=== PATIENT | male | born 1955 | race Caucasian/White ===

== ENCOUNTER → 2019-03-25 10:57 | Outpatient (CLI) | payer BC, SELFPAY ==
[2019-03-25 10:26] VITALS: BMI 26.8
[2019-03-25 12:14] LABS: ALB/GLOB Ratio 1.1 RATIO (0.9-2.4); AST(SGOT) 22 U/L (15-37); Alanine Aminotransfer ALT/SGPT 30 U/L (16-61); Albumin, Serum 3.7 g/dL (3.2-5.0); Alkaline Phosphatase 88 U/L (45-117); Anion Gap 8 (5-15); BUN 23 mg/dL (7-18); BUN/Creat Ratio 21.1 RATIO (10-20); Calcium,Total 8.9 mg/dL (8.5-10.1); Chloride 107 mmol/L (98-107); Cholesterol 215 mg/dL (200); Creatinine, Serum 1.09 mg/dL (0.70-1.30); EST Glomerular Filtration Rate 72 mL/min (>60); Est Glom Filt Rate - Afr Amer 87 mL/min (>60); Globulin 3.3 g/dL (2.2-4.2); Glucose 94 mg/dL (74-106); High Density Lipoprotein 46 mg/dL; Potassium 4.5 mmol/L (3.5-5.1); Sodium Level 140 mmol/L (136-145); Triglycerides 160 mg/dL; Very Low Density Lipoprotein 32 mg/dL (5-40)
== END ==
PROVIDERS: Family Provider Nurse Practitioner Family; PCP Internal Medicine; Visit Provider Internal Medicine
DX: K76.0 Fatty (change of) liver, not elsewhere classified (principal); E78.5 Hyperlipidemia, unspecified
CPT/HCPCS: 36415; 80053; 80061

== ENCOUNTER 2019-05-12 18:47 | Inpatient (IN) | payer BC, MEDICARE, SELFPAY ==
[2019-03-25 10:26] VITALS: BMI 26.8
[2019-05-12] VITALS (17 sets, daily range): BP systolic 89–132; BP diastolic 50–92; PULSE 48–104; RESP 14–26; TEMP 36.1; O2SAT 94–100; BMI 26.9; BMI 28.3; BMI 27.4; BMI 27.5
[2019-05-12] MEDS: Atropine Sulfate 1 MG/10 ML Syringe IV (19:00)
--- NOTE | 2019-05-12 19:01 | EKG12_ITS ---
Test Reason : CP Blood Pressure : / mmHG Vent. Rate : 044 BPM Atrial Rate : 044 BPM P-R Int : 136 ms QRS Dur : 076 ms QT Int : 454 ms P-R-T Axes : 014 023 068 degrees QTc Int : 388 ms Marked sinus bradycardia with occasional Premature ventricular complexes Abnormal ECG Poor R Wave Progression Inferior Infarct Confirmed by MIGDALIA PIKE, ANJELICA ([id number]), medical transcription editor LUKAS SIGALA ([id number]) on 05/14/2019 1:35:07 PM Referred By: Malcom Jimenez Confirmed By:ANJELICA NEGRON MD
--- NOTE | 2019-05-12 19:06 | RAD_ITS ---
STUDY: X-RAY CHEST REASON FOR EXAM: Male, 63 years old. Chest pain. TECHNIQUE: Single AP portable view of the chest. COMPARISON: None. FINDINGS: Mild cardiomegaly. Pulmonary vascularity unremarkable. Aorta unremarkable. No focal patchy airspace opacities. No pleural effusions. Slightly coarse lung markings. Upper abdomen unremarkable. Osseous structures intact. No pneumothorax. Degenerative changes at the shoulders and spine. Osteopenia. RAD/Chest 1 View (Portable) IMPRESSION: No acute cardiopulmonary findings Electronically Signed: Shon Molina DO at 19:20 EDT Tel , Service support ,
[2019-05-12] MEDS: 0.9% Normal Saline 1,000 ML 1000 ML IV (19:08)
[2019-05-12] MEDS: Heparin Injection (Vial) 5,000 UNIT/ML VIAL 4000 UNIT IV (19:14)
[2019-05-12] MEDS: Aspirin 81 MG TAB.CHEW 324 MG PO (19:14)
[2019-05-12] MEDS: TICAGRELOR 90 MG TABLET 180 MG PO (19:15)
[2019-05-12] MEDS: 0.9% Normal Saline 1,000 ML 150 ML IV ×2 (19:26→22:29)
--- NOTE | 2019-05-12 19:26 | HP.PCM_ITS ---
History of Present Illness Date of Admission: 05/12/19 Chief Complaint: epigatric pain, nausea The patient is a 63 year old M with past medical history as listed. He was admitted to the ED on 05/12/2019 with a complaint of epigastric pain and nausea as well as vomiting. Symptoms started around 6 PM on the day of admission. He had no associated shortness of breath or syncope. and daughter stated that patient had had a slow heart rate and they have been concerned about this and I discussed it with his primary care doctor but primary care doctor had stated that it was not of concern. Today when symptoms started, and daughter stated that they checked his pulse and they noted it was very slow and that with him very worried. They could not give an exact number as to how slow it was. Therefore they decided to bring into the ED. Patient has never had a stress test or heart cath before. Review of systems otherwise negative. On admission in the ED, initial EKG done showed sinus bradycardia with heart rate of [address] changes in the inferior leads. Follow-up up EKG showed sinus rhythm with heart rate of 82 bpm and interventricular conduction delay and frequent PACs. At that EKG done showed acute ST elevation in the inferior leads with reciprocal changes in the lateral leads and STEMI alert was called. He was given aspirin, Brilinta and heparin in the ED and also given 1 dose of atropine. CBC and BMP were pending. Troponin was also pending. Chest x-ray showed no acute cardiopulmonary findings. Patient was sent emergently to the [facility] and to be admitted in the ICU afterwards. [] Past Medical History Past Medical History (Chronic Problems): Chronic Problems (Last Reviewed 03/25/19 @ 10:26 by Tali Vázquez) Bradycardia (Chronic) Fatty infiltration of liver (Chronic) Barretts esophagus (Chronic) GERD (gastroesophageal reflux disease) (Chronic) Vitamin A deficiency (Chronic) Gastritis (Chronic) Hyperlipidemia (Chronic) Asthma (Chronic) Hypertension (Chronic) Medical History: Medical History (Last Reviewed 03/25/19 @ 10:26 by Tali Vázquez) Elevated liver enzymes (Acute) R74.8 Barretts esophagus (Chronic) K22.70 GERD (gastroesophageal reflux disease) (Chronic) K21.9 Vitamin A deficiency (Chronic) E50.9 Gastritis (Chronic) K29.70 Hyperlipidemia (Chronic) E78.5 Asthma (Chronic) J45.909 Hypertension (Chronic) I10 Hiatal hernia K44.9 Allergies amoxicillin trihydrate [From Augmentin] Allergy (Verified 05/12/19 18:59) CANT BREATHE potassium clavulanate [From Augmentin] Allergy (Verified 05/12/19 18:59) CANT BREATHE tetracycline Allergy (Verified 05/12/19 18:59) BRONCHIAL SPASM Home Medications: Ambulatory Orders Medication Instructions Recorded multivitamin tablet 1 tab PO QAM 09/13/17 omeprazole 40 mg capsule,delayed 40 mg PO DAILY #90 cap 10/31/18 release lisinopril 5 mg tablet 5 mg PO DAILY #90 tab 12/20/18 krill oil 500 mg capsule 350 mg PO DAILY cap 03/25/19 Surgical History: Surgical History (Last Reviewed 03/25/19 @ 10:26 by Tali Vázquez) History of appendectomy Z98.890, Z90.49 History of back surgery Z98.890 History of testicular surgery Z98.890 History of tonsillectomy Z98.890, Z90.89 Lives: Spouse/ Significant Other Smoking Status: Never smoker Alcohol: Occasional Drugs: None - *Family History Maternal Family History: Family History (Last Reviewed 03/25/19 @ 10:26 by Tali Vázquez) Father Heart disease Myocardial infarction Sister Depression Grandfather Alcoholism History Items: Stroke Paternal Family History: Family History (Last Reviewed 03/25/19 @ 10:26 by Tali Vázquez) Father Heart disease Myocardial infarction Sister Depression Grandfather Alcoholism History Items: Heart Disease - father of a heart attack in his 50s Review of Systems Constitutional: Reports: Malaise, Weakness. Denies: Anorexia, Chills, Fever HEENT: Denies: Head Aches, Sinus Congestion, Sinus Drainage Cardiovascular: Denies: Chest Pain Respiratory: Denies: Cough, Shortness of Breath, Shortness of breath at rest, Shortness of breath upon exertion, Sputum production Gastrointestinal: Reports: Abdominal Pain, Nausea, Vomiting. Denies: Diarrhea, Dyspepsia Genitourinary: Denies: Dysuria Musculoskeletal: Denies: Joint Pain, Joint Tenderness Skin: Denies: Rash, Wounds Neurological: Denies: Numbness, Tingling, Focal weakness Psychiatric: Denies: Anxiety, Depression, Homicidal Ideations, Suicidal Ideations Hematologic/ Lymphatic: Denies: Easy Bruising, Easy Bleeding VTE Information - Inpt Only VTE Present on Admission: No VTE Pharm Prophylaxis ordered?: Yes Patient Problems: Active and Suspected Problems (Last Reviewed 03/25/19 @ 10:26 by Tali Vázquez) STEMI (ST elevation myocardial infarction) (Acute) - Physical Exam General: Alert, Oriented x3, Cooperative, No apparent distress HEENT: Atraumatic, PERRLA, EOMI, Normocephalic Oral: Moist Mucosa Neck: Supple, No JVD, Negative Carotid Bruits Lungs: Clear to auscultation, Normal air movement, No rhonchi, No wheeze, No rales Cardiovascular: Regular rate, Regular Rhythm, Normal S1, Normal S2, No murmurs Abdomen: Bowel Sounds Present, Soft, Non Tender Extremities: No clubbing, No cyanosis, No edema, Capillary Refill Less than 3 Seconds, - Skin: No rashes, No breakdown Musculoskeletal: No Tenderness to Palpation of Joints or Extremities, - - pressure dressing over right wrist (site of cath) Lymphatic: No Cervical, Supraclavicular, or Inguinal Adenopathy Neurological: Cranial nerves II-XII grossly intact Psych/Mental Status: Normal Affect, Appropriate, Alert and oriented to time, place, person, mood and affect Vital Signs Temp Pulse Resp BP Pulse Ox 97 F L 99 14 132/92 H 100 05/12/19 18:47 05/12/19 19:07 05/12/19 19:12 05/12/19 19:12 05/12/19 19:18 Oxygen Flow Rate (L/min) 2 Oxygen Delivery Method Nasal Cannula Weight: 197 lb 8.547 oz Body Mass Index (BMI) 28.3 Finger Stick Blood Glucose 98 Laboratory Tests Past 24 Hrs 05/12/19 05/12/19 05/12/19 19:15 19:15 19:15 WBC Pending RBC Pending Hgb Pending Hct Pending MCV Pending MCH Pending MCHC Pending RDW Std Deviation Pending RDW Coeff of Daija Pending Plt Count Pending Neut % (Auto) Pending Absolute Neuts (auto) Pending PT Pending INR Pending APTT Pending Sodium Pending Potassium Pending Chloride Pending Carbon Dioxide Pending Anion Gap Pending BUN Pending Creatinine Pending Est GFR (MDRD) Af Amer Pending Est GFR (MDRD) Non-Af Pending BUN/Creatinine Ratio Pending Glucose Pending Calcium Pending Total Bilirubin Pending Direct Bilirubin Pending AST Pending ALT Pending Alkaline Phosphatase Pending Troponin I Pending Total Protein Pending Albumin Pending Lipase Pending Diagnostic Data Chest X-Ray 05/12/19 19:06 IMPRESSION: No acute cardiopulmonary findings Electronically Signed: Shon Craigjennifer, DO at 19:20 EDT Tel , Service support , Assessment/Plan All Active Problems (Last Reviewed 03/25/19 @ 10:26 by Tali Vázquez) STEMI (ST elevation myocardial infarction) (Acute) Vertigo (Acute) Elevated liver enzymes (Acute) 63 y/o admitted with a complaint of epigastric and low sternal pain. 1. STEMI * EKG study eventually showed ST elevation in the inferior leads. * STEMI alert called and patient given aspirin, Brilinta and statin. * cath findings: successful PCI with ORQUIDEA and PTCA to distal RCA and PDA * currently on integrilin drip; to continue for the next 18 hours, according to cardiology. continue aspirin and brilinta. * started on high intensity statin,a dn also received 2.5mg of lopressor; per cardiology, to start 12.5mg bid of lopressor tomorrow. to discuss with cardio logy about bradycardia before initiation of lopressor. * will need cardiac rehab after discharge. Per cardiology, may need CABG in the future. * 2. Hypertension: On lisinopril. Will continue. 3. Sinus bradycardia: * Patient's heart rate was 48 at time of admission. * According to family, patient has had a history of sinus bradycardia. * PCPs notes reviewed. From August 2018, it is documented the patient had concerns of sinus bradycardia but heart rate then was 66 and was considered to have been resolved and patient stable. * 2D echo 3. Hyperlipidemia: on statin 4. Asthma: breathing treatments. Titrate oxygen to maintain sats>90% 5. GERD and Shukla's esophagus: on omeprazole DVT prophylaxis: SCDs for now. Code Visit Inpatient E&M: 33544 Init Hosp L3
--- NOTE | 2019-05-12 19:37 | EKG12_ITS ---
Test Reason : CP Blood Pressure : / mmHG Vent. Rate : 082 BPM Atrial Rate : 045 BPM P-R Int : 000 ms QRS Dur : 140 ms QT Int : 478 ms P-R-T Axes : 000 253 061 degrees QTc Int : 558 ms Suspect arm lead reversal, interpretation assumes no reversal Undetermined rhythm Nonspecific intraventricular block Possible Right ventricular hypertrophy Inferior infarct , age undetermined Anterolateral infarct , age undetermined Abnormal ECG Confirmed by MIGDALIA PIKE, ANJELICA ([id number]), sports editor LUKAS SIGALA ([id number]) on 05/14/2019 1:36:02 PM Referred By: Malcom Jimenez Confirmed By:ANJELICA NEGRON MD
--- NOTE | 2019-05-12 19:38 | EKG12_ITS ---
Test Reason : CP Blood Pressure : / mmHG Vent. Rate : 098 BPM Atrial Rate : 098 BPM P-R Int : 152 ms QRS Dur : 088 ms QT Int : 342 ms P-R-T Axes : 047 068 097 degrees QTc Int : 436 ms Normal sinus rhythm ST elevation consider inferior injury or acute infarct ACUTE NC / STEMI Consider right ventricular involvement in acute inferior infarct Abnormal ECG Confirmed by MIGDALIA PIKE, ANJELICA ([id number]), senior editor LUKAS SIGALA ([id number]) on 05/14/2019 1:36:45 PM Referred By: Malcom Jimenez Confirmed By:ANJELICA NEGRON MD
--- NOTE | 2019-05-12 19:43 | ED.VIS.GEN ---
History of Present Illness Chief Complaint: Dizziness Informant: Patient Onset: Today Current Severity: Mild Maximum Severity: Moderate Narrative: Patient presents with chief complaint of sudden onset epigastric and low sternal pain. He had 2 episodes of vomiting. He denies shortness of breath. He had no syncopal event. Patient states he has a history of hypertension and high cholesterol. His doctor has commented that his heart rate tends to be on the slow side, but was not concerned with it. He denies ever having a stress test or heart cath. Past Medical History - Allergies and Home Meds Allergies/Adverse Reactions: Allergies amoxicillin trihydrate [From Augmentin] Allergy (Verified 05/12/19 18:59) CANT BREATHE potassium clavulanate [From Augmentin] Allergy (Verified 05/12/19 18:59) CANT BREATHE tetracycline Allergy (Verified 05/12/19 18:59) BRONCHIAL SPASM Doctors: Dr. Dahl Prior records reviewed: Yes Past Medical History: - - Reviewed Lives: Spouse/ Significant Other Smoking Status: Never smoker Review of Systems General: Denies: Chills, Fever Eyes: Denies: Visual changes - bilaterally ENT: Denies: Bilateral ear pain Cardiovascular: Reports: Chest pain Respiratory: Denies: Dyspnea Gastrointestinal: Reports: Abdominal pain, Nausea, Vomiting Musculoskeletal: Denies: Back pain Skin: Denies: Rash Neurological: Denies: Headache Psych: Denies: Depression Endocrine: Denies: Polyuria, Polydipsia Hematologic: Denies: Easy bruising Allergy: Denies: Uticaria Physical Exam Vital Signs/Narrative: Vital Signs Temp Pulse Resp BP Pulse Ox 05/12/19 19:18 100 05/12/19 19:12 14 132/92 H 05/12/19 19:07 99 20 H 117/81 H 99 05/12/19 18:59 48 L 94/59 L 05/12/19 18:47 97 F L 48 L 16 89/50 L 98 Inital Vital Signs reviewed: Yes General: Well nourished, Well developed Eyes: EOMI ENT: Moist mucous membranes Cardiovascular: Bradycardia Respiratory: No distress, CTA bilaterally Abdomen: Soft, Nontender Extremities: Nontender, No edema Skin: Pallor Neurological: Alert, Oriented x3 Psychological: - - Anxious Diagnostic/Tx/Re-eval Impressions Chest X-Ray 05/12/19 19:06 IMPRESSION: No acute cardiopulmonary findings Electronically Signed: Shon Molina, DO at 19:20 EDT Tel , Service support , 05/12/19 19:06 Chest 1 View (Portable) [RAD] Stat Laboratory Results 05/12/19 05/12/19 19:15 19:15 WBC 3.8 L RBC 2.01 L Hgb 6.9 L Hct 20.3 L MCV 101.0 H MCH 34.3 H MCHC 34.0 RDW Std Deviation 43.6 RDW Coeff of Daija 11.9 Plt Count 71 L MPV 8.7 Immature Gran % (Auto) 0.500 Neut % (Auto) 68.1 Lymph % (Auto) 21.7 Becker % (Auto) 8.4 Eos % (Auto) 1.0 Baso % (Auto) 0.3 Absolute Neuts (auto) 2.6 Absolute Lymphs (auto) 0.83 Nucleated RBC % 0 PT Cancelled INR Cancelled APTT Cancelled - EKG Initial EKG Interpretation: Sinus Bradycardia - Sinus bradycardia at [address] changes in the inferior leads. PAC is noted. Follow-up EKG Interpretation: Sinus Rhythm - Sinus at 82 with intraventricular conduction delay and frequent PACs. - Medical Decision Making 30 EKG was performed. This reveals acute ST segment elevation in the inferior leads with reciprocal changes in the high lateral leads. STEMI alert has been called. Patient received IV fluids along with 1 mg of IV atropine. Following identification of acute STEMI patient was given aspirin, Brilinta, and heparin. Heart rate maintained between 90 and 105. Patient was consented for heart cath. Patient was escorted to the [facility]. Cardiology saw the patient in the emergency room. Family was updated throughout. When CBC returned it is noted the patient appears to have pancytopenia with a hemoglobin of 6.9. I ordered 2 units of blood to have crossmatched. I was then notified by nursing staff that the blood was drawn above his IV line and may be diluted. It will be redrawn in the [facility] and checked. ED Disposition - Plan for ED Patient: Disposition: Acute Care Hospital [facility] Diagnosis: STEMI (ST elevation myocardial infarction)
--- NOTE | 2019-05-12 21:07 | NURSING ---
verbal order from dr gustafson read back to this rn to continue to infuse integrillin for 18 hours
--- NOTE | 2019-05-12 21:16 | EKG12_ITS ---
Test Reason : CP Blood Pressure : / mmHG Vent. Rate : 051 BPM Atrial Rate : 051 BPM P-R Int : 166 ms QRS Dur : 076 ms QT Int : 416 ms P-R-T Axes : 055 -10 078 degrees QTc Int : 383 ms Sinus bradycardia Low voltage QRS Inferior infarct , possibly acute * ACUTE MA Consider right ventricular involvement in acute inferior infarct Anterior MA, age undetermined, cannot be excluded Abnormal ECG Confirmed by GERRI PIKE, KENDAL ([id number]), web editor LUKAS SIGALA ([id number]) on 05/22/2019 1:01:52 PM Referred By: Malcom Jimenez Confirmed By:KENDAL TALLEY MD
--- NOTE | 2019-05-12 21:25 | ECHOCS_ITS ---
Reason For Study: S/P [place] Procedure This was a 2D Doppler, Color Flow transthoracic echocardiogram. The study was technically difficult. Contrast injection was performed. Exam performed portable in ICU/CCU. Left Ventricle Normal LV size. Mild segmental systolic dysfunction (see wall motion). The estimated ejection fraction is 50 %. Stage 1 diastolic dysfunction. Mid-Inferior: Mildly hypokinetic. Infero-Basal: Mildly hypokinetic. The rest of the wall segments are normal. Right Ventricle Normal RV size. Normal systolic function. Atria The left atrium is mildly enlarged. Normal right atrium. Mitral Valve Normal mitral valve. Tricuspid Valve Normal tricuspid valve. Mild tricuspid valve insufficiency. Pulmonary artery systolic pressure is 26 mmHg. Aortic Valve Normal aortic valve. Trisinus/trileaflet aortic valve. Pulmonic Valve Normal pulmonic valve. Great Vessels Normal aortic root. The pulmonary artery is normal size. Normal inferior vena cava. Pericardium/Pleural No pericardial effusion. Medication Diluted definity 3ml given slow IV push to enhance endocardial definition. MMode/2D Measurements & Calculations LVIDd: 4.5 cm IVSd: 1.0 cm Ao root diam: 3.2 cm LVIDs: 3.1 cm LVPWd: 1.0 cm RVDd: 4.0 cm FS: 31.1 % LAV(MOD-bp): 52.8 ml LA A4 area: 21.2 cm2 LA dimension(2D): 3.7 cm LAV(MOD-bp) Indexed: 25.5 ml/m2 LAV(MOD-sp2): 43.5 ml LAV(MOD-sp4): 61.2 ml RA A4 area: 12.8 cm2 Time Measurements MV aug time: 0.19 sec Doppler Measurements & Calculations MV E max andrea: 62.7 cm/sec Lat Peak E' Andrea: 9.5 cm/sec Med Peak E' Andrea: 8.8 cm/sec MV A max andrea: 98.6 cm/sec E/E' lat: 6.6 E/E' med: 7.1 MV E/A: 0.64 Ao V2 max: 112.4 cm/sec LV V1 max: 99.7 cm/sec PA V2 max: 78.8 cm/sec Ao max P.1 mmHg LV V1 max P.0 mmHg TR max andrea: 235.4 cm/sec TR max P.4 mmHg Interpretation Summary Normal LV size. Mild segmental systolic dysfunction (see wall motion). The estimated ejection fraction is 50 %. Stage 1 diastolic dysfunction. Pulmonary artery systolic pressure is 26 mmHg. Contrast injection was performed. Ordering Physician: Tavo Bynum Referring Physician: RASHMI BUCIO Performed By: Alexa Mcnair RDCS, RVT
--- NOTE | 2019-05-12 21:27 | PCM.CONS.C ---
Problem List (1) STEMI (ST elevation myocardial infarction) Status: Acute Reason for Consult Date of Consultation: 05/12/19 Reason for Consultation: ST elevation myocardial infarction History of Present Illness: The patient is a 63 year old M who was driven to the emergency room by his family. Approximately 1-1/2 hours before presentation, he experienced episodes of nausea and vomiting. The patient also had significant diaphoresis, along with left arm pain. He was driven by his family to the emergency department. ECG in the emergency department showed evidence of marked sinus bradycardia at 44 bpm with evidence of subtle ST elevations in leads II, 3, aVF. The first ECG was rather nondiagnostic. Subsequent EKG showed clearly ST elevations in leads II, 3, aVF, the STEMI alert was called. The patient received heparin 4000 units, he was loaded with aspirin and Brilinta. At the moment of my exam, the patient was in significant distress, complaining of severe chest pain. Past medical history is notorious for hypertension, on lisinopril. Past Medical History Allergies/Adverse Reactions: Allergies amoxicillin trihydrate [From Augmentin] Allergy (Verified 05/12/19 18:59) CANT BREATHE potassium clavulanate [From Augmentin] Allergy (Verified 05/12/19 18:59) CANT BREATHE tetracycline Allergy (Verified 05/12/19 18:59) BRONCHIAL SPASM Home Medications: Ambulatory Orders Medication Instructions Recorded multivitamin tablet 1 tab PO QAM 09/13/17 omeprazole 40 mg capsule,delayed 40 mg PO DAILY #90 cap 10/31/18 release lisinopril 5 mg tablet 5 mg PO DAILY #90 tab 12/20/18 krill oil 500 mg capsule 500 mg PO DAILY cap 03/25/19 Past Medical History (Chronic Problems): Chronic Problems (Last Reviewed 03/25/19 @ 10:26 by Tali Vázquez) Bradycardia (Chronic) Fatty infiltration of liver (Chronic) Barretts esophagus (Chronic) GERD (gastroesophageal reflux disease) (Chronic) Vitamin A deficiency (Chronic) Gastritis (Chronic) Hyperlipidemia (Chronic) Asthma (Chronic) Hypertension (Chronic) Lives: Spouse/ Significant Other Smoking Status: Never smoker Alcohol: Occasional Drugs: None Review of Systems - Review of Systems General: Denies: Fever, Night Sweats, Fatigue Cardiovascular: Denies: Chest Discomfort, Shortness of Breath, Orthopnea, PND, Peripheral Edema, Palpitations, Lightheadedness, Dizziness, Near Syncope, Syncope Respiratory: Denies: Cough, Sputum Production, Hemoptysis Gastrointestinal: Denies: Hematemesis, Hematochezia, Melena Genitourinary: Denies: Dysuria, Hematuria Skin: Denies: Rash Objective: Vital Signs Temp Pulse Resp BP Pulse Ox 97 F L 99 14 132/92 H 100 05/12/19 18:47 05/12/19 19:07 05/12/19 19:12 05/12/19 19:12 05/12/19 19:18 Oxygen Flow Rate (L/min) 2 Oxygen Delivery Method Nasal Cannula Weight: 89.6 kg Body Mass Index (BMI) 28.3 Finger Stick Blood Glucose 98 General: Awake, Alert, Oriented x 3, In Acute Distress HEENT: PERRL, EOMI, Sclera Non Icteric Neck: Supple, Good ROM, No Lymph Node Enlargement Lungs: Clear to auscultation Cardiovascular: Regular Rhythm, Normal S1, Normal S2, No Murmurs, No Rubs, No Gallops Vascular: No Carotid Bruits, Normal Femoral Pulses, Normal Radial Pulses, Normal Dorsalis Pedal Pulse, Normal Posterior Tibial Pulses Abdomen: Bowel Sounds Present, Soft, Non Tender, No HSM, No Organomegaly Extremities: No Cyanosis, No Clubbing, No edema Neurological: No Focal Motor or Sensory Deficit 05/12/19 19:15: WBC Cancelled, Corrected WBC Cancelled, RBC Cancelled, Hgb Cancelled, Hct Cancelled, MCV Cancelled, MCH Cancelled, MCHC Cancelled, Plt Count Cancelled, MPV Cancelled, Immature Gran % (Auto) Cancelled, Neut % (Auto) Cancelled, Lymph % (Auto) Cancelled, [place] % (Auto) Cancelled, Eos % (Auto) Cancelled, Baso % (Auto) Cancelled, Absolute Neuts (auto) Cancelled, Total Counted Cancelled, Neutrophils % (Manual) Cancelled, Band Neutrophils % Cancelled, Lymphocytes % (Manual) Cancelled, Monocytes % (Manual) Cancelled, Eosinophils % (Manual) Cancelled, Basophils % (Manual) Cancelled, Metamyelocytes % Cancelled, Myelocytes % Cancelled, Promyelocytes % Cancelled, Blast Cells % Cancelled, Plasma Cell % (Manual) Cancelled, Other Cells % Cancelled, Nucleated RBC % Cancelled 05/12/19 19:15: Sodium Cancelled, Potassium Cancelled, Chloride Cancelled, Carbon Dioxide Cancelled, Anion Gap Cancelled, BUN Cancelled, Creatinine Cancelled, Est GFR (MDRD) Af Amer Cancelled, Est GFR (MDRD) Non-Af Cancelled, BUN/Creatinine Ratio Cancelled, Glucose Cancelled, Calcium Cancelled, Total Bilirubin Cancelled, Direct Bilirubin Cancelled, Troponin I Cancelled 05/12/19 19:15: PT Cancelled, INR Cancelled, APTT Cancelled Rhythm: EKG: Sinus rhythm/tachycardia with evidence of ST elevations in inferior leads. Assessment/Plan 1. Acute inferior ST elevation myocardial infarction. 2. History of hypertension. We will proceed to the cardiac catheterization laboratory emergently. Overall prognosis is guarded. Further management will be dependent upon the function of cardiac catheterization. Over 1 hour of critical care time was spent for the patient's encounter, including discussion with multiple providers and immediate care of the patient. Code Visit Inpatient E&M: 47072 Init Hosp L3
[2019-05-12 22:31] LABS: Absolute Lymphocyte Count 0.97 X10^3/uL (0.83-4.51); Absolute Neutrophil Count 7.9 X10^3/uL (2.0-7.7); Basophil# 0.03 X10^3/uL; Basophil% 0.3 % (0-1); Eosinophil# 0.01 X10^3/uL; Eosinophils% 0.1 % (0-5); Hematocrit 40.1 % (40-54); Hemoglobin 13.8 g/dL (13.0-16.5); Lymphocyte # 0.97 X10^3/ul (4.0); Lymphocyte % 10.4 % (19-41); Mean Corp Hgb Conc 34.4 g/dL (32-36); Mean Corpuscular Hgb 33.6 pg (27.0-32.0); Mean Corpuscular Volume 97.6 fL (80-94); Mean Platelet Vol. 9.2 fl (6.2-12.0); Monocyte# 0.45 X10^3/uL; Monocyte% 4.8 % (0-10); NRBC Flagged by Analyzer 0 % (0-5); Neutrophil # 7.87 X10^3/uL (2.7-7.7); Neutrophil % 84.1 % (47-70); Platelet Count 168 K/mm3 (150-450); RBC Distribution Width CV 11.6 % (11.6-14.6); RBC Distribution Width SD 41.7 fl (35.1-43.9); Red Blood Count 4.11 M/mm3 (4.6-6.2); White Blood Count 9.4 K/mm3 (4.4-11.0)
[2019-05-12] MEDS: Metoprolol Tartrate 25 MG Tablet 12.5 MG PO (22:32)
[2019-05-12] MEDS: Atorvastatin Calcium 80 MG Tablet PO (22:32)
[2019-05-12 22:46] LABS: Anion Gap 8 (5-15); BUN 20 mg/dL (7-18); BUN/Creat Ratio 17.1 RATIO (10-20); Calcium,Total 7.4 mg/dL (8.5-10.1); Chloride 109 mmol/L (98-107); Creatinine, Serum 1.17 mg/dL (0.70-1.30); EST Glomerular Filtration Rate 66 mL/min (>60); Est Glom Filt Rate - Afr Amer 80 mL/min (>60); Estimated Creatinine Clearance 64.99 ml/min; Glucose 101 mg/dL (74-106); Potassium 3.9 mmol/L (3.5-5.1); Sodium Level 141 mmol/L (136-145)
[2019-05-12 23:42] LABS: International Normalized Ratio 1.3; Prothrombin Time (Protime)PT. 16.2 SECONDS (11.7-14.9)
[2019-05-12 23:43] LABS: Partial Thromboplast Time 66.5 Seconds (24.1-36.2)
[2019-05-13] VITALS (27 sets, daily range): BP systolic 85–127; BP diastolic 48–68; PULSE 42–78; RESP 14–25; TEMP 36.4–37.2; O2SAT 93–99
[2019-05-13] MEDS: Ondansetron 4 MG/2 ML Vial IV ×2 (02:58→11:18)
[2019-05-13] MEDS: 0.9% NaCl Peripheral Flush Adult/Peds IV ×2 (02:58→11:18)
[2019-05-13 04:18] LABS: Absolute Lymphocyte Count 1.04 X10^3/uL (0.83-4.51); Absolute Neutrophil Count 8.1 X10^3/uL (2.0-7.7); Basophil# 0.02 X10^3/uL; Basophil% 0.2 % (0-1); Hemoglobin 13.6 g/dL (13.0-16.5); Lymphocyte # 1.04 X10^3/ul (4.0); Lymphocyte % 10.5 % (19-41); Mean Corp Hgb Conc 34.9 g/dL (32-36); Mean Corpuscular Hgb 34.1 pg (27.0-32.0); Mean Corpuscular Volume 97.7 fL (80-94); Mean Platelet Vol. 9.3 fl (6.2-12.0); Monocyte# 0.71 X10^3/uL; Monocyte% 7.2 % (0-10); NRBC Flagged by Analyzer 0 % (0-5); Neutrophil # 8.13 X10^3/uL (2.7-7.7); Neutrophil % 81.8 % (47-70); Platelet Count 164 K/mm3 (150-450); RBC Distribution Width CV 11.9 % (11.6-14.6); RBC Distribution Width SD 42.7 fl (35.1-43.9); Red Blood Count 3.99 M/mm3 (4.6-6.2); White Blood Count 9.9 K/mm3 (4.4-11.0)
[2019-05-13 04:22] LABS: Anion Gap 7 (5-15); BUN 22 mg/dL (7-18); BUN/Creat Ratio 19.6 RATIO (10-20); Calcium,Total 7.9 mg/dL (8.5-10.1); Chloride 108 mmol/L (98-107); Creatinine, Serum 1.12 mg/dL (0.70-1.30); EST Glomerular Filtration Rate 70 mL/min (>60); Est Glom Filt Rate - Afr Amer 85 mL/min (>60); Estimated Creatinine Clearance 67.89 ml/min; Glucose 125 mg/dL (74-106); Potassium 4.8 mmol/L (3.5-5.1); Sodium Level 138 mmol/L (136-145)
[2019-05-13] MEDS: 0.9% Normal Saline 1,000 ML 999 ML IV (05:29)
[2019-05-13] MEDS: 0.9% Normal Saline 1,000 ML 150 ML IV ×2 (06:12→13:17)
--- NOTE | 2019-05-13 07:14 | PN.CARD_ITS ---
Subjectve: Patient seen and evaluated. Appears to be doing well. No obvious cardiac complaints of chest pain. Objective: Vital Signs Temp Pulse Resp BP Pulse Ox 97.9 F 48 L 16 97/57 L 96 05/13/19 04:00 05/13/19 07:00 05/13/19 07:00 05/13/19 07:00 05/13/19 07:00 Oxygen Flow Rate (L/min) 2 Oxygen Delivery Method Room Air Weight: 196 lb 3.382 oz Body Mass Index (BMI) 27.4 Finger Stick Blood Glucose 98 Intake and Output for Last 24 Hours 05/11/19 05/12/19 05/13/19 23:59 23:59 23:59 Intake Total 1958.4 / 1958.4 Output Total 650 / 650 Balance 1308.4 / 1308.4 General: Awake, Alert, Oriented x 3 HEENT: PERRL, EOMI, Sclera Non Icteric Neck: Supple, Good ROM, No Lymph Node Enlargement Lungs: Clear to auscultation Cardiovascular: Regular Rhythm, Normal S1, Normal S2, No Murmurs, No Rubs, No Gallops Vascular: No Carotid Bruits, Normal Femoral Pulses, Normal Radial Pulses, Normal Dorsalis Pedal Pulse, Normal Posterior Tibial Pulses Abdomen: Bowel Sounds Present, Soft, Non Tender, No HSM, No Organomegaly Extremities: No Cyanosis, No Clubbing, No edema Musculoskeletal: No Erythema Skin: No Rashes Lymphatic: No Lymph Node Enlargement Neurological: No Focal Motor or Sensory Deficit Psych/Mental Status: Appropriate 05/12/19 19:15: WBC Cancelled, Corrected WBC Cancelled, RBC Cancelled, Hgb Cancelled, Hct Cancelled, MCV Cancelled, MCH Cancelled, MCHC Cancelled, Plt Count Cancelled, MPV Cancelled, Immature Gran % (Auto) Cancelled, Neut % (Auto) Cancelled, Lymph % (Auto) Cancelled, [place] % (Auto) Cancelled, Eos % (Auto) Cancelled, Baso % (Auto) Cancelled, Absolute Neuts (auto) Cancelled, Total Counted Cancelled, Neutrophils % (Manual) Cancelled, Band Neutrophils % Cancelled, Lymphocytes % (Manual) Cancelled, Monocytes % (Manual) Cancelled, Eosinophils % (Manual) Cancelled, Basophils % (Manual) Cancelled, Metamyelocytes % Cancelled, Myelocytes % Cancelled, Promyelocytes % Cancelled, Blast Cells % Cancelled, Plasma Cell % (Manual) Cancelled, Other Cells % Cancelled, Nucleated RBC % Cancelled 05/12/19 19:15: Sodium Cancelled, Potassium Cancelled, Chloride Cancelled, Carbon Dioxide Cancelled, Anion Gap Cancelled, BUN Cancelled, Creatinine Cancelled, Est GFR (MDRD) Af Amer Cancelled, Est GFR (MDRD) Non-Af Cancelled, BUN/Creatinine Ratio Cancelled, Glucose Cancelled, Calcium Cancelled, Total Bilirubin Cancelled, Direct Bilirubin Cancelled, Troponin I Cancelled 05/12/19 19:15: PT Cancelled, INR Cancelled, APTT Cancelled 05/12/19 22:15: WBC 9.4, RBC 4.11 L, Hgb 13.8, Hct 40.1, MCV 97.6 H, MCH 33.6 H, MCHC 34.4, Plt Count 168, MPV 9.2, Immature Gran % (Auto) 0.300, Neut % (Auto) 84.1 H, Lymph % (Auto) 10.4 L, [place] % (Auto) 4.8, Eos % (Auto) 0.1, Baso % (Auto) 0.3, Absolute Neuts (auto) 7.9 H, Nucleated RBC % 0 05/12/19 22:15: PT Cancelled, INR Cancelled, APTT Cancelled 05/12/19 22:15: Sodium 141, Potassium 3.9, Chloride 109 H, Carbon Dioxide 24.0, Anion Gap 8, BUN 20 H, Creatinine 1.17, Est GFR (MDRD) Af Amer 80, Est GFR (MDRD) Non-Af 66, BUN/Creatinine Ratio 17.1, Glucose 101, Calcium 7.4 L 05/12/19 23:25: PT 16.2 H, INR 1.3, APTT 66.5 H 05/13/19 03:55: WBC 9.9, RBC 3.99 L, Hgb 13.6, Hct 39.0 L, MCV 97.7 H, MCH 34.1 H, MCHC 34.9, Plt Count 164, MPV 9.3, Immature Gran % (Auto) 0.300, Neut % (Auto) 81.8 H, Lymph % (Auto) 10.5 L, [place] % (Auto) 7.2, Eos % (Auto) 0.0, Baso % (Auto) 0.2, Absolute Neuts (auto) 8.1 H, Nucleated RBC % 0 05/13/19 03:55: Sodium 138, Potassium 4.8, Chloride 108 H, Carbon Dioxide 23.0, Anion Gap 7, BUN 22 H, Creatinine 1.12, Est GFR (MDRD) Af Amer 85, Est GFR (MDRD) Non-Af 70, BUN/Creatinine Ratio 19.6, Glucose 125 H, Calcium 7.9 L Rhythm: EKG: ECHO: Stress Test: Cardiac Cath: PCI: CT Surgery: Holter monitor: EPS: PPM: CXR: Chest CT Scan: Medical Necessity - Tobacco Use Smoking Status: Never smoker Assessment/Plan 1. Acute ST elevation myocardial infarction * Patient presented with an acute ST elevation microinfarction underwent angioplasty and stenting of the right coronary artery with thrombectomy. Has done well overnight. However has had some runs of nonsustained ventricular tachycardia which were asymptomatic. Patient was also hypotensive and required some IV fluid bolus. Currently pain-free blood pressure stable. * Patient signed out to me by covering interventionalist. * Will obtain echocardiogram to assess left ventricular function * Continue Integrilin until 18 hours post starting * Patient does have residual coronary artery disease and would need to be reevaluated regarding further therapy. This will be discussed later. * Further recommendations would be made as per clinical course. Would like to keep patient in the ICU until fairly stable, echo has been performed, and Integrilin off. * Continue high intensity statin.
[2019-05-13 08:55] LABS: Magnesium 2.1 mg/dL (1.6-2.6); Phosphorus 2.7 mg/dL (2.5-4.9)
[2019-05-13] MEDS: Aspirin 81 MG TAB.CHEW PO (09:04)
[2019-05-13] MEDS: TICAGRELOR 90 MG TABLET PO ×2 (09:04→22:32)
[2019-05-13] MEDS: Pantoprazole Sodium 40 MG Tablet PO (09:04)
[2019-05-13] MEDS: Multivitamins,Therapeutic Tablet 1 TABLET PO (09:05)
--- NOTE | 2019-05-13 09:46 | CASEMGMT ---
RN CM Assessment Presentation: STEMI, 3 stents to RCA, 1 stent to PDA Intro role of CM and purpose of RN CM assessment to patient in room. Pt is awake, alert and able to participate in assessment. Demographics, PCP and Pharmacy verified. Pt is concerned re: his employment, states he hopes this does not impact his job. States he is eligible for [employer], however wishes to continue to work for 2 more years. Emotional support provided. PCP: Domingo Morrow NP Specialists: Dr. Torres Preferred Pharmacy: [facility] Insurance: [employer] Prescription Benefit: yes. [employer] savings card given to patient and explained. LNOK: Kesha Quintero Living Arrangements: Lives independently with . States no care needs identified. Transportation: Drives or can drive DME: none HHC/SNF: none Patient DC goals: Home DC PLAN: Home on dc. Corinna SIERRA RN ACM
--- NOTE | 2019-05-13 10:59 | PN_ITS ---
Patient Problems: Active and Suspected Problems (Last Reviewed 03/25/19 @ 10:26 by Tali Vázquez) STEMI (ST elevation myocardial infarction) (Acute) Subjective: Some epigastric pain. Feeling much better. Vitals/I&O's: Vital Signs Temp Pulse Resp BP Pulse Ox 36.6 C 53 L 24 H 88/59 L 96 05/13/19 08:00 05/13/19 10:00 05/13/19 10:00 05/13/19 10:00 05/13/19 10:00 Oxygen Flow Rate (L/min) 2 Oxygen Delivery Method Room Air Weight: 89 kg Body Mass Index (BMI) 27.4 Finger Stick Blood Glucose 98 Intake and Output for Last 24 Hours 05/11/19 05/12/19 05/13/19 23:59 23:59 23:59 Intake Total 1958.4 / 1958.4 Output Total 650 / 650 Balance 1308.4 / 1308.4 General: Alert, No apparent distress HEENT: Atraumatic, Normocephalic Oral: Moist Mucosa, No Gingival or Mucosal Lesions/ Ulcerations Neck: No Nodes, Thyroid Normal Size and Texture Lungs: Clear to auscultation, Normal air movement, No rhonchi, No wheeze, No rales Cardiovascular: Regular rate, Regular Rhythm, Normal S1, Normal S2, No murmurs Abdomen: Bowel Sounds Present, Soft, Non-Distended, Tender - epigastric Extremities: No edema, No Calf Tenderness Skin: No rashes, No breakdown Musculoskeletal: No Tenderness to Palpation of Joints or Extremities, No Muscle Wasting Neurological: Sensory exam intact to light touch and pain, - - no clonus. Psych/Mental Status: Normal Affect, Appropriate Laboratory Results 05/12/19 19:15: WBC Cancelled, Corrected WBC Cancelled, RBC Cancelled, Hgb Cancelled, Hct Cancelled, MCV Cancelled, MCH Cancelled, MCHC Cancelled, RDW Std Deviation Cancelled, RDW Coeff of Daija Cancelled, Plt Count Cancelled, MPV Cancelled, Immature Gran % (Auto) Cancelled, Neut % (Auto) Cancelled, Lymph % (Auto) Cancelled, [place] % (Auto) Cancelled, Eos % (Auto) Cancelled, Baso % (Auto) Cancelled, Absolute Neuts (auto) Cancelled, Absolute Lymphs (auto) Cancelled, Total Counted Cancelled, Neutrophils % (Manual) Cancelled, Band Neutrophils % Cancelled, Lymphocytes % (Manual) Cancelled, Monocytes % (Manual) Cancelled, Eosinophils % (Manual) Cancelled, Basophils % (Manual) Cancelled, Metamyelocytes % Cancelled, Myelocytes % Cancelled, Promyelocytes % Cancelled, Blast Cells % Cancelled, Plasma Cell % (Manual) Cancelled, Other Cells % Cancelled, Nucleated RBC % Cancelled, Nucleated RBCs/100 WBC Cancelled, Differential Comment Cancelled, Diff Path Review Cancelled, Hypersegmented Neuts Cancelled, Atypical Lymphocytes Cancelled, Reactive Lymphocytes Cancelled, Smudge Cells Cancelled, Toxic Granulation Cancelled, Toxic Vacuolation Cancelled, Dohle Bodies Cancelled, Mert Rods Cancelled, Platelet Estimate Cancelled, Plt Morphology Comment Cancelled, RBC Morphology Cancelled, Polychromasia Cancelled, Hypochr omasia Cancelled, Poikilocytosis Cancelled, Basophilic Stippling Cancelled, Anisocytosis Cancelled, Microcytosis Cancelled, Macrocytosis Cancelled, Spherocytes Cancelled, Sickle Cells Cancelled, Target Cells Cancelled, Tear Drop Cells Cancelled, Ovalocytes Cancelled, Stomatocytes Cancelled, [place] Bodies Cancelled, [place] Cells Cancelled, Bite Cells Cancelled, Crenated Cell Cancelled, Acanthocytes (Spur) Cancelled, Rouleaux Cancelled, Schistocytes Cancelled 05/12/19 19:15: Sodium Cancelled, Potassium Cancelled, Chloride Cancelled, Carbon Dioxide Cancelled, Anion Gap Cancelled, BUN Cancelled, Creatinine Cancelled, Estim Creat Clear Calc Cancelled, Est GFR (MDRD) Af Amer Cancelled, Est GFR (MDRD) Non-Af Cancelled, BUN/Creatinine Ratio Cancelled, Glucose Cancelled, Calcium Cancelled, Total Bilirubin Cancelled, Direct Bilirubin Cancelled, AST Cancelled, ALT Cancelled, Alkaline Phosphatase Cancelled, Troponin I Cancelled, Total Protein Cancelled, Albumin Cancelled, Globulin Cancelled, Lipase Cancelled 05/12/19 19:15: PT Cancelled, INR Cancelled, APTT Cancelled 05/12/19 22:15: Blood Type O POSITIVE, Antibody Screen NEGATIVE, Crossmatch See Detail 05/12/19 22:15: WBC 9.4, RBC 4.11 L, Hgb 13.8, Hct 40.1, MCV 97.6 H, MCH 33.6 H, MCHC 34.4, RDW Std Deviation 41.7, RDW Coeff of Daija 11.6, Plt Count 168, MPV 9.2, Immature Gran % (Auto) 0.300, Neut % (Auto) 84.1 H, Lymph % (Auto) 10.4 L, [place] % (Auto) 4.8, Eos % (Auto) 0.1, Baso % (Auto) 0.3, Absolute Neuts (auto) 7.9 H, Absolute Lymphs (auto) 0.97, Nucleated RBC % 0 05/12/19 22:15: PT Cancelled, INR Cancelled, APTT Cancelled 05/12/19 22:15: Sodium 141, Potassium 3.9, Chloride 109 H, Carbon Dioxide 24.0, Anion Gap 8, BUN 20 H, Creatinine 1.17, Estim Creat Clear Calc 64.99, Est GFR (MDRD) Af Amer 80, Est GFR (MDRD) Non-Af 66, BUN/Creatinine Ratio 17.1, Glucose 101, Calcium 7.4 L 05/12/19 23:25: PT 16.2 H, INR 1.3, APTT 66.5 H 05/13/19 03:55: WBC 9.9, RBC 3.99 L, Hgb 13.6, Hct 39.0 L, MCV 97.7 H, MCH 34.1 H, MCHC 34.9, RDW Std Deviation 42.7, RDW Coeff of Daija 11.9, Plt Count 164, MPV 9.3, Immature Gran % (Auto) 0.300, Neut % (Auto) 81.8 H, Lymph % (Auto) 10.5 L, [place] % (Auto) 7.2, Eos % (Auto) 0.0, Baso % (Auto) 0.2, Absolute Neuts (auto) 8.1 H, Absolute Lymphs (auto) 1.04, Nucleated RBC % 0 05/13/19 03:55: Sodium 138, Potassium 4.8, Chloride 108 H, Carbon Dioxide 23.0, Anion Gap 7, BUN 22 H, Creatinine 1.12, Estim Creat Clear Calc 67.89, Est GFR (MDRD) Af Amer 85, Est GFR (MDRD) Non-Af 70, BUN/Creatinine Ratio 19.6, Glucose 125 H, Calcium 7.9 L 05/13/19 03:55: Phosphorus 2.7, Magnesium 2.1, Troponin I 73.000 H* Current Medications Albuterol Sulfate (Ventolin Aerosols) 2.5 mg INHALATION Q2H PRN PRN PRN Reason: Shortness of Breath/Wheezing Aspirin (Aspirin, Baby) 81 mg PO DAILY@0800 [facility] Last Admin: 05/13/19 09:04 Dose: 81 mg Documented by: Atorvastatin Calcium (Lipitor) 80 mg PO QHS [facility] Last Admin: 05/12/19 22:32 Dose: 80 mg Documented by: Dextrose (D50w Syringe) 0 gm IV X1 PRN; Protocol PRN Reason: Hypoglycemia Glucagon () 1 mg IM .X1 PRN PRN Reason: Hypoglycemia Sodium Chloride () 1,000 mls @ 150 mls/hr IV .Q6H40M [facility] Last Admin: 05/13/19 06:12 Dose: 150 mls/hr Documented by: Eptifibatide (Integrilin) 75 mg in 100 mls @ 14.336 mls/hr CONT INF .Q6H59M [facility] Last Admin: 05/13/19 09:04 Dose: 14.336 mls/hr Documented by: Sodium Chloride () 250 mls @ 15 mls/hr IV .[id number] PRN PRN Reason: SALINE FLUSH Lisinopril (Zestril) 5 mg PO DAILY [facility] Last Admin: 05/13/19 09:05 Dose: Not Given Documented by: Metoprolol Tartrate (Lopressor (Beta Krys)) 12.5 mg PO BID [facility] Last Admin: 05/13/19 08:41 Dose: Not Given Documented by: Morphine Sulfate () 2 mg IV Q4H PRN PRN PRN Reason: SEVERE PAIN (6-10/10) Multivitamins (Multivitamin) 1 tablet PO DAILY@0800 [facility] Last Admin: 05/13/19 09:05 Dose: 1 tablet Documented by: Ondansetron HCl (Zofran) 4 mg IV Q8H PRN PRN PRN Reason: NAUSEA/VOMITING Last Admin: 05/13/19 02:58 Dose: 4 mg Documented by: Pantoprazole Sodium (Protonix) 40 mg PO DAILY [facility] Last Admin: 05/13/19 09:04 Dose: 40 mg Documented by: Sodium Chloride () 10 - 40 ml IV UD PRN PRN Reason: SALINE FLUSH Last Admin: 05/13/19 02:58 Dose: 10 ml Documented by: Ticagrelor (Brilinta) 90 mg PO BID [facility] Last Admin: 05/13/19 09:04 Dose: 90 mg Documented by: Medical Necessity - Tobacco Use Smoking Status: Never smoker Assessment/Plan All Active Problems (Last Reviewed 03/25/19 @ 10:26 by Tali Vázquez) STEMI (ST elevation myocardial infarction) (Acute) Vertigo (Acute) Elevated liver enzymes (Acute) 1. STEMI * clinically stable * status post ORQUIDEA to RCA and PDA on 05/12 * Still with LAD and circ lesions, will need eval for CABG or high-risk PCI. To be referred at the discretion of cardiology. * on ASA, Atorvastatin and ticagrelor * on Integrilin for 18h (started 05.12 at 2120) * on metoprolol and lisinopril, lower doses given hypotension and bradycardia * follow up echocardiogram 2. bradycardia * improved * received several rounds of atropine * monitor 3. VTE: moderate risk. SCDs Code Visit Inpatient E&M: 86939 Subs Hosp L3
--- NOTE | 2019-05-13 13:48 | CRPHASE1_ITS ---
Patient Communication PHII Cardiac Rehab Discussed with Patient:: Yes Guide to Cardiac Rehab Given to Patient:: Yes Cardiac Rehab Facility Choice List Given to Patient:: Yes Choice Program [facility] PHII:: Communication Given to CR [place] [employer] T[facility]:: [place] Phase II Cardiac Rehab:: Yes Sessions:: 36 sessions - 3 days/wk, 12 weeks Risk Factors/Lifestyle Smoking Status: Never smoker Hx Hypertension: Yes Hx Diabetes Mellitus Type 1: No Hx Diabetes Mellitus Type 2: No Hx Metabolic Disorders: No Hx Dyslipidemia: Yes Hx Obesity: No Height: 5 ft 10 in - BMI 28.2 Stress: Home/Family Risk Factor for Sedentary Lifestyle: Moderate Risk Family History: Family History (Last Reviewed 03/25/19 @ 10:26 by Tali Vázquez) Father Heart disease Myocardial infarction Sister Depression Grandfather Alcoholism Phase I Education Given On:: [place], Nutrition, Antiplatelet medication Issues Affecting Care:: None Knowledge of Condition:: Yes Learning Preferences: Verbal, Written - FAMILY AT BEDSIDE Hospital Course Presenting Symptoms:: STEMI Medical/Surgical History AR:: Yes - STEMI CAD:: No Cardiomyopathy:: No Pulmonary:: No COPD:: No Diabetes:: No Hypertension:: Yes Dyslipidemia:: Yes GERD:: Yes - BARRETS AND FATTY LIVER Discharge/Home/Social Eval Discharge Disposition: Home Marital Status: Cardiac Rehabilitation Info Cardiac Rehabilitation Program Information: Cardiac Rehabilitation is important for patients like you who are recovering from a heart problem. Cardiac rehabilitation programs are recognized as integral to the continued care of the patient with coronary heart disease. The cardiac rehabilitation program is designed to optimize a patient's physical, psychological, and social functioning. Health care mgr work in cardiac rehabilitation programs and assist you with getting the treatments you need to get stronger and healthier - like exercise, healthy eating habits, and medications. Cardiac rehabilitation has been show to help people with heart problems live longer and have better life enjoyment than people who do not go to cardiac rehabilitation. Please contact the Cardiac Rehabilitation Program at [facility] at in two weeks if you have not heard from them.
--- NOTE | 2019-05-13 13:54 | CRPH1.INSTRU ---
General Education CAD and cardiac anatomy and function:: Patient communicates acknowledgment, Family communicates acknowledgment Explanation of diagnoses and procedures:: Patient communicates acknowledgment, Family communicates acknowledgment Sign/Symptoms of RI:: Patient communicates acknowledgment, Family communicates acknowledgment Antiplatelet therapy: Patient communicates acknowledgment, Family communicates acknowledgment Proper use of NTG-SL: Not instructed Emergency procedures and activation of EMS: Patient communicates acknowledgment, Family communicates acknowledgment Compliance of all prescribed medications: Patient communicates acknowledgment, Family communicates acknowledgment - FAMILY AT BEDSIDE Smoking Patient Nicotine/Smoking Risk Factors Are:: Never smoked Dyslipidemia Patient Dyslipidemia Risk Factors Are:: Total Cholesterol, Triglycerides Recommendations Include:: Lipid profile provided, Reviewed NCEP/ATP guidelines, Therapeutic Lifestyle Change dietary guidelines Dyslipidemia Response Code:: Patient communicates acknowledgment, Family communicates acknowledgment Overweight/Obesity Patient Overweight/Obesity Risk Factors Are:: BMI Normal [24-29 & > 65 years old] Hypertension Recommendations Include:: Maintain BP <130/85, DASH dietary guidelines, Decrease/maintain normal body weight, Moderation of ETOH Hypertension:: Patient communicates acknowledgment, Family communicates acknowledgment Heart Disease Recommendations Include:: Educated family members of their risk, Educated family members of importance of prevention of heart disease Heart Disease Response Code:: Patient communicates acknowledgment, Family communicates acknowledgment Diabetes Patient Diabetes Risk Factors Are:: No documented hx of diabetes Metabolic Syndrome Recommendations Include:: Does not meet criteria Sedentary Patient Sedentary Risk Factors Are:: Lack of regular exercise Recommendations Include:: Aerobic exercise 5-7 times/week for 20-30 minutes continuously, Benefits of regular exercise, Discussed home walking program, Monitored Outpatient Cardiac Rehab Sedentary Response Code:: Patient communicates acknowledgment Stress Recommendations Include:: Identification of stressors, and assessment of coping skills, Stress management techniques Stress Response Code:: Patient communicates acknowledgment, Family communicates acknowledgment
[2019-05-13] MEDS: Metoprolol Tartrate 25 MG Tablet 12.5 MG PO (22:32)
[2019-05-13] MEDS: Atorvastatin Calcium 80 MG Tablet PO (22:36)
[2019-05-14] VITALS (14 sets, daily range): BP systolic 94–125; BP diastolic 49–68; PULSE 58–73; RESP 15–23; TEMP 36.2–36.6; O2SAT 90–96
[2019-05-14 04:50] LABS: Hematocrit 38.8 % (40-54); Mean Corp Hgb Conc 33.5 g/dL (32-36); Mean Corpuscular Hgb 33.5 pg (27.0-32.0); Mean Platelet Vol. 9.4 fl (6.2-12.0); Platelet Count 155 K/mm3 (150-450); RBC Distribution Width CV 12.3 % (11.6-14.6); RBC Distribution Width SD 44.8 fl (35.1-43.9); Red Blood Count 3.88 M/mm3 (4.6-6.2); White Blood Count 9.4 K/mm3 (4.4-11.0)
--- NOTE | 2019-05-14 07:40 | PN.CARD_ITS ---
Subjectve: Patient seen and evaluated. Appears to be doing remarkably well. No chest pain no chest heaviness no dizziness when walking and no arrhythmias noted since yesterday. Objective: Vital Signs Temp Pulse Resp BP Pulse Ox 97.5 F L 58 L 20 H 116/68 94 05/14/19 04:00 05/14/19 06:00 05/14/19 06:00 05/14/19 06:00 05/14/19 06:00 Oxygen Flow Rate (L/min) 2 Oxygen Delivery Method Room Air Weight: 197 lb 1.492 oz Body Mass Index (BMI) 27.4 Finger Stick Blood Glucose 98 Intake and Output for Last 24 Hours 05/12/19 05/13/19 05/14/19 23:59 23:59 23:59 Intake Total 5575.4 / 6055.4 600 / 600 Output Total 2275 / 3350 1245 / 1245 Balance 3300.4 / 2705.4 -645 / -645 General: Awake, Alert, Oriented x 3 HEENT: PERRL, EOMI, Sclera Non Icteric Neck: Supple, Good ROM, No Lymph Node Enlargement Lungs: Clear to auscultation Cardiovascular: Regular Rhythm, Normal S1, Normal S2, No Murmurs, No Rubs, No Gallops Vascular: No Carotid Bruits, Normal Femoral Pulses, Normal Radial Pulses, Normal Dorsalis Pedal Pulse, Normal Posterior Tibial Pulses Abdomen: Bowel Sounds Present, Soft, Non Tender, No HSM, No Organomegaly Extremities: No Cyanosis, No Clubbing, No edema Musculoskeletal: No Erythema Skin: No Rashes Lymphatic: No Lymph Node Enlargement Neurological: No Focal Motor or Sensory Deficit Psych/Mental Status: Appropriate 05/13/19 03:55: Phosphorus 2.7, Magnesium 2.1, Troponin I 73.000 H* 05/14/19 04:40: WBC 9.4, RBC 3.88 L, Hgb 13.0, Hct 38.8 L, MCV 100.0 H, MCH 33.5 H, MCHC 33.5, Plt Count 155, MPV 9.4 Rhythm: EKG: ECHO: Stress Test: Cardiac Cath: PCI: CT Surgery: Holter monitor: EPS: PPM: CXR: Chest CT Scan: Medical Necessity - Tobacco Use Smoking Status: Never smoker Assessment/Plan 1. Acute ST elevation myocardial infarction * Patient presented with an acute ST elevation microinfarction underwent angioplasty and stenting of the right coronary artery with thrombectomy. Has done well overnight. Currently pain-free blood pressure stable. * Echocardiogram done demonstrates low normal ejection fraction estimated at 50% with mid and basal inferior hypokinesis. * Patient does have residual coronary artery disease and would need to be reevaluated regarding further therapy. This will be discussed later. * Continue aspirin and beta-paige * Continue high intensity statin. * Continue low-dose JESSICA inhibitor * * Enrolled in cardiac rehabilitation. From my standpoint the patient can be discharged for outpatient follow-up. * * Thank you for allowing me to participate in the care of your patient. Please don't hesitate to call if any issues arise
--- NOTE | 2019-05-14 07:50 | PCM.DC ---
- Discharge Diagnoses Current Active Problems: Current Active and Chronic Problems (Last Reviewed 03/25/19 @ 10:26 by Tali Vázquez) STEMI (ST elevation myocardial infarction) (Acute) You will use the following diet at home:: Cardiac Your food should be the consistency of: Regular Discharge Activity: - - scale back activities. No high-intesity exercise without concent from cardiology. Call your doctor if you observe: Fever of 101 or Higher, Shortness of breath, Chest pain Allergies/Adverse Reactions: Allergies amoxicillin trihydrate [From Augmentin] Allergy (Verified 05/12/19 18:59) CANT BREATHE potassium clavulanate [From Augmentin] Allergy (Verified 05/12/19 18:59) CANT BREATHE tetracycline Allergy (Verified 05/12/19 18:59) BRONCHIAL SPASM Medications to take at Discharge multivitamin tablet 1 tab PO QAM 09/13/17 omeprazole 40 mg capsule,delayed release 40 mg PO DAILY #90 cap 10/31/18 lisinopril 5 mg tablet 5 mg PO DAILY #90 tab 12/20/18 Albuterol Aerosols [Ventolin Aerosols] 2.5 mg INHALATION Q2H PRN PRN vial.neb. 05/14/19 Atorvastatin Calcium [Lipitor] 80 mg PO QHS #30 tab 05/14/19 Metoprolol Tartrate [Lopressor (beta paige)] 12.5 mg PO BID #60 tab 05/14/19 Ticagrelor [Brilinta] 90 mg PO BID #60 tab 05/14/19 The following prescriptions were given: Ticagrelor [Brilinta] 90 mg PO BID #60 tab Transmission Status: Pending to [id number] Atorvastatin Calcium [Lipitor] 80 mg PO QHS #30 tab Transmission Status: Pending to [facility] Metoprolol Tartrate [Lopressor (beta paige)] 12.5 mg PO BID #60 tab Transmission Status: Pending to [id number] Primary Care Physician: Mane Dahl MD [Primary Care Provider] - Within 2 Weeks Test Results: Test results from this visit will be discussed in further detail at your follow-up appointment, if applicable. Please Follow Up With: Parehs Hook MD When: 1-2 weeks Cardiac Rehab Referral Please Follow Up with Cardiac Rehabilitation:: 2 Weeks Cardiac Rehabilitation was informed of this Referral:: No
--- NOTE | 2019-05-14 07:52 | DS.PCM_ITS ---
Discharge Date and Diagnosis - Problem List Patient Problems: Active and Suspected Problems (Last Reviewed 03/25/19 @ 10:26 by Tali Vázquez) STEMI (ST elevation myocardial infarction) (Acute) Date of Admission: 05/12/19 Date of Discharge: 05/14/19 - Primary Discharge Diagnosis Active and Suspected Problems (Last Reviewed 03/25/19 @ 10:26 by Tali Vázquez) STEMI (ST elevation myocardial infarction) (Acute) - Secondary Discharge Diagnosis Chronic Problems (Last Reviewed 03/25/19 @ 10:26 by Tali Vázquez) Bradycardia (Chronic) Fatty infiltration of liver (Chronic) Barretts esophagus (Chronic) GERD (gastroesophageal reflux disease) (Chronic) Vitamin A deficiency (Chronic) Gastritis (Chronic) Hyperlipidemia (Chronic) Asthma (Chronic) Hypertension (Chronic) Hospital Course and Treatment Imaging Results: Clinical Impression(s) from Imaging Studies Chest X-Ray 05/12/19 19:06 IMPRESSION: No acute cardiopulmonary findings Electronically Signed: Shon Molina DO at 19:20 EDT Tel , Service support , Paresh Miladys: Cardiology Operations: None Procedures: 2-D Echocardiogram, Cardiac catheterization Summary of Care Provided: The patient is a 63 year old M presents epigastric pain and nausea. Found to have a STEMI. 1. STEMI * clinically stable * status post ORQUIDEA to RCA and PDA on 05/12 * Still with LAD and circ lesions, will need eval for CABG or high-risk PCI. To be referred at the discretion of cardiology. * on ASA, Atorvastatin and ticagrelor * completed Integrilin for 18h (started 05.12 at 2120) * on metoprolol and lisinopril, lower doses given hypotension and bradycardia * follow up echocardiogram 2. bradycardia * resolved * received several rounds of atropine * monitor [] Patient Problems: Active and Suspected Problems (Last Reviewed 03/25/19 @ 10:26 by Tali Vázquez) STEMI (ST elevation myocardial infarction) (Acute) - Physical Exam General: Alert, No apparent distress HEENT: Atraumatic, Normocephalic Oral: Moist Mucosa, No Gingival or Mucosal Lesions/ Ulcerations Neck: No Nodes, Thyroid Normal Size and Texture Lungs: Clear to auscultation, Normal air movement, No rhonchi, No wheeze Cardiovascular: Regular rate, Regular Rhythm, Normal S1, Normal S2, No murmurs Abdomen: Bowel Sounds Present, Soft, Non Tender, Non-Distended, No Hepato- splenomegaly Skin: No rashes, No breakdown Vital Signs Temp Pulse Resp BP Pulse Ox 36.4 C L 58 L 20 H 116/68 94 05/14/19 04:00 05/14/19 06:00 05/14/19 06:00 05/14/19 06:00 05/14/19 06:00 Oxygen Flow Rate (L/min) 2 Oxygen Delivery Method Room Air Weight: 89.4 kg Body Mass Index (BMI) 27.4 Finger Stick Blood Glucose 98 Intake and Output for Last 24 Hours 05/12/19 05/13/19 05/14/19 23:59 23:59 23:59 Intake Total 5575.4 / 6055.4 600 / 600 Output Total 2275 / 3350 1245 / 1245 Balance 3300.4 / 2705.4 -645 / -645 Laboratory Tests Past 24 Hrs 05/13/19 05/14/19 03:55 04:40 WBC 9.4 RBC 3.88 L Hgb 13.0 Hct 38.8 L MCV 100.0 H MCH 33.5 H MCHC 33.5 RDW Std Deviation 44.8 H RDW Coeff of Daija 12.3 Plt Count 155 MPV 9.4 Phosphorus 2.7 Magnesium 2.1 Troponin I 73.000 H* Discharge Diet: Low fat/ Low Cholesterol Discharge Activity: - - scale back activities. No high-intesity exercise without concent from cardiology. Call your doctor if you observe: Fever of 101 or Higher, Shortness of breath, Chest pain Home Medications: Medications to take at Discharge multivitamin tablet 1 tab PO QAM 09/13/17 omeprazole 40 mg capsule,delayed release 40 mg PO DAILY #90 cap 10/31/18 lisinopril 5 mg tablet 5 mg PO DAILY #90 tab 12/20/18 Albuterol Aerosols [Ventolin Aerosols] 2.5 mg INHALATION Q2H PRN PRN vial.neb. 05/14/19 Atorvastatin Calcium [Lipitor] 80 mg PO QHS #30 tab 05/14/19 Metoprolol Tartrate [Lopressor (beta krys)] 12.5 mg PO BID #60 tab 05/14/19 Ticagrelor [Brilinta] 90 mg PO BID #60 tab 05/14/19 Following Prescrptions Were Given to Patient: Ticagrelor [Brilinta] 90 mg PO BID #60 tab Transmission Status: Pending to [id number] Atorvastatin Calcium [Lipitor] 80 mg PO QHS #30 tab Transmission Status: Pending to [facility] Metoprolol Tartrate [Lopressor (beta krys)] 12.5 mg PO BID #60 tab Transmission Status: Pending to [id number] Primary Care Physician: Mane Dahl MD [Primary Care Provider] - Within 2 Weeks Please Follow Up With: Paresh Hook MD When: 1-2 weeks Disposition: Home Minutes spent on discharge:: 32 Patient Condition:: Good Medical Necessity - Tobacco Use Smoking Status: Never smoker Meaningful Use Info Meaningful Use Diagnoses (Choose all that apply): AMI - AMI Aspirin given w/in 24hrs of arrival?: Yes ASA at discharge?: Yes Statins at discharge?: Yes Leno/ARB at discharge?: Yes Beta Krys at discharge?: Yes Done w/ Acute KS measure.: Yes Documented LVEF (%): 50 Code Visit Inpatient E&M: 62099 Disch Hosp
[2019-05-14] MEDS: Multivitamins,Therapeutic Tablet 1 TABLET PO (08:17)
[2019-05-14] MEDS: Pantoprazole Sodium 40 MG Tablet PO (08:17)
[2019-05-14] MEDS: Aspirin 81 MG TAB.CHEW PO (08:17)
[2019-05-14] MEDS: TICAGRELOR 90 MG TABLET PO (08:17)
[2019-05-14] MEDS: Lisinopril 5 MG Tablet PO (08:17)
[2019-05-14] MEDS: Metoprolol Tartrate 25 MG Tablet 12.5 MG PO (08:18)
--- NOTE | 2019-05-15 14:07 | CASEMGMT ---
SUDHAKAR COMER DC PHONE CALL DC DATE: 05.14.19 DC Disposition: Home Diagnosis on Discharge: STEMI LACE/STRATA: 06/27 DC Call deferred. SUDHAKAR COMER spoke at length day of dc re: prescription coverage, f/u. Pt had stated he did not have difficulty with prescriptions, or going to f/u. Pt had good understanding. Corinna ANTONION RN ACM
== END 2019-05-14 12:00 | disposition home or self-care (01) | DRG 246 ==
LOC: ED 19:20 → ICU 05-13 07:00
PROVIDERS: Internal Medicine Cardiovascular Disease; Admitting Provider Student in an Organized Health Care Education/Training Program; Emergency Provider Emergency Medicine; Family Provider Nurse Practitioner Family; PCP Internal Medicine; Referring Provider Emergency Medicine
DX: I21.19 ST elevation (STEMI) myocardial infarction involving other coronary artery of inferior wall (principal); I47.2 Ventricular tachycardia; I25.10 Atherosclerotic heart disease of native coronary artery without angina pectoris; I10 Essential (primary) hypertension; E78.00 Pure hypercholesterolemia, unspecified; E78.5 Hyperlipidemia, unspecified; J45.909 Unspecified asthma, uncomplicated; K22.70 Barrett's esophagus without dysplasia; K21.9 Gastro-esophageal reflux disease without esophagitis; Z79.899 Other long term (current) drug therapy
CPT/HCPCS: 71045; 80048; 83735; 84100; 84484; 85025; 85027; 85610; 85730; 86850; 86900; 86901; 86920; 86922; 92929; 92941; 93005; 93306; 93454; 99152; 99153; 99285; J7030; J7040; Q9957; Q9967; A4216; C1725; C1757; C1769; C1874; C1887; C1894; C8929; C9601; C9606; J0583; J1327; J2405

== ENCOUNTER → 2019-05-28 08:59 | Outpatient (CLI) | payer BC, SELFPAY ==
[2019-05-22 08:39] VITALS: BMI 26.8
--- NOTE | 2019-05-28 09:29 | PCM.CR.ITP ---
General Information - General Information Admitting Diagnosis: STEMI, PTCA, PCI W/CORONARY STENT PLACEMENT - Education/Goals Barriers to Learning: Vision Impairment Individual Counseling: Initial Assessment: Abnormal Cholesterol Levels, High Blood Pressure, Overweight/Obesity - SLIGHTLY OVERWEIGHT Cardiac Rehabilitation Goals: 1. Maintain the individual as the primary focus of care. 2. To improve the patient's quality of life. 3. Identification of cardiac risk factors and provide cardiac risk factor management. 4. Enhance the psychosocial status of the patient. 5. Reconditioning enough to allow the patient to resume customary activities. 6. Control symptoms of cardiac disease Scale for measuring improvement of personal goals: Enter appropriate number in Comments. 2 = Unchanged. 3 = Slightly Better. 4 = Moderate Improvement. 5 = Met my Goal Personal Goals: Initial Assessment: Improve energy level, Participate in home exercise program, Get back to work, or to resume activities faster - GET BACK TO WORK., Improve knowledge of cardiac disease, Improve muscle strength and endurance, Improve diet and eating habits (eat healthier), Control risk factors (learn risk factor modification) Exercise - Initial Assessment - Visit Date of Eval: 05/28/19 Session #:: 0 - START CR ON - Stages of Change Stages of Change:: Action - Physician Prescribed Exercise Modalities: Treadmill, Rower, Airdyne, NuStep Frequency (days/week): 3x/week for 12 weeks [36 sessions] Duration (Minutes):: 30-45 Intensity: 60-80% age predicted maximum heart rate reserve METs - Progression: 0.5-1.0 MET, RPE 11-14 WEEK: 3.5 Target Heart Rate:: 100-131 - Hypertension Do any of the following apply?: Yes, Medication Resting Blood Pressure:: 116/72 - Intervention Home Exercise/Activity Goal:: Moderate Exercise 30 min/day x 5 days/wk - Education Goals:: Warm-up, RPE DANIEL Scale, S/S, Safe Exercise, Self-Monitoring - Exercise Program Goals Exercise Program Goals: Aerobic Activity >30 min Nutrition - Initial Assessment - Program Goals Nutrition Program Goals: LDL <70. Total Cholesterol <200. HDL >45. Triglycerides <150. HgbA1C <7%. BMI <25 - Visit Date of Assessment:: 05/28/19 - Stages of Change Stages of Change:: Action - Lipids Total Cholesterol (mg/dL) Goal = less than 200 mg/dL: 215 - 03/25/2019 HDL Cholesterol (mg/dL) Goal = less than 45 mg/dL: 46 LDL Cholesterol (mg/dL) Goal = less than 70 mg/dL: 137 Triglycerides (mg/dL) Goal = less than 150 mg/dL: 160 - Diabetes Diabetes:: No Insulin: No Non-Insulin Dependent?: No Do you monitor your blood sugar at home?: No - Weight Management Height: 5 ft 10 in Weight:: 187 lb Body Fat %:: 26.8 - Intervention Referral to dietitian:: No Referral to Diabetic Clinic:: No Will attend diet classes:: Yes - Education Gave educational materials for:: Healthy eating Tobacco - Initial Assessment - Program Goals Tobacco Program Goals: Complete smoking cessation. Attend education classes. Improve Knowledge Test score - Stage of Change Stages of Change:: Action - Learning Barriers Learning Barriers: Vision, Ready to Learn - Family Support Do you have family support?: Yes - Tobacco Use Tobacco Use: Non-smoker Do you use smokeless tobacco?: No - Intervention Smoking Cessation Referral:: No Individual Education/Counseling:: No Education Schedule Given:: Yes - Education Attended class for:: Treating Heart Disease, How The Heart Works, What it means to have Heart Disease, How Coronary Artery Disease is Diagnosed, Heart Procedures, What Heart Medications Do, Risk Factors & Modifications, Living an Active Life, Nutrition, Emotions & Heart Disease, Stress Management & Relaxation, Sleep Disorders & Heart Disease Psychosocial - Initial Assess - Target Goals Target Goals: Assess presence or absence of depression. Using a valid screening tool, maximizes coping skills. Positive support system - Stages of Change Stages of Change:: Action - Psychosocial Test Tool Used:: HANDS Depression Questionnaire - Intervention PS - Interventions: Yes Attend Stress Management Classes, No Referral to Mental Health, No Referral to [facility] Case Management, No Referral to Physician, No Uses Stress Management Skills - Education Gave educational materials for:: Coping techniques, Signs & symptoms of depression, Stress management, Relaxation techniques - Patient/Program Goal Preventative Medication(s):: Aspirin, JESSICA inhibitor, Clopidogrel, Beta paige, Statin/lipid - Assistive Devices Assistive Devices:: None Fall Risk Assessed:: Yes Patient Health Questionnaire Initial Assessment 1. Little interest or pleasure in doing things: Not at all 2. Feeling down, depressed, or hopeless: Not at all 3. Trouble falling or staying asleep, or sleeping too much: Not at all 4. Feeling tired or having little energy: Several days 5. Poor appetite or overeating: Several days 6. Feeling bad about yourself -- or that you are a failure or have let yourself or your family down: Not at all 7. Trouble concentrating on things, such as reading the newspaper or watching television: Not at all 8. Moving or speaking so slowly that other people could have noticed. Or the opposite - being so fidgety or restless that you have been moving around a lot more than usual: Not at all 9. Thoughts that you would be better off , or of hurting yourself in some way: Not at all How difficult have these problems made it for you to do your work, take care of things at home, or get along with other people?: Not difficult at all Total Score: 2 LATESHA-Q SV Test - Statements CAD is a disease of the arteries in the heart: False Examples of risk factors for heart disease: True Angina is chest pain or discomfort: True The benefits of resistance training include: True Eating more meat and dairy products: False Anti-platelet medications such as aspirin are important: True The only effective way to manage stress: False An exercise warm-up slowly increases heart rate: I Don't Know Prepared, processed foods usually have high sodium: True Depression is common after a heart attack: True The statin medications lower cholesterol: True To control blood pressure, lower the amount of sodium: True If someone gets chest discomfort during walking: False Transfats are partially hydrogenated vegetable oils: True Sleep apnea that is not treated increases the risk: False To control cholesterol, one should become a vegetarian: False Someone knows if he/she is exercising at the right level: True Diabetes cannot be prevented with exercise & health eating: True Stress is a large risk for heart attack: True A diet that can help lower blood pressure is rich in: True - Total Score Total Correct Responses: 18 Self-Efficacy Initial Assessment We would like to know how confident you are in doing certain activities. Please select your confidence level for:: Select your confidence level for the following using the scale 1-10 where 1 is not at all confident and 10 is totally confident. Your score is the average of all 6 responses. Fatigue: How confident are you that you can keep the fatigue caused by your disease from interfering with the things you want to do? Select Number: 6 Physical Discomfort or Pain: How confident are you that you can keep the physical discomfort or pain of your disease from interfering with the things you want to do? Select Number: 6 Emotional Distress: How confident are you that you can keep the emotional distress caused by your disease from interfering with the things you want to do? Select Number: 6 Other Symptoms or Health Problems: How confident are you that you can keep other symptoms or health problems from interfering with the things you want to do? Select Number: 6 Different Tasks and Activities: How confident are you that you can do the different tasks and activities needed to manage your health condition so as to reduce your need to see a doctor? Select Number: 10 Medication: How confident are you that you can do things other than just taking medication to reduce how much your illness affects your everyday life? Select Number: 10 - Total Score:: 7 Nutrition Survey - Nutrition Survey Instructions Scoring Instructions: Scoring is as follows: Yes = 1 points. No = 0 point. Patient score that is >/=12 is considered to be at potential nutritional risk and could benefit from a referral to a registered dietitian. - Nutrition Survey Initial Have you lost >10 lbs over the past 2 months without trying?: No Are you following a special diet at home for diabetes, low fat, or low salt?: Yes Are you interested in meeting with a dietitian for help understanding your diet?: Yes Do you eat less than 3 meals a day?: Yes Do you eat fatty meats (ziegler, sausage, ribs, etc), fried foods, desserts, large amounts of salad dressings, margarine, butter, or cheese most days?: No Do you have food allergies? [Enter types in comment field]: No Do you eat in restaurants more than 3 times a week?: No Do you season food with salt, seasoning salt, or garlic salt?: No Do you used canned, boxed, frozen meals, or soups, seasoning packets?: No Total Score:: 3
[2019-05-28 10:04] VITALS: BP 116/72
--- NOTE | 2019-05-28 10:06 | CR.HP_ITS ---
CR - History & Physical - General Arrival date:: 05/28/19 Arrival time:: 09:00 Date of Referral:: 05/12/19 Date of CR Evaluation:: 05/28/19 Referring Physician: MIGDALIA Primary Diagnosis: PCI WITH STENT X4 - History of Present Cardiac Event Onset Date: Enter Onset Date of cardiac illnesses in Comment field below Current stable Angina Pectoris:: No Acute Myocardial Infarction within 12 months:: Yes Coronary Artery Bypass Graft:: No Heart valve replacement or repair:: No PTCA or coronary stenting:: Yes - X4 Heart or Heart-Lung Transplant:: No Heart Failure EF <35%:: No - 55% Type of Symptoms:: TIREDNESS, VOMITING, SEVERE DIZZINESS Were there any complications?: NONE - Medications Home Medications: Ambulatory Orders Medication Instructions Recorded multivitamin tablet 1 tab PO QAM 09/13/17 omeprazole 40 mg capsule,delayed 40 mg PO DAILY #90 cap 10/31/18 release Albuterol Aerosols [Ventolin 2.5 mg INHALATION Q2H PRN PRN 05/14/19 Aerosols] vial.neb. aspirin 81 mg tablet,delayed 81 mg PO DAILY 05/22/19 release lisinopril 5 mg tablet 5 mg PO DAILY #90 tab 05/22/19 metoprolol tartrate 25 mg tablet 12.5 mg PO BID #180 tab 05/22/19 rosuvastatin 20 mg tablet 20 mg PO DAILY #90 tab 05/22/19 ticagrelor 90 mg tablet 90 mg PO BID #180 tab 05/22/19 - Allergies Allergies/Adverse Reactions: Allergies amoxicillin trihydrate [From Augmentin] Allergy (Verified 05/22/19 08:40) CANT BREATHE potassium clavulanate [From Augmentin] Allergy (Verified 05/22/19 08:40) CANT BREATHE tetracycline Allergy (Verified 05/22/19 08:40) BRONCHIAL SPASM atorvastatin [From Lipitor] Adverse Reaction (Verified 05/22/19 09:47) memory loss, aggitated - Sleep Disorder Evaluation Hx of Sleep Apnea: No Do you snore loudly (louder than talking or can be heard through closed doors)?: No Do you often feel tired/ fatigued/ sleepy during daytime?: No Has anyone observed you stop breathing during sleep?: No History of Hypertension (for STOP score): Yes STOP Results: Negative Advanced Directives - Advanced Directives Power of Accounts Payable Bookkeeper: No Living Will: No Advance Directives Information Provided: No Advance Directives on File: No - PT STATES WILL GO TO MED RECORDS AND GET FORMS DNR Order?:: No Past Medical History - Past Medical Illness Medical History: Past Medical History (Last Reviewed 05/22/19 @ 10:09 by Paresh Hook MD) Bradycardia (Chronic) R00.1 Atherosclerosis of coronary artery of koi heart without angina pectoris (Chronic) I25.10 [id number] w/ 3.0 x 15 mm Elunir Stent, ORQUIDEA-Distal RCA w/ 4 x 38 mm Synergy Stent, 4 x 12 mm Elunir and 4 x 8 mm Synergy Stent 05/12/19 History of acute inferior wall myocardial infarction (Acute) Onset Date: 05/12/19 I25.2 Essential (primary) hypertension (Chronic) I10 STEMI (ST elevation myocardial infarction) (Acute) Onset Date: 05/12/19 I21.3 Hyperlipidemia (Chronic) E78.5 Hiatal hernia K44.9 Asthma J45.909 Barretts esophagus K22.70 Fatty infiltration of liver K76.0 GERD (gastroesophageal reflux disease) K21.9 Gastritis K29.70 Vitamin A deficiency E50.9 Elevated liver enzymes R74.8 - Past Surgical History Surgical History: Past Surgical History (Last Reviewed 05/22/19 @ 10:09 by Paresh Hook MD) History of coronary artery stent placement (Resolved) Onset Date: 05/12/19 Z95.5 [id number] w/ 3.0 x 15 mm Elunir Stent, ORQUIDEA-Distal RCA w/ 4 x 38 mm Synergy Stent, 4 x 12 mm Elunir and 4 x 8 mm Synergy Stent 05/12/19 History of appendectomy Z98.890, Z90.49 History of back surgery Z98.890 History of testicular surgery Z98.890 History of tonsillectomy Z98.890, Z90.89 - Family History Summary Family History: Family History (Last Reviewed 05/22/19 @ 10:09 by Paresh Hook MD) Father Heart disease Myocardial infarction at 54 from it Sister Depression attempted suicide before Grandfather Alcoholism Social History - Smoking History Smoking Status: Never smoker - Alcohol Use Alcohol Usage: No - Substance Abuse Hx Substance Use: No - Occupation Occupation (List type of work in comments):: Employed Hours worked per day:: 12 - Hobbies, Recreation, Social Activities Hobbies: Walking, Other - WORKS WITH THER[employer]G Recreational Activities: I am able to engage in most, but not all activities Social Environment - Status Marital Status: - Current Living Arrangements Living Environment:: Spouse - Children How many children do you have?: 2 Do any of your children live nearby?: Yes - BOTH DAUGHTERS LIVE TOGETHER [place] [address] - Safety Do you feel safe in your surroundings?: Yes - Assistance Do you need any assistance at home?: NONE Review of Systems - Review of Systems Hints: Right click = Denies (Slash). Left click = Reports ([place]) Review of Present Symptoms: Reports: Shortness of Breath with Exertion, Dizziness/Lightheadedness - OCCASIONL DIZZY/LIGHTHEADED, Fatigue - AFTER SURGERY TIREDNESS, Appetite - Normal, Appetite - Special Diet - NO SALT, Sleep - Normal. Denies: Shortness of Breath at Rest, PVD, Operative Discomfort, Angina, Wound Healing, Heart Arrhythmia/Irregularities - Pain Is Patient Pain Free?: Yes Risk Factor Assessment - Chief Complaint Chief Complaint: CURRENT PCI PT WHO PRESENTS TODAY FOR CR FOR INITIAL EVAL - Vital Signs Temperature: 98.6 F Respiratory Rate: 16 Pulse Ox: 96 Blood Pressure: 98/58 Nailbeds:: PINK - Hypertension How long have you been treated?: YEARS On medication(s)?: YES Blood Pressure Sitting - Left Arm: 98/58 - Stress Stress: Work-related - Blood Cholesterol/Lipids Total Cholesterol (mg/dL) Goal = less than 200 mg/dL: 150 HDL Cholesterol (mg/dL) Goal = less than 40 mg/dL: 46 LDL Cholesterol (mg/dL) Goal = less than 70 mg/dL: 137 Triglycerides (mg/dL) Goal = less than 150 mg/dL: 160 - Diabetes Nutrition Referral for Diabetes: No - Obesity Height: 5 ft 10 in Weight:: 187 lb Weight in Pounds: 187.0 lbs Body Mass Index (BMI): 26.8 - Physical Inactivity Physical Inactivity: None - Risk Stratification Risk Guidelines: Lowest Risk: Risk Factor for Smoking, Risk Factor for Dyslipidemia, Risk Factor for Diabetes, Risk Factor for Obesity, Risk Factor for Hypertension, Risk Factor for Depression, Moderate Risk: Risk Factor for Sedentary Lifestyle - For Smoking Smoking Risk Guidelines: Smoking Low Risk: None or quit greater than 6 months ago. Smoking Moderate Risk: Smoker or quit 6 months or less ago. Smoking High Risk: Smoker - For Dyslipidemia Dyslipidemia Risk Guidelines: Low Risk: Moderate Risk: High Risk: 15-25% fat 25.1-29% fat >/= 30% fat. <7% sat fat 7-9% sat fat >9% sat fat. <150 mg chol 150-299 mg chol >/= 300 mg chol. LDL <100 LDL 100-129 LDL >/= 130. Chol/HDL ratio <5.0 Chol/HDL ratio 5.0-6.0 Chol/HDL ratio >6.0. Triglycerides <100 Triglycerides 100-149 Triglycerides >/= 150 - For Diabetes Mellitus Diabetes Risk Guidelines: Diabetes Low Risk: HgA1c <6.5% and/or FBG <120. Diabetes Moderate Risk: HgA1c 6.6-7.9% and/or FBG 120-180. Diabetes High Risk: HgA1c >/= 8% and/or FBG >180 - For Obesity/Overweight Obesity/Overweight Risk Guidelines: Obesity Low Risk: BMI <25.0. Obesity Moderate Risk: BMI 25-29.9. Obesity High Risk: BMI >/= 30.0 - For Hypertension Hypertension Risk Guidelines: Hypertension Low Risk: Systolic <120 and Diastolic <80. Hypertension Moderate Risk: Systolic 120-139 and Diastolic 80-89. Hypertension High Risk: Systolic >/= 140 and Diastolic >/= 90 - For Sedentary Lifestyle Sedentary Lifestyle Risk Guidelines: Sedentary Lifestyle Low Risk: >/= 1,500 kcal/week. Sedentary Lifestyle Moderate Risk: 700-1,499 kcal/week. Sedentary Lifestyle High Risk: < 700 kcal/week - For Depression Depression Risk Guidelines: Depression Low Risk: Not clinically depressed. Depression Moderate Risk: Mildly depressed. Depression High Risk: Clinically depressed - Family History Family History: Family History (Last Reviewed 05/22/19 @ 10:09 by Paresh Hook MD) Father Heart disease Myocardial infarction Sister Depression Grandfather Alcoholism Motivation - Motivation to Participate On a scale of 1 to 10, how prepared are you to commit to attending program?: 10 What do you see as barriers to successfully being able to complete the program?: NONE What do you see as the benefits of succesfully completing the program? In other words, what do you hope to get out of participating in the program?: WANT TO GET MY HEART BACK STRONG/NORMAL Are there issues you are dealing with that will interfere with completing the program?: NONE Do you have a spouse or signficant other, family or friends who will help support you to complete the program?: SPOUSE AND TWO DAUGHTERS
[2019-05-28 10:49] VITALS: BP 98/58; RESP 16; TEMP 37; O2SAT 96; BMI 26.8
== END ==
PROVIDERS: Family Provider Internal Medicine; PCP Internal Medicine; Referring Provider Internal Medicine Cardiovascular Disease; Visit Provider Internal Medicine Cardiovascular Disease
DX: I25.10 Atherosclerotic heart disease of native coronary artery without angina pectoris (principal); I25.2 Old myocardial infarction; Z95.5 Presence of coronary angioplasty implant and graft

== ENCOUNTER 2019-06-24 09:15 | Outpatient (RCR) | payer BC, SELFPAY ==
[2019-05-28 10:36] VITALS: BMI 26.8
== END 2019-06-24 23:59 ==
LOC: CR 09:15
PROVIDERS: Family Provider Internal Medicine; PCP Internal Medicine; Referring Provider Internal Medicine Cardiovascular Disease; Visit Provider Internal Medicine Cardiovascular Disease
DX: R00.1 Bradycardia, unspecified (principal); I25.10 Atherosclerotic heart disease of native coronary artery without angina pectoris; Z95.5 Presence of coronary angioplasty implant and graft; I25.2 Old myocardial infarction; I10 Essential (primary) hypertension; E78.5 Hyperlipidemia, unspecified
CPT/HCPCS: 93798

== ENCOUNTER → 2019-06-27 06:30 | Outpatient (CLI) | payer BC, SELFPAY ==
[2019-06-19 13:29] VITALS: BMI 26.2
--- NOTE | 2019-06-27 06:32 | ART_ITS ---
Reason For Study: PVD Procedure A bilateral lower extremity continuous wave Doppler with analog waveform analysis and ankle brachial indexes. Left Segmental Pressures Left brachial= 114mmHg. Left posterior tibial artery = 143mmHg. Left dorsalis pedis artery = 128mmHg. Left digit = 90 mmHg. The left dorsalis pedis waveforms are triphasic. The left posterior tibial artery waveforms are triphasic. Right Segmental Pressures Right brachial= 113mmHg. Right posterior tibial artery = 138mmHg. Right dorsalis pedis artery = 128mmHg. Right digit = 93 mmHg. The right dorsalis pedis waveforms are triphasic. The right posterior tibial artery waveforms are triphasic. Indices The right ankle brachial index by the dorsalis pedis is 1.12. The right ankle brachial index by the posterior tibial artery is 1.21. The right digital-brachial index is 0.82. The left ankle brachial index by the dorsalis pedis is 1.12. The left ankle brachial index by the posterior tibial artery is 1.25. The left digital-brachial index is 0.79. Interpretation Summary Normal bilateral lower extremity ankle brachial indices at rest. Normal bilateral lower extremity digital brachial indices. Ordering Physician: Paresh Hook Referring Physician: Mane Dahl Performed By: Deidra Grossman RVT
--- NOTE | 2019-06-27 14:15 | STRESSREP_ITS ---
Stress Test Report Exercise myocardial perfusion stress test. 63-year-old man with a history of coronary artery disease status post previous angioplasty and stenting of the distal right coronary artery. Patient has an occluded left anterior descending artery. Stress protocol: Resting EKG demonstrates sinus bradycardia with a rate of 58 bpm normal interva ls are noted resting blood pressures 118/72 mmHg. The patient exercised according to regular Velasquez protocol for total duration of 10 minutes and 20 seconds. The maximum heart rate attained was 150 bpm which was 96% of maximum predicted heart rate the maximum workload was 12.3 metabolic equivalents. At rest there were no ST or T wave changes noted suggest ischemia peak exercise upsloping ST changes were noted with no meet the criteria for ischemia. No clinical angina was noted the test was terminated due to target heart rate being achieved. There was mild shortness of breath noted. Myocardial perfusion protocol. 11.7 mCi of technetium 99m sestamibi was injected at rest. Patient exercised according to regular Velasquez protocol for 10 minutes 20 seconds attaining a maximum heart rate of 150 bpm. At peak exercise 35.8 mCi of technetium 99m sestamibi was injected stress images were obtained stress and rest images were reconstructed in comparing the short axis vertical long horizontal long axis. Gated images was obtained for Perfusion SPECT analysis: Review of the stress images demonstrate a normal cardiac silhouette size. There is a medium to large size defect noted in the anterior wall towards the apex with a moderate amount of reversibility noted on the resting images. The above is suggestive of anterior ischemia. The lateral wall and inferior wall appeared to be well perfused. Gated SPECT analysis: The gated ejection fraction is noted to be 60%. Conclusion: Abnormal exercise myocardial perfusion stress test with evidence of moderate anterior ischemia. Excellent functional capacity with no chest pain. Preserved ejection fraction. This is a moderate risk scan.
== END ==
PROVIDERS: Family Provider Internal Medicine; PCP Internal Medicine; Referring Provider Internal Medicine Cardiovascular Disease; Visit Provider Internal Medicine Cardiovascular Disease
DX: I25.10 Atherosclerotic heart disease of native coronary artery without angina pectoris (principal); I73.9 Peripheral vascular disease, unspecified; I10 Essential (primary) hypertension; E78.5 Hyperlipidemia, unspecified; I25.2 Old myocardial infarction; Z95.5 Presence of coronary angioplasty implant and graft
CPT/HCPCS: 78452; 93017; 93922; A9500; A4216

== ENCOUNTER 2019-07-10 09:15 | Outpatient (RCR) | payer BC, SELFPAY ==
[2019-06-19 13:29] VITALS: BMI 26.2
--- NOTE | 2019-06-26 13:59 | CR.ITP_ITS ---
Exercise - 30-day Assessment - Visit Date of Eval: 06/26/19 Session #:: 12 - Stages of Change Stages of Change:: Action - Physician Prescribed Exercise Modalities: Treadmill, Rower, Airdyne, NuStep Frequency (days/week): 3 Duration (Minutes):: 30-45 Intensity: 60-80% age predicted maximum heart rate reserve METs - Progression: 0.5-1.0 MET, RPE 11-14 WEEK: 5.5 increased from 3.5 Target Heart Rate:: 100-131 w/max hr 94 - Hypertension Resting Blood Pressure:: 88/48 Peak Exercise Blood Pressure:: 122/74 Medication Changes:: No - Intervention Home Exercise/Activity Goal:: Moderate Exercise 30 min/day x 5 days/wk - Education Goals:: Warm-up, RPE DANIEL Scale, S/S, Safe Exercise, Self-Monitoring - Exercise Program Goals Exercise Program Goals: Aerobic Activity >30 min Nutrition - Initial Assessment - Program Goals Nutrition Program Goals: LDL <70. Total Cholesterol <200. HDL >45. Triglycerides <150. HgbA1C <7%. BMI <25 - Diabetes Do you monitor your blood sugar at home?: No Nutrition - 30-Day Assessment - Program Goals Nutrition Program Goals: LDL <70. Total Cholesterol <200. HDL >45. Triglycerides <150. HgbA1C <7%. BMI <25 - Visit Date of Eval: 06/26/19 - Stages of Change Stages of Change:: Action - Lipids Has the patient seen the dietitian?: Yes - Diabetes Diabetes:: No Insulin: No Non-Insulin Dependent?: No - Weight Management Weight:: 184 lb - stable - Intervention Referral to dietitian:: No Referral to Diabetic Clinic:: No Will attend diet classes:: Yes - Education Attended class for:: Healthy eating Tobacco - Initial Assessment - Program Goals Tobacco Program Goals: Complete smoking cessation. Attend education classes. Improve Knowledge Test score - Learning Barriers Learning Barriers: Vision, Ready to Learn Tobacco - 30-Day Assessment - Program Goals Tobacco Program Goals: Complete smoking cessation. Attend education classes. Improve Knowledge Test score - Stage of Change Stages of Change:: Action - Learning Barriers Learning Barriers: Participates in education - Family Support Do you have family support?: Yes - Tobacco Use Tobacco Use: Non-smoker Do you use smokeless tobacco?: No - Intervention Smoking Cessation Referral:: No Individual Education/Counseling:: No Education Schedule Given:: Yes - Education Attended class for:: Heart Procedures, What Heart Medications Do, Risk Factors & Modifications, Living an Active Life Psychosocial - Initial Assess - Target Goals Target Goals: Assess presence or absence of depression. Using a valid screening tool, maximizes coping skills. Positive support system - Psychosocial Test Tool Used:: HANDS Depression Questionnaire - Assistive Devices Fall Risk Assessed:: Yes Psychosocial - 30-Day Assess - Target Goals Target Goals: Assess presence or absence of depression. Using a valid screening tool, maximizes coping skills. Positive support system - Stages of Change Stages of Change:: Action - Psychosocial Test Tool Used:: HANDS Depression Questionnaire - Intervention PS - Interventions: Yes Attend Stress Management Classes, No Referral to Mental Health, No Referral to [facility] Case Management, No Referral to Physician, No Uses Stress Management Skills - Education Attended classes for:: Coping techniques, Signs & symptoms of depression, Stress management, Relaxation techniques - Patient/Program Goal Preventative Medication(s):: Aspirin, JESSICA inhibitor, Clopidogrel, Beta paige, Statin/lipid - Assistive Devices Assistive Devices:: None Fall Risk Assessed:: Yes Patient Health Questionnaire 30-Day Re-eval Assessment 1. Little interest or pleasure in doing things: Not at all 2. Feeling down, depressed, or hopeless: Not at all 3. Trouble falling or staying asleep, or sleeping too much: Not at all 4. Feeling tired or having little energy: Not at all 5. Poor appetite or overeating: Not at all 6. Feeling bad about yourself -- or that you are a failure or have let yourself or your family down: Not at all 7. Trouble concentrating on things, such as reading the newspaper or watching television: Not at all 8. Moving or speaking so slowly that other people could have noticed. Or the opposite - being so fidgety or restless that you have been moving around a lot more than usual: Not at all 9. Thoughts that you would be better off , or of hurting yourself in some way: Not at all Total Score: 0 Self-Efficacy 30-Day Re-eval Assessment We would like to know how confident you are in doing certain activities. Please select your confidence level for:: Select your confidence level for the following using the scale 1-10 where 1 is not at all confident and 10 is totally confident. Your score is the average of all 6 responses. Fatigue: How confident are you that you can keep the fatigue caused by your disease from interfering with the things you want to do? Select Number: 8 Physical Discomfort or Pain: How confident are you that you can keep the physical discomfort or pain of your disease from interfering with the things you want to do? Select Number: 8 Emotional Distress: How confident are you that you can keep the emotional distress caused by your disease from interfering with the things you want to do? Select Number: 9 Other Symptoms or Health Problems: How confident are you that you can keep other symptoms or health problems from interfering with the things you want to do? Select Number: 9 Different Tasks and Activities: How confident are you that you can do the different tasks and activities needed to manage your health condition so as to reduce your need to see a doctor? Select Number: 10 Medication: How confident are you that you can do things other than just taking medication to reduce how much your illness affects your everyday life? Select Number: 10 Total Score:: 9
[2019-06-26 14:02] VITALS: BP 122/74; BP 88/48
== END 2019-07-25 23:59 ==
LOC: CR 09:15
PROVIDERS: Family Provider Internal Medicine; PCP Internal Medicine; Referring Provider Internal Medicine Cardiovascular Disease; Visit Provider Internal Medicine Cardiovascular Disease
DX: R00.1 Bradycardia, unspecified (principal); I25.10 Atherosclerotic heart disease of native coronary artery without angina pectoris; Z95.5 Presence of coronary angioplasty implant and graft; I25.2 Old myocardial infarction; I10 Essential (primary) hypertension; E78.5 Hyperlipidemia, unspecified
CPT/HCPCS: 93798

== ENCOUNTER → 2019-07-16 08:54 | Outpatient (CLI) | payer BC, SELFPAY ==
[2019-07-03 16:47] VITALS: BMI 26.2
--- NOTE | 2019-07-16 09:04 | US_ITS ---
STUDY: ABDOMINAL ULTRASOUND - RIGHT UPPER QUADRANT REASON FOR VISIT: Male, 63 years old fatty liver. TECHNIQUE: Ultrasound evaluation of the right upper quadrant was performed with real-time and static brown-scale imaging. TECHNICAL QUALITY: Adequate. COMPARISON: Comparison is made with prior study dated September 06, 2017. FINDINGS: Liver: The liver measures 13.5 cm. There is increased echogenicity consistent with fatty infiltration. The bile ducts are within normal limits. There is hepatic color flow. The direction of portal flow is hepatopetal. There is no demonstrated mass lesion. Gallbladder: Normal distended gallbladder. The gallbladder wall measures 3.4 mm. There is a negative sonographic Kenny's sign. There is no pericholecystic fluid. There are no gallstones. Common Bile Duct (C.B.D.): The common bile duct measures 3.9 mm. Pancreas: Normal size of the head, body and tail of the pancreas. There is normal echogenicity of the pancreas. There is no demonstrated pancreatic mass or cyst. Right Kidney: Normal size of the right kidney. The right kidney measures 11.5 cm x 4.8 cm x 5.6 cm. Normal renal cortex. The right cortex measures 1.6 cm. There is no demonstrated renal mass or cyst. There is no right hydronephrosis. US/Abdomen Limited IMPRESSION: Fatty infiltration of the liver. Electronically Signed: Torsten Flores, at 15:33 EDT , Service support ,
--- NOTE | 2019-07-16 09:54 | RAD_ITS ---
STUDY: X-RAY - LUMBAR SPINE REASON FOR EXAM: Male, 63 years old. Back pain TECHNIQUE: 3 view(s) of the lumbar spine were obtained. COMPARISON: None FINDINGS: Normal lumbar lordosis. There is no substantial scoliosis. There is a normal alignment of the vertebrae. There is multilevel endplate spondylosis of the lumbar vertebrae. There is narrowing of the L5-S1 disc space. The soft tissue structures are unremarkable. RAD/Lumbar Spine 2 or 3 Views IMPRESSION: Degenerative changes of the spine, as detailed above. Electronically Signed: Griffin Sandoval MD at 19:54 EDT , Service support ,
[2019-07-16 11:11] LABS: PSA,Total - Annual Screen 0.62 ng/mL (0.00-4.00)
== END ==
PROVIDERS: Family Provider Internal Medicine; PCP Internal Medicine; Referring Provider Internal Medicine; Visit Provider Internal Medicine
DX: Z00.00 Encounter for general adult medical examination without abnormal findings (principal); M54.9 Dorsalgia, unspecified; R20.8 Other disturbances of skin sensation; K76.0 Fatty (change of) liver, not elsewhere classified
CPT/HCPCS: 36415; 72100; 76705; 84153; G0103

== ENCOUNTER → 2019-08-26 15:37 | Outpatient (CLI) | payer BC, SELFPAY ==
[2019-08-26 14:29] VITALS: BMI 26.2
== END ==
PROVIDERS: Family Provider Internal Medicine; PCP Internal Medicine; Referring Provider Internal Medicine; Visit Provider Internal Medicine
DX: R07.9 Chest pain, unspecified (principal)
CPT/HCPCS: 36415; 84484

== ENCOUNTER 2019-08-28 14:29 | Observation (INO) | payer BC, MEDICARE, SELFPAY ==
[2019-08-26 14:29] VITALS: BMI 26.2
[2019-08-28] VITALS (11 sets, daily range): BP systolic 102–121; BP diastolic 60–85; PULSE 57–76; RESP 16–18; TEMP 36.9–37; O2SAT 96–99; BMI 26.9; BMI 25.8
--- NOTE | 2019-08-28 14:34 | EKG12_ITS ---
Test Reason : CP Blood Pressure : / mmHG Vent. Rate : 076 BPM Atrial Rate : 076 BPM P-R Int : 162 ms QRS Dur : 078 ms QT Int : 368 ms P-R-T Axes : 059 -06 023 degrees QTc Int : 414 ms Normal sinus rhythm Low voltage QRS Septal infarct , age undetermined Inferior infarct , age undetermined Abnormal ECG Confirmed by CARMEL PIKE, GERDA ([id number]), news assignment editor QUINTON BUTLER ([id number]) on 09/01/2019 9:47:54 AM Referred By: Edvin Krishnamurthy Confirmed By:KHLOE BURT MD
--- NOTE | 2019-08-28 14:34 | RAD_ITS ---
STUDY: X-RAY CHEST REASON FOR EXAM: Male, 63 years old. Chest pain/tightness. TECHNIQUE: Single AP portable view of the chest. COMPARISON: Comparison is made with prior examination dated May 12, 2019. FINDINGS: EKG electrodes are seen. The lungs are clear and expanded. Scattered calcified granulomas. There is no demonstrated pleural abnormality. Normal size heart. Normal mediastinum and lucie. Normal visualized pulmonary arteries. There is atherosclerotic tortuosity of the aortic arch and descending thoracic aorta. There are degenerative changes of the visualized thoracic spine. Normal visualized ribs, clavicles, and shoulders. There is no demonstrated abnormality of the visualized soft tissue structures of the upper abdomen. RAD/Chest 1 View (Portable) IMPRESSION: No acute abnormality is seen. Electronically Signed: Torsten Flores, at 15:14 EST , Service support ,
[2019-08-28 14:43] LABS: Absolute Lymphocyte Count 1.23 X10^3/uL (0.83-4.51); Absolute Neutrophil Count 4.8 X10^3/uL (2.0-7.7); Basophil# 0.04 X10^3/uL; Basophil% 0.6 % (0-1); Eosinophil# 0.16 X10^3/uL; Eosinophils% 2.3 % (0-5); Hematocrit 47.7 % (40-54); Hemoglobin 16.1 g/dL (13.0-16.5); Lymphocyte # 1.23 X10^3/ul (4.0); Lymphocyte % 17.6 % (19-41); Mean Corp Hgb Conc 33.8 g/dL (32-36); Mean Corpuscular Hgb 32.8 pg (27.0-32.0); Mean Corpuscular Volume 97.1 fL (80-94); Mean Platelet Vol. 9.2 fl (6.2-12.0); Monocyte# 0.74 X10^3/uL; Monocyte% 10.6 % (0-10); NRBC Flagged by Analyzer 0 % (0-5); Neutrophil # 4.81 X10^3/uL (2.7-7.7); Neutrophil % 68.8 % (47-70); Platelet Count 158 K/mm3 (150-450); RBC Distribution Width CV 12.6 % (11.6-14.6); RBC Distribution Width SD 44.5 fl (35.1-43.9); Red Blood Count 4.91 M/mm3 (4.6-6.2)
--- NOTE | 2019-08-28 14:43 | ED.DCSUM_ITS ---
History of Present Illness Chief Complaint: Chest Pain Informant: Patient, Family Onset: Today Current Severity: Mild Narrative: Chest pain today at work pressure, patient indicates he has history of cardiac stents x4 after an OH April 2019 he has been doing well with his cardiovascular status. He indicates that on Monday he began to experience chest discomfort related to his neck he had a URI symptoms coughing he was seen by outpatient pr oviders he had what sounds like a negative outpatient troponin he was started on antibiotic he woke up today with nasal congestion was able to go to work, while at work he began having chest pressure that radiated to his neck he stopped his work activities which he described as routine and not exertional he sat down took his blood pressure and heart rate which was about 80 he does not know what the blood pressure reading was his chest pressure persisted and then he came to the hospital for evaluation Indicates the cough is improve the nasal congestion has persisted he denies being short of breath no abdominal pain normal bowel bladder habits he is taking all of his cardiovascular medicines including his aspirin Past Medical History - Allergies and Home Meds Allergies/Adverse Reactions: Allergies amoxicillin trihydrate [From Augmentin] Allergy (Verified 07/03/19 15:17) CANT BREATHE potassium clavulanate [From Augmentin] Allergy (Verified 07/03/19 15:17) CANT BREATHE tetracycline Allergy (Verified 07/03/19 15:17) BRONCHIAL SPASM atorvastatin [From Lipitor] Adverse Reaction (Verified 07/03/19 15:17) memory loss, aggitated Primary Care Physician: Mane Dahl MD [Primary Care Provider] - Past Medical History: - - OH and 4 stents in April 2019 Smoking Status: Never smoker - Family History Maternal Family History: Family History (Last Reviewed 07/03/19 @ 15:18 by Sondra Rosales) Father Heart disease Myocardial infarction Sister Depression Grandfather Alcoholism Family History: Reports: Stroke Paternal Family History: Family History (Last Reviewed 07/03/19 @ 15:18 by Sondra Rosales) Father Heart disease Myocardial infarction Sister Depression Grandfather Alcoholism Family History: Reports: Heart Disease - father of a heart attack in his 50s Review of Systems General: Denies: Chills, Fever, Sweats Eyes: Denies: Visual changes - bilaterally, Diplopia ENT: Reports: Rhinorrhea. Denies: Sore throat Cardiovascular: Reports: Chest pain. Denies: Palpitations Respiratory: Reports: Cough. Denies: Dyspnea, Dyspnea on exertion Gastrointestinal: Denies: Abdominal pain, Nausea, Vomiting, Diarrhea, Melena, H ematochezia Genitourinary: Denies: Dysuria, Hematuria, Frequency Musculoskeletal: Denies: Back pain, Extremity Pain Skin: Denies: Rash, Wounds Neurological: Denies: Headache, Weakness, Numbness Hematologic: Denies: Easy bruising Allergy: Denies: Uticaria Physical Exam Vital Signs/Narrative: Vital Signs Temp Pulse Resp BP Pulse Ox 08/28/19 14:41 99 08/28/19 14:34 98.5 F 73 16 121/85 H 98 08/28/19 14:30 98.5 F 75 16 121/85 H 99 General: Well nourished, Well developed, No Acute Distress, - - Sting comfortably in the bed his vital signs are unremarkable he has no symptoms at this time Head: Normocephalic, Atraumatic Eyes: Perrl, EOMI ENT: Moist mucous membranes, No rhinorrhea Neck: Supple, Nontender Cardiovascular: Regular rate, Regular rhythm, No murmurs Respiratory: No distress, CTA bilaterally, Chest nontender Abdomen: Soft, Nontender, Nondistended, Normal bowel sounds Back: Nontender, Normal Inspection Extremities: Nontender, No edema Skin: Normal color, No rash Neurological: Alert, Oriented x3, Cranial nerves II-XII grossly intact, Normal Strength, Normal Sensation Psychological: Normal affect, Normal Mood Diagnostic/Tx/Re-eval - Medical Decision Making The patient's EKG shows a sinus rhythm rate 76 no acute injury pattern intervals normal given all of the above in his history screening labs are obtained chest x-ray Patient screening work-up including labs EKG troponin unremarkable chest x-ray unremarkable to his reports, he is remained asymptomatic, 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
[2019-08-28] MEDS: Aspirin 81 MG TAB.CHEW 324 MG PO (14:47)
[2019-08-28] MEDS: morphine 8 MG/ML Syringe IV (14:48)
[2019-08-28] MEDS: Ondansetron 4 MG/2 ML Vial IV (14:48)
[2019-08-28 15:01] LABS: Anion Gap 4 (5-15); BUN 27 mg/dL (7-18); BUN/Creat Ratio 19.4 RATIO (10-20); Calcium,Total 9.5 mg/dL (8.5-10.1); Chloride 106 mmol/L (98-107); Creatinine, Serum 1.39 mg/dL (0.70-1.30); EST Glomerular Filtration Rate 54 mL/min (>60); Est Glom Filt Rate - Afr Amer 66 mL/min (>60); Estimated Creatinine Clearance 54.71 ml/min; Glucose 71 mg/dL (74-106); Potassium 4.3 mmol/L (3.5-5.1); Sodium Level 138 mmol/L (136-145)
--- NOTE | 2019-08-28 16:17 | PCM.HP.STD ---
Problem List (1) Atherosclerosis of coronary artery of [place] heart without angina pectoris Status: Chronic Comment: [id number] w/ 3.0 x 15 mm Elunir Stent, ORQUIDEA-Distal RCA w/ 4 x 38 mm Synergy Stent, 4 x 12 mm Elunir and 4 x 8 mm Synergy Stent 05/12/19 (2) History of coronary artery stent placement Status: Chronic Comment: [id number] w/ 3.0 x 15 mm Elunir Stent, ORQUIDEA-Distal RCA w/ 4 x 38 mm Synergy Stent, 4 x 12 mm Elunir and 4 x 8 mm Synergy Stent 05/12/19 (3) Essential (primary) hypertension Status: Chronic (4) Hyperlipidemia Status: Chronic History of Present Illness Date of Admission: 08/28/19 Chief Complaint: Chest pain. The patient is a 63 year old M patient with past medical history as mentioned above presented to the emergency room because of chest pain. His symptoms started this afternoon after he went to work when he was standing, started having chest pain across his upper chest, described as chest tightness, 6-10 out of 10 in severity, not radiating, no associated symptoms and without aggravating or relieving factors. After he arrived to ED, he received IV morphine and now, he has no pain. He mentioned that since Monday, he started having symptoms of URTI with cough, nasal congestion and mild sore throat. He was prescribed antibiotics by his PCP. He denied associated shortness of breath, diaphoresis, dizziness, lightheadedness, nausea or vomiting. In the emergency department, his vital signs were stable, afebrile. Routine blood work was remarkable for BUN of 27 and creatinine of 1.39, otherwise normal. EKG revealed normal sinus rhythm without evidence of acute acute changes. Troponin was negative. Chest x-ray showed no acute findings. He is being admitted for chest pain for evaluation. Past Medical History Past Medical History (Chronic Problems): Chronic Problems (Last Updated 08/28/19 @ 16:16 by Edvin Krishnamurthy MD) Atherosclerosis of coronary artery of [place] heart without angina pectoris (Chronic) [id number] w/ 3.0 x 15 mm Elunir Stent, ORQUIDEA-Distal RCA w/ 4 x 38 mm Synergy Stent, 4 x 12 mm Elunir and 4 x 8 mm Synergy Stent 05/12/19 History of coronary artery stent placement (Chronic 05/12/19) [id number] w/ 3.0 x 15 mm Elunir Stent, ORQUIDEA-Distal RCA w/ 4 x 38 mm Synergy Stent, 4 x 12 mm Elunir and 4 x 8 mm Synergy Stent 05/12/19 History of acute inferior wall myocardial infarction (Chronic 05/12/19) Essential (primary) hypertension (Chronic) STEMI (ST elevation myocardial infarction) (Chronic 05/12/19) Hyperlipidemia (Chronic) Bradycardia (Chronic) Medical History: Medical History (Last Updated 08/28/19 @ 16:16 by Edvin Krishnamurthy MD) Atherosclerosis of coronary artery of [place] heart without angina pectoris (Chronic) I25.10 [id number] w/ 3.0 x 15 mm Elunir Stent, ORQUIDEA-Distal RCA w/ 4 x 38 mm Synergy Stent, 4 x 12 mm Elunir and 4 x 8 mm Synergy Stent 05/12/19 History of acute inferior wall myocardial infarction (Chronic) Onset Date: 05/12/19 I25.2 Essential (primary) hypertension (Chronic) I10 STEMI (ST elevation myocardial infarction) (Chronic) Onset Date: 05/12/19 I21.3 Hyperlipidemia (Chronic) E78.5 Bradycardia (Chronic) R00.1 Hiatal hernia K44.9 Asthma J45.909 Barretts esophagus K22.70 Fatty infiltration of liver K76.0 GERD (gastroesophageal reflux disease) K21.9 Gastritis K29.70 Vitamin A deficiency E50.9 Elevated liver enzymes R74.8 Allergies amoxicillin trihydrate [From Augmentin] Allergy (Verified 07/03/19 15:17) CANT BREATHE potassium clavulanate [From Augmentin] Allergy (Verified 07/03/19 15:17) CANT BREATHE tetracycline Allergy (Verified 07/03/19 15:17) BRONCHIAL SPASM atorvastatin [From Lipitor] Adverse Reaction (Verified 07/03/19 15:17) memory loss, aggitated Home Medications: Ambulatory Orders Medication Instructions Recorded multivitamin tablet 1 tab PO QAM 09/13/17 Albuterol Aerosols [Ventolin 2.5 mg INHALATION Q2H PRN PRN 05/14/19 Aerosols] vial.neb. aspirin 81 mg tablet,delayed 81 mg PO DAILY 05/22/19 release cholecalciferol (vitamin D3) 2,000 2,000 unit PO DAILY 10/09/19 unit capsule Ascorbic Acid [Vitamin C] 500 mg PO DAILY 08/28/19 Clarithromycin 500 mg PO Q12H PRN PRN 08/28/19 Lisinopril 5 mg PO DAILY 08/28/19 Metoprolol Tartrate [Lopressor 12.5 mg PO BID 08/28/19 (beta paige)] Omeprazole [Prilosec] 40 mg PO DAILY 08/28/19 Rosuvastatin Calcium 20 mg PO DAILY 08/28/19 Ticagrelor [Brilinta] 90 mg PO BID 08/28/19 Surgical History: Surgical History (Last Updated 08/28/19 @ 16:16 by Edvin Krishnamurthy MD) History of coronary artery stent placement (Chronic) Onset Date: 05/12/19 Z95.5 [id number] w/ 3.0 x 15 mm Elunir Stent, ORQUIDEA-Distal RCA w/ 4 x 38 mm Synergy Stent, 4 x 12 mm Elunir and 4 x 8 mm Synergy Stent 05/12/19 History of appendectomy Z98.890, Z90.49 History of back surgery Z98.890 History of testicular surgery Z98.890 History of tonsillectomy Z98.890, Z90.89 Psychiatric History: No pertinent psych hx Lives: Spouse/ Significant Other Smoking Status: Never smoker Tobacco Use: Non-smoker Alcohol: None Drugs: None - *Family History Maternal Family History: Family History (Last Reviewed 07/03/19 @ 15:18 by Sondra Rosales) Father Heart disease Myocardial infarction Sister Depression Grandfather Alcoholism History Items: Stroke Paternal Family History: Family History (Last Reviewed 07/03/19 @ 15:18 by Sondra Rosales) Father Heart disease Myocardial infarction Sister Depression Grandfather Alcoholism History Items: Heart Disease - father of a heart attack in his 50s Review of Systems Constitutional: Denies: Anorexia, Chills, Fever, Weakness Eyes: Denies: Blurred vision, Double vision, Drainage, Redness HEENT: Reports: Nasal Congestion. Denies: Difficulty Hearing, Ear Pain, Eye Pain, Sore Throat Cardiovascular: Reports: Chest Tightness. Denies: Chest Pain, Edema, Heaviness, Light Headedness, Palpitations, Paroxysmal Noc. Dyspnea, Syncope Respiratory: Reports: Cough. Denies: Pleuritic Pain, Shortness of Breath, Sputum production, Wheezing Gastrointestinal: Denies: Abdominal Pain, Constipation, Diarrhea, Nausea, Vomiting Genitourinary: Denies: Dysuria, Frequency, Hematuria Musculoskeletal: Denies: Arm Pain, Back Pain, Foot Pain Skin: Denies: Dryness, Rash Neurological: Denies: Balance problems, Blurred vision, Change in Speech, Slurred speech, Confusion, Incoordination, Numbness, Tingling Psychiatric: Denies: Anxiety, Depression Endocrine: Denies: Change in Body Habitus, Polydipsia, Polyuria VTE Information - Inpt Only VTE Present on Admission: No VTE Mechan Device Prophylaxis: None VTE Pharm Prophylaxis ordered?: Yes - Physical Exam Vitals/I&O's: Vital Signs Temp Pulse Resp BP Pulse Ox 98.5 F 66 16 119/75 96 08/28/19 14:34 08/28/19 15:48 08/28/19 15:48 08/28/19 15:48 08/28/19 15:48 Oxygen Delivery Method Room Air Weight: 187 lb 6.287 oz Body Mass Index (BMI) 26.9 Finger Stick Blood Glucose 98 General: Alert, Oriented x3, Cooperative, No apparent distress HEENT: Atraumatic, PERRLA, EOMI, Normocephalic Oral: Moist Mucosa, No Gingival or Mucosal Lesions/ Ulcerations Neck: Supple, No JVD, Negative Carotid Bruits, Trachea Midline, Thyroid Normal Size and Texture Lungs: Clear to auscultation, Normal air movement, No rhonchi, No wheeze, No rales, Diminished Cardiovascular: Regular rate, Regular Rhythm, Normal S1, Normal S2, PMI Normal Abdomen: Bowel Sounds Present, Soft, Non Tender, Non-Distended, No Hepato-splenomegaly Extremities: No clubbing, No cyanosis, No edema Skin: No rashes, No breakdown Lymphatic: No Cervical, Supraclavicular, or Inguinal Adenopathy Neurological: Cranial nerves II-XII grossly intact, Motor Exam 5/5 strength throughout Psych/Mental Status: Normal Affect, Appropriate, Alert and oriented to time, place, person, mood and affect Laboratory Results 08/28/19 14:35: WBC 7.0, RBC 4.91, Hgb 16.1, Hct 47.7, MCV 97.1 H, MCH 32.8 H, MCHC 33.8, RDW Std Deviation 44.5 H, RDW Coeff of [place] 12.6, Plt Count 158, MPV 9.2, Immature Gran % (Auto) 0.100, Neut % (Auto) 68.8, Lymph % (Auto) 17.6 L, [place] % (Auto) 10.6 H, Eos % (Auto) 2.3, Baso % (Auto) 0.6, Absolute Neuts (auto) 4.8, Absolute Lymphs (auto) 1.23, Nucleated RBC % 0 08/28/19 14:35: Sodium 138, Potassium 4.3, Chloride 106, Carbon Dioxide 28.0, Anion Gap 4 L, BUN 27 H, Creatinine 1.39 H, Estim Creat Clear Calc 54.71, Est GFR (MDRD) Af Amer 66, Est GFR (MDRD) Non-Af 54 L, BUN/Creatinine Ratio 19.4, Glucose 71 L, Calcium 9.5, Troponin I < 0.015 Clinical Impression(s) from Imaging Studies Chest X-Ray 08/28/19 14:34 IMPRESSION: No acute abnormality is seen. Electronically Signed: Torsten Sandra, at 15:14 EST , Service support , Assessment/Plan This is a 63 years old male patient presented to the emergency room because of chest pain and he is being admitted for evaluation. #1 chest pain: In context of recent history of STEMI status post stents to RCA and PDA on April,. EKG revealed no acute limb changes. Troponin is negative. Patient had a stress test on June, that showed myocardial perfusion stress changes with evidence of moderate anterior ischemia consistent with the recent STEMI, ejection fraction was preserved which was 60%. At this time, patient is chest pain-free. Chest x-ray showed no acute findings. Plan: Admit to PCU for observation, cardiac monitoring, serial cardiac enzymes, repeat EKG tomorrow morning, respiratory panel for viruses, cardiology consult, nitroglycerin sublingual as needed, IV morphine PRN, IV fluids, continue aspirin, Brilinta, lisinopril, metoprolol and rosuvastatin. #2 mild dehydration: Admission creatinine is 1.39, it was 1.1 on April,. Plan for IV fluids, input output chart, repeat BMP tomorrow morning. #3 recent STEMI: Status post stents to RCA and PDA which was back on April,. Plan as above, continue aspirin, Brilinta, statins, beta-blockers and JESSICA inhibitor's, cardiology consult. #4 hypertension: Blood pressure stable, continue lisinopril and metoprolol. #5 hyperlipidemia: Continue statins. #6 DVT prophylaxis: Subcu Lovenox. This note was generated with [id number] dictation software. It may contain incorrect words, spelling, and punctuation that were not noted in checking the note before signing. Code Visit OBSV E&M: 65294 Initial observation care L3
--- NOTE | 2019-08-28 16:52 | EKG12_ITS ---
Test Reason : CP ADMISSION Blood Pressure : / mmHG Vent. Rate : 069 BPM Atrial Rate : 069 BPM P-R Int : 162 ms QRS Dur : 076 ms QT Int : 386 ms P-R-T Axes : 053 -19 005 degrees QTc Int : 413 ms Sinus rhythm with occasional Premature ventricular complexes Low voltage QRS Septal infarct , age undetermined Inferior infarct , age undetermined Abnormal ECG When compared with ECG of 28-AUG-2019 14:31, MANUAL COMPARISON REQUIRED, DATA IS UNCONFIRMED Confirmed by CARMEL PIKE, GERDA ([id number]), telegraph editor QUINTON BUTLER ([id number]) on 09/01/2019 10:31:04 AM Referred By: Edvin Krishnamurthy Confirmed By:KHLOE BURT MD
[2019-08-28] MEDS: 0.9% Normal Saline 1,000 ML 75 ML IV (17:34)
[2019-08-28] MEDS: Metoprolol Tartrate 25 MG Tablet 12.5 MG PO (21:30)
[2019-08-28] MEDS: TICAGRELOR 90 MG TABLET PO (21:31)
[2019-08-28] MEDS: CLARITHROMYCIN 500 MG TABLET PO (21:32)
[2019-08-29] VITALS (15 sets, daily range): BP systolic 106–112; BP diastolic 51–72; PULSE 57–70; RESP 18; TEMP 36.7–37; O2SAT 95–98
--- NOTE | 2019-08-29 05:55 | EKG12_ITS ---
Test Reason : AM EKG Blood Pressure : / mmHG Vent. Rate : 059 BPM Atrial Rate : 059 BPM P-R Int : 158 ms QRS Dur : 078 ms QT Int : 394 ms P-R-T Axes : 070 -10 009 degrees QTc Int : 390 ms Sinus bradycardia Low voltage QRS Septal infarct , age undetermined Inferior infarct , age undetermined Abnormal ECG When compared with ECG of 28-AUG-2019 17:03, MANUAL COMPARISON REQUIRED, DATA IS UNCONFIRMED Confirmed by CARMEL PIKE, GERDA ([id number]), editorial project manager QUINTON BUTLER ([id number]) on 09/01/2019 10:28:59 AM Referred By: Edvin Krishnamurthy Confirmed By:KHLOE BURT MD
[2019-08-29 06:14] LABS: Anion Gap 5 (5-15); BUN 22 mg/dL (7-18); BUN/Creat Ratio 16.9 RATIO (10-20); Calcium,Total 8.8 mg/dL (8.5-10.1); Chloride 107 mmol/L (98-107); EST Glomerular Filtration Rate 59 mL/min (>60); Est Glom Filt Rate - Afr Amer 71 mL/min (>60); Estimated Creatinine Clearance 58.49 ml/min; Glucose 98 mg/dL (74-106); Potassium 4.6 mmol/L (3.5-5.1); Sodium Level 139 mmol/L (136-145)
[2019-08-29] MEDS: 0.9% Normal Saline 1,000 ML 75 ML IV (06:17)
--- NOTE | 2019-08-29 06:40 | CON.PCM_ITS ---
Reason for Consult Date of Consultation: 08/29/19 Reason for Consultation: Chest discomfort History of Present Illness: The patient is a 63 year old M who presented to the emergency room in April 2019 with chest discomfort and was noted to have an acute inferior wall joaquina cardial infarction. He underwent emergency angioplasty and had a successful PCI with a drug-eluting stent to the distal right coronary artery and PDA, 3 drug- eluting stents measuring 4.0?38, 4.0?12 and 4.0?8 were placed in the distal right coronary artery and the PDA had a 3.0?15 drug-eluting stent. He also has residual disease noted in the circumflex artery of approximately 80 to 90% and a totally occluded left anterior descending artery. He is done remarkably well since his angioplasty he also has collaterals from the right coronary artery system. His ejection fraction was noted to be approximately 50%. He had recently undergone stress testing which demonstrated evidence of anterior ischemia. He was scheduled to see me in the office next week for discussion about whether to undergo coronary artery bypass graft surgery. He presented to the emergency room yesterday after he developed chest discomfort described as a tightness across his chest. He had developed an upper respirato ry tract infection was put on Biaxin and wonders whether this was a side effect. He continued to have some chest pressure on his left side. Of note was the fact that he has not had any exertional angina. He has had no dizziness or diaphoresis no near syncope or syncope. His physical exam here today demonstrates clear lung thao regular rate and rhythm no pedal edema. Past Medical History Allergies/Adverse Reactions: Allergies amoxicillin trihydrate [From Augmentin] Allergy (Verified 07/03/19 15:17) CANT BREATHE potassium clavulanate [From Augmentin] Allergy (Verified 07/03/19 15:17) CANT BREATHE tetracycline Allergy (Verified 07/03/19 15:17) BRONCHIAL SPASM atorvastatin [From Lipitor] Adverse Reaction (Verified 07/03/19 15:17) memory loss, aggitated Home Medications: Ambulatory Orders Medication Instructions Recorded multivitamin tablet 1 tab PO QAM 09/13/17 Albuterol Aerosols [Ventolin 2.5 mg INHALATION Q2H PRN PRN 05/14/19 Aerosols] vial.neb. aspirin 81 mg tablet,delayed 81 mg PO DAILY 05/22/19 release cholecalciferol (vitamin D3) 50 2,000 unit PO DAILY 07/03/19 mcg (2,000 unit) capsule Ascorbic Acid [Vitamin C] 500 mg PO DAILY 08/28/19 Lisinopril 5 mg PO DAILY 08/28/19 Metoprolol Tartrate [Lopressor 12.5 mg PO BID 08/28/19 (beta paige)] Omeprazole [Prilosec] 40 mg PO DAILY 08/28/19 Rosuvastatin Calcium 20 mg PO DAILY 08/28/19 Ticagrelor [Brilinta] 90 mg PO BID 08/28/19 Past Medical History (Chronic Problems): Chronic Problems (Last Updated 08/28/19 @ 16:16 by Edvin Krishnamurthy MD) Atherosclerosis of coronary artery of [place] heart without angina pectoris (Chronic) [id number] w/ 3.0 x 15 mm Elunir Stent, ORQUIDEA-Distal RCA w/ 4 x 38 mm Synergy Stent, 4 x 12 mm Elunir and 4 x 8 mm Synergy Stent 05/12/19 History of coronary artery stent placement (Chronic 05/12/19) [id number] w/ 3.0 x 15 mm Elunir Stent, ORQUIDEA-Distal RCA w/ 4 x 38 mm Synergy Stent, 4 x 12 mm Elunir and 4 x 8 mm Synergy Stent 05/12/19 History of acute inferior wall myocardial infarction (Chronic 05/12/19) Essential (primary) hypertension (Chronic) STEMI (ST elevation myocardial infarction) (Chronic 05/12/19) Hyperlipidemia (Chronic) Bradycardia (Chronic) Psychiatric History: No pertinent psych hx - *Family History Maternal Family History: Family History (Last Reviewed 07/03/19 @ 15:18 by Sondra Rosales) Father Heart disease Myocardial infarction Sister Depression Grandfather Alcoholism History Items: Stroke Paternal Family History: Family History (Last Reviewed 07/03/19 @ 15:18 by Sondra Rosales) Father Heart disease Myocardial infarction Sister Depression Grandfather Alcoholism History Items: Heart Disease - father of a heart attack in his 50s Lives: Spouse/ Significant Other Smoking Status: Never smoker Tobacco Use: Non-smoker Alcohol: None Drugs: None Subjectve: Pleasant gentleman in no distress Objective: Vital Signs Temp Pulse Resp BP Pulse Ox 98.6 F 57 L 18 106/60 98 08/29/19 03:30 08/29/19 03:30 08/29/19 03:30 08/29/19 03:30 08/29/19 03:30 Oxygen Delivery Method Room Air Weight: 180 lb Body Mass Index (BMI) 25.8 Finger Stick Blood Glucose 98 Intake and Output for Last 24 Hours 08/27/19 08/28/19 08/29/19 23:59 23:59 23:59 Intake Total 837.5 / 837.5 476.25 / 476.25 Balance 837.5 / 837.5 476.25 / 476.25 General: Awake, Alert, Oriented x 3 HEENT: PERRL, EOMI, Sclera Non Icteric Neck: Supple, Good ROM, No Lymph Node Enlargement Lungs: Clear to auscultation Cardiovascular: Regular Rhythm, Normal S1, Normal S2, No Murmurs, No Rubs, No Gallops Vascular: No Carotid Bruits, Normal Femoral Pulses, Normal Radial Pulses, Normal Dorsalis Pedal Pulse, Normal Posterior Tibial Pulses Abdomen: Bowel Sounds Present, Soft, Non Tender, No HSM, No Organomegaly Extremities: No Cyanosis, No Clubbing, No edema Skin: No Rashes Lymphatic: No Lymph Node Enlargement Neurological: No Focal Motor or Sensory Deficit Psych/Mental Status: Appropriate 08/28/19 14:35: WBC 7.0, RBC 4.91, Hgb 16.1, Hct 47.7, MCV 97.1 H, MCH 32.8 H, MCHC 33.8, Plt Count 158, MPV 9.2, Immature Gran % (Auto) 0.100, Neut % (Auto) 68.8, Lymph % (Auto) 17.6 L, [place] % (Auto) 10.6 H, Eos % (Auto) 2.3, Baso % (Auto) 0.6, Absolute Neuts (auto) 4.8, Nucleated RBC % 0 08/28/19 14:35: Sodium 138, Potassium 4.3, Chloride 106, Carbon Dioxide 28.0, Anion Gap 4 L, BUN 27 H, Creatinine 1.39 H, Est GFR (MDRD) Af Amer 66, Est GFR (MDRD) Non-Af 54 L, BUN/Creatinine Ratio 19.4, Glucose 71 L, Calcium 9.5, Troponin I < 0.015 08/28/19 17:35: Troponin I < 0.015 08/28/19 20:23: Troponin I < 0.015 08/29/19 05:40: Sodium 139, Potassium 4.6, Chloride 107, Carbon Dioxide 27.0, Anion Gap 5, BUN 22 H, Creatinine 1.30, Est GFR (MDRD) Af Amer 71, Est GFR (MDRD) Non-Af 59 L, BUN/Creatinine Ratio 16.9, Glucose 98, Calcium 8.8 Rhythm: EKG: ECHO: Stress Test: Cardiac Cath: PCI: CT Surgery: Holter monitor: EPS: PPM: CXR: Chest CT Scan: Assessment/Plan 1. Chest discomfort * Patient has a history of known coronary artery disease. It is not entirely clear whether this discomfort is anginal in origin. He does have an anterior ischemic territory noted on a previous stress test as well as disease noted in the circumflex artery. We had previously discussed reevaluating him with a view to possible coronary artery bypass surgery of a high risk angioplasty. * I did discuss with him about whether we should pursue this approach since he is here at this particular time. He is not opposed to this. We will schedule him for reevaluation of his coronary anatomy later today. Further decisions will be made based on the results of the above. * 2. Coronary artery disease * Patient is status post previous angioplasty and stenting extensively of the right coronary artery. * This will be reevaluated with her heart catheterization today. * 3. Hypertension * Controlled continue current medical therapy * 4. Hyperlipidemia * Continue current medical therapy with aggressive risk factor modification. * * Thank you for allowing me to participate in the care of your patient. Please don't hesitate to call if any issues arise * Addendum at 2:20 PM. Patient underwent cardiac catheterization today which demonstrated normal left main coronary artery, * Left anterior descending artery which is totally occluded * Left circumflex artery with proximal 80% stenosis * Dominant large right coronary artery previously stented with patent stents * Preserved ejection fraction. * Based on the above angiographic findings a discussion will be undertaken as to whether and when the patient would undergo a consideration for coronary artery bypass surgery. He is currently 3-1/2 months post stenting and it may be safe to temporarily discontinue his ticagrelor. I will send his films to the cardiac surgeon for consideration.
[2019-08-29] MEDS: Lisinopril 5 MG Tablet PO (08:00)
[2019-08-29] MEDS: TICAGRELOR 90 MG TABLET PO (08:00)
[2019-08-29] MEDS: Aspirin E.C. 81 MG Tablet PO (08:01)
[2019-08-29] MEDS: Pantoprazole Sodium 40 MG Tablet PO (08:01)
[2019-08-29] MEDS: Metoprolol Tartrate 25 MG Tablet 12.5 MG PO (08:01)
[2019-08-29] MEDS: CLARITHROMYCIN 500 MG TABLET PO (08:01)
[2019-08-29] MEDS: 0.9% Normal Saline 1,000 ML 15 ML IV (08:02)
--- NOTE | 2019-08-29 09:34 | CASEMGMT ---
According to the [facility] website, the following are in-network tertiary facilities: [facility], [facility], [facility], [facility], [facility], [facility], [facility], [facility], [facility], and . Iris [facility]
--- NOTE | 2019-08-29 14:08 | DCINST_ITS ---
- Discharge Diagnoses Current Active Problems: (1) Chest pain, Suspected secondary to #2 (2) Recent URI, Bronchitis secondary to Human metapneumovirus (3) CAD s/p prior angioplasty and stenting extensively of the right coronary artery with ongoing decision between non-emergent angioplasty to the circumflex artery, right coronary artery or whether to proceed to two-vessel coronary artery bypass surgery (4) HTN (5) HLD You will use the following diet at home:: Cardiac Your food should be the consistency of: Regular Your liquids should be the consistency of: Regular/Thin Discharge Activity: - - Activity parameters per Cardiology and advise allowance of resolution of current viral illness until increase above moderate once cleared per their service given possible future intervention needs. Weight Bearing Status: Weight bearing as tolerated Call your doctor if you observe: Fever of 101 or Higher, Inability to urinate, Inability to have a bowel movement, Shortness of breath, Dizziness, Fainting spells, Chest pain, Uncontrolled pain Instructions: Acute Bronchitis, CHEST PAIN, NonCardiac Allergies/Adverse Reactions: Allergies amoxicillin trihydrate [From Augmentin] Allergy (Verified 07/03/19 15:17) CANT BREATHE potassium clavulanate [From Augmentin] Allergy (Verified 07/03/19 15:17) CANT BREATHE tetracycline Allergy (Verified 07/03/19 15:17) BRONCHIAL SPASM atorvastatin [From Lipitor] Adverse Reaction (Verified 07/03/19 15:17) memory loss, aggitated Medications to take at Discharge multivitamin tablet 1 tab PO QAM 09/13/17 Albuterol Aerosols [Ventolin Aerosols] 2.5 mg INHALATION Q2H PRN PRN vial.neb. 05/14/19 aspirin 81 mg tablet,delayed release 81 mg PO DAILY 05/22/19 cholecalciferol (vitamin D3) 50 mcg (2,000 unit) capsule 2,000 unit PO DAILY 07/03/19 Ascorbic Acid [Vitamin C] 500 mg PO DAILY 08/28/19 Lisinopril 5 mg PO DAILY 08/28/19 Metoprolol Tartrate [Lopressor (beta paige)] 12.5 mg PO BID 08/28/19 Omeprazole [Prilosec] 40 mg PO DAILY 08/28/19 Rosuvastatin Calcium 20 mg PO DAILY 08/28/19 Ticagrelor [Brilinta] 90 mg PO BID 08/28/19 Primary Care Physician: Mane Dahl MD [Primary Care Provider] - Please follow up with your Primary Care Physician in: Follow-up within 3-5 days Test Results: Test results from this visit will be discussed in further detail at your follow- up appointment, if applicable. Please Follow Up With: Paresh Hook MD When: Please follow-up as discussed with Dr. Hook. Proposed Discharge Date: 08/29/19
--- NOTE | 2019-08-29 14:18 | DS.PCM_ITS ---
Discharge Date and Diagnosis Date of Admission: 08/28/19 Date of Discharge: 08/29/19 - Primary Discharge Diagnosis 1. Recent STEMI, CAD s/p prior angioplasty of the right coronary artery with current recommendation of nonemergent angioplasty to the circumflex artery, right coronary artery versus two-vessel bypass 2. Recent URI, bronchitis secondary to human metapneumovirus 3. Hypertension 4. Hyperlipidemia - Secondary Discharge Diagnosis Chronic Problems (Last Updated 08/28/19 @ 16:16 by Edvin Krishnamurthy MD) Atherosclerosis of coronary artery of [place] heart without angina pectoris (Chronic) [id number] w/ 3.0 x 15 mm Elunir Stent, ORQUIDEA-Distal RCA w/ 4 x 38 mm Synergy Stent, 4 x 12 mm Elunir and 4 x 8 mm Synergy Stent 05/12/19 History of coronary artery stent placement (Chronic 05/12/19) [id number] w/ 3.0 x 15 mm Elunir Stent, ORQUIDEA-Distal RCA w/ 4 x 38 mm Synergy Stent, 4 x 12 mm Elunir and 4 x 8 mm Synergy Stent 05/12/19 History of acute inferior wall myocardial infarction (Chronic 05/12/19) Essential (primary) hypertension (Chronic) STEMI (ST elevation myocardial infarction) (Chronic 05/12/19) Hyperlipidemia (Chronic) Bradycardia (Chronic) Hospital Course and Treatment Imaging Results: Diagnostic Data Chest X-Ray 08/28/19 14:34 IMPRESSION: No acute abnormality is seen. Electronically Signed: Torsten Flores, at 15:14 EST , Service support , Dr. Hook- Cardiology Operations: None Procedures: Cardiac catheterization Summary of Care Provided: The patient is a 63 year old M admitted 08/28/2019 due to chest pain. 1. Recent STEMI, CAD s/p prior angioplasty of the right coronary artery cardiac cath completed with recommendation of nonemergent angioplasty to the circumflex artery, right coronary artery versus two-vessel bypass- Dr. Hook discussed with patient and family treatment options and recommendations prior to DC. Continue outpatient follow-up with cardiology as discussed. Continue aspirin, statin, Brilinta, beta-krys, lisinopril. 2. Recent URI, bronchitis secondary to human metapneumovirus-continue supportive treatment. Albuterol aerosol as needed. 3. Hypertension-stable, continue lisinopril, metoprolol. 4. Hyperlipidemia- continue statin. General: Alert, Oriented x3, Cooperative, No apparent distress HEENT: Atraumatic, PERRLA, EOMI, Normocephalic Oral: Moist Mucosa, No Gingival or Mucosal Lesions/ Ulcerations Neck: Supple, No JVD, Negative Carotid Bruits, Trachea Midline, Thyroid Normal Size and Texture Lungs: Clear to auscultation, Normal air movement, No rhonchi, No wheeze, No rales, Diminished Cardiovascular: Regular rate, Regular Rhythm, Normal S1, Normal S2, PMI Normal Abdomen: Bowel Sounds Present, Soft, Non Tender, Non-Distended, No Hepato- splenomegaly Extremities: No clubbing, No cyanosis, No edema Skin: No rashes, No breakdown Lymphatic: No Cervical, Supraclavicular, or Inguinal Adenopathy Neurological: Cranial nerves II-XII grossly intact, Motor Exam 5/5 strength throughout Psych/Mental Status: Normal Affect, Appropriate, Alert and oriented to time, place, person, mood and affect Patient seen and examined prior to discharge. Physical assessment as noted above. Patient is stable for discharge with follow up recommendations as noted above. This patient was seen by SUSHILA Ragsdale under the supervision of Dr. Barajas. - Physical Exam Vitals/I&O's: Vital Signs Temp Pulse Resp BP Pulse Ox 98.0 F 64 18 109/72 95 08/29/19 07:57 08/29/19 08:01 08/29/19 07:57 08/29/19 07:57 08/29/19 07:57 Oxygen Delivery Method Room Air Weight: 180 lb Body Mass Index (BMI) 25.8 Finger Stick Blood Glucose 98 Intake and Output for Last 24 Hours 08/27/19 08/28/19 08/29/19 23:59 23:59 23:59 Intake Total 837.5 / 837.5 596.25 / 596.25 Balance 837.5 / 837.5 596.25 / 596.25 Microbiology Past 72 Hours 08/28/19 17:10 Mucosa - Nasopharyngeal Respiratory Panel (PCR) - Final Human [place] [facility] Results 08/28/19 14:35: WBC 7.0, RBC 4.91, Hgb 16.1, Hct 47.7, MCV 97.1 H, MCH 32.8 H, MCHC 33.8, RDW Std Deviation 44.5 H, RDW Coeff of Daija 12.6, Plt Count 158, MPV 9.2, Immature Gran % (Auto) 0.100, Neut % (Auto) 68.8, Lymph % (Auto) 17.6 L, [place] % (Auto) 10.6 H, Eos % (Auto) 2.3, Baso % (Auto) 0.6, Absolute Neuts (auto) 4.8, Absolute Lymphs (auto) 1.23, Nucleated RBC % 0 08/28/19 14:35: Sodium 138, Potassium 4.3, Chloride 106, Carbon Dioxide 28.0, Anion Gap 4 L, BUN 27 H, Creatinine 1.39 H, Estim Creat Clear Calc 54.71, Est GFR (MDRD) Af Amer 66, Est GFR (MDRD) Non-Af 54 L, BUN/Creatinine Ratio 19.4, Glucose 71 L, Calcium 9.5, Troponin I < 0.015 08/28/19 17:35: Troponin I < 0.015 08/28/19 20:23: Troponin I < 0.015 08/29/19 05:40: Sodium 139, Potassium 4.6, Chloride 107, Carbon Dioxide 27.0, Anion Gap 5, BUN 22 H, Creatinine 1.30, Estim Creat Clear Calc 58.49, Est GFR (MDRD) Af Amer 71, Est GFR (MDRD) Non-Af 59 L, BUN/Creatinine Ratio 16.9, Glucose 98, Calcium 8.8 Current Medications Acetaminophen (Tylenol) 650 mg PO Q6H PRN PRN PRN Reason: Pain Score 1-3/Temp > 100.7 F Albuterol Sulfate (Ventolin Aerosols) 2.5 mg INHALATION Q4H PRN PRN PRN Reason: Shortness of breath, wheezing [facility] Admin: 08/29/19 08:01 Dose: 81 mg Documented by: Enoxaparin Sodium (Lovenox) 30 mg SC DAILY [facility] Last Admin: 08/29/19 07:59 Dose: Not Given Documented by: Sodium Chloride () 1,000 mls @ 75 mls/hr IV .Q30L03H [facility] Last Admin: 08/29/19 06:17 Dose: 75 mls/hr Documented by: Sodium Chloride () 1,000 mls @ 15 mls/hr IV .Q48H [facility] Last Infusion: 08/29/19 08:02 Dose: 0 mls/hr Documented by: Lisinopril (Zestril) 5 mg PO DAILY [facility] Last Admin: 08/29/19 08:00 Dose: 5 mg Documented by: Metoprolol Tartrate (Lopressor (Beta Krys)) 12.5 mg PO BID [facility] Last Admin: 08/29/19 08:01 Dose: 12.5 mg Documented by: Morphine Sulfate () 1 mg IV Q3H PRN PRN PRN Reason: Pain Score 6-10/10 Nitroglycerin (Nitrostat) 0.4 mg SUBLINGUAL Q5M PRN PRN Reason: CHEST PAIN Ondansetron HCl (Zofran) 4 mg IV Q8H PRN PRN PRN Reason: NAUSEA/VOMITING Pantoprazole Sodium (Protonix) 40 mg PO DAILY [facility] Last Admin: 08/29/19 08:01 Dose: 40 mg Documented by: Rosuvastatin Calcium (Crestor) 20 mg PO QHS [facility] Last Admin: 08/29/19 08:00 Dose: 20 mg Documented by: Sodium Chloride () 10 - 40 ml IV UD PRN PRN Reason: SALINE FLUSH Ticagrelor (Brilinta) 90 mg PO BID [facility] Last Admin: 08/29/19 08:00 Dose: 90 mg Documented by: Discharge Diet: Low fat/ Low Cholesterol Discharge Activity: - - Activity parameters per Cardiology and advise allowance of resolution of current viral illness until increase above moderate once cleared per their service given possible future intervention needs. Weight Bearing Status: Weight bearing as tolerated Call your doctor if you observe: Fever of 101 or Higher, Inability to urinate, Inability to have a bowel movement, Shortness of breath, Dizziness, Fainting spells, Chest pain, Uncontrolled pain Home Medications: Medications to take at Discharge multivitamin tablet 1 tab PO QAM 09/13/17 Albuterol Aerosols [Ventolin Aerosols] 2.5 mg INHALATION Q2H PRN PRN vial.neb. 05/14/19 aspirin 81 mg tablet,delayed release 81 mg PO DAILY 05/22/19 cholecalciferol (vitamin D3) 50 mcg (2,000 unit) capsule 2,000 unit PO DAILY 07/03/19 Ascorbic Acid [Vitamin C] 500 mg PO DAILY 08/28/19 Lisinopril 5 mg PO DAILY 08/28/19 Metoprolol Tartrate [Lopressor (beta krys)] 12.5 mg PO BID 08/28/19 Omeprazole [Prilosec] 40 mg PO DAILY 08/28/19 Rosuvastatin Calcium 20 mg PO DAILY 08/28/19 Ticagrelor [Brilinta] 90 mg PO BID 08/28/19 Primary Care Physician: Mane Dahl MD [Primary Care Provider] - Please follow up with your Primary Care Physician in: Follow-up within 3-5 days Please Follow Up With: Paresh Hook MD When: Please follow-up as discussed with Dr. Hook. Patient Instructions: Acute Bronchitis, CHEST PAIN, NonCardiac Disposition: Home Minutes spent on discharge:: 35 Patient Condition:: Stable Medical Necessity - Tobacco Use Smoking Status: Never smoker Tobacco Use: Non-smoker Meaningful Use Info Meaningful Use Diagnoses (Choose all that apply): None applicable
--- NOTE | 2019-08-29 15:05 | CHAPLAIN ---
Type of Pastoral Visit _x__ Initial Visit ___ Follow-up Visit ___ On-call Visit ___ General Patient Visit ___ Spiritual Assessment ___ Family Conference ___ Bereavement ___ Rapid Response ___ Code Blue ___ Other (describe below) Pastoral Care Referral From _x__ Patient ___ Family ___ Nurse ___ Physician ___ Tobacco Sample Puller ___ Steam Fitter ___ Other (describe below) Sacrament/Intervention _x__ Active listening ___ Anointing ___ Protestant ___ Bereavement ___ Communion ___ Jade exploration ___ ___ Life review ___ Prayer ___ Reconciliation ___ Sacrament of Sick ___ Supportive presence ___ Wedding ___ Other (describe below) Pastoral Comments
--- NOTE | 2019-08-29 16:52 | PCM.WORK.EX ---
Work/School Excuse Work/School Excuse for:: Patient Please excuse this person from:: Work From: 08/28/19 through: 09/04/19
--- NOTE | 2019-09-04 12:44 | CL.D_ITS ---
Patient Name: JIMMY DEMPSEY Study Date: 08/29/2019 Performing: Paresh Hook MD Ht: 70.07 inches 178 cm : 1955 Wt: 180.78 lbs 82 kg Age: 63 Gender: male BSA: 2 PROCEDURE(S) PERFORMED [id number]/COR/LV CLINICAL PROFILE AND INDICATIONS Indications: Suspected CAD Heart Failure: None Stress/Imaging Date: 07/14/19Stress Test with SPECT MPI: Positive Intermediate Risk CAD Presentations: No Sxs, no angina. CONCLUSIONS Total LAD occlusion with left to right collaterals and Left circumflex with moderate disease, minimal RCA and patent stents RECOMMENDATIONS Will discuss with surgeon. DESCRIPTION OF PROCEDURE The patient arrived to the procedure lab. The risks and benefits of the procedure as well as a full d escription of our services here and current unavailability of surgical backup were fully explained to the patient and/or their significant other prior to the catheterization. The Timeout was completed, verifying the correct patient and procedure. The patient's procedural site was prepped and draped in the usual fashion. Local anesthetic was given subcutaneously to right radial region with Lidocaine 2% . Using a modified Seldinger technique, arterial access was obtained via the right radial artery, a 6 Fr sheath was inserted. Right Coronary Artery selective angiography was then performed in multiple v iews using a [address] Left Coronary Artery selective angiography was performed in mu ltiple views using a [address] catheter. Left Ventriculography was performed in BALLESTEROS projection using a 5 Fr. Pigtail catheter. LV to AO pullback pressures were then recorded.The arterial sheath was pulled and a TR Band was applied for hemostasis 10cc air CORONARY ANGIOGRAPHY DOMINANCE: Right Dominant LEFT HEART ASSESSMENT Left Ventricular Ejection Fraction: by LV Gram 60 % Normal LV wall motion Normal Left Ventricular systolic function LEFT MAIN: Mild calcification LEFT ANTERIOR DESCENDING ARTERY: PROX LAD: is occluded CIRCUMFLEX ARTERY: PROX CIRC: 60-80 % Stenosis RIGHT CORONARY ARTERY: Previously placed stent is patent Mild luminal irregularities less than 30% COLLATERAL FLOW: Collateral flow from Right to Left COMPLICATIONS No Complications PROCEDURE MEDICATIONS Versed 1 mg IV Fentanyl 50 mcg IV Oxygen: 2 L/min via nasal cannula SUMMARY OF HEMODYNAMIC DATA Time AIR REST ECG 12:53:16 AO 112/74 (91) SA 13:07:12 LV 101/5, 13 13:14:08 LV 102/6, 11 13:14:13 LV 103/10, 17 13:14:53 LVp 104/7, 13 13:14:59 AO 109/65 (86) 13:15:04 Signed By Paresh Hook MD On 09/04/2019 12:43:47 Paresh Hook MD
== END 2019-08-29 14:12 | disposition home or self-care (01) ==
LOC: ED 16:10 → PCU 16:19
PROVIDERS: Admitting Provider Hospitalist; Emergency Provider Emergency Medicine; Family Provider Internal Medicine; PCP Internal Medicine; Referring Provider Hospitalist; Visit Provider Family Medicine
DX: I25.10 Atherosclerotic heart disease of native coronary artery without angina pectoris (principal); E78.5 Hyperlipidemia, unspecified; I10 Essential (primary) hypertension; I25.2 Old myocardial infarction; K21.9 Gastro-esophageal reflux disease without esophagitis; J45.909 Unspecified asthma, uncomplicated; E86.0 Dehydration; J20.8 Acute bronchitis due to other specified organisms; B97.81 Human metapneumovirus as the cause of diseases classified elsewhere; Z95.1 Presence of aortocoronary bypass graft; Z79.899 Other long term (current) drug therapy; Z79.82 Long term (current) use of aspirin; Z95.5 Presence of coronary angioplasty implant and graft
CPT/HCPCS: 36415; 71045; 80048; 84484; 85025; 87633; 93005; 93458; 96361; 96374; 96375; 99152; 99153; 99218; 99285; J7030; Q9967; A4216; C1769; C1894; G0378; J2405

== ENCOUNTER 2019-09-24 14:00 | Outpatient (RCR) | payer BC, SELFPAY ==
[2019-08-28 16:41] VITALS: BMI 25.8
--- NOTE | 2019-09-09 12:52 | HP.PTEVAL_ITS ---
Patient's Visit Information JIMMY DEMPSEY is a 63 year old M referred to Physical Therapy by Mane Dahl MD with a diagnosis of Radiculopathy. Date of Evaluation: 09/09/19 Physical Therapist: Shon Vincent, DPT, OCS, CSCS - Visit Plan Frequency: 2-3x /Week Duration: 4-6 Weeks Plan: 2-3x/week for 2-4 weeks. Pt wishes to be done by end of year to avoid payments next year and laura ttempt to do so. Please start with gym based strength and mat based core strength that patient can eventually do at [facility] with list adn pics. Also focus on ROM LB and quad stretches. Rollut quads adn HS. Please fill out oswestry on last visit this year. - Subjective Findings: goes by [facility]. Had SD in April adn got back pain after that. None prior. Got x ray and has narrowing of the spine. Pain is across LB much of time adn gets muscle spasms in upper shoulders. 3/10 intermittent pain. Worse sitting too long or stadning in one place too long. Works at [employer] making [employer] and gets worse standing at work. Has not missed work for this. Missed 8 weeks starting April due to heart attack and has 4 stents. Sleep is not bad, dreams due to meds fo blood thinner adn meds. Activities include walking dogs and he can do that. Can do all basic ADLs but stadning causes pain. Walking is not bad. - Pain LBP Pain Intensity (Out of 10): 1 Pain Intensity Range: 0, 3 - Objective Walks stiff but I and normal, step reciprocal without rail, sacral sits. L/S ext mod limtied and pain, L SB min deficits and painful, R sb OK, flexion tight but not painful. Very stif in lumbar spine. reflexes 1/3 patella and achilles. sensation LE WNL to gross light touch. Strength LE 5/5 without myotomal abnormalities. Strength core 4/5. Rotation of LB very stiff adn limited to about 60 degrees in LB rotation position. - Goals Goal 1:: Pt feel 75% improvement in LBP to 1/10 at worst Goal Time Frame: 4-6 Weeks Goal 2:: I appropr HEP to minimize future problems Goal Time Frame: 4-6 Weeks Goal 3:: Work without increased pain Goal Time Frame: 4-6 Weeks - Rehabilitation Potential Physical Therapy Diagnosis: LB degeneration casuing pain. Rehabilitation Potential: Fair - Anticipated Interventions Patient/Client Instruction: Educate patient on: Condition, Plan of Care For the Purpose of:: To decrease pain, To improve muscle performance and motor function, To improve ability of physical actions for home/community/work/leisure Therapeutic Exercise to Include: Strength training, Flexibilty training, Passive ROM, Active ROM For the Purpose of:: To decrease pain, To improve muscle performance and motor function, To improve ability of physical actions for home/community/work/leisure Thank you for the opportunity to evaluate your patient. For Medicare and Medicare HMO plans, please review the plan of care and approve it. It will need to be FAXED BACK to us at [phone] for Medicare purposes. For Medicare only, by signing this I certify the plan of care. Please let me know if there are questions or concerns regarding this plan of care. Physician Signature: Date:___
--- NOTE | 2019-11-01 07:43 | HP.PTDCNRP_ITS ---
HP - Discharge Summary (1) - Patient Information JIMMY DEMPSEY was seen in my office for initial evaluation on 09/09/19. The following Plan of Care was established for this patient: Initial Frequency: 2-3x /Week Initial Duration: 4-6 Weeks - Anticipated Interventions Patient/Client Instruction: Educate patient on: Condition, Plan of Care For the Purpose of:: To decrease pain, To improve muscle performance and motor function, To improve ability of physical actions for home/community/work/leisure Therapeutic Exercise to Include: Strength training, Flexibilty training, Passive ROM, Active ROM For the Purpose of:: To decrease pain, To improve muscle performance and motor function, To improve ability of physical actions for home/community/work/leisure This patient was last seen in our office 09/24/19. 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 He decided to not return for more therapy without official recheck. i will discontinue him at this time. At this point I will be discontinuing this patient from physical therapy. I would be happy to see this patient again in the future if found appropriate by the physician. Thank you! Shon Vincent, DPT, OCS, CSCS
== END 2019-09-24 19:00 | disposition home or self-care (01) ==
LOC: PT 14:00
PROVIDERS: Family Provider Internal Medicine; PCP Internal Medicine; Referring Provider Internal Medicine; Visit Provider Internal Medicine
DX: M54.16 Radiculopathy, lumbar region (principal)
CPT/HCPCS: 97110; 97162

== ENCOUNTER → 2019-11-27 11:38 | Outpatient (CLI) | payer BC, SELFPAY ==
[2019-11-27 10:46] VITALS: BMI 27.5
[2019-11-27 12:15] LABS: AST(SGOT) 26 U/L (15-37); Alanine Aminotransfer ALT/SGPT 33 U/L (16-61); Albumin, Serum 3.6 g/dL (3.2-5.0); Alkaline Phosphatase 73 U/L (45-117); Bilirubin, Direct 0.15 mg/dL (0.00-0.30); Cholesterol 109 mg/dL (200); Globulin 3.4 g/dL (2.2-4.2); High Density Lipoprotein 45 mg/dL; Triglycerides 115 mg/dL; Very Low Density Lipoprotein 23 mg/dL (5-40)
== END ==
PROVIDERS: PCP Internal Medicine; Referring Provider Internal Medicine Cardiovascular Disease; Visit Provider Internal Medicine Cardiovascular Disease
DX: E78.5 Hyperlipidemia, unspecified (principal)
CPT/HCPCS: 36415; 80061; 80076

== ENCOUNTER 2020-05-11 11:21 | Emergency (ER) | payer BC, SELFPAY ==
[2019-11-27 10:46] VITALS: BMI 27.5
[2020-05-11 11:23] VITALS: BP 122/82; PULSE 82; RESP 20; TEMP 36.8; O2SAT 98; BMI 27.1
--- NOTE | 2020-05-11 11:43 | EKG12_ITS ---
Test Reason : CP Blood Pressure : / mmHG Vent. Rate : 075 BPM Atrial Rate : 075 BPM P-R Int : 164 ms QRS Dur : 080 ms QT Int : 352 ms P-R-T Axes : 044 -13 069 degrees QTc Int : 393 ms Normal sinus rhythm Inferior infarct (cited on or before 12-MAY-2019) Cannot rule out Anteroseptal infarct (cited on or before 12-MAY-2019) Abnormal ECG Confirmed by MIGDALIA PIKE, ANJELICA ([id number]), tape editor KIM NOGUEIRA ([id number]) on 05/12/2020 9:21:38 AM Referred By: REBEKA Confirmed By:ANJELICA NEGRON MD
--- NOTE | 2020-05-11 11:44 | CT_ITS ---
STUDY: CT BRAIN WITHOUT CONTRAST REASON FOR EXAM: Male, 64 years old. CARROLL, NEAR SYNCOPE TODAY, CHILLS, PHOTOPHOBIA, STIFF NECK, HTN, S/P CABG 04/09/20 RADIATION DOSAGE (If Supplied By Facility): CTDIvol = ( 44.99 ) mGy, DLP = ( 779.24 ) mGycm TECHNIQUE: Transaxial CT imaging of the brain was performed without administration of intravenous contrast material. Individualized dose optimization techniques were used for this CT. COMPARISON: 2014 FINDINGS: Normal soft tissue structures. Normal calvarium. Normal size ventricles and extra-axial spaces for the patient''s age. Normal white matter tracts of the cerebral hemispheres. Normal basal ganglia and thalami. Normal brainstem. Normal cerebellum. There is no intracranial hemorrhage. There are no findings of an acute ischemic infarction. Normal visualized paranasal sinuses. CT/Brain/Head without Contrast IMPRESSION: Chronic involutional changes of the brain. No acute hemorrhage Electronically Signed: Reg Morfin MD at 13:25 EDT , Service support ,
--- NOTE | 2020-05-11 12:25 | RAD_ITS ---
STUDY: X-RAY CHEST REASON FOR EXAM: Male, 64 years old. Fever and chills TECHNIQUE: Single AP portable view of the chest. COMPARISON: 08/28/2019 FINDINGS: EKG leads overlie the chest The lungs are clear and expanded. There is no demonstrated pleural abnormality. Sternal cerclage wires and vascular clips are present from a prior sternotomy and coronary artery bypass graft procedure (CABG). Normal mediastinum and lucie. Normal visualized pulmonary arteries. Normal visualized aortic arch and descending thoracic aorta. Normal visualized thoracic spine. Normal visualized ribs, clavicles, and shoulders. There is no demonstrated abnormality of the visualized soft tissue structures of the upper abdomen. RAD/Chest 1 View (Portable) IMPRESSION: No acute pulmonary process Electronically Signed: Reg Morfin MD at 12:41 EDT , Service support ,
--- NOTE | 2020-05-11 12:32 | ED.DCSUM_ITS ---
- ER Visit Summary Date of Service: 05/11/20 Chief Complaint: Chills, poor appetite, near syncope History of Present Illness: The patient is a [address] Dahl and Dr. Hook. On April 10 he had a three-vessel bypass by Dr. Whitt at [facility]. He reports that he was doing amazing.. However, over the past 3 days the pill patient has had chills and a poor appetite. Today he was getting out of bed and became very lightheaded. reports that she does feel like he went out for a few seconds but he got back to bed and he did not fall. Patient reports that he has a cough that is occasionally productive of clear sputum. He denies any sore throat or shortness of breath. He denies any abdominal pain, nausea, vomiting, or diarrhea. His last bowel movement yesterday. He reports that he has a headache is 5-10 in severity and generalized weakness. Physical Examination: Vitals: Stable. Afebrile. General: Well-nourished and well-developed. Head: Normocephalic atraumatic. Neck: Supple, no lymphadenopathy. No JVD. Nontender. Cardiovascular: Regular rate and rhythm. 2 out of 6 systolic murmur. Sternotomy incision is healing well. It is clean, dry, intact. There is no erythema or induration. There is no click with palpation of it. Respiratory: No respiratory distress. Clear to auscultation bilaterally. He does have moderate tenderness palpation over the left costochondral margin that does reproduce the pain that he is having. Abdominal: Soft, nontender, nondistended, normal bowel sounds. No guarding, rebound, or peritoneal signs. Back: Nontender. Extremities: Nontender, no edema. Skin: Normal color, no rash. Neurologic: Alert and oriented ?3. Cranial nerves II through XII are intact. Normal strength and sensation. Psych: Normal affect. Test Results: EKG is sinus at 75 with inferior Q waves and nonspecific ST changes. CBC shows 7 neutrophils 73 lymphocytes of 18. Chem-7 is normal. LFTs are normal. Coags are normal. UA is normal. Troponin is negative. D-dimer 0.8. Lactic acid is 1.4. Clinical Impression(s) from Imaging Studies Brain CT 05/11/20 11:44 IMPRESSION: Chronic involutional changes of the brain. No acute hemorrhage Electronically Signed: Reg Morfin MD at 13:25 EDT , Service support , Chest X-Ray 05/11/20 12:25 IMPRESSION: No acute pulmonary process Electronically Signed: Reg Morfin MD at 12:41 EDT , Service support , Chest CTA 05/11/20 13:10 IMPRESSION: No demonstrated DVT, or thoracic aortic aneurysm or dissection Chronic interstitial changes in both lung thao with dependent atelectasis. Noncalcified pleural-based 8 mm nodule in the right middle lobe Remote CABG Hiatal hernia Electronically Signed: Reg Morfin MD at 15:09 EDT , Service support , Emergency Department Course and Treatment: Patient was given a dose of morphine. He had positive orthostatic vital signs. He was given a liter of normal saline is resting more comfortably. Treatment Plan: Had a prolonged session with the patient and his that I do not have an explanation for his chills. He does have blood cultures and a COVID-19 test pending. He is instructed to push fluids. Follow-up his primary care physician in 2 days if not improving. Return to the emergency department for any worsening symptoms. Disposition: To home in improved and stable condition. Impression: 1. Fever, uncertain cause. 2. Orthostatic hypotension. 3. Status post CABG April 10, 2020. This note was generated with Ram Poweration software. It may contain incorrect words, spelling, and punctuation that were not noted in review of the chart prior to signing ED Disposition - Plan for ED Patient: Disposition: Home or Assisted Living Instructions: ED FUO Adult Referrals: Mane Dahl MD [Primary Care Provider] - 3-5 Days if not improving
[2020-05-11 12:34] LABS: Absolute Lymphocyte Count 1.01 X10^3/uL (0.83-4.51); Absolute Neutrophil Count 4.1 X10^3/uL (2.0-7.7); Basophil# 0.04 X10^3/uL; Basophil% 0.7 % (0-1); Eosinophil# 0.05 X10^3/uL; Eosinophils% 0.9 % (0-5); Hematocrit 43.6 % (40-54); Hemoglobin 14.5 g/dL (13.0-16.5); Lymphocyte # 1.01 X10^3/ul (4.0); Mean Corp Hgb Conc 33.3 g/dL (32-36); Mean Corpuscular Hgb 32.8 pg (27.0-32.0); Mean Corpuscular Volume 98.6 fL (80-94); Mean Platelet Vol. 9.1 fl (6.2-12.0); Monocyte# 0.41 X10^3/uL; Monocyte% 7.3 % (0-10); NRBC Flagged by Analyzer 0 % (0-5); Neutrophil # 4.09 X10^3/uL (2.7-7.7); Neutrophil % 72.9 % (47-70); Platelet Count 166 K/mm3 (150-450); RBC Distribution Width CV 12.7 % (11.6-14.6); RBC Distribution Width SD 45.5 fl (35.1-43.9); Red Blood Count 4.42 M/mm3 (4.6-6.2); White Blood Count 5.6 K/mm3 (4.4-11.0)
[2020-05-11 12:43] VITALS: TEMP 36.4
[2020-05-11 12:48] LABS: Prothrombin Time (Protime)PT. 12.7 SECONDS (11.7-14.9)
[2020-05-11 12:50] LABS: Partial Thromboplast Time 29.5 Seconds (24.1-36.2)
[2020-05-11 12:52] LABS: AST(SGOT) 20 U/L (15-37); Alanine Aminotransfer ALT/SGPT 25 U/L (16-61); Albumin, Serum 3.8 g/dL (3.2-5.0); Alkaline Phosphatase 85 U/L (45-117); Anion Gap 6 (5-15); BUN 18 mg/dL (7-18); BUN/Creat Ratio 17.1 RATIO (10-20); CPK Total, Creatine Kinase 58 U/L (39-308); Calcium,Total 8.9 mg/dL (8.5-10.1); Chloride 106 mmol/L (98-107); Creatinine, Serum 1.05 mg/dL (0.70-1.30); EST Glomerular Filtration Rate 75 mL/min (>60); Est Glom Filt Rate - Afr Amer 91 mL/min (>60); Estimated Creatinine Clearance 71.46 ml/min; Globulin 3.7 g/dL (2.2-4.2); Glucose 92 mg/dL (74-106); Potassium 3.9 mmol/L (3.5-5.1); Protein, Total 7.5 g/dL (6.4-8.2); Sodium Level 140 mmol/L (136-145)
[2020-05-11 12:59] LABS: Lactic Acid 1.4 mmol/L (0.4-1.9)
[2020-05-11 13:10] VITALS: BP 125/84; BP 131/100; BP 135/106; PULSE 106; PULSE 69; PULSE 84
--- NOTE | 2020-05-11 13:10 | CT_ITS ---
STUDY: CTA CHEST REASON FOR EXAM: Male, 64 years old. ELEVATED DIMER +COVID -- CARROLL,NEAR SYNCOPE, CHILLS RADIATION DOSAGE (If Supplied By Facility): CTDIvol = ( 17.15 ) mGy, DLP = ( 605.112 ) mGycm TECHNIQUE: The examination was performed with the intravenous administration of 100cc iSOVUE 370. Post-processing of the angiographic images was performed, with multiplanar reformation and 3D reconstruction. Individualized dose optimization techniques were used for this CT. COMPARISON: None. FINDINGS: Normal enhancement of the main pulmonary artery and right and left pulmonary arteries. Normal enhancement of the bilateral peripheral pulmonary arteries. There is no demonstrated pulmonary embolism. Normal thoracic aorta and visualized great vessels. There is no demonstrated aortic dissection. Sternal cerclage wires and vascular clips are present from a prior sternotomy and coronary artery bypass graft procedure (CABG). Normal mediastinum. Normal hilar regions. There is peribronchial thickening. The lungs are well expanded. Chronic interstitial changes in both lung thao with dependent atelectasis. There is no organized infiltrate or effusion. There is a noncalcified pleural-based 8 mm nodule in the right middle lobe on axial image 105. Normal pleura. Normal chest wall structures. There are degenerative changes of thoracic spine. Limited cuts through the upper abdomen show a retrocardiac hiatal hernia. CT/CTA Chest W/WO Contrast IMPRESSION: No demonstrated DVT, or thoracic aortic aneurysm or dissection Chronic interstitial changes in both lung thao with dependent atelectasis. Noncalcified pleural-based 8 mm nodule in the right middle lobe Remote CABG Hiatal hernia Electronically Signed: Reg Morfin MD at 15:09 EDT , Service support ,
[2020-05-11] MEDS: Morphine 4 MG/ML Syringe IV (13:21)
[2020-05-11 13:29] LABS: Bacteria 0 SEEN /hpf (None Seen); Mucous, Urine 0 SEEN /hpf (<or=2+); Red Blood Cells-Urine 0 SEEN /hpf (0-5); Squamous Epithelial Cells - UA 0 SEEN /hpf (0-5); White Blood Cells 0 SEEN /hpf (0-5)
[2020-05-11] MEDS: 0.9% Normal Saline 1,000 ML 999 ML IV (13:30)
[2020-05-11 13:35] LABS: Color, Urine Yellow (Yellow); Glucose, Dipstick Normal (Normal); Ketone-Dipstick 5 mg/dl (Negative); Leukocyte Esterase-Dipstick Negative /ul (Negative); Nitrite-Dipstick Negative (Negative); Occult Blood-Urine Negative /ul (Negative); Protein-Dipstick Negative (Negative); Specific Gravity, Urine 1.015 (1.002-1.030); Urine Bilirubin Dipstick Negative (Negative); Urine Clarity Clear (Clear); Urine Urobilinogen Normal (Normal)
[2020-05-11 14:00] VITALS: BP 125/70; PULSE 71; RESP 14; O2SAT 93
[2020-05-11 15:17] VITALS: BP 118/91; PULSE 60; RESP 18; O2SAT 99
== END 2020-05-11 16:25 | disposition home or self-care (01) ==
LOC: ED 12:42
PROVIDERS: Emergency Provider Emergency Medicine; PCP Internal Medicine
DX: R50.9 Fever, unspecified (principal); I95.1 Orthostatic hypotension; R05 Cough; R53.1 Weakness; R51 Headache; I25.10 Atherosclerotic heart disease of native coronary artery without angina pectoris; I10 Essential (primary) hypertension; J45.909 Unspecified asthma, uncomplicated; Z95.1 Presence of aortocoronary bypass graft; Z79.82 Long term (current) use of aspirin; Z79.899 Other long term (current) drug therapy
CPT/HCPCS: 70450; 71045; 71275; 80053; 81001; 82550; 83605; 84484; 85025; 85379; 85610; 85730; 87040; 87086; 87635; 93005; 94799; 96361; 96374; 99285; J7030; Q9967; A4216; U0003

== ENCOUNTER → 2020-05-26 06:18 | Outpatient (CLI) | payer BC, SELFPAY ==
[2019-11-27 10:46] VITALS: BMI 27.5
[2020-05-22 13:08] VITALS: BMI 26.4
--- NOTE | 2020-05-26 10:01 | CR.HP_ITS ---
CR - History & Physical - General Arrival date:: 05/26/20 Arrival time:: 10:01 Date of Referral:: 04/25/20 Date of CR Evaluation:: 05/26/20 Referring Physician: DR PARESH NEGRON Primary Diagnosis: CABG - History of Present Cardiac Event Onset Date: Enter Onset Date of cardiac illnesses in Comment field below Acute Myocardial Infarction within 12 months:: Yes - STEMI Coronary Artery Bypass Graft:: Yes - 04/10/2020 PTCA or coronary stenting:: Yes - 04/2019 Type of Symptoms:: LAST YEAR FOUND THE PREVIOUS CORONARY STENTED ARTERIES WERE CLOSED AND REQUIRED A DOUBLE BYPASS. Interventions with present event:: DOUBLE CORONARY BYPASS GRAFT TO BYPASS TWO CORONARY VESSELS THAT WERE STENT Were there any complications?: NONE; DID HAVE SOME FLUID RETENTION - Medications Home Medications: Ambulatory Orders Medication Instructions Recorded Ascorbic Acid [Vitamin C] 500 mg PO DAILY 08/28/19 Omeprazole [Prilosec] 40 mg PO DAILY 08/28/19 Multivitamin with Minerals 1 tab PO DAILY 05/11/20 [Multiple Vitamin] rosuvastatin 20 mg tablet 20 mg PO DAILY #90 tab 05/18/20 aspirin 81 mg tablet,delayed 81 mg PO DAILY tab 05/22/20 release metoprolol tartrate 25 mg tablet 12.5 mg PO BID tab 05/22/20 - Allergies Allergies/Adverse Reactions: Allergies amoxicillin trihydrate [From Augmentin] Allergy (Verified 05/22/20 13:08) CANT BREATHE potassium clavulanate [From Augmentin] Allergy (Verified 05/22/20 13:08) CANT BREATHE tetracycline Allergy (Verified 05/22/20 13:08) BRONCHIAL SPASM atorvastatin [From Lipitor] Adverse Reaction (Verified 05/22/20 13:08) memory loss, aggitated - Sleep Disorder Evaluation Hx of Sleep Apnea: No Do you snore loudly (louder than talking or can be heard through closed doors)?: No Do you often feel tired/ fatigued/ sleepy during daytime?: No Has anyone observed you stop breathing during sleep?: No History of Hypertension (for STOP score): No STOP Results: Negative Advanced Directives - Advanced Directives 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 - IS POA FOR HEALTHCARE Living Will: No Advance Directives Information Provided: Yes Advance Directives on File: No DNR Order?:: No - MOLST See MOLST form: No Past Medical History - Covid-19 Screening Fever: No Unexplained muscle aches: No Current respiratory symptoms: No Upper respiratory infections symptoms: No Gastro-intestinal symptoms: No Ltr-Hchs-Tftqgp symptoms: No Has tested positive for COVID-19 in last 30 days: No Had contact w/person w/symptoms or Covid-19 (+) last 14 days: No Has High Risk Exposures ID'd by Health dept/Inf Control team: No 65 years or older:: No Lives in Assisted Living facility:: No Has a chronic lung disease or moderate to severe asthma:: No Has a serious heart condition:: Yes Immunocompromised:: No Severely obese (Body Mass Index of 40 or higher):: No Diabetic:: No Has chronic kidney disease undergoing dialysis:: No Has liver disease:: No - Past Medical Illness Medical History: Past Medical History (Last Updated 04/25/20 @ 12:52 by Clarice Flowers) Postoperative atrial fibrillation (Acute) Onset Date: 04/12/20 I97.89, I48.91 Atherosclerosis of coronary artery of [place] heart without angina pectoris (Chronic) I25.10 [id number] w/ 3.0 x 15 mm Elunir Stent, ORQUIDEA-Distal RCA w/ 4 x 38 mm Synergy Stent, 4 x 12 mm Elunir and 4 x 8 mm Synergy Stent 05/12/19 History of acute inferior wall myocardial infarction (Chronic) Onset Date: 05/12/19 I25.2 Essential (primary) hypertension (Chronic) I10 STEMI (ST elevation myocardial infarction) (Chronic) Onset Date: 05/12/19 I21.3 Hyperlipidemia (Chronic) E78.5 Bradycardia (Chronic) R00.1 Asthma J45.909 Barretts esophagus K22.70 Fatty infiltration of liver K76.0 GERD (gastroesophageal reflux disease) K21.9 Gastritis K29.70 Hiatal hernia K44.9 Vitamin A deficiency E50.9 Elevated liver enzymes R74.8 - Past Surgical History Surgical History: Past Surgical History (Last Updated 04/25/20 @ 12:52 by Clarice Flowers) H/O coronary artery bypass surgery (Acute) Onset Date: 04/10/20 Z95.1 CABG x 3 SCHWARTZ-LAD, SVG-OM1 and SVG-OM2 04/10/2020 History of coronary artery stent placement (Chronic) Onset Date: 05/12/19 Z95.5 [facility] w/ 3.0 x 15 mm Elunir Stent, ORQUIDEA-Distal RCA w/ 4 x 38 mm Synergy Stent, 4 x 12 mm Elunir and 4 x 8 mm Synergy Stent 05/12/19 History of appendectomy Z98.890, Z90.49 History of back surgery Z98.890 History of left heart catheterization Onset Date: 08/29/19 Z98.890 History of testicular surgery Z98.890 History of tonsillectomy Z98.890, Z90.89 - Family History Summary Family History: Family History (Last Reviewed 11/27/19 @ 11:[address] Paresh Negron MD) Father Heart disease Myocardial infarction at 54 from it Sister Depression attempted suicide before Grandfather Alcoholism Social History - Smoking History Smoking Status: Never smoker - Alcohol Use Alcohol Usage: No - Substance Abuse Hx Substance Use: No - Occupation Occupation (List type of work in comments):: Employed Returned to work on:: 08/26/20 - HOPING TO BE RELEASED 08/11/20. - Hobbies, Recreation, Social Activities Hobbies: Walking, Exercise, Other Recreational Activities: I am able to engage in most, but not all activities Social Environment - Status Marital Status: - Current Living Arrangements Living Environment:: Spouse - Children How many children do you have?: 2 Do any of your children live nearby?: Yes - Safety Do you feel safe in your surroundings?: Yes - Assistance Do you need any assistance at home?: NO Review of Systems - Review of Systems Hints: Right click = Denies (Slash). Left click = Reports (Kaw) Review of Present Symptoms: Reports: Operative Discomfort - STILL HAS SOEM RESIDUAL INCISIONAL DISCOMFORT DUE TO STERNUM/WIRED., Fatigue - GET TIRED EASILY., Heart Arrhythmia/Irregularities - ATRIL FLUTTER, TEMPORARY PACED RHYTHM WHILE IN ICU, PAROXYSMAL ATRIAL FIBRILLATION, Appetite - Normal, Appetite - Special Diet, Sleep - Normal. Denies: Shortness of Breath at Rest, Shortness of Breath with Exertion, Angina, Wound Healing, Dizziness/Lightheadedness - Pain Is Patient Pain Free?: Yes Pain Location: none Pain Level: 0/10 Risk Factor Assessment - Chief Complaint Chief Complaint: S/P CABG - Vital Signs Temperature: 97.2 F Respiratory Rate: 16 Pulse Ox: 96 Blood Pressure: 104/66 - Pulse Pulse Rate: 54 Pulse Rhythm: Regular - Hypertension Blood Pressure Sitting - Left Arm: 104/66 - Blood Cholesterol/Lipids Total Cholesterol (mg/dL) Goal = less than 200 mg/dL: 0 - LABS NOT AVAILABLE - Obesity Height: 5 ft 10 in Weight:: 192 lb Weight in Pounds: 192.0 lbs Weight Source: Standing Scale Body Mass Index (BMI): 27.5 - Physical Inactivity Physical Inactivity: Recreational activity - WALKING DAILY - Risk Stratification Risk Guidelines: Lowest Risk: Risk Factor for Smoking, Risk Factor for Dyslipidemia, Risk Factor for Diabetes, Risk Factor for Obesity, Risk Factor for Hypertension, Risk Factor for Sedentary Lifestyle, Risk Factor for Depression - For Smoking Smoking Risk Guidelines: Smoking Low Risk: None or quit greater than 6 months ago. Smoking Moderate Risk: Smoker or quit 6 months or less ago. Smoking High Risk: Smoker - For Dyslipidemia Dyslipidemia Risk Guidelines: Low Risk: Moderate Risk: High Risk: 15-25% fat 25.1-29% fat >/= 30% fat. <7% sat fat 7-9% sat fat >9% sat fat. <150 mg chol 150-299 mg chol >/= 300 mg chol. LDL <100 LDL 100-129 LDL >/= 130. Chol/HDL ratio <5.0 Chol/HDL ratio 5.0-6.0 Chol/HDL ratio >6.0. Triglycerides <100 Triglycerides 100-149 Triglycerides >/= 150 - For Diabetes Mellitus Diabetes Risk Guidelines: Diabetes Low Risk: HgA1c <6.5% and/or FBG <120. Diabetes Moderate Risk: HgA1c 6.6-7.9% and/or FBG 120-180. Diabetes High Risk: HgA1c >/= 8% and/or FBG >180 - For Obesity/Overweight Obesity/Overweight Risk Guidelines: Obesity Low Risk: BMI <25.0. Obesity Moderate Risk: BMI 25-29.9. Obesity High Risk: BMI >/= 30.0 - For Hypertension Hypertension Risk Guidelines: Hypertension Low Risk: Systolic <120 and Diastolic <80. Hypertension Moderate Risk: Systolic 120-139 and Diastolic 80-89. Hypertension High Risk: Systolic >/= 140 and Diastolic >/= 90 - For Sedentary Lifestyle Sedentary Lifestyle Risk Guidelines: Sedentary Lifestyle Low Risk: >/= 1,500 kcal/week. Sedentary Lifestyle Moderate Risk: 700-1,499 kcal/week. Sedentary Lifestyle High Risk: < 700 kcal/week - For Depression Depression Risk Guidelines: Depression Low Risk: Not clinically depressed. Depression Moderate Risk: Mildly depressed. Depression High Risk: Clinically depressed - Family History Family History: Family History (Last Reviewed 11/27/19 @ 11:[address] Paresh Negron MD) Father Heart disease Myocardial infarction Sister Depression Grandfather Alcoholism Motivation - Motivation to Participate On a scale of 1 to 10, how prepared are you to commit to attending program?: 10 What do you see as barriers to successfully being able to complete the program?: NO BARRIERS What do you see as the benefits of succesfully completing the program? In other words, what do you hope to get out of participating in the program?: HEALTHIER, BACK IN SHAPE Are there issues you are dealing with that will interfere with completing the program?: NONE Do you have a spouse or signficant other, family or friends who will help support you to complete the program?: YES, ABSOLUTELY
--- NOTE | 2020-05-26 10:07 | CR.ITP_ITS ---
Diagnosis - General Information Admitting Diagnosis: S/P CABG Personal Learning Style:: Audio/Visual, Written Barriers to Learning: Vision Impairment - CORECTIVE LENSES Stage of change r/t lifestyle modifications:: Action Gave educational material for:: Treating Heart Disease, Emotions & Heart Disease, Stress Management & Relaxation, Sleep Disorders & Heart Disease, How The Heart Works, What it means to have Heart Disease, How Coronary Artery Disease is Diagnosed, Heart Procedures, What Heart Medications Do, Risk Factors & Modifications, Living an Active Life, Nutrition - Education/Goals Individual Counseling: Initial Assessment: Abnormal Cholesterol Levels, High Blood Pressure Cardiac Rehabilitation Goals: 1. Maintain the individual as the primary focus of care. 2. To improve the patient's quality of life. 3. Identification of cardiac risk factors and provide cardiac risk factor management. 4. Enhance the psychosocial status of the patient. 5. Reconditioning enough to allow the patient to resume customary activities. 6. Control symptoms of cardiac disease Personal Goals: Initial Assessment: Improve energy level, Get back to work, or to resume activities faster Scale for measuring improvement of personal goals: Enter appropriate number in Comments. 2 = Unchanged. 3 = Slightly Better. 4 = Moderate Improvement. 5 = Met my Goal - Diagnosis & Disease Process Outcomes/Goals: Pt IDs own risk factors & lifestyle modifications by Session 10, Verbalizes symptoms of angina & response by session 3., Pt independently manages Plan/Interventions: Assist Pt to ID & engage in lifestyle modification to reduce CVD risk, Instruct on individual risk factors, Review symptoms of angina & emergency actions, Review secondary diagnosis & identify educational needs. - Safety Referral to Physical Therapy: No Referral to [facility] Case Management: No Fall Risk Assessed:: Yes Assistive Devices:: None Exercise - Initial Assessment - Visit Date of Eval: 05/26/20 Session #:: 0 - PRE-CARDIAC REHAB EVALUATION Mets: Pre-: >7 METS for 30 minutes by discharge - Physician Prescribed Exercise Modalities: Treadmill, Airdyne, NuStep Frequency: 3x/week for 12 weeks [36 sessions] Intensity: 60-80% of age predicted maximum heart rate reserve Current METSs:: 3.5 Target Heart Rate:: 100-130 Resting Blood Pressure: 104/66 EKG Type: NSR with history of PAROXYSMAL ATRIAL FIBRILLATION - Outcomes & Goals Goals:: Verbalizes understanding of THR, RPE & goal METS by session 6, Documents in home exercise log/reports 30 min aerobic 5 day/wk by DC, Demonstrates accurate pulse taking by DC - Intervention & Plan Exercise Program Goals: Instruct on personal THR & RPE, Instruct on MET level & personal MET goal, Show patient to take own pulse /validate performance until accurate, Instruct on home exercise - Physical Activity Home Exercise Physical Activity - Home Exercise: Safe Exercise, Warm-up, Self-monitoring, Cool-Down, Home Exercise > 30 min Daily, Sitting Time <3 hours/daily - Outcomes & Goals Outcomes/Goals: Demonstrates correct Warm-up/exercise Cool-Down (S3) if = 2.5 METs, Verbalizes symptoms of exercise intolerance by Session 3 (S3), Demonstrate safe equipment use (S3) & follows exercise prescrition (6) - Intervention & Plan Plan/Intervention: Instruct warm-up & cool-down if exercising at > 2 METs, Instruct on symptoms of exercise intolerance & actions to take, Instruct & monitor on saf, Assess intial functional capacity & safety risk Nutrition - Initial Assessment - Program Goals Nutrition Program Goals: LDL <100 optimal. 100 - 129 Near optimal. 130 - 159 Borderline High. 160 - 189 High. Total Cholesterol <200 desirable. 200 - 239 Borderline High. >/= 240 High. HDL < 40 Low >/=60 High. Triglycerides <150 desirable. <199 optimal. VlDL 5 - 40. HgbA1C <7%. BMI <25 Patient has diagnosis of Hyperlipidemia (ICD E78)?: Yes - Visit Date of Assessment:: 05/26/20 Session #:: 0 - PRE-CARDIAC REHAB EVALUATION - Cholesterol/Lipids Triglycerides (mg/dL): 0 - NO LABS AVAILABLE Determine presence & major risk factors that modify LDL goal: Hypertension or hypertensive medication, Age men > 45 years; women >/= 55 years Outcomes/Goals: Pt IDs own risk factors & lifestyle modifications by Session 10, Verbalizes symptoms of angina & response by session 3., Pt independently manages Intervention/Plan: Instruct on personal lipid levels & lipid goals/NCEP guidelines, Instruct on cholesterol Referral to dietitian:: Yes - Diabetes (Other Core Measures) Diabetes Type: Not Applicable - Weight Mgt (Other Care) Not Applicable: Yes Height: 5 ft 10 in Weight:: 192 lb BMI: 27.5 Diagnosis Overweight/Obesity BMI> 30% ICD-10 E66: No Diagnosis High BMI/Morbid Obesity BMI> 35% ICD-10 Z68: No Outcomes/Goals: Pt sets, maintains & shows weight loss goal & trend during rehab Intervention/Plan: Instruct on ideal BMI & set weight loss goal w/patient, Assist pt to ID & incorporate diet changes for weight loss by S9 - Healthy Eating Habits Will attend diet classes:: Yes Outcomes/Goals:: Consume diet rich in vegs,fruits,whole grain/high fiber,fish,lean meat, Limit sat/trans fats,cholesterol & added salts & sugars Intervention/Plan:: Assess current eating habits Medical - Initial Assessment - Visit Date of Eval: 05/26/20 Session #:: 0 - PRE-CARDIAC REHAB EVALUATION - Medication Compliance Preventative Medication(s):: Aspirin, JESSICA inhibitor, Ticagrelor/P2Y12 inhibitor, Statin/lipid, Beta paige H/O mental health issues: depression, anxiety, or addiction?: No Doesn?t believe in the benefits of treatment?: No Believes medications are unnecessary or harmful?: No Has a concern about medication side effects?: No Expresses concern over the cost of medications?: No Outcomes/Goals: Verbalizes medications,desired effect & common side effects @ DC, Pt self-reports following medication regimen, Keeps card in wallet w/medications listed by DC Interventions/plans: Instruct on medication effects & side effects, Review medication list w/patient every two weeks, Instruct importance of taking meds as ordered & assist problem solving - Tobacco Use Tobacco Use: Non-smoker - Hypertension Resting Blood Pressure:: 104/66 [employer] Hypertension Guidelines: [place] [employer] Hypertension Guidelines. Normal BP Less than 120/80. Elevated BP 120/80. Hypertension Stage 1: BP 130-139/80-89. Hypertesnion Stage 2: BP 140 or higher/90 or higher. Hypertension Crisis: BP higher than 180/120 Outcomes/Goals: Able to verbalize/achieve optimal blood pressure <130/80, Incorporates diet changes & exercise for blood pressure control by DC Interventions/plan: Instruct on optimal blood pressure, hypertension & medications, Instruct on effects of sodium, alcohol, stress, exercise &hypertension - Tobacco Cessation Referral Smoking Cessation Referral:: No Individual Education/Counseling:: No Education Schedule Given:: Yes Psychosocial - Initial Assess - VIsit Date of Eval: 05/26/20 Session #:: 0 - PRE-CARDIAC REHAB EVALUATION Not Applicable: No History of previous Mental disease:: No - Target Goals Target Goals: Assess presence or absence of depression. Using a valid screening tool, maximizes coping skills. Positive support system - Psychosocial Test Tool Used:: Giovanni Leal QOL Cardiac, PHQ-9 Questionnaire phq-9 Severity: Severity. 1-4 Minimal Depression. 5-9 Mild Depression. 10-14 Moderate Depression. 15-19 Moderately Sever Depression. 20-27 Severe Depression. Rule: - Referral to Behavioral Health PS - Interventions: Yes Attend Stress Management Classes, No Referral to Behavioral Health if PHQ-9 score >9:, No Referral to [facility], No Referral to Physician if PHQ-9 if score is 5-9: - Outcomes/Goals: See list Psychosocial Outcomes/Goals:: ID's personal stressors & 2 strategies to manage stress by discharge - Intervention/Plan: See List Interventions/Plan:: Assess stressors,coping strategies & signs of derpression on admission, Instruct/assist pt to develop coping & personal stress Mgt strategies, Instruct patient to recognize signs & symptoms of depression, Instruct patient to recog Patient Health Questionnaire Initial Assessment 1. Little interest or pleasure in doing things: Not at all 2. Feeling down, depressed, or hopeless: Not at all 3. Trouble falling or staying asleep, or sleeping too much: Not at all 4. Feeling tired or having little energy: Not at all 5. Poor appetite or overeating: Several days 6. Feeling bad about yourself -- or that you are a failure or have let yourself or your family down: Not at all 7. Trouble concentrating on things, such as reading the newspaper or watching television: Not at all 8. Moving or speaking so slowly that other people could have noticed. Or the opposite - being so fidgety or restless that you have been moving around a lot more than usual: Not at all 9. Thoughts that you would be better off , or of hurting yourself in some way: Not at all How difficult have these problems made it for you to do your work, take care of things at home, or get along with other people?: Not difficult at all Total Score: 1 LATESHA-Q SV Test - Statements CAD is a disease of the arteries in the heart: False Examples of risk factors for heart disease: True Angina is chest pain or discomfort: True The benefits of resistance training include: True Eating more meat and dairy products: False Anti-platelet medications such as aspirin are important: True The only effective way to manage stress: False An exercise warm-up slowly increases heart rate: True Prepared, processed foods usually have high sodium: True Depression is common after a heart attack: True The statin medications lower cholesterol: True To control blood pressure, lower the amount of sodium: True If someone gets chest discomfort during walking: False Transfats are partially hydrogenated vegetable oils: True Sleep apnea that is not treated increases the risk: False To control cholesterol, one should become a vegetarian: False Someone knows if he/she is exercising at the right level: True Diabetes cannot be prevented with exercise & health eating: False Stress is a large risk for heart attack: True A diet that can help lower blood pressure is rich in: True - Total Score Total Correct Responses: 20 Self-Efficacy Initial Assessment We would like to know how confident you are in doing certain activities. Please select your confidence level for:: Select your confidence level for the following using the scale 1-10 where 1 is not at all confident and 10 is totally confident. Your score is the average of all 6 responses. Fatigue: How confident are you that you can keep the fatigue caused by your disease from interfering with the things you want to do? Select Number: 10 Physical Discomfort or Pain: How confident are you that you can keep the physical discomfort or pain of your disease from interfering with the things you want to do? Select Number: 10 Emotional Distress: How confident are you that you can keep the emotional distress caused by your disease from interfering with the things you want to do? Select Number: 10 Other Symptoms or Health Problems: How confident are you that you can keep other symptoms or health problems from interfering with the things you want to do? Select Number: 10 Different Tasks and Activities: How confident are you that you can do the different tasks and activities needed to manage your health condition so as to reduce your need to see a doctor? Select Number: 10 Medication: How confident are you that you can do things other than just taking medication to reduce how much your illness affects your everyday life? Select Number: 10 Total Score:: 10 Nutrition Survey - Nutrition Survey Instructions Scoring Instructions: Scoring is as follows: Yes = 1 points. No = 0 point. Patient score that is >/=12 is considered to be at potential nutritional risk and could benefit from a referral to a registered dietitian. - Nutrition Survey Initial Have you lost >10 lbs over the past 2 months without trying?: No Are you following a special diet at home for diabetes, low fat, or low salt?: Yes Are you interested in meeting with a dietitian for help understanding your diet?: No Do you eat less than 3 meals a day?: No Do you eat fatty meats (ziegler, sausage, ribs, etc), fried foods, desserts, large amounts of salad dressings, margarine, butter, or cheese most days?: No Do you have food allergies? [Enter types in comment field]: No Do you eat in restaurants more than 3 times a week?: No Do you season food with salt, seasoning salt, or garlic salt?: No Do you used canned, boxed, frozen meals, or soups, seasoning packets?: No Total Score:: 1
[2020-05-26 10:27] VITALS: BP 104/66; PULSE 54; RESP 16; TEMP 36.2; O2SAT 96; BMI 27.5
[2020-05-26 10:46] VITALS: BP 104/66; BMI 27.5
== END ==
PROVIDERS: PCP Internal Medicine; Referring Provider Internal Medicine Cardiovascular Disease; Visit Provider Internal Medicine Cardiovascular Disease
DX: Z95.1 Presence of aortocoronary bypass graft (principal); I97.89 Other postprocedural complications and disorders of the circulatory system, not elsewhere classified; I25.10 Atherosclerotic heart disease of native coronary artery without angina pectoris; I25.2 Old myocardial infarction; I10 Essential (primary) hypertension; E78.5 Hyperlipidemia, unspecified

== ENCOUNTER 2020-06-24 10:15 | Outpatient (RCR) | payer BC, SELFPAY ==
[2020-05-26 10:27] VITALS: BMI 27.5
[2020-05-26 10:46] VITALS: BMI 27.5
== END 2020-06-24 23:59 ==
LOC: CR 10:15
PROVIDERS: PCP Internal Medicine; Referring Provider Internal Medicine Cardiovascular Disease; Visit Provider Internal Medicine Cardiovascular Disease
DX: I25.10 Atherosclerotic heart disease of native coronary artery without angina pectoris (principal); Z95.1 Presence of aortocoronary bypass graft; Z95.5 Presence of coronary angioplasty implant and graft; I97.89 Other postprocedural complications and disorders of the circulatory system, not elsewhere classified; I48.91 Unspecified atrial fibrillation; I25.2 Old myocardial infarction; I10 Essential (primary) hypertension; E78.5 Hyperlipidemia, unspecified; R00.1 Bradycardia, unspecified
CPT/HCPCS: 93798

== ENCOUNTER 2020-07-24 10:15 | Outpatient (RCR) | payer BC, SELFPAY ==
[2020-05-26 10:27] VITALS: BMI 27.5
[2020-05-26 10:46] VITALS: BMI 27.5
== END 2020-07-25 23:59 ==
LOC: CR 10:15
PROVIDERS: PCP Internal Medicine; Referring Provider Internal Medicine Cardiovascular Disease; Visit Provider Internal Medicine Cardiovascular Disease
DX: I97.89 Other postprocedural complications and disorders of the circulatory system, not elsewhere classified (principal); I48.91 Unspecified atrial fibrillation; Z95.1 Presence of aortocoronary bypass graft; I25.10 Atherosclerotic heart disease of native coronary artery without angina pectoris; Z95.5 Presence of coronary angioplasty implant and graft; I25.2 Old myocardial infarction; I10 Essential (primary) hypertension; E78.5 Hyperlipidemia, unspecified; R00.1 Bradycardia, unspecified
CPT/HCPCS: 93798

== ENCOUNTER 2020-07-31 09:20 | Day surgery (SDC) | payer BC, SELFPAY ==
[2020-05-26 10:46] VITALS: BMI 27.5
[2020-07-20 12:57] VITALS: BMI 27.2
[2020-07-27 08:23] VITALS: BMI 27.3
[2020-07-28 13:31] VITALS: BMI 27.3
[2020-07-31 09:40] VITALS: BP 117/72; PULSE 47; RESP 14; TEMP 36.1; O2SAT 98; BMI 27.3
[2020-07-31] MEDS: Lactated Ringers 1,000 ML 100 ML IV (09:55)
--- NOTE | 2020-07-31 10:16 | HP.PCM_ITS ---
Problem List (1) History of Shukla's esophagus Status: Acute History and Physical Date of Admission: 07/31/20 Intake Visit Reasons: EGD/Barretts Chief Complaint: EGD Ms Sql Developer Required: No Is patient in pain?: No Allergies amoxicillin trihydrate [From Augmentin] Allergy (Verified 07/20/20 12:58) CANT BREATHE potassium clavulanate [From Augmentin] Allergy (Verified 07/20/20 12:58) CANT BREATHE tetracycline Allergy (Verified 07/20/20 12:58) BRONCHIAL SPASM atorvastatin [From Lipitor] Adverse Reaction (Verified 07/20/20 12:58) memory loss, aggitated Medications Ascorbic Acid [Vitamin C] 500 mg PO DAILY 08/28/19 [History Confirmed 07/20/20] Omeprazole [Prilosec] 40 mg PO DAILY 08/28/19 [History Confirmed 07/20/20] Multivitamin with Minerals [Multiple Vitamin] 1 tab PO DAILY 05/11/20 [History Confirmed 07/20/20] rosuvastatin 20 mg tablet 20 mg PO DAILY #90 tab 05/18/20 [Rx Confirmed 07/20/20] aspirin 81 mg tablet,delayed release 81 mg PO DAILY tab 05/22/20 [History Confirmed 07/20/20] metoprolol tartrate 25 mg tablet 12.5 mg PO BID tab 05/22/20 [History Confirmed 07/20/20] vitamin B complex 1 cap PO DAILY 07/20/20 [History Confirmed 07/20/20] vitamin E acetate 200 unit capsule unit PO 07/20/20 [History Confirmed 07/20/20] [facility] Medical History Postoperative atrial fibrillation (Acute 04/12/20) Atherosclerosis of coronary artery of [place] heart without angina pectoris (Chronic) History of acute inferior wall myocardial infarction (Chronic 05/12/19) Essential (primary) hypertension (Chronic) STEMI (ST elevation myocardial infarction) (Chronic 05/12/19) Hyperlipidemia (Chronic) Bradycardia (Chronic) Asthma (Chronic) Barretts esophagus (Chronic) Fatty infiltration of liver (Chronic) GERD (gastroesophageal reflux disease) (Chronic) Gastritis (Chronic) Hiatal hernia (Chronic) Vitamin A deficiency (Chronic) Elevated liver enzymes (Resolved) Surgical History H/O coronary artery bypass surgery (Acute 04/10/20) History of coronary artery stent placement (Chronic 05/12/19) History of appendectomy (Resolved) History of back surgery (Resolved) History of left heart catheterization (Resolved 08/29/19) History of testicular surgery (Resolved) History of tonsillectomy (Resolved) Family History (Updated 07/20/20 @ 12:57 by Leatha Marina) Father Heart disease Myocardial infarction at 54 from it Sister Depression attempted suicide before Grandfather Alcoholism Mother Breast cancer Diabetes Hypertension CVA (cerebral vascular accident) Social History (Updated 07/20/20 @ 13:[address] Emanuel Mills MD) Smoking Status: Never smoker alcohol intake: never substance use type: does not use what type of physical activity do you participate in: other details: active job frequency: 3-4 times per week HPI HPI HPI: JIMMY DEMPSEY, is a 64 M who presents to the office today for surgical discussion regarding history of Shukla's esophagus and need for updated EGD. Very pleasant 64-year-old gentleman. I assisted him July 14, 2017 with an upper endoscopy. I detected antral gastritis at a time and a 4 cm length of Shukla's esophagus and a moderate hiatal hernia. Biopsies were mild gastritis and Shukla's esophagus with focal chronic inflammation but no dysplasia. H. pylori was negative. More recently the patient has had cardiac disease. Had multiple stents placed. He just recently had coronary bypass surgery. An internal mammary artery was used as well as leg vein. He feels very well. He denies any nausea vomiting abdominal pain bright red blood per rectum or melena. He has avoided COVID-19. He takes well care of himself. He states that he has lost 35 pounds since my previous visit with him. He did that because he was tentatively diagnosed as having Milian cirrhosis as well as his reflux. He is currently completely asymptomatic from his reflux. He is only on aspirin. That allows him to take his routine omeprazole therapy. HPI HPI HPI: JIMMY DEMPSEY, is a 64 M who presents to the office today for ROS General General: No weight change, appetite, fatigue, colon cancer, breast cancer or weakness HEENT HEENT: No difficulty swallowing, eye injury, eye surgery, swollen glands or hoarseness Endo Endocrine: No thyroid disease, diabetes mellitus, thyroid cancer, Hair loss, heat intolerance or cold intolerance Skin Skin: No rash or changing moles Breast Breast: No left breast lump, right breast lump, nipple discharge, breast pain, abnormal mammogram, abnormal US or breast enlargement Musc Musculoskeletal: Yes arthritis; no back problems, rheumatoid arthritis, gout or joint pain Cardio Cardiovascular: Yes heart disease, high blood pressure, heart attack and heart stent; no murmur, pacemaker, atrial fibrillation, palpitations, shortness of breat with exertion or chest pain Psych Psychiatric: No depression, anxiety or hearing voices Resp Respiratory: No shortness of breath, No sleep apnea, No cough, No COPD, Yes asthma, No emphysema, No wheezing Gastro Gastrointestinal: No abdominal pain, No nausea or vomiting, No diarrhea, No constipation, No blood in stool, Yes acid reflux, No hemorrhoids, No ulcers, No gallbladder problem, No black,tarry stools [place] Hematologic: No blood thinners, No blood disorders, No bleeding, No anemia, No blood clots Neuro Neurologic: No system reviewed and no additional complaints, except as docu, No as per HPI, No abnormal walking, No abnormal hearing, No abnormal movements, No abnormal speech, No behavioral changes, No burning sensations, No confusion, No seizure-like activity, No unsteadiness, No dizziness, No localized weakness, No frequent falls, No headache(s), No lack of coordination, No loss of vision, No memory loss, No numbness, No other visual disturbances, No radiating pain, No restless legs, No sensory deficit, No fainting, No tingling, No tremor(s), No weakness, No other Exam Const General: cooperative, healthy appearing, comfortable Nutritional Appearance: average body habitus Orientation: alert, awake [facility] Head: normal to inspection Eyes General: appearance normal, both eyes and all related structures Chest Breast Palpation: No nipple discharge Other: Well-healed median sternotomy incision Resp Effort & Inspection: normal respiratory effort Auscultation: clear to auscultation bilaterally Cardio Rate: regular rate Rhythm: regular rhythm Heart Sounds: no murmurs GI Palpation: soft, no hepatosplenomegaly Auscultation: normal bowel sounds Neuro General: alert, awake Extrem General: no calf tenderness Psych Affect: normal affect Assessment & Plan Problems 1. History of Shukla's esophagus Z87.19 Plan 64-year-old gentleman with history of 4 cm long segment Shukla's. No dysplasia. Most recent upper endoscopy was June 2017. He has successfully undergone coronary bypass surgery. He is not on any anticoagulants other than low-dose aspirin. He is on routine omeprazole therapy 40 mg daily. He has had an intentional 35 pound weight loss. He is currently completely asymptomatic. I propose for him a esophagogastroduodenoscopy with anticipated biopsies. He is aware of the technique, benefit, risk, alternatives. He has had an opportunity to ask and have questions answered. Because of his cardiac history we will perform this with monitored anesthesia care. We will schedule and proceed at his discretion. I appreciate the ongoing opportunity of assisting with his surgical care. Copy: Dr. Mane Mills M.D., F.A.C.S. I have re-examined the patient. There are no clinical changes since date of exam.
--- NOTE | 2020-07-31 10:30 | IMM_PTH ---
PATIENT: JIMMY DEMPSEY LOC: EN U#:[id number] AGE/SX: 64/M ROOM: RE07/31/[address]: Dr. Emanuel Mills MD : 1955 BED: DIS: 07/31/2020 SPEC #: [id number] RECD: 07/31/20 13:54 STATUS: GERARD RENikki #: [id number] VERONICA: 07/31/20 10:[address]: Emanuel Mills DEPT: IMMUNOHISTOCHEMISTRY RECD BY: Jennifer Valencia ENTERED: 07/31/20 13:55 SP TYPE: IMMUNO OTHR DR: Dr. Mane Dahl MD Tissues: A - Stomach, NOS B - Esophagus, NOS Procedures: H Pylori (initial) P53 (initial) PHYSICIAN & INSTITUTION [place] [address] SPECIMEN INFORMATION: Tissue Source: A - Antrum biopsy, B - Distal esophagus, biopsy Clinical Info: Shukla's esophagus Specimen Number: [id number] A & B CPT code: 97123 x2 METHODOLOGY: Deparaffinized sections of prefer/formalin-fixed tissue or PAP/DQ stained slides are incubated with monoclonal/polyclonal antibodies/oligonucleotide probes. Localization is made via biotin free immunoperoxidase method. Appropriate controls are performed and reacted as expected. Results on target cell population are indicated in the following table: RESULTS: ANTIBODY / CLONE RESULT Block A H Pylori (polyclonal) negative Block B P53 (DO-7) negative These tests were developed and their performance characteristics determined by [facility]. They may not have been cleared or approved by the U.S. Food and Drug Administration. The FDA has determined that such clearance or approval is not necessary. INTERPRETATION: A. Antrum biopsy: Negative for Helicobacter pylori organisms. B. Distal esophagus, biopsy: Negative for dysplasia. SJ:yarelis 08/03/20
--- NOTE | 2020-07-31 10:30 | EGD_PTH ---
PATIENT: JIMMY DEMPSEY LOC: EN U#:[id number] AGE/SX: 64/M ROOM: RE07/31/[address]: Dr. Emanuel Mills MD : 1955 BED: DIS: 07/31/2020 SPEC #: [id number] RECD: 07/31/20 11:45 STATUS: GERARD GOLDEN #: [id number] VERONICA: 07/31/20 10:[address]: Emanuel Mills DEPT: SURGICAL PATHOLOGY RECD BY: Naresh Sanchez ENTERED: 07/31/20 12:19 SP TYPE: EGD BIOPSY OT DR: Dr. Mane Dahl MD Tissues: A - Gastric mucous membrane B - Esophagus, NOS Procedures: Special Stain Group II Surgery Specimen Level IV Alcian Blue/PAS (control) HEADER OPERATION: EGD ([facility] [place]) PRE-OP DIAGNOSIS: Shukla's esophagus TISSUE SUBMITTED: A - Antrum biopsy for histo and H. pylori, B - Distal esophagus biopsy MICROSCOPIC DIAGNOSIS A. Antrum biopsy: Chronic active gastritis. See microscopic description and comment. B. Distal esophagus, biopsy. Fragments of gastroesophageal mucosa with intestinal metaplasia (goblet cell metaplasia), consistent with Shukla's esophagus. Moderate chronic inflammation. Negative for dysplasia. See comment. SJ:rg 08/03/20 COMMENT A. The results of immunohistochemistry for Helicobacter pylori will be reported separately ([id number]). B. Alcian blue/PAS stain with matched control is used in the evaluation of the specimen. Immunohistochemistry ([id number]) supports the above diagnosis. MICROSCOPIC DESCRIPTION Slides are reviewed. B. The specimen shows fragments of gastric mucosa with chronic inflammatory cell infiltrates in the lamina propria consisting of lymphocytes and plasma cells, consistent with mild chronic gastritis. GROSS DESCRIPTION A - Received in fixative is one container labeled with the patient's name and designated antrum biopsy. The specimen consists of two irregular fragments of light boothe soft tissue that in aggregate measure 0.7 x 0.5 x 0.2 cm. The specimen is totally submitted in one cassette. B - Received in fixative is one container labeled with the patient's name and designated distal esophagus biopsy. The specimen consists of multiple irregular fragments of light boothe soft tissue that in aggregate measure 2 x 0.5 x 0.1 cm. The specimen is totally submitted in one cassette. / SJ:rg 07/31/20 TC:2 CPT: 94891 x2, 77445
[2020-07-31 11:34] VITALS: BP 117/72; BP 92/52; PULSE 56; RESP 16; TEMP 36.4; O2SAT 93
--- NOTE | 2020-07-31 11:37 | OP.EGD_ITS ---
Patient Name: Kevin Quintero Procedure Date: 07/31/2020 11:12 AM Date of : 1955 Age: 64 Procedure: Upper GI endoscopy Indications: Follow-up of Shukla's esophagus Providers: Emanuel Mills MD Referring MD: Emanuel Mills MD Medicines: See the Anesthesia note for documentation of the administered medications Complications: No immediate complications. Procedure: Pre-Anesthesia Assessment: - Prior to the procedure, a History and Physical was performed, and patient medications and allergies were reviewed. The patient's tolerance of previous anesthesia was also reviewed. The risks and benefits of the procedure and the sedation options and risks were discussed with the patient. All questions were answered, and informed consent was obtained. Prior Anticoagulants: The patient has taken no previous anticoagulant or antiplatelet agents. ASA Grade Assessment: II - A patient with mild systemic disease. After reviewing the risks and benefits, the patient was deemed in satisfactory condition to undergo the procedure. After obtaining informed consent, the endoscope was passed under direct vision. Throughout the procedure, the patient's blood pressure, pulse, and oxygen saturations were monitored continuously. The Endoscope was introduced through the mouth, and advanced to the second part of duodenum. The upper GI endoscopy was accomplished without difficulty. The patient tolerated the procedure well. Scope In: 11:21:23 AM Scope Out: 11:29:54 AM Total Procedure Duration Time 0 hours 8 minutes 31 seconds Findings: There were esophageal mucosal changes secondary to established short-segment Shukla's disease present in the lower third of the esophagus. The maximum longitudinal extent of these mucosal changes was 3 cm in length. Mucosa was biopsied with a cold forceps for histology in 4 quadrants in the lower third of the esophagus. A medium-sized hiatal hernia was present. Localized minimal inflammation characterized by erythema was found in the gastric antrum. Biopsies were taken with a cold forceps for histology. The examined duodenum was normal. Impression: - Esophageal mucosal changes secondary to established short-segment Shukla's disease. Biopsied. - Medium-sized hiatal hernia. - Chronic gastritis. Biopsied. - Normal examined duodenum. Recommendation: - Await pathology results. - Discharge patient to home. - Resume previous diet. - Continue present medications. - Telephone my office for pathology results in 1 week. - Repeat upper endoscopy in 3 years for surveillance. Office appt. to discuss manometry and surgical reflux procedure Procedure Code(s): --- Professional --- 03750, Esophagogastroduodenoscopy, flexible, transoral; with biopsy, single or multiple Diagnosis Code(s): --- Professional --- K22.70, Shukla's esophagus without dysplasia K44.9, Diaphragmatic hernia without obstruction or gangrene K29.50, Unspecified chronic gastritis without bleeding CPT copyright 2017 [employer]. All rights reserved. The codes documented in this report are preliminary and upon news operations manager review may be revised to meet current compliance requirements. Emanuel Mills MD 07/31/2020 11:37:12 AM This report has been signed electronically. Number of Addenda: 0 Note Initiated On: 07/31/2020 11:12 AM
--- NOTE | 2020-07-31 11:38 | OP.CCLET_ITS ---
07/31/2020 Mane Dahl MD [address] [place] [address] [place] [address] Re : Upper GI endoscopy procedure for Kevin Quintero Dear Dr. Dahl This procedure was performed on Friday, July 31, 2020. 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 Biopsied. - Medium-sized hiatal hernia. - Chronic gastritis. Biopsied. - Normal examined duodenum. Recommendations : - Await pathology results. - Discharge patient to home. - Resume previous diet. - Continue present medications. - Telephone my office for pathology results in 1 week. - Repeat upper endoscopy in 3 years for surveillance. Office appt. to discuss manometry and surgical reflux procedure My findings are described in the full procedure note, which is enclosed. If I can be of further assistance, please feel free to contact me at Doctor phone number(s): Work: . Sincerely, Emanuel Mills MD 07/31/2020 11:37:12 AM This report has been signed electronically.
[2020-07-31 11:40] VITALS: BP 117/72; BP 83/50; PULSE 57; RESP 16; O2SAT 94
[2020-07-31 11:45] VITALS: BP 101/70; BP 117/72; PULSE 56; RESP 18; O2SAT 96
[2020-07-31 11:50] VITALS: BP 104/71; BP 117/72; PULSE 58; RESP 16; O2SAT 95
[2020-07-31 11:54] VITALS: BP 104/71; BP 117/72; PULSE 57; RESP 16; O2SAT 95
== END 2020-07-31 12:44 | disposition home or self-care (01) ==
LOC: EN 09:21 → AC 09:26
PROVIDERS: PCP Internal Medicine; Referring Provider Surgery; Visit Provider Surgery
PROC: 0DJ08ZZ Inspection of Upper Intestinal Tract, Via Natural or Artificial Opening Endoscopic (ICD-10-PCS; CPT 43235; principal; 2020-07-31 10:25)
DX: K29.50 Unspecified chronic gastritis without bleeding (principal); K22.70 Barrett's esophagus without dysplasia; K44.9 Diaphragmatic hernia without obstruction or gangrene; K21.9 Gastro-esophageal reflux disease without esophagitis; I25.10 Atherosclerotic heart disease of native coronary artery without angina pectoris; I10 Essential (primary) hypertension; E78.5 Hyperlipidemia, unspecified; J45.909 Unspecified asthma, uncomplicated; I25.2 Old myocardial infarction; Z79.82 Long term (current) use of aspirin; Z79.899 Other long term (current) drug therapy; Z87.19 Personal history of other diseases of the digestive system; Z95.5 Presence of coronary angioplasty implant and graft; Z95.1 Presence of aortocoronary bypass graft
CPT/HCPCS: 43239; 87426; 88305; 88313; 88342; C9803; J7120; J2405

== ENCOUNTER 2020-08-19 10:15 | Outpatient (RCR) | payer BC, SELFPAY ==
[2020-05-26 10:46] VITALS: BMI 27.5
[2020-07-20 12:57] VITALS: BMI 27.2
--- NOTE | 2020-07-27 08:17 | CR.ITP_ITS ---
Exercise - 60-day Assessment - Visit Date of Eval: 07/27/20 Session #:: 25 - Physician Prescribed Exercise Modalities: Treadmill, Airdyne, NuStep Frequency: 3x/week for 12 weeks [36 sessions] Intensity: 60-80% of age predicted maximum heart rate reserve Current METSs:: 8.5 Target Heart Rate:: 100-130 Target RPE 12-16:: 0 Current RPE:: 13 Maximum Excercise HR:: 121 Resting Blood Pressure: 118/62 Maximum Exercise Blood Pressure: 158/74 EKG Type: SINUS BRADYCARDIA TO SINUS TACH WITHOUT ECTOPY. - Outcomes & Goals Goals:: Verbalizes understanding of THR, RPE & goal METS by session 6, Documents in home exercise log/reports 30 min aerobic 5 day/wk by DC, Demonstrates accurate pulse taking by DC - Intervention & Plan Exercise Program Goals: Instruct on personal THR & RPE, Instruct on MET level & personal MET goal, Show patient to take own pulse /validate performance until accurate, Instruct on home exercise - 30-day Reassessments 30 day Reassessments:: Met - Physical Activity Home Exercise Physical Activity - Home Exercise: Safe Exercise, Warm-up, Self-monitoring, Cool-Down, Home Exercise > 30 min Daily, Sitting Time <3 hours/daily - Outcomes & Goals Outcomes/Goals: Demonstrates correct Warm-up/exercise Cool-Down (S3) if = 2.5 METs, Verbalizes symptoms of exercise intolerance by Session 3 (S3), Demonstrate safe equipment use (S3) & follows exercise prescrition (6) - Intervention & Plan Plan/Intervention: Instruct warm-up & cool-down if exercising at > 2 METs, Instruct on symptoms of exercise intolerance & actions to take, Instruct & monitor on saf, Assess intial functional capacity & safety risk - 30-day Reassessments 30 day Reassessments:: Met Nutrition - 60-Day Assessment - Program Goals Nutrition Program Goals: LDL <100 optimal. 100 - 129 Near optimal. 130 - 159 Borderline High. 160 - 189 High. Total Cholesterol <200 desirable. 200 - 239 Borderline High. >/= 240 High. HDL < 40 Low >/=60 High. Triglycerides <150 desirable. <199 optimal. VlDL 5 - 40. HgbA1C <7%. BMI <25 Patient has diagnosis of Hyperlipidemia (ICD E78)?: Yes - Visit Date of Assessment:: 07/27/20 Session #:: 25 - NO RECENT LABS - Cholesterol/Lipids Determine presence & major risk factors that modify LDL goal: Hypertension or hypertensive medication, Family history of premature CHD in Male < 55 years: female <65 yearsFa, Age men > 45 years; women >/= 55 years Outcomes/Goals: Pt IDs own risk factors & lifestyle modifications by Session 10, Verbalizes symptoms of angina & response by session 3., Pt independently manages Intervention/Plan: Instruct on personal lipid levels & lipid goals/NCEP guidelines, Instruct on cholesterol Referral to dietitian:: Yes 30-day Reassessments:: Progressing - Diabetes (Other Core Measures) Diabetes Type: Not Applicable - Weight Mgt (Other Care) Not Applicable: Yes Height: 5 ft 10 in Weight:: 191 lb BMI: 27.3 Diagnosis Overweight/Obesity BMI> 30% ICD-10 E66: No Diagnosis High BMI/Morbid Obesity BMI> 35% ICD-10 Z68: No Outcomes/Goals: Pt sets, maintains & shows weight loss goal & trend during rehab Intervention/Plan: Instruct on ideal BMI & set weight loss goal w/patient, Assist pt to ID & incorporate diet changes for weight loss by S9 30 day Reassessments:: Progressing - Healthy Eating Habits Will attend diet classes:: Yes Outcomes/Goals:: Consume diet rich in vegs,fruits,whole grain/high fiber,fish,lean meat, Limit sat/trans fats,cholesterol & added salts & sugars Intervention/Plan:: Assess current eating habits 30-day Reassessments:: Progressing - Education Gave educational materials for:: Healthy eating Medical- 60-Day Assessment - Visit Date of Eval: 07/27/20 Session #:: 25 - Medication Compliance Preventative Medication(s):: Aspirin, Ticagrelor/P2Y12 inhibitor, Statin/lipid, Beta paige H/O mental health issues: depression, anxiety, or addiction?: No Doesn?t believe in the benefits of treatment?: No Believes medications are unnecessary or harmful?: No Has a concern about medication side effects?: No Expresses concern over the cost of medications?: No Outcomes/Goals: Verbalizes medications,desired effect & common side effects @ DC, Pt self-reports following medication regimen, Keeps card in wallet w/medications listed by DC Interventions/plans: Instruct on medication effects & side effects, Review medication list w/patient every two weeks, Instruct importance of taking meds as ordered & assist problem solving 30-day Reassessments:: Progressing - Tobacco Use Tobacco Use: Non-smoker - Hypertension Hypertension Diagnosis:: Hypertension ICD-10 I10 Resting Blood Pressure:: 118/62 [employer] Hypertension Guidelines: [place] [employer] Hypertension Guidelines. Normal BP Less than 120/80. Elevated BP 120/80. Hypertension Stage 1: BP 130-139/80-89. Hypertesnion Stage 2: BP 140 or higher/90 or higher. Hypertension Crisis: BP higher than 180/120 Peak Exercise Blood Pressure:: 158/74 Outcomes/Goals: Able to verbalize/achieve optimal blood pressure <130/80, Incorporates diet changes & exercise for blood pressure control by DC Interventions/plan: Instruct on optimal blood pressure, hypertension & medications, Instruct on effects of sodium, alcohol, stress, exercise &hypertension 30 day Reassessments:: Met - Tobacco Cessation Referral Smoking Cessation Referral:: No Individual Education/Counseling:: No Education Schedule Given:: Yes Psychosocial - 60-Day Assess - VIsit Date of Eval: 07/27/20 Session #:: 25 Not Applicable: Yes History of previous Mental disease:: No - Target Goals Target Goals: Assess presence or absence of depression. Using a valid screening tool, maximizes coping skills. Positive support system - Psychosocial Test Tool Used:: PHQ-9 Questionnaire phq-9 Severity: Severity. 1-4 Minimal Depression. 5-9 Mild Depression. 10-14 Moderate Depression. 15-19 Moderately Sever Depression. 20-27 Severe Depression. Rule: - Referral to Behavioral Health PS - Interventions: Yes Attend Stress Management Classes, No Referral to Behavioral Health if PHQ-9 score >9:, No Referral to [facility], No Referral to Physician if PHQ-9 if score is 5-9: - Outcomes/Goals: See list Psychosocial Outcomes/Goals:: ID's personal stressors & 2 strategies to manage stress by discharge - Intervention/Plan: See List Interventions/Plan:: Assess stressors,coping strategies & signs of derpression on admission, Instruct/assist pt to develop coping & personal stress Mgt strategies, Instruct patient to recognize signs & symptoms of depression, Instruct patient to recog - 30-day Reassessments: 30 day Reassessments:: Progressing Patient Health Questionnaire 60-Day Re-eval Assessment 1. Little interest or pleasure in doing things: Not at all 2. Feeling down, depressed, or hopeless: Not at all 4. Feeling tired or having little energy: Not at all 5. Poor appetite or overeating: Not at all 6. Feeling bad about yourself -- or that you are a failure or have let yourself or your family down: Not at all 7. Trouble concentrating on things, such as reading the newspaper or watching television: Not at all 8. Moving or speaking so slowly that other people could have noticed. Or the opposite - being so fidgety or restless that you have been moving around a lot more than usual: Not at all 9. Thoughts that you would be better off , or of hurting yourself in some way: Not at all How difficult have these problems made it for you to do your work, take care of things at home, or get along with other people?: Not difficult at all Total Score: 0 Self-Efficacy 60-Day Re-eval Assessment We would like to know how confident you are in doing certain activities. Please select your confidence level for:: Select your confidence level for the following using the scale 1-10 where 1 is not at all confident and 10 is totally confident. Your score is the average of all 6 responses. Fatigue: How confident are you that you can keep the fatigue caused by your disease from interfering with the things you want to do? Select Number: 10 Physical Discomfort or Pain: How confident are you that you can keep the physical discomfort or pain of your disease from interfering with the things you want to do? Select Number: 10 Emotional Distress: How confident are you that you can keep the emotional distress caused by your disease from interfering with the things you want to do? Select Number: 10 Other Symptoms or Health Problems: How confident are you that you can keep other symptoms or health problems from interfering with the things you want to do? Select Number: 10 Different Tasks and Activities: How confident are you that you can do the different tasks and activities needed to manage your health condition so as to reduce your need to see a doctor? Select Number: 10 Medication: How confident are you that you can do things other than just taking medication to reduce how much your illness affects your everyday life? Select Number: 10 Total Score:: 10
[2020-07-27 08:23] VITALS: BP 118/62; BP 158/74; BMI 27.3
== END 2020-08-24 23:59 ==
LOC: CR 10:15
PROVIDERS: PCP Internal Medicine; Referring Provider Internal Medicine Cardiovascular Disease; Visit Provider Internal Medicine Cardiovascular Disease
DX: I97.89 Other postprocedural complications and disorders of the circulatory system, not elsewhere classified (principal); I48.91 Unspecified atrial fibrillation; Z95.1 Presence of aortocoronary bypass graft; I25.10 Atherosclerotic heart disease of native coronary artery without angina pectoris; Z95.5 Presence of coronary angioplasty implant and graft; I25.2 Old myocardial infarction; I10 Essential (primary) hypertension; E78.5 Hyperlipidemia, unspecified; R00.1 Bradycardia, unspecified
CPT/HCPCS: 93798

== ENCOUNTER → 2021-03-03 15:03 | Outpatient (CLI) | payer BC, SELFPAY ==
[2020-08-26 13:45] VITALS: BMI 27.5
[2021-03-03 14:27] VITALS: BMI 27.3
[2021-03-03 16:33] LABS: Absolute Lymphocyte Count 1.72 X10^3/uL (0.83-4.51); Basophil# 0.04 X10^3/uL; Basophil% 0.6 % (0-1); Eosinophil# 0.16 X10^3/uL; Eosinophils% 2.4 % (0-5); Hematocrit 46.1 % (40-54); Hemoglobin 15.3 g/dL (13.0-16.5); Lymphocyte # 1.72 X10^3/ul (0.83-4.51); Lymphocyte % 26.3 % (19-41); Mean Corp Hgb Conc 33.2 g/dL (32-36); Mean Corpuscular Hgb 32.1 pg (27.0-32.0); Mean Corpuscular Volume 96.6 fL (80-94); Mean Platelet Vol. 9.9 fl (6.2-12.0); Monocyte# 0.61 X10^3/uL; Monocyte% 9.3 % (0-10); NRBC Flagged by Analyzer 0 % (0-5); Neutrophil % 61.2 % (47-70); Platelet Count 133 K/mm3 (150-450); RBC Distribution Width CV 11.9 % (11.6-14.6); RBC Distribution Width SD 42.9 fl (35.1-43.9); Red Blood Count 4.77 M/mm3 (4.6-6.2); White Blood Count 6.5 K/mm3 (4.4-11.0)
[2021-03-03 17:04] LABS: ALB/GLOB Ratio 1.3 RATIO (0.9-2.4); AST(SGOT) 20 U/L (15-37); Alanine Aminotransfer ALT/SGPT 26 U/L (16-61); Albumin, Serum 4.1 g/dL (3.2-5.0); Alkaline Phosphatase 83 U/L (45-117); Anion Gap 7 (5-15); BUN 22 mg/dL (7-18); BUN/Creat Ratio 19.1 RATIO (10-20); Calcium,Total 8.8 mg/dL (8.5-10.1); Chloride 105 mmol/L (98-107); Cholesterol 136 mg/dL (200); Creatinine, Serum 1.15 mg/dL (0.70-1.30); EST Glomerular Filtration Rate 67 mL/min (>60); Est Glom Filt Rate - Afr Amer 82 mL/min (>60); Globulin 3.1 g/dL (2.2-4.2); Glucose 80 mg/dL (74-106); High Density Lipoprotein 52 mg/dL; PSA,Total - Annual Screen 0.55 ng/mL (0.00-4.00); Potassium 4.2 mmol/L (3.5-5.1); Protein, Total 7.2 g/dL (6.4-8.2); Sodium Level 140 mmol/L (136-145); Triglycerides 128 mg/dL; Very Low Density Lipoprotein 26 mg/dL (5-40)
== END ==
PROVIDERS: PCP Internal Medicine; Referring Provider Internal Medicine; Visit Provider Internal Medicine
DX: Z00.00 Encounter for general adult medical examination without abnormal findings (principal)
CPT/HCPCS: 36415; 80053; 80061; 84153; 85025; G0103

== ENCOUNTER → 2021-06-28 11:42 | Outpatient (CLI) | payer MEDICARE, SELFPAY ==
[2020-08-26 13:45] VITALS: BMI 27.5
[2021-06-28 15:17] LABS: Absolute Lymphocyte Count 1.39 X10^3/uL (0.83-4.51); Absolute Neutrophil Count 3.8 X10^3/uL (2.0-7.7); Basophil# 0.03 X10^3/uL; Basophil% 0.5 % (0-1); Eosinophil# 0.13 X10^3/uL; Eosinophils% 2.2 % (0-5); Hematocrit 47.9 % (40-54); Hemoglobin 16.5 g/dL (13.0-16.5); Lymphocyte # 1.39 X10^3/ul (0.83-4.51); Lymphocyte % 23.8 % (19-41); Mean Corp Hgb Conc 34.4 g/dL (32-36); Mean Corpuscular Hgb 33.1 pg (27.0-32.0); Mean Platelet Vol. 9.7 fl (6.2-12.0); Monocyte# 0.52 X10^3/uL; Monocyte% 8.9 % (0-10); NRBC Flagged by Analyzer 0 % (0-5); Neutrophil # 3.75 X10^3/uL (2.7-7.7); Neutrophil % 64.4 % (47-70); Platelet Count 177 K/mm3 (150-450); RBC Distribution Width CV 12.1 % (11.6-14.6); RBC Distribution Width SD 42.5 fl (35.1-43.9); Red Blood Count 4.99 M/mm3 (4.6-6.2); White Blood Count 5.8 K/mm3 (4.4-11.0)
== END ==
PROVIDERS: PCP Internal Medicine; Referring Provider Internal Medicine; Visit Provider Internal Medicine
DX: D69.6 Thrombocytopenia, unspecified (principal)
CPT/HCPCS: 36415; 85025

== ENCOUNTER 2021-11-23 15:47 | Outpatient (CLI) | payer MEDICARE, SELFPAY ==
[2020-08-26 13:45] VITALS: BMI 27.5
[2021-11-23 16:43] LABS: Absolute Lymphocyte Count 1.77 X10^3/uL (0.83-4.51); Basophil# 0.05 X10^3/uL; Basophil% 0.9 % (0-1); Eosinophil# 0.16 X10^3/uL; Eosinophils% 2.8 % (0-5); Hematocrit 44.8 % (40-54); Hemoglobin 15.2 g/dL (13.0-16.5); Lymphocyte # 1.77 X10^3/ul (0.83-4.51); Lymphocyte % 31.3 % (19-41); Mean Corp Hgb Conc 33.9 g/dL (32-36); Mean Corpuscular Hgb 33.3 pg (27.0-32.0); Mean Platelet Vol. 9.6 fl (6.2-12.0); Monocyte# 0.64 X10^3/uL; Monocyte% 11.3 % (0-10); NRBC Flagged by Analyzer 0 % (0-5); Neutrophil # 3.02 X10^3/uL (2.7-7.7); Neutrophil % 53.5 % (47-70); Platelet Count 145 K/mm3 (150-450); RBC Distribution Width CV 12.2 % (11.6-14.6); RBC Distribution Width SD 43.8 fl (35.1-43.9); Red Blood Count 4.57 M/mm3 (4.6-6.2); White Blood Count 5.7 K/mm3 (4.4-11.0)
[2021-11-23 17:08] LABS: Vitamin D,25 Hydroxy 25.4 ng/mL
[2021-11-23 17:21] LABS: ALB/GLOB Ratio 1.1 RATIO (0.9-2.4); AST(SGOT) 22 U/L (15-37); Alanine Aminotransfer ALT/SGPT 29 U/L (16-61); Albumin, Serum 3.9 g/dL (3.2-5.0); Alkaline Phosphatase 85 U/L (45-117); Anion Gap 2 (5-15); BUN 19 mg/dL (7-18); Calcium,Total 8.8 mg/dL (8.5-10.1); Chloride 107 mmol/L (98-107); Creatinine, Serum 1.19 mg/dL (0.70-1.30); EST Glomerular Filtration Rate 65 mL/min (>60); Est Glom Filt Rate - Afr Amer 78 mL/min (>60); Globulin 3.4 g/dL (2.2-4.2); Glucose 84 mg/dL (74-106); Potassium 4.3 mmol/L (3.5-5.1); Protein, Total 7.3 g/dL (6.4-8.2); Sodium Level 139 mmol/L (136-145); T4 Free Direct 0.99 ng/dL (0.76-1.46); Thyroid Stim Hormone (TSH) 2.66 uIU/mL (0.358-3.74)
== END 2021-11-23 23:59 | disposition home or self-care (01) ==
LOC: BIMLAB 15:48
PROVIDERS: PCP Internal Medicine; Referring Provider Internal Medicine; Visit Provider Internal Medicine
DX: R53.83 Other fatigue (principal); R53.81 Other malaise; E55.9 Vitamin D deficiency, unspecified; Z13.29 Encounter for screening for other suspected endocrine disorder
CPT/HCPCS: 36415; 80053; 82306; 84439; 84443; 85025

== ENCOUNTER → 2022-07-11 | Outpatient (CLI) | payer MEDICARE, SELFPAY ==
[2020-08-26 13:45] VITALS: BMI 27.5
[2022-07-11 16:53] LABS: Absolute Lymphocyte Count 1.75 X10^3/uL (0.83-4.51); Absolute Neutrophil Count 3.6 X10^3/uL (2.0-7.7); Basophil# 0.05 X10^3/uL; Basophil% 0.8 % (0-1); Eosinophil# 0.14 X10^3/uL; Eosinophils% 2.3 % (0-5); Hematocrit 47.6 % (40-54); Hemoglobin 16.5 g/dL (13.0-16.5); Lymphocyte # 1.75 X10^3/ul (0.83-4.51); Lymphocyte % 28.9 % (19-41); Mean Corp Hgb Conc 34.7 g/dL (32-36); Mean Corpuscular Hgb 33.8 pg (27.0-32.0); Mean Corpuscular Volume 97.5 fL (80-94); Mean Platelet Vol. 9.5 fl (6.2-12.0); Monocyte# 0.52 X10^3/uL; Monocyte% 8.6 % (0-10); NRBC Flagged by Analyzer 0 % (0-5); Neutrophil # 3.58 X10^3/uL (2.7-7.7); Neutrophil % 59.2 % (47-70); Platelet Count 154 K/mm3 (150-450); RBC Distribution Width CV 12.4 % (11.6-14.6); RBC Distribution Width SD 44.5 fl (35.1-43.9); Red Blood Count 4.88 M/mm3 (4.6-6.2); White Blood Count 6.1 K/mm3 (4.4-11.0)
[2022-07-11 16:54] LABS: AST(SGOT) 22 U/L (15-37); Alanine Aminotransfer ALT/SGPT 32 U/L (16-61); Albumin, Serum 3.9 g/dL (3.2-5.0); Alkaline Phosphatase 74 U/L (45-117); Anion Gap 4 (5-15); BUN 22 mg/dL (7-18); BUN/Creat Ratio 17.5 RATIO (10-20); Calcium,Total 9.2 mg/dL (8.5-10.1); Chloride 106 mmol/L (98-107); Cholesterol 139 mg/dL (200); Creatinine, Serum 1.26 mg/dL (0.70-1.30); EST Glomerular Filtration Rate 60 mL/min (>60); Est Glom Filt Rate - Afr Amer 73 mL/min (>60); Globulin 3.9 g/dL (2.2-4.2); Glucose 90 mg/dL (74-106); High Density Lipoprotein 47 mg/dL; PSA,Total - Annual Screen 0.75 ng/mL (0.00-4.00); Potassium 4.6 mmol/L (3.5-5.1); Protein, Total 7.8 g/dL (6.4-8.2); Sodium Level 140 mmol/L (136-145); Triglycerides 131 mg/dL; Very Low Density Lipoprotein 26 mg/dL (5-40)
== END | disposition home or self-care (01) ==
LOC: BIMLAB 14:54
PROVIDERS: PCP Internal Medicine; Visit Provider Internal Medicine
DX: I10 Essential (primary) hypertension (principal); E78.5 Hyperlipidemia, unspecified; N40.0 Benign prostatic hyperplasia without lower urinary tract symptoms
CPT/HCPCS: 36415; 80053; 80061; 84153; 85025; G0103

== ENCOUNTER → 2023-01-05 | Outpatient (CLI) | payer MEDICARE, SELFPAY ==
[2020-08-26 13:45] VITALS: BMI 27.5
[2023-01-05 15:24] LABS: Vitamin D,25 Hydroxy 35.1 ng/mL
[2023-01-05 15:30] LABS: Cholesterol 116 mg/dL (200); High Density Lipoprotein 45 mg/dL; Thyroid Stim Hormone (TSH) 1.85 uIU/mL (0.358-3.74); Triglycerides 125 mg/dL; Very Low Density Lipoprotein 25 mg/dL (5-40)
== END | disposition home or self-care (01) ==
LOC: BIMLAB 13:27
PROVIDERS: PCP Internal Medicine; Referring Provider Nurse Practitioner Family; Visit Provider Nurse Practitioner Family
DX: I25.10 Atherosclerotic heart disease of native coronary artery without angina pectoris (principal); R00.1 Bradycardia, unspecified; E55.9 Vitamin D deficiency, unspecified
CPT/HCPCS: 36415; 80061; 82306; 84443

== ENCOUNTER → 2023-02-16 | Outpatient (CLI) | payer MEDICARE, SELFPAY ==
[2020-08-26 13:45] VITALS: BMI 27.5
--- NOTE | 2023-02-16 13:16 | CT_ITS ---
EXAM: CT CHEST WITHOUT INTRAVENOUS CONTRAST CLINICAL INDICATION: follow up right lung nodule TECHNIQUE: Helically acquired images were obtained of the chest without intravenous contrast. This CT exam was performed using one or more of the following dose reduction techniques: automated exposure control, adjustment of the mA and/or kV according to patient size, and/or use of iterative reconstruction technique. RADIATION DOSE: CTDIvol = 14.57 mGy, DLP = 448.42 mGy-cmContrast: COMPARISON: May 11, 2020. FINDINGS: LUNGS AND PLEURAL SPACES: Similar appearance of right lateral juxtapleural nodular opacity which may be old infarct or scarring, measuring 1.2 cm x 1.5 cm on lung windows, there appears to be an associated slightly prominent vessel, similar size and configuration. No mass. No pneumothorax. HEART: Unremarkable. Heart size is normal. No pericardial effusion. No significant coronary artery calcifications. MEDIASTINUM: Left coronary artery bypass grafts from the ascending aorta. Heavily calcified little traverse left coronary artery branches and calcification and presumed stents in right coronary artery all appear similar to prior exam. Mild hiatal hernia. No mediastinal or hilar adenopathy. Esophagus is unremarkable. THYROID: Unremarkable. No thyroid lesions. BONES/JOINTS: Median sternotomy wires. No suspicious lytic or blastic abnormality. VASCULATURE: Unremarkable. Thoracic aorta is non-dilated. SPLEEN: Spleen and included portion of the liver and gallbladder and mid to distal pancreas and partially included adrenals appear unremarkable. STOMACH AND BOWEL: Mild stool in the hepatic and splenic flexures. Minimal thoracic ligamentous ossification, no suspicious bone lesions. CT/Chest without Contrast IMPRESSION: Stable chest. Juxtapleural wedge-shaped suspected scarring or infarct at the right lateral upper lobe immediately adjacent to the minor fissure. Compared to May 11, 2020. No suspicious pulmonary nodules. Electronically Signed: Yudith Bales MD at 6:53 EDT ,
== END | disposition home or self-care (01) ==
LOC: CT 13:15
PROVIDERS: PCP Internal Medicine; Referring Provider Nurse Practitioner Family; Visit Provider Nurse Practitioner Family
DX: R91.1 Solitary pulmonary nodule (principal)
CPT/HCPCS: 71250

== ENCOUNTER → 2023-07-05 | Outpatient (CLI) | payer MEDICARE, SELFPAY ==
[2020-08-26 13:45] VITALS: BMI 27.5
[2023-07-05 15:20] LABS: Absolute Lymphocyte Count 1.64 X10^3/uL (0.83-4.51); Absolute Neutrophil Count 3.8 X10^3/uL (2.0-7.7); Basophil# 0.03 X10^3/uL; Basophil% 0.5 % (0-1); Eosinophils% 1.7 % (0-5); Hematocrit 44.7 % (40-54); Hemoglobin 14.7 g/dL (13.0-16.5); Lymphocyte # 1.64 X10^3/ul (0.83-4.51); Lymphocyte % 27.1 % (19-41); Mean Corp Hgb Conc 32.9 g/dL (32-36); Mean Corpuscular Hgb 32.9 pg (27.0-32.0); Mean Platelet Vol. 9.4 fl (6.2-12.0); Monocyte# 0.51 X10^3/uL; Monocyte% 8.4 % (0-10); NRBC Flagged by Analyzer 0 % (0-5); Neutrophil # 3.77 X10^3/uL (2.7-7.7); Neutrophil % 62.3 % (47-70); Platelet Count 137 K/mm3 (150-450); RBC Distribution Width CV 12.5 % (11.6-14.6); RBC Distribution Width SD 45.9 fl (35.1-43.9); Red Blood Count 4.47 M/mm3 (4.6-6.2); White Blood Count 6.1 K/mm3 (4.4-11.0)
[2023-07-05 15:53] LABS: Vitamin D,25 Hydroxy 37.6 ng/mL
[2023-07-05 16:00] LABS: ALB/GLOB Ratio 1.2 RATIO (0.9-2.4); AST(SGOT) 25 U/L (15-37); Alanine Aminotransfer ALT/SGPT 39 U/L (16-61); Albumin, Serum 3.9 g/dL (3.2-5.0); Alkaline Phosphatase 74 U/L (45-117); Anion Gap 4 (5-15); BUN 21 mg/dL (7-18); Chloride 105 mmol/L (98-107); Cholesterol 130 mg/dL (200); Creatinine, Serum 1.31 mg/dL (0.70-1.30); EST Glomerular Filtration Rate 58 mL/min (>60); Est Glom Filt Rate - Afr Amer 70 mL/min (>60); Globulin 3.2 g/dL (2.2-4.2); Glucose 89 mg/dL (74-106); High Density Lipoprotein 45 mg/dL; Potassium 4.4 mmol/L (3.5-5.1); Protein, Total 7.1 g/dL (6.4-8.2); Sodium Level 137 mmol/L (136-145); Triglycerides 115 mg/dL; Very Low Density Lipoprotein 23 mg/dL (5-40)
== END | disposition home or self-care (01) ==
LOC: BIMLAB 14:00
PROVIDERS: PCP Internal Medicine; Visit Provider Internal Medicine
DX: E78.5 Hyperlipidemia, unspecified (principal); I10 Essential (primary) hypertension; E55.9 Vitamin D deficiency, unspecified
CPT/HCPCS: 36415; 80053; 80061; 82306; 85025

== ENCOUNTER 2023-08-28 12:43 | Emergency (ER) | payer MEDICARE, SELFPAY ==
[2020-08-26 13:45] VITALS: BMI 27.5
[2023-08-28 12:44] VITALS: BP 124/82; PULSE 47; RESP 16; TEMP 36.2; O2SAT 98
[2023-08-28 13:00] LABS: Absolute Lymphocyte Count 1.48 X10^3/uL (0.83-4.51); Absolute Neutrophil Count 3.1 X10^3/uL (2.0-7.7); Basophil# 0.05 X10^3/uL; Basophil% 0.9 % (0-1); Eosinophil# 0.14 X10^3/uL; Eosinophils% 2.6 % (0-5); Hematocrit 50.8 % (40-54); Hemoglobin 16.4 g/dL (13.0-16.5); Lymphocyte # 1.48 X10^3/ul (0.83-4.51); Lymphocyte % 27.9 % (19-41); Mean Corp Hgb Conc 32.3 g/dL (32-36); Mean Corpuscular Hgb 32.5 pg (27.0-32.0); Mean Corpuscular Volume 100.8 fL (80-94); Mean Platelet Vol. 9.4 fl (6.2-12.0); Monocyte% 9.4 % (0-10); NRBC Flagged by Analyzer 0 % (0-5); Neutrophil # 3.12 X10^3/uL (2.7-7.7); Platelet Count 153 K/mm3 (150-450); RBC Distribution Width CV 12.1 % (11.6-14.6); RBC Distribution Width SD 45.3 fl (35.1-43.9); Red Blood Count 5.04 M/mm3 (4.6-6.2); White Blood Count 5.3 K/mm3 (4.4-11.0)
--- NOTE | 2023-08-28 13:00 | RAD_ITS ---
STUDY: X-RAY CHEST REASON FOR EXAM: Male, 67 years old. Chest pain TECHNIQUE: Single AP portable view of the chest. COMPARISON: Comparison is made with prior study dated May 11, 2020. FINDINGS: EKG electrodes are seen. The lungs are clear and expanded. There is no demonstrated pleural abnormality. Sternal cerclage wires and vascular clips are present from a prior sternotomy and coronary artery bypass graft procedure (CABG). Normal mediastinum and lucie. Normal visualized pulmonary arteries. Normal visualized aortic arch and descending thoracic aorta. There are mild degenerative changes of the visualized thoracic spine. Normal visualized ribs, clavicles, and shoulders. Small hiatal hernia. RAD/Chest 1 View (Portable) IMPRESSION: No acute abnormality is seen. Small hiatal hernia. Electronically Signed: Torsten Flores MD at 13:40 EST ,
--- NOTE | 2023-08-28 13:17 | EDS_ITS ---
HPI <EDE Charles - Last Filed: 08/28/23 20:41> History of Present Illness Chief Complaint: Dizziness Narrative Narrative: Patient presenting today due to an episode of dizziness that occurred late this morning. He reports that he was eating his breakfast when he became dizzy, he describes this as the room moving up and down, he then had numbness and tingling in his right leg and 1 episode of vomiting. He reports that after he vomited, the paresthesias and dizziness subsided. Patient reports a history of a STEMI and reports that this is how he felt prior to having his heart attack. He has had a triple bypass surgery as well as stent placement. He denies any history of stroke. He denies any chest pain, shortness of breath, abdominal pain, and nausea. PFSH <EDE Charles - Last Filed: 08/28/23 20:41> [facility] Medical History Asthma Atherosclerosis of coronary artery of [place] heart without angina pectoris Barretts esophagus Bradycardia Elevated liver enzymes Essential (primary) hypertension Fatty infiltration of liver Flu vaccine need Gastritis GERD (gastroesophageal reflux disease) Health care maintenance Hearing difficulty Hiatal hernia History of acute inferior wall myocardial infarction (05/12/19) History of Shukla's esophagus Hyperlipidemia Impacted cerumen of left ear Lung nodule Malaise and fatigue Postoperative atrial fibrillation (04/12/20) Preventative health care Screening for thyroid disorder STEMI (ST elevation myocardial infarction) (05/12/19) Thrombocytopenia Vitamin A deficiency Home Medications ascorbic acid (vitamin C) 500 mg capsule 500 mg PO DAILY SUPPLEMENT 08/28/19 [History Last Taken 05/10/20] multivitamin with minerals 1 tab PO DAILY supplement 05/11/20 [History Last Taken 05/10/20] aspirin 81 mg tablet,delayed release (Adult Aspirin Regimen) 81 mg PO DAILY HEART HEALTH 05/22/20 [History Last Taken Unknown] vitamin E acetate 134 mg (200 unit) capsule 200 unit PO DAILY 07/20/20 [History Last Taken Unknown] albuterol sulfate 90 mcg/actuation aerosol inhaler (ProAir HFA) 2 puff inhalation Q6H PRN shortness of breath or wheezing #8.5 grams 07/28/20 [Rx Last Taken Unknown] coenzyme Q10 200 mg capsule (Co Q-10) 200 mg PO DAILY 01/05/23 [History Last Taken Unknown] methylcellulose (laxative) 500 mg tablet (Fiber Therapy (methylcellulose)) 500 mg PO BID 01/05/23 [History Last Taken Unknown] metoprolol tartrate 25 mg tablet 12.5 mg (1/2 x 25 mg) PO BID BLOOD PRESSURE #90 tabs 01/05/23 [Rx Last Taken Unknown] omeprazole 40 mg capsule,delayed release 40 mg PO DAILY #90 caps 01/05/23 [Rx Last Taken Unknown] rosuvastatin 20 mg tablet 20 mg PO DAILY CHOLESTEROL LOWERING #90 tabs 01/05/23 [Rx Last Taken Unknown] Allergy/AdvReac Type Severity Reaction Status Date / Time amoxicillin trihydrate Allergy CANT Verified 07/05/23 13:12 [From Augmentin] BREATHE potassium clavulanate Allergy CANT Verified 07/05/23 13:12 [From Augmentin] BREATHE tetracycline Allergy BRONCHIAL Verified 07/05/23 13:12 SPASM atorvastatin [From Lipitor] AdvReac memory Verified 07/05/23 13:12 loss, aggitated Family History Father Heart disease Myocardial infarction at 54 from it Sister Depression attempted suicide before Grandfather Alcoholism Mother Breast cancer Diabetes Hypertension CVA (cerebral vascular accident) Surgical History H/O coronary artery bypass surgery (04/10/20) History of appendectomy History of back surgery History of coronary artery stent placement (05/12/19) History of left heart catheterization (08/29/19) History of testicular surgery History of tonsillectomy Social History Smoking Status: Never smoker alcohol intake: never substance use type: does not use what type of physical activity do you participate in: other details: active job frequency: 3-4 times per week ROS <EDE Charles - Last Filed: 08/28/23 20:41> ROS ED Constitutional Constitutional ED: Denies chills or fever(s) Eyes Eyes: Denies change in vision Cardiovascular Cardiovascular: Denies chest pain, palpitations or racing heartbeat Respiratory/Chest Respiratory/Chest: Denies cough or dyspnea Gastrointestinal Gastrointestinal: Reports nausea and vomiting; Denies abdominal pain Genitourinary Genitourinary ED: Denies dysuria, hematuria or urinary urgency Musculoskeletal Musculoskeletal: Denies arthralgias or myalgias Integumentary Denies rash Neurologic Neurologic: Reports dizziness and paresthesias; Denies headache(s) or weakness EXAM <EDE Charles - Last Filed: 08/28/23 20:41> Physical Exam Const Vital Signs: 08/28/23 12:44 08/28/23 12:46 08/28/23 15:00 Temperature 97.2 F L Temperature Source Temporal Pulse Rate 47 L Respiratory Rate 16 18 Blood Pressure 124/82 H Blood Pressure Mean 96 Pulse Ox 98 Oxygen Delivery Method Room Air Room Air Positive well nourished, well developed and no apparent distress General Appearance ED: well developed HEENT Reports normocephalic and head/scalp atraumatic Mouth ED: Yes moist mucous membranes normal Eyes PERRL and EOMs intact bilaterally Neck full ROM and supple Chest Wall inspection of chest normal Resp normal respiratory effort and clear to auscultation bilaterally Cardio regular rate and regular rhythm GI soft to palpation, non-tender, non-distended and no masses Back/Spine normal ROM and normal to inspection Extremity normal to inspection and full ROM Neuro oriented x3, CN's II-XII intact bilaterally, moves all extremities, no focal motor deficits and no sensory deficits noted Neuro Narrative: NIH 0. Sensorium / Orientation: awake and alert Coordination / Balance: [id number] test normal and [id number] test normal Speech: speech normal Motor Exam: strength 5/5 throughout Coordination: [id number] test normal and [id number]-[id number] test normal Psych mental status grossly normal and thought process normal Skin no rashes or lesions noted and no wounds <Dr. Shon Morel DO - Last Filed: 08/29/23 23:53> Physical Exam Const Vital Signs: 08/28/23 12:44 08/28/23 12:46 08/28/23 15:00 Temperature 97.2 F L Temperature Source Temporal Pulse Rate 47 L Respiratory Rate 16 18 Blood Pressure 124/82 H Blood Pressure Mean 96 Pulse Ox 98 Oxygen Delivery Method Room Air Room Air MDM <EDE Charles - Last Filed: 08/28/23 20:41> MDM MDM Narrative Medical decision making narrative: Patient coming today due to dizziness that started this morning after he bit down hard on his fork while eating breakfast. He reports that he then became nauseous and had a tingling sensation in his right lower extremity. After vomiting, the tingling sensation subsided and so did his dizziness. He reports concerns that he could be having an PR as this is how he felt when he had one in the past. Patient did not have any chest pain or shortness of breath. Cardiac labs will be obtained to rule out ACS, CT of the head will be obtained to rule out stroke and other intracranial abnormality. Troponin and delta troponin unremarkable. EKG is sinus bradycardia which patient has a history of. Patient has not had any recurrence of his symptoms. Chest x-ray negative for any acute cardiopulmonary abnormality. Patient's NIH is 0. Patient is stable for discharge and is to follow-up with his PCP. He is comfortable with plan. Lab Data Attestation: I reviewed the patient's lab results. Lab results narrative: CBC unremarkable, potassium 5.6, BUN 21, creatinine 1.35 Labs: Laboratory Results - last 24 hr 08/28/23 08/28/23 12:52 15:13 WBC 5.3 RBC 5.04 Hgb 16.4 Hct 50.8 MCV 100.8 H MCH 32.5 H MCHC 32.3 RDW Std Deviation 45.3 H RDW Coeff of Daija 12.1 Plt Count 153 MPV 9.4 Immature Gran % (Auto) 0.200 Neut % (Auto) 59.0 Lymph % (Auto) 27.9 [place] % (Auto) 9.4 Eos % (Auto) 2.6 Baso % (Auto) 0.9 Absolute Neuts (auto) 3.1 Absolute Lymphs (auto) 1.48 Nucleated RBC % 0 Sodium 137 Potassium 5.6 H Chloride 106 Carbon Dioxide 26.0 Anion Gap 5 BUN 21 H Creatinine 1.35 H Estim Creat Clear Calc 0.00 Est GFR (MDRD) Af Amer 67 Est GFR (MDRD) Non-Af 56 L BUN/Creatinine Ratio 15.6 Glucose 121 H Calcium 9.3 Troponin I High Sens 4 4 Radiography X-Ray: Read by ED Physician and Read by Radiologist Diagnostic Testing: Clinical Impression(s) from Imaging Studies Chest X-Ray 08/28/23 13:00 IMPRESSION: No acute abnormality is seen. Small hiatal hernia. Electronically Signed: Torsten Flores MD at 13:40 EST , Brain CT 08/28/23 13:25 IMPRESSION: Chronic involutional changes of the brain. Electronically Signed: Torsten Flores MD at 14:43 EST , EKG Initial EKG: Comments: 45 bpm, sinus bradycardia, no ST elevation, reviewed and interpreted by attending ED physician <Dr. Shon Morel, DO - Last Filed: 08/29/23 23:53> [facility] Lab Data Labs: Laboratory Results - last 24 hr 08/28/23 08/28/23 12:52 15:13 WBC 5.3 RBC 5.04 Hgb 16.4 Hct 50.8 MCV 100.8 H MCH 32.5 H MCHC 32.3 RDW Std Deviation 45.3 H RDW Coeff of Daija 12.1 Plt Count 153 MPV 9.4 Immature Gran % (Auto) 0.200 Neut % (Auto) 59.0 Lymph % (Auto) 27.9 [place] % (Auto) 9.4 Eos % (Auto) 2.6 Baso % (Auto) 0.9 Absolute Neuts (auto) 3.1 Absolute Lymphs (auto) 1.48 Nucleated RBC % 0 Sodium 137 Potassium 5.6 H Chloride 106 Carbon Dioxide 26.0 Anion Gap 5 BUN 21 H Creatinine 1.35 H Estim Creat Clear Calc 0.00 Est GFR (MDRD) Af Amer 67 Est GFR (MDRD) Non-Af 56 L BUN/Creatinine Ratio 15.6 Glucose 121 H Calcium 9.3 Troponin I High Sens 4 4 Radiography Diagnostic Testing: Clinical Impression(s) from Imaging Studies Chest X-Ray 08/28/23 13:00 IMPRESSION: No acute abnormality is seen. Small hiatal hernia. Electronically Signed: Torsten Flores MD at 13:40 EST , Brain CT 08/28/23 13:25 IMPRESSION: Chronic involutional changes of the brain. Electronically Signed: Torsten Flores MD at 14:43 EST , Treatment and Re-Evaluation :: I have personally performed a face to face assessment of the patient and have reviewed the SALEEM Note. I performed a substantive portion of the visit including all aspects of the following. My srivastava findings include: History: Patient presents with dizziness that began today. Patient states it came on rather suddenly. Patient states it felt like things were spinning from [id number] initially. Patient states that it went to spinning vertically. Patient admits to some tingling in his right lower leg. Patient denies any weakness. Patient admits to some nausea but denies any vomiting. Patient denies any tinnitus or hearing changes. Patient denies any headaches. Patient does admit to some pain in the right side of his neck. Patient denies any chest pain or shortness of breath. Exam: Vital signs are stable. Patient is afebrile. Patient is in no acute distress. Oral mucosa is pink and moist. Neck is supple. Trachea is midline. There is no JVD. Heart was regular and bradycardic. Lungs are clear and equal bilaterally. Abdomen is soft. Bowel sounds are normal. Cranial nerves II through XII are intact. There are no focal motor or sensory deficits noted. Pupils are equal, round, and reactive to light bilaterally. Extraocular muscles are intact. There is no nystagmus noted. Medical Decision Making: Differential diagnosis includes cardiac dysrhythmia, cardiac ischemia, stroke, vertigo, labyrinthitis, electrolyte abnormality, infection, and intracranial bleeding. EKG will be obtained to assess for cardiac dysrhythmia and cardiac ischemia. CT scan of the brain will be obtained to assess for intracranial bleeding and stroke. Chest x-ray will be obtained to assess for pneumonia and cardiomegaly. CBC will be obtained to assess for leukocytosis and anemia. Basic metabolic profile will be obtained to assess for electrolyte abnormality and renal function. High-sensitivity troponin will be obtained to assess for cardiac ischemia. 2-hour repeat high-sensitivity troponin will be obtained to assess for ongoing cardiac ischemia. EKG was obtained. On my independent interpretation, it showed sinus bradycardia with a rate of 45. There are no acute ST or T wave changes noted. CBC was reviewed and was essentially within normal limits. Basic metabolic profile was reviewed. Potassium was slightly elevated at 5.6 but there was moderate hemolysis. BUN was slightly elevated at 21 and creatinine was 1.35. This is consistent with prior results. Initial high-sensitivity troponin was reviewed and was normal at 4. Repeat high-sensitivity troponin was reviewed and was normal at 4. Patient was advised of his findings. I feel the patient is stable to be discharged home. Patient will follow-up with his primary care physician in 3 to 5 days. Patient and family understood and were agreeable with the plan. All questions were answered. Discharge Plan Triage Chief Complaint: Dizziness ED Midlevel Provider: Erum Serrano ED Provider: Shon Morel Dx/Rx/DC Orders Clinical Impression: Dizziness, History of acute inferior wall myocardial infarction Instructions: ED Dizziness, Uncertain Cause Prescriptions: No Action aspirin [Adult Aspirin Regimen] 81 mg tablet,delayed release (DR/EC) 81 mg PO DAILY vitamin E acetate 200 unit capsule 200 unit PO DAILY albuterol sulfate [ProAir HFA] 90 mcg/actuation HFA aerosol inhaler 2 puff INHALATION Q6H PRN (Reason: shortness of breath or wheezing) Qty: 8.5 3RF Fiber Therapy (m-cellulose) 500 mg tablet 500 mg PO BID coenzyme Q10 [Co Q-10] 200 mg capsule 200 mg PO DAILY rosuvastatin 20 mg tablet 20 mg PO DAILY Qty: 90 3RF metoprolol tartrate 25 mg tablet 12.5 mg PO BID Qty: 90 3RF omeprazole 40 mg capsule,delayed release(DR/EC) 40 mg PO DAILY Qty: 90 3RF ascorbic acid (vitamin C) 500 MG capsule 500 mg PO DAILY multivitamin with minerals 1 EACH tablet 1 tab PO DAILY Primary Care Provider: Mane Dahl Referrals: Mane Dahl MD [Primary Care Provider] - 3-5 Days Activity Restrictions/Additional Instructions: Follow-up with your PCP and return for any worsening of your symptoms. Disposition Disposition: Home, Self Care Discharge Date/Time: 08/28/23 15:59
[2023-08-28 13:24] LABS: Anion Gap 5 (5-15); BUN 21 mg/dL (7-18); BUN/Creat Ratio 15.6 RATIO (10-20); Calcium,Total 9.3 mg/dL (8.5-10.1); Chloride 106 mmol/L (98-107); Creatinine, Serum 1.35 mg/dL (0.70-1.30); EST Glomerular Filtration Rate 56 mL/min (>60); Est Glom Filt Rate - Afr Amer 67 mL/min (>60); Glucose 121 mg/dL (74-106); Potassium 5.6 mmol/L (3.5-5.1); Sodium Level 137 mmol/L (136-145); Troponin-I HS (w/2H Reflex) 4 pg/mL (3.0-78.0)
--- NOTE | 2023-08-28 13:25 | CT_ITS ---
STUDY: CT BRAIN WITHOUT CONTRAST REASON FOR EXAM: Male, 67 years old. Dizziness RADIATION DOSAGE (If Supplied By Facility): CTDIvol = ( 44.99 ) mGy, DLP = ( 796.11 ) mGycm TECHNIQUE: Transaxial CT imaging of the brain was performed without administration of intravenous contrast material. Individualized dose optimization techniques were used for this CT. COMPARISON: Comparison is made with prior study dated May 11, 2020. FINDINGS: Normal soft tissue structures. Normal calvarium. There is mild cerebral atrophy with widening of the extra-axial spaces and ventricular dilatation. Normal white matter tracts of the cerebral hemispheres. Normal basal ganglia and thalami. Normal brainstem. Normal cerebellum. There is no intracranial hemorrhage. There are no findings of an acute ischemic infarction. Normal visualized paranasal sinuses. CT/Brain/Head without Contrast IMPRESSION: Chronic involutional changes of the brain. Electronically Signed: Torsten Flores MD at 14:43 EST ,
[2023-08-28 14:57] LABS: Reflex Troponin-HS? (from REC) Y
[2023-08-28 15:00] VITALS: RESP 18
[2023-08-28 15:37] LABS: Troponin-I HS 4 pg/mL (3.0-78.0)
== END 2023-08-28 15:59 | disposition home or self-care (01) ==
PROVIDERS: Emergency Provider Emergency Medicine; PCP Internal Medicine; Visit Provider Emergency Medicine
DX: R42 Dizziness and giddiness (principal); R11.2 Nausea with vomiting, unspecified; M54.2 Cervicalgia; I25.10 Atherosclerotic heart disease of native coronary artery without angina pectoris; I10 Essential (primary) hypertension; E78.5 Hyperlipidemia, unspecified; I25.2 Old myocardial infarction; Z79.82 Long term (current) use of aspirin; Z79.899 Other long term (current) drug therapy; Z95.1 Presence of aortocoronary bypass graft; Z95.5 Presence of coronary angioplasty implant and graft
CPT/HCPCS: 70450; 71045; 80048; 84484; 85025; 93005; 99284

== ENCOUNTER → 2023-09-08 | Outpatient (CLI) | payer MEDICARE, SELFPAY ==
[2020-08-26 13:45] VITALS: BMI 27.5
[2023-09-08 14:55] LABS: Absolute Lymphocyte Count 1.61 X10^3/uL (0.83-4.51); Basophil# 0.04 X10^3/uL; Basophil% 0.6 % (0-1); Eosinophil# 0.11 X10^3/uL; Eosinophils% 1.8 % (0-5); Hematocrit 48.9 % (40-54); Hemoglobin 16.5 g/dL (13.0-16.5); Lymphocyte # 1.61 X10^3/ul (0.83-4.51); Lymphocyte % 25.7 % (19-41); Mean Corp Hgb Conc 33.7 g/dL (32-36); Mean Corpuscular Hgb 32.9 pg (27.0-32.0); Mean Corpuscular Volume 97.6 fL (80-94); Mean Platelet Vol. 9.5 fl (6.2-12.0); Monocyte# 0.53 X10^3/uL; Monocyte% 8.5 % (0-10); NRBC Flagged by Analyzer 0 % (0-5); Neutrophil # 3.96 X10^3/uL (2.7-7.7); Neutrophil % 63.2 % (47-70); Platelet Count 148 K/mm3 (150-450); RBC Distribution Width CV 12.2 % (11.6-14.6); Red Blood Count 5.01 M/mm3 (4.6-6.2); White Blood Count 6.3 K/mm3 (4.4-11.0)
[2023-09-08 15:28] LABS: ALB/GLOB Ratio 1.1 RATIO (0.9-2.4); AST(SGOT) 37 U/L (15-37); Alanine Aminotransfer ALT/SGPT 48 U/L (16-61); Alkaline Phosphatase 71 U/L (45-117); Anion Gap 2 (5-15); BUN 22 mg/dL (7-18); BUN/Creat Ratio 17.3 RATIO (10-20); Calcium,Total 9.1 mg/dL (8.5-10.1); Chloride 105 mmol/L (98-107); Creatinine, Serum 1.27 mg/dL (0.70-1.30); EST Glomerular Filtration Rate 60 mL/min (>60); Est Glom Filt Rate - Afr Amer 72 mL/min (>60); Globulin 3.7 g/dL (2.2-4.2); Glucose 93 mg/dL (74-106); Potassium 4.7 mmol/L (3.5-5.1); Protein, Total 7.7 g/dL (6.4-8.2); Sodium Level 137 mmol/L (136-145)
[2023-09-08 15:32] LABS: PSA,Total - Annual Screen 0.74 ng/mL (0.00-4.00)
== END | disposition home or self-care (01) ==
LOC: BIMLAB 13:59
PROVIDERS: PCP Internal Medicine; Referring Provider Physician Assistant; Visit Provider Physician Assistant
DX: E87.5 Hyperkalemia (principal); N40.0 Benign prostatic hyperplasia without lower urinary tract symptoms; R00.1 Bradycardia, unspecified
CPT/HCPCS: 36415; 80053; 84153; 85025; G0103

== ENCOUNTER → 2024-03-25 | Outpatient (CLI) | payer MEDICARE, SELFPAY ==
[2020-08-26 13:45] VITALS: BMI 27.5
[2024-03-25 15:26] LABS: Absolute Lymphocyte Count 1.71 X10^3/uL (0.83-4.51); Absolute Neutrophil Count 4.1 X10^3/uL (2.0-7.7); Basophil# 0.05 X10^3/uL; Basophil% 0.8 % (0-1); Eosinophil# 0.13 X10^3/uL; Hematocrit 48.1 % (40-54); Hemoglobin 16.2 g/dL (13.0-16.5); Lymphocyte # 1.71 X10^3/ul (0.83-4.51); Lymphocyte % 25.9 % (19-41); Mean Corp Hgb Conc 33.7 g/dL (32-36); Mean Corpuscular Hgb 32.7 pg (27.0-32.0); Mean Corpuscular Volume 97.2 fL (80-94); Mean Platelet Vol. 10.2 fl (6.2-12.0); Monocyte# 0.62 X10^3/uL; Monocyte% 9.4 % (0-10); NRBC Flagged by Analyzer 0 % (0-5); Neutrophil # 4.06 X10^3/uL (2.7-7.7); Neutrophil % 61.6 % (47-70); Platelet Count 143 K/mm3 (150-450); RBC Distribution Width SD 43.1 fl (35.1-43.9); Red Blood Count 4.95 M/mm3 (4.6-6.2); White Blood Count 6.6 K/mm3 (4.4-11.0)
[2024-03-25 15:46] LABS: AST(SGOT) 55 U/L (15-37); Alanine Aminotransfer ALT/SGPT 59 U/L (16-61); Albumin, Serum 3.7 g/dL (3.2-5.0); Alkaline Phosphatase 78 U/L (45-117); Anion Gap 7 (5-15); BUN 23 mg/dL (7-18); BUN/Creat Ratio 18.1 RATIO (10-20); Calcium,Total 9.2 mg/dL (8.5-10.1); Chloride 106 mmol/L (98-107); Cholesterol 135 mg/dL (200); Creatinine, Serum 1.27 mg/dL (0.70-1.30); EST Glomerular Filtration Rate 60 mL/min (>60); Est Glom Filt Rate - Afr Amer 72 mL/min (>60); Globulin 3.6 g/dL (2.2-4.2); Glucose 106 mg/dL (74-106); High Density Lipoprotein 43 mg/dL; Potassium 4.7 mmol/L (3.5-5.1); Protein, Total 7.3 g/dL (6.4-8.2); Sodium Level 138 mmol/L (136-145); Triglycerides 224 mg/dL; Very Low Density Lipoprotein 45 mg/dL (5-40)
== END | disposition home or self-care (01) ==
LOC: BIMLAB 14:10
PROVIDERS: PCP Internal Medicine; Visit Provider Internal Medicine
DX: I10 Essential (primary) hypertension (principal); E78.5 Hyperlipidemia, unspecified
CPT/HCPCS: 36415; 80053; 80061; 85025

== ENCOUNTER → 2024-10-21 | Outpatient (CLI) | payer MEDICARE, SELFPAY ==
[2024-08-14 11:14] VITALS: BMI 27.5
[2024-10-21 17:22] LABS: AST(SGOT) 41 U/L (15-37); Alanine Aminotransfer ALT/SGPT 62 U/L (16-61); Albumin, Serum 3.7 g/dL (3.2-5.0); Alkaline Phosphatase 73 U/L (45-117); Anion Gap 7 (5-15); BUN 24 mg/dL (7-18); BUN/Creat Ratio 18.9 RATIO (10-20); Calcium,Total 9.3 mg/dL (8.5-10.1); Chloride 106 mmol/L (98-107); Cholesterol 159 mg/dL (200); Creatinine, Serum 1.27 mg/dL (0.70-1.30); EST Glomerular Filtration Rate 59 mL/min (>60); Est Glom Filt Rate - Afr Amer 72 mL/min (>60); Globulin 3.6 g/dL (2.2-4.2); Glucose 92 mg/dL (74-106); High Density Lipoprotein 42 mg/dL; PSA,Total - Annual Screen 0.72 ng/mL (0.00-4.00); Potassium 4.3 mmol/L (3.5-5.1); Protein, Total 7.3 g/dL (6.4-8.2); Sodium Level 137 mmol/L (136-145); Triglycerides 274 mg/dL; Very Low Density Lipoprotein 55 mg/dL (5-40)
[2024-10-25 16:08] LABS: Lyme IgG P18 Ab Absent (.); Lyme IgG P23 Ab Absent (.); Lyme IgG P28 Ab Absent (.); Lyme IgG P30 Ab Absent (.); Lyme IgG P39 Ab Absent (.); Lyme IgG P41 Ab Absent (.); Lyme IgG P45 Ab Absent (.); Lyme IgG P58 Ab Absent (.); Lyme IgG P66 Ab Absent (.); Lyme IgG P93 Ab Absent (.); Lyme IgG WB Interpretation Negative (.); Lyme IgM P23 Ab Absent (.); Lyme IgM P39 Ab Absent (.); Lyme IgM P41 Ab Absent (.); Lyme IgM WB Interpretation Negative (.)
== END | disposition home or self-care (01) ==
LOC: BIMLAB 15:54
PROVIDERS: PCP Internal Medicine; Referring Provider Internal Medicine; Visit Provider Internal Medicine
DX: E78.5 Hyperlipidemia, unspecified (principal); N40.0 Benign prostatic hyperplasia without lower urinary tract symptoms; A69.20 Lyme disease, unspecified
CPT/HCPCS: 36415; 80053; 80061; 84153; 86617; G0103

== ENCOUNTER → 2024-11-26 | Outpatient (CLI) | payer MEDICARE, SELFPAY ==
[2024-08-14 11:14] VITALS: BMI 27.5
[2024-11-26 12:26] LABS: Absolute Lymphocyte Count 1.31 X10^3/uL (0.83-4.51); Absolute Neutrophil Count 2.8 X10^3/uL (2.0-7.7); Basophil# 0.04 X10^3/uL; Basophil% 0.8 % (0-1); Eosinophil# 0.13 X10^3/uL; Eosinophils% 2.7 % (0-5); Hemoglobin 16.3 g/dL (13.0-16.5); Lymphocyte # 1.31 X10^3/ul (0.83-4.51); Mean Corp Hgb Conc 34.7 g/dL (32-36); Mean Corpuscular Hgb 34.2 pg (27.0-32.0); Mean Corpuscular Volume 98.7 fL (80-94); Mean Platelet Vol. 10.2 fl (6.2-12.0); Monocyte# 0.53 X10^3/uL; Monocyte% 10.9 % (0-10); NRBC Flagged by Analyzer 0 % (0-5); Neutrophil # 2.84 X10^3/uL (2.7-7.7); Neutrophil % 58.4 % (47-70); Platelet Count 149 K/mm3 (150-450); RBC Distribution Width CV 12.1 % (11.6-14.6); RBC Distribution Width SD 44.5 fl (35.1-43.9); Red Blood Count 4.76 M/mm3 (4.6-6.2); White Blood Count 4.9 K/mm3 (4.4-11.0)
[2024-11-26 13:13] LABS: ALB/GLOB Ratio 1.4 RATIO (0.9-2.4); AST(SGOT) 55 U/L (<=37); Alanine Aminotransfer ALT/SGPT 66 U/L (<=46); Albumin, Serum 4.2 g/dL (3.4-4.8); Alkaline Phosphatase 75 U/L (40-129); Anion Gap 11 (5-15); BUN 21 mg/dL (4-19); BUN/Creat Ratio 16.1 RATIO (10-20); Calcium,Total 9.5 mg/dL (7.6-11.0); Carbon Dioxide 24.3 mmol/L (21.0-32.0); Chloride 102 mmol/L (98-108); Creatinine, Serum 1.29 mg/dL (0.70-1.20); EST Glomerular Filtration Rate 59 (>60); Glucose 99 mg/dL (70-99); Potassium 4.7 mmol/L (3.3-5.1); Protein, Total 7.3 g/dL (5.9-8.4); Sodium Level 137 mmol/L (133-145); Total Bilirubin 0.76 mg/dL (0.00-1.30)
[2024-11-26 14:37] LABS: Cholesterol 124 mg/dL (<=200); High Density Lipoprotein 45 mg/dL; Low Density Lipoprotein Calc. 60 mg/dL; Triglycerides 91 mg/dL; Very Low Density Lipoprotein 18 mg/dL (5-40); cholesterol:hdl ratio screen 2.73
== END | disposition home or self-care (01) ==
LOC: MFPLAB 09:31
PROVIDERS: PCP Internal Medicine; Referring Provider Family Medicine; Visit Provider Family Medicine
DX: I25.10 Atherosclerotic heart disease of native coronary artery without angina pectoris (principal); R53.83 Other fatigue
CPT/HCPCS: 36415; 80053; 80061; 82306; 84443; 85025

== ENCOUNTER 2025-06-18 06:51 | Day surgery (SDC) | payer MEDICARE, SELFPAY ==
[2024-08-14 11:14] VITALS: BMI 27.5
--- NOTE | 2025-06-17 14:25 | PAT.ANE_ITS ---
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 When Was Last Pacemaker Check QUESTION #4 FULL TEXT: You/Your Family Experience fever (hyperthermia) with Anesthesia Last Oral Intake Last Oral intake: Last Oral Intake NPO since Meds taken in AM with sips of water? Meds patient instructed to take am of surgery PONV PONV - technical service representative: PONV - technical service representative Female No 06/16/25 09:06 HX of Motion Sickness No 06/16/25 09:06 HX of N/V After Surgery Yes 06/16/25 09:06 Non-Smoker Yes 06/16/25 09:06 Duration of Surgery greater No 06/16/25 09:06 than 60 minutes Number of Risk Factors 2 06/16/25 09:06 PONV Score Moderate Risk 06/16/25 09:06 Height & Weight Height & Weight: Anesthesia: Height & Weight Height 5 ft 10 in 05/16/25 13:15 Respiratory Assessment Respiratory Assessment - technical service representative: Respiratory Tract Infection Hx - technical service representative Hx Respiratory Tract Infection No 06/16/25 09:06 STOP Sleep Apnea STOP Sleep Apnea - technical service representative: STOP Sleep Apnea - technical service representative Hx Hypertension Yes: PER PT, CONTROLLED ON 06/16/25 09:06 MEDS Hx Sleep Apnea No 06/16/25 09:06 CPAP BIPAP Do you snore loudly (louder Yes 06/16/25 09:06 than talking or can be heard Do you often feel tired/ No 06/16/25 09:06 fatigued/ sleepy during daytime? Has anyone observed you stop No 06/16/25 09:06 breathing during sleep? STOP Results Positive 06/16/25 09:06 QUESTION #5 FULL TEXT : Do you snore loudly (louder than talking or can be heard through closed doors)? 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 Specify any problems Hx of Preganancy in last 3 N/A 06/16/25 09:06 Months Nurse Filling Out Transfusion CHANDRIKA 06/16/25 09:06 & Questions: Date: 06/16/25 06/16/25 09:06 Time: 09:06/16/25 09:06 Patient unable to answer at this time (ie. confused, unrespo /Reproduction History /Reproductive History - technical service representative: /Reproductive Hx- technical service representative Hx Now No 06/16/25 09:06 Gestational Age (in weeks): EDC: Hx Hx Para Hx Section SAB No 06/16/25 09:06 [facility] Medical History (Updated 06/16/25 @ 16:17 by Belinda Vega) History of echocardiogram Wears hearing aid Wears glasses History of gout Arthritis High cholesterol History of hiatal hernia PONV (postoperative nausea and vomiting) Gastric reflux Non-smoker Leg cramps History of stress test Cardiology follow-up encounter History of atrial fibrillation Lyme disease Addiction Health care maintenance Lung nodule Hearing difficulty Impacted cerumen of left ear Screening for thyroid disorder Malaise and fatigue Flu vaccine need Thrombocytopenia Preventative health care History of Shukla's esophagus Postoperative atrial fibrillation (04/12/20) Atherosclerosis of coronary artery of [place] heart without angina pectoris History of acute inferior wall myocardial infarction (05/12/19) Essential (primary) hypertension STEMI (ST elevation myocardial infarction) (05/12/19) Bradycardia Fatty infiltration of liver Elevated liver enzymes Barretts esophagus Hiatal hernia GERD (gastroesophageal reflux disease) Vitamin A deficiency Gastritis Hyperlipidemia Asthma Home Medications ?Medication ?Instructions ?Recorded ?Last Taken ?Type multivitamin with minerals 1 tab PO DAILY supplement 0 05/11/20 05/10/20 History aspirin 81 mg tablet,delayed 81 mg PO DAILY HEART HEAL TH 05/22/20 Unknown History release (Adult Aspirin Regimen) albuterol sulfate 90 mcg/actuation 2 puff inhalation Q 6H PRN 07/28/20 Unknown Rx aerosol inhaler (ProAir HFA) shortness of breath or wh eezing #8.5 grams coenzyme Q10 200 mg capsule (Co 200 mg PO DAILY Unknown History Q-10) cholecalciferol (vitamin D3) 50 50 mcg PO DAILY Unknown History mcg (2,000 unit) capsule omeprazole 40 mg capsule,delayed 40 mg PO DAILY #90 ca ps 02/26/24 Unknown Rx release rosuvastatin 20 mg tablet 20 mg PO DAILY CHOLESTEROL 0 03/05/24 Unknown Rx LOWERING #90 tabs metoprolol tartrate 25 mg tablet 12.5 mg (1/2 x 25 mg) PO BID BLOOD 03/25/24 Unknown Rx PRESSURE #90 tabs fenofibrate 54 mg tablet 54 mg PO QDAY #90 tabs 10/21 Unknown Rx magnesium 250 mg tablet 250 mg PO DAILY 06/16/25 Unk nown History Allergy/AdvReac Type Severity Reaction Status Date / Time amoxicillin trihydrate (From Allergy CANT Verified 06/16/25 09:02 Augmentin) BREATHE potassium clavulanate (From Allergy CANT Verified 06/16/25 09:02 Augmentin) BREATHE tetracycline Allergy BRONCHIAL Verified 06/16/25 09:02 SPASM atorvastatin (From Lipitor) AdvReac memory Verified 06/16/25 09:02 loss, aggitated Family History Father Heart disease Myocardial infarction at 54 from it Sister Depression attempted suicide before Grandfather Alcoholism Mother Breast cancer Diabetes Hypertension CVA (cerebral vascular accident) Surgical History (Updated 06/16/25 @ 09:06 by Belinda Vega) History of esophagogastroduodenoscopy (EGD) History of colonoscopy H/O coronary artery bypass surgery (04/10/20) History of left heart catheterization (08/29/19) History of coronary artery stent placement (05/12/19) History of back surgery History of tonsillectomy History of testicular surgery History of appendectomy Social History Smoking Status: Never smoker alcohol intake: never substance use type: does not use what type of physical activity do you participate in: other details: active job frequency: 3-4 times per week Audit: Pertinent Findings Pertinent Findings EKG Perinent findings: 08/28/2023. Sinus bradycardia. Inferior infarct, age undetermined. Anterior septal infarct, age undetermined. Stress test pertinent findings: 06/27/2019. EF of 60%. Medium to large size defect noted in the anterior wall suggestive of anterior ischemia. (See cath) Echo (EF%) pertinent findings: 05/13/2019. EF of 50%. PASP is 26 mmHg. No aortic stenosis noted. Heart catheterization pertinent findings: 08/29/2019. EF of 60%. Total LAD occlusion with [id number] collaterals and left circumflex with moderate disease. Minimal in the RCA with a patent stent. (Status post subsequent CABG) Consult pertinent findings: 05/22/2020. 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 1. Atherosclerosis of the [place] coronary artery of the [place] heart without angina. RPDA with a ORQUIDEA. ORQUIDEA to the distal RCA x 3. No coronary symptoms at this time. Continue risk factor modifications. 2. History coronary artery bypass surgery-CABG x 3 SCHWARTZ to LAD, SVG to the OM1 and SVG to OM in 2 in March 2020. Continue current medical therapy. 3. Postoperative atrial fibrillation-most recent EKG shows sinus rhythm. Heart rate well-controlled. 4. Hypertension well-controlled. Recommendation Anesthesia Recommendation Anesthesia recommendation: OPTIMIZED for anesthesia
[2025-06-18] VITALS (8 sets, daily range): BP systolic 90–117; BP diastolic 54–77; PULSE 48–65; RESP 16–20; TEMP 36.1–36.3; O2SAT 92–99; BMI 27.5
--- OUTSIDE RECORDS SUMMARY | 2025-06-18 07:00 | XMS RPT_ITS | CCD ---
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 Minoo Dahl Primary Care Provider [phone] Dr. Minoo Dahl Referring Provider [phone] Odalys BINGHAM, SUSHILA Lane Attending Provider [phone] Tip Hookril S Unavailable Minoo Dahl MD Primary Care Provider [phone] Bam Chaparro MD Unavailable Bam Chaparro MD Unavailable Most Nicole DE LA FUENTE Unavailable Miladys, Paresh S Unavailable Most Nicole DE LA FUENTE Unavailable FRANCISCO JAVIER LYNCH Attending Unavailable MINOO DAHL Primary Care Unavailable Dr. Minoo Dahl Primary Care Provider [phone] Dr. Minoo Dahl Attending Provider [phone] Dr. Minoo Dahl Referring Provider [phone] Dr. Minoo Dahl Primary Care Provider [phone] Dr. Minoo Dahl Attending Provider [phone] Dr. Minoo Dahl Referring Provider [phone] Miladys PIKE, Edroy S Unavailable Nabila PIKE, Minoo B Primary Care Provider [phone] FRANCISCO JAVIER LYNCH Attending Unavailable OLEGHE, EFEWONGBE B Primary Care Unavailable Nabila PIKE, Dr. Gilliam Primary Care Provider Nabila PIKE, Dr. Gilliam Referring Provider [phone] Skinny Ferrer Attending Provider Evaristo Martinez Attending Provider Nabila PIKE, Dr. Gilliam Attending Provider [phone] Julio César Vera MD Attending Provider [phone] Julio César Vera MD Referring Provider [phone] Tiny PIKE, Dr. Pino Attending Provider Chuy PIKE, Julio César Primary Care Provider Chuy PIKE, Julio César Referring Provider [phone] Robotnarciso, Odette Attending Unavailable Chuy, Chalon Referring Unavailable Chuy, Chalon Primary Care Unavailable Oleghe, Efewongbe Referring Unavailable Oleghe, Efewongbe Attending Unavailable Oleghe, Efewongbe Primary Care Unavailable Chuy, Chalon Referring Unavailable Chuy, Chalon Attending Unavailable Oleghe, Efewongbe Primary Care Unavailable Oleghe, Efewongbe Referring Unavailable Oleghe, Efewongbe Attending Unavailable Oleghe, Efewongbe Primary Care Unavailable Robotham, Odette Referring Unavailable Robotham, Odette Attending Unavailable Chuy, Chalon Primary Care Unavailable Oleghe, Efewongbe Referring Unavailable Evaristo Martinez Attending Unavailable Oleghe, Efewongbe Primary Care Unavailable Oleghe, Efewongbe Referring Unavailable Oleghe, Efewongbe Primary Care Unavailable Skinny Ferrer Attending Unavailable Allergies Allergy Classification Reported Allergen(s) Allergy Type Date of Onset Reaction(s) Facility (11 sources) tetracycline; Translations: [tetracycline] Drug Allergy 3 BRONCHIAL SPASM [facility] Work Phone: (6 sources) Amoxicillin; Translations: [amoxicillin trihydrate] Drug Allergy 3 CANT BREATHE [facility] (11 sources) atorvastatin; Translations: [ATORVASTATIN] Drug Allergy 9 Mental Status Change [facility] (6 sources) potassium clavulanate; Translations: [potassium clavulanate] Allergy to substance 3 CANT BREATHE [facility] (6 sources) Amoxicillin; Translations: [AMOXICILLIN] Drug Allergy 6 Intolerance [facility] (6 sources) Amoxicillin / Clavulanate; Translations: [AMOXICILLIN-POT CLAVULANATE] Drug Allergy 0 GI Upset [facility] (6 sources) levoFLOXacin; Translations: [LEVOFLOXACIN] Drug Allergy 6 Other: See Comments [facility] (6 sources) Tetracycline (class of antibiotic); Translations: [TETRACYCLINES] Drug Allergy 6 Cough [facility] (1 source) atorvastatin Drug Allergy 5 [facility] Repository Medications Current Medications Medication Drug Class(es) Dates Sig (Normalized) Sig (Original) [id number] actuat albuterol 0.09 mg/actuat metered dose inhaler (20 sources) beta2-Adrenergic Agonist Start: 07-28-2020 End: 07-28-2020 Albuterol Sulfate (Proair Hfa) 90 mcg/actuation HFA aerosol inhaler Active 2 NMA INHALATION EVERY 6 HOURS as needed for shortness of breath or wheezing 8.5 3 July 28, 2020 3:04pm Start: 07-28-2020 End: 07-28-2020 take 1 puff(s) by inhalation every six hours Albuterol Sulfate (Proair Hfa) 90 mcg/actuation HFA aerosol inhaler Active 2 PUFF INHALATION EVERY 6 HOURS 8.5 July 28, 2020 2:04pm Start: 04-21-2020 End: 05-31-2023 take 2.5 mg by inhalation every four hours as needed albuterol (PROVENTIL) 2.5 mg /3 mL (0.083 %) nebulizer solution Use 2.5 mg via nebulizer every 4 hours as needed for Wheezing/Shortness of Breath. 0 04/21/2020 05/31/2023 Discontinued (Course of therapy completed) Start: 04-21-2020 End: 05-31-2023 take 2 puff(s) by inhalation every four hours as needed for wheezing albuterol HFA (PROVENTIL HFA, VENTOLIN HFA) 90 mcg/actuation inhaler Inhale 2 Puffs as instructed every 4 hours as needed for Wheezing/Shortness of Breath. 0 04/21/2020 05/31/2023 Discontinued (Course of therapy completed) Start: 05-14-2019 End: 12-16-2019 take 2.5 mg by inhalation every two hours as needed for wheezing Albuterol Sulfate 2.5 MG/3 ML solution for nebulization Discontinued 2.5 mg INHALATION EVERY 2 HOURS NEEDED as needed for Shortness of Breath/Wheezing 0 May 14, 2019 12:00am December 16, 2019 3:34pm Start: 06-28-2017 PROAIR HFA 108 (90 Base) MCG/ACT AERS as needed ALBUTEROL SULFATE [id number] Emanuel Mills MD Comment on above: Use 2.5 mg via nebul izer every 4 hours as needed for Wheezing/Shortness of Breath. Inhale 2 Puffs as in structed every 4 hours as needed for Wheezing/Shortness of Breath. ascorbic acid 500 mg oral capsule (5 sources) Vitamin C Start: 08-28-20 19 take 1 capsule by mouth once daily Ascorbic Acid (Vitamin C) 500 MG capsule Active 500 mg PO DAILY August 28, 2019 1:00am SUPPLEMENT aspirin 81 mg delayed release oral tablet (20 sources) Nonsteroidal Anti-inflammatory Drug Start: 05-21-20 20 take 1 tablet by mouth once daily Aspirin (Adult Aspirin Regimen) 81 mg tablet,delayed release (DR/EC) Active 81 mg PO DAILY May 22, 2020 1:35pm [facility] Start: 05-22-2019 End: 05-22-2020 Aspirin (Adult Aspirin Regim en) 81 mg tablet,delayed release (DR/EC) Discontinued 162 mg PO DAILY@0800 May 22, 2019 12:00am May 22, 2020 1:35pm [facility] Start: 05-17-2013 End: 08-10-2017 ASPIRIN TABS As Directed 201 11/30/22 ASPIRIN TABS [id number] Minoo Dahl MD Start: 05-17-2013 ASPIRIN TABS A s Directed ASPIRIN TABS [id number] Suzan Head Comment on above: Take 1 tablet by tiffanie th once daily. cholecalciferol 0.05 mg oral capsule (7 sources) Vitamin D Start: 09-08-20 take 1 capsule by mouth once daily Cholecalciferol (Vitamin D3) 50 mcg (2,000 unit) capsule Active 50 ug PO DAILY September 08, 2023 1:00am Start: 07-14-2017 End: 06-18-2018 take 1 capsule by mouth every week Cholecalciferol (Vitamin D3) 5,000 UNIT capsule Discontinued 5000 U PO EVERY WEEK July 14, 2017 12:00am June 18, 2018 1:07pm fenofibrate 54 mg oral tablet (2 sources) Peroxisome Proliferator Receptor alpha Agonist Start: 10-21-2024 take 1 tablet by mouth once daily Fenofibrate 54 mg tablet Active 54 mg PO daily 90 0 October 21, 2024 1:00am Magnesium (1 source) Magnesium 200 mg tab Take by mouth once daily. Active multivitamin tablet (4 sources) Start: 09-13-2017 take 1 tablet by mouth once daily multivitamin tablet Take 1 tablet by mouth once daily. 09/13/2017 Active Start: 09-13-2017 take 1 tablet by tiffanie th once daily multivitamin tablet Take 1 tablet by mouth once daily. 0 09/13/2017 Active Comment on above: Take 1 tablet by tiffanie th once daily. Multivitamin With Minerals (3 sources) Start: 05-11-2020 take 1 tablet by mouth once daily Multivitamin With Minerals Active 1 TABLET PO DAILY May 10, 2020 11:00pm Start: 05-11-2020 take 1 tablet by tiffanie th once daily Multivitamin With Minerals Active 1 TABLET PO DAILY May 11, 2020 12:00am Multivitamin With Minerals 1 EACH tablet (2 sources) Start: 05-11-2020 take 1 tablet by mouth once daily Multivitamin With Minerals 1 EACH tablet Active 1 {tbl} PO DAILY May 11, 2020 12:00am supplement Start: 05-11-2020 take 1 tablet by tiffanie th once daily Multivitamin With Minerals 1 EACH tablet Active 1 {tbl} PO DAILY May 11, 2020 12:00am ubidecarenone 200 mg oral ca psule (10 sources) Start: 01-05-2023 Coenzyme Q10 ( Co Q-10) 200 mg capsule Active 200 mg PO DAILY January 05, 2023 12:00am Start: 09-13-2017 End: 01-31-2018 Coenzyme Q10 (Co Q-10) 10 mg capsule Discontinued 10 mg PO ONCE September 13, 2017 1:00am January 31, 2018 1:11pm ubidecarenone (ULTRA COQ10 O RAL) (1 source) ubidecarenone (U LTRA COQ10 ORAL) Take by mouth once daily. Active Completed/Discontinued Medications Medication Drug Class(es) Dates Sig (Normalized) Sig (Original) acetaminophen 500 mg oral tablet (2 sources) Start: 04-16-2020 End: 05-31-2023 take 2 tablets by mouth every six hours acetaminophen (TYLENOL) 500 mg tablet Take 2 tablets by mouth every 6 hours. 0 04/16/2020 05/31/2023 Discontinued (Course of therapy completed) Comment on above: Take 2 tablets by mo uth every 6 hours. atorvastatin 80 mg oral tablet (5 sources) HMG-CoA Reductase Inhibitor Start: 05-14-2019 End: 05-22-2019 take 1 tablet by mouth at bedtime Atorvastatin 80 MG tablet Discontinued 80 mg PO AT BEDTIME 30 0 May 14, 2019 12:00am May 22, 2019 10:24am azithromycin 500 mg oral tablet (2 sources) Macrolide Antimicrobial Start: 08-14-2024 End: 10-21-2024 take 1 tablet by mouth once daily Azithromycin 500 mg tablet Discontinued 500 mg PO daily 10 August 14, 2024 1:00am October 21, 2024 4:15pm cefuroxime 500 mg oral tablet (2 sources) Cephalosporin Antibacterial Start: 08-14-2024 End: 08-14-2024 take 1 tablet by mouth every twelve hours Cefuroxime Axetil 500 mg tablet Discontinued 500 mg PO Q12H 28 August 14, 2024 1:00am August 14, 2024 12:43pm clarithromycin 250 mg oral tablet (15 sources) Macrolide Antimicrobial Start: 10-31-2021 End: 11-10-2021 take 2 tablets by mouth twice daily Clarithromycin 250 mg tablet Discontinued 500 mg PO TWICE A DAY 40 10 0 October 31, 2021 1:00am November 09, 2021 1:00am November 10, 2021 1:03am Start: 10-31-2021 End: 11-10-2021 take 500 mg by mouth twice daily Clarithromycin Discon tinued 500 MG PO TWICE A DAY 40 10 October 31, 2021 12:00am November 10, 2021 12:03am Start: 08-26-2019 End: 08-29-2019 take 1 tablet by mouth every twelve hours as needed for congestion Clarithromycin 500 MG tablet Discontinued 500 mg PO EVERY 12 HOURS NEEDED as needed for Congestion August 28, 2019 4:55pm August 29, 2019 3:07pm docosahexaenoic acid 144 mg / eicosapentaenoic acid 216 mg / vitamin e 2 unt oral capsule (5 sources) Start: 06-18-2018 End: 09-10-2018 [place]-3 Fatty Acids-Fish Oil (Fish Oil) 360-1,200 mg capsule Discontinued 1 NMA PO DAILY June 18, 2018 12:00am September 10, 2018 4:50pm ENTERIC COATED ASPIRIN (2 sources) Start: 08-10-2017 ENTERIC COATED ASPIRIN 81mg daily ENTERIC COATED ASPIRIN Minoo Dahl MD fluorouracil 50 mg/ml topical cream (5 sources) Nucleoside Metabolic Inhibitor Start: 07-28-2020 End: 03-03-2021 Fluorouracil 5 % cream Discontinued 1 NMA TOPICAL TWICE A DAY July 28, 2020 1:00am March 03, 2021 2:33pm apply sufficient amount to cover all lesions icosapent ethyl 1000 mg oral capsule (5 sources) Start: 09-10-2018 End: 03-25-2019 Icosapent Ethyl (Vascepa) 1 gram capsule Discontinued 2 g PO TWICE A DAY 180 3 September 10, 2018 1:00am March 25, 2019 10:24am administer with food; swallow whole; do not crush/chew/dissolve/b reak/cut krill oil 500 mg oral capsule (5 sources) Start: 03-25-2019 End: 05-14-2019 Krill Oil 500 mg capsule Discontinued 350 mg PO DAILY 0 March 25, 2019 12:00am May 14, 2019 7:49am cholesterol Start: 03-25-2019 End: 05-14-2019 take 350 mg by mouth once daily Krill Oil Discontinued 350 MG PO DAILY March 24, 2019 11:00pm May 14, 2019 6:49am lisinopril 5 mg oral tablet (20 sources) Angiotensin Converting Enzyme Inhibitor Start: 06-18-2018 End: 11-04-2019 take 1 tablet by mouth once daily Lisinopril 5 mg tablet Discontinued 5 mg PO DAILY 90 3 December 20, 2018 4:51pm May 22, 2019 10:25am Start: 01-31-2018 End: 01-31-2018 take 1 tablet by mouth once daily Lisinopril 5 mg tablet Discontinued 5 mg PO DAILY January 31, 2018 1:11pm January 31, 2018 1:40pm Start: 09-13-2017 End: 01-31-2018 take 2 tablets by mouth once daily Lisinopril 5 MG tablet Discontinued 10 mg PO DAILY September 13, 2017 12:16pm January 31, 2018 1:13pm Start: 09-13-2017 End: 01-31-2018 take 10 mg by mouth once daily Lisinopril Discontinued 10 MG PO DAILY September 13, 2017 11:16am January 31, 2018 12:13pm Start: 07-14-2017 End: 09-13-2017 take 1 tablet by mouth once daily Lisinopril 5 MG tablet Discontinued 5 mg PO DAILY July 14, 2017 12:00am September 13, 2017 12:20pm Start: 05-17-2013 take 1 tablet by tiffanie th once daily LISINOPRIL 10 MG TABS One tablet by mouth daily LISINOPRIL [id number] Suzan Head magnesium oxide 400 mg oral capsule (5 sources) Start: 05-11-2020 End: 05-19-2020 take 1 capsule by mouth once daily Magnesium Oxide 400 MG capsule Discontinued 400 mg PO DAILY May 11, 2020 12:00am May 19, 2020 1:03pm supplement methylcellulose 500 mg oral tablet (7 sources) Start: 01-05-2023 End: 07-08-2024 take 1 tablet by mouth twice daily Methylcellulose (Laxative) (Fiber Therapy (M-Cellulose)) 500 mg tablet Discontinued 500 mg PO TWICE A DAY January 05, 2023 12:00am October 02, 2023 2:52pm metoprolol tartrate 25 mg oral tablet (20 sources) beta-Adrenerg ic Paige Start: 05-22-2020 End: 03-25-2024 Metoprolol Tartrate 25 mg tablet Discontinued 12.5 mg PO TWICE A DAY 3 February 08, 2022 12:36pm January 05, 2023 1:07pm BLOOD PRESSURE Start: 05-22-2020 End: 01-05-2023 take 12.5 mg by mouth twice daily Metoprolol Tartrate Discontinued 12.5 MG PO TWICE A DAY February 08, 2022 11:36am January 05, 2023 12:07pm Start: 05-21-2020 take 0.5 tablet by m outh every twelve hours metoprolol tartrate, short acting, (LOPRESSOR) 25 mg tablet Take 0.5 tablets by mouth every 12 hours. 30 tablet 2 05/21/2020 Active Start: 05-19-2020 End: 05-22-2020 Metoprolol Tartrate 25 mg ta blet Discontinued 12.5 mg PO ONCE May 19, 2020 1:04pm May 22, 2020 1:59pm BLOOD PRESSURE Start: 05-19-2020 End: 05-22-2020 take 12.5 mg by mouth once Metoprolol Tartrate Discont inued 12.5 MG PO ONCE May 19, 2020 12:04pm May 22, 2020 12:59pm Start: 05-14-2019 End: 05-19-2020 Metoprolol Tartrate 25 mg ta blet Discontinued 12.5 mg PO TWICE A DAY November 04, 2019 1:59pm May 19, 2020 1:04pm BLOOD PRESSURE Start: 05-14-2019 End: 05-19-2020 take 12.5 mg by mouth twice daily Metoprolol Tartrate Discontinued 12.5 MG PO TWICE A DAY November 04, 2019 12:59pm May 19, 2020 12:04pm Comment on above: Take 0.5 tablets by mouth every 12 hours. MULTIPLE VITAMIN (5 sources) Start: 7 DAILY VALUE MULTIVITAMIN TABS MULTIPLE VITAMIN [id number] Emanuel Mills MD omeprazole 40 mg delayed release oral capsule (20 sources) Proton Pump Inhibitor Start: End: 4 take 1 capsule by mouth once daily Omeprazole 40 mg capsule,delayed release(DR/EC) Discontinued 40 mg PO DAILY February 08, 2022 12:35pm January 05, 2023 1:07pm Start: 11-04-2019 End: 11-27-2019 take 1 capsule by mouth once daily Omeprazole 40 mg capsule,delayed release(DR/EC) Discontinued 40 mg PO DAILY November 04, 2019 1:00am November 27, 2019 11:51am Start: 08-28-2019 End: 03-03-2021 take 1 capsule by mouth once daily Omeprazole (Prilosec) 40 MG capsule Discontinued 40 mg PO DAILY August 28, 2019 4:55pm March 03, 2021 2:33pm ACID REFLUX Start: 10-03-2014 End: 08-28-2019 take 1 capsule by mouth once daily Omeprazole 40 mg capsule,delayed release(DR/EC) Discontinued 40 mg PO DAILY 90 3 October 31, 2018 2:39pm August 28, 2019 4:56pm psyllium 2000 mg oral wafer (2 sources) Start: 04-28-2020 End: 05-31-2023 take 1 capsule by mouth once daily psyllium husk, with sugar, (METAMUCIL FIBER THIN) 2 gram wafr Take 1 capsule by mouth once daily. 0 04/28/2020 05/31/2023 Discontinued (Course of therapy completed) Comment on above: Take 1 capsule by mo [facility] once daily. rosuvastatin calcium 20 mg oral tablet (20 sources) HMG-CoA Reductase Inhibitor Start: 04-16-2020 take 2 tablets by mouth once daily rosuvastatin (CRESTOR) 10 mg tablet Take 2 tablets by mouth once daily. 60 tablet 2 04/16/2020 Active Start: 05-22-2019 End: 03-05-2024 take 1 tablet by mouth once daily Rosuvastatin 20 mg tablet Discontinued 20 mg PO DAILY 90 3 February 08, 2022 12:35pm January 05, 2023 1:07pm CHOLESTEROL LOWERING Start: 07-14-2017 End: 09-13-2017 take 1 tablet by mouth once daily Rosuvastatin 5 MG tablet Discontinued 5 mg PO DAILY July 14, 2017 12:00am September 13, 2017 2:10pm Start: 06-28-2017 End: 08-10-2017 CRESTOR 10 MG TABS 4 ROSUVASTATIN CALCIUM [id number] Emanuel Mills MD Comment on above: Take 2 tablets by [facility] once daily. sucralfate 1000 mg oral tablet (10 sources) Aluminum Complex Start: 09-13-2017 End: 01-31-2018 take 1 tablet by mouth once Sucralfate (Carafate) 1 gram tablet Discontinued 1 g PO ONCE September 13, 2017 1:00am January 31, 2018 1:13pm Start: 07-25-2017 CARAFATE 1 GM TABS one tablet 1 hour before meals and at bedtime SUCRALFATE [id number] Minoo Dahl MD ticagrelor 90 mg oral tablet (12 sources) Start: 04-16-2020 End: 05-31-2023 take 1 tablet by mouth twice daily ticagrelor (BRILINTA) 90 mg tablet Take 1 tablet by mouth twice daily. Please make sure you talk to Dr. Hook about IF/WHEN you should take this meds. 0 04/16/2020 05/31/2023 Discontinued (Course of therapy completed) Start: 05-14-2019 End: 06-03-2019 take 1 tablet by mouth twice daily Ticagrelor 90 mg tablet Discontinued 90 mg PO TWICE A DAY 180 5 May 22, 2019 10:24am June 03, 2019 11:38am Comment on above: Take 1 tablet by tiffanie th twice daily. Please make sure you talk to Dr. Hook about IF/WHEN you should take this meds. CHOLECALCIFEROL TABS (7 sources) Start: 05-17-2013 VITAMIN D TABS 2000units dialy CHOLECALCIFEROL TABS [id number] Minoo Dahl MD Start: 05-17-2013 VITAMIN D TABS 1500 mg tablet daily CHOLECALCIFEROL TABS [id number] Suzan Head vitamin e 90 mg oral capsule (10 sources) Start: 07-20-2020 End: 09-08-2023 take 1 capsule by mouth once daily Vitamin E Acetate 200 unit capsule Discontinued 200 U PO DAILY July 20, 2020 12:00am September 08, 2023 1:59pm Start: 09-13-2017 End: 01-31-2018 take 1 capsule by mouth twice daily Vitamin E 200 unit capsule Discontinued 200 U PO TWICE A DAY September 13, 2017 1:00am January 31, 2018 1:13pm Problems Active Problems Problem Classification Problem Date Documented Da te Episodic/Chronic Acute myocardial infarction (7 sources) Myocardial infarction; Translations: [ST elevation (STEMI) myocardial infarction of unspecified site] Onset: 9 08-28-2019 Chronic Cardiac dysrhythmias (13 sources) Bradycardia; Translations: [Bradycardia, unspecified] Onset: 0 05-15-2019 Episodic Coagulation and hemorrhagic disorders (7 sources) Thrombocytopenic disorder; Translations: [Thrombocytopenia, unspecified] Onset: 3 03-09-2021 Chronic Conditions associated with dizziness or vertigo (3 sources) Dizziness; Translations: [Dizziness and giddiness] 08-28-2023 Episodic Coronary atherosclerosis and other heart disease (20 sources) History of myocardial infarction; Translations: [Old myocardial infarction] Onset: 9 08-28-2019 Chronic Comment on above: OPS-ZHK-GRCV w/ 3.0 x 15 mm Elunir Stent, ORQUIDEA-Distal RCA w/ 4 x 38 mm Synergy Stent, 4 x 12 mm Elunir and 4 x 8 mm Synergy Stent 05/12/19 Disorders of lipid metabolism (20 sources) Hyperlipidemia; Translations: [Hypercholesterolemia] Onset: 7 08-10-2017 Chronic Esophageal disorders (11 sources) Shukla's esophagus; Translations: [Gastroesophageal reflux disease] Onset: 4 06-28-2017 Chronic Essential hypertension (17 sources) Hypertensive disorder; Translations: [Essential hypertension] Onset: 7 08-10-2017 Chronic Fluid and electrolyte disorders (2 sources) Hyperkalemia; Translations: [Hyperkalemia] 09-08-2023 Episodic Immunizations and screening for infectious disease (5 sources) Needs influenza immunization; Translations: [Encounter for immunization] 06-30-2021 Episodic Joint disorders and dislocations; trauma-related (7 sources) Chondromalacia of patella; Translations: [Chondromalacia patellae, unspecified knee] Onset: 3 05-20-2013 Chronic Malaise and fatigue (12 sources) Fatigue; Translations: [Other fatigue] Onset: 3 11-23-2021 Episodic Nutritional deficiencies (4 sources) Vitamin D deficiency; Translations: [Vitamin D deficiency, unspecified] Onset: 7 08-10-2017 Chronic Other ear and sense organ disorders (7 sources) Hearing difficulty; Translations: [Unspecified hearing loss, unspecified ear] Onset: 2 07-11-2022 Chronic Other ear and sense organ disorders (8 sources) Impacted cerumen; Translations: [Impacted cerumen, left ear] Onset: 3 11-23-2021 Episodic Other eye disorders (3 sources) Subconjunctival hemorrhage of left eye; Translations: [Conjunctival hemorrhage, left eye] 10-18-2024 Episodic Other gastrointestinal disorders (7 sources) History of Shukla's esophagus; Translations: [Personal history of other diseases of the digestive system] Onset: 3 07-20-2020 Episodic Other gastrointestinal disorders (2 sources) Personal history of other diseases of the digestive system; Translations: [Personal history of other diseases of digestive system] 07-05-2023 Episodic Other infections; including parasitic (4 sources) Lyme disease; Translations: [Lyme disease, unspecified] 08-14-2024 Episodic Other lower respiratory disease (5 sources) Nodule of lung; Translations: [Solitary pulmonary nodule] 07-11-2022 Episodic Other lower respiratory disease (1 source) Solitary pulmonary nodule; Translations: [Solitary pulmonary nodule] 01-05-2023 Episodic Other lower respiratory disease (3 sources) Cough; Translations: [Acute cough] Onset: 3 06-05-2023 Episodic Other upper respiratory disease (1 source) Chronic rhinitis; Translations: [Rhinosinusitis] 10-31-2021 Chronic Other upper respiratory infections (11 sources) Sinusitis; Translations: [Chronic sinusitis, unspecified] Onset: 3 10-31-2021 Chronic Substance-related disorders (2 sources) Addiction; Translations: [Other psychoactive substance dependence, uncomplicated] 03-25-2024 Chronic Unclassified (7 sources) Liver enzymes abnormal; Translations: [Patient encounter status] Onset: 7 08-10-2017 Episodic Past or Other Problems Problem Classification Problem Date Documented Date Episodic/Chronic Complications of surgical procedures or medical care (7 sources) Atrial fibrillation; Translations: [Other postprocedural complications and disorders of the circulatory system, not elsewhere classified] Onset: 04-10-2020 Resolved: 04-16-2020 04-25-2020 Episodic Diseases of white blood cells (2 sources) Leukocytosis; Translations: [Elevated white blood cell count, unspecified] Resolved: 04-16-2020 04-16-2020 Chronic Joint disorders and dislocations; trauma-related (5 sources) Tear of medial cartilage or meniscus of knee, current; Translations: [Tear of medial cartilage or meniscus of knee, current] Onset: 05-17-2013 05-20-2013 Episodic Other infections; including parasitic (1 source) Lyme disease, unspecified; Translations: [Lyme disease, unspecified] Onset: 10-21-2024 Episodic Other lower respiratory disease (4 sources) Cough; Translations: [Acute cough] Onset: 06-05-2023 10-31-2021 Episodic Unclassified (2 sources) Family history of alcoholism; Translations: [Family history of alcohol abuse and dependence] 08-10-2017 Episodic Results Test Name Value Interpretation Reference Range Facility Surgery Visit Reporton 05-16 Surgery Visit Report [facility] [address] [place] [address] OFFICE VISIT Date of Service: 05/16/25 MR#: [id number] Acct: [id number] Name: JIMMY DEMPSEY Rep #: [id number] : 1955 Provider: Dr. Odette stuart MD Age/Sex: 69/M Location: [facility] Status: Signed Intake Vital Signs 10/21/24 15:18 05/16/25 13:15 Height 5 ft 10 in 5 ft 10 in Weight: 197 lb 4 oz BMI 28.3 BP 127/78 H Blood Pressure Location Lt brachial Position Sitting Respiration 18 Pulse 50 L Pulse Source Monitor Temp 97.2 F L Temp Source Temporal Pulse Oximetry (%) 97 Oxygen Delivery Method room air Intake Visit Reasons: UPPER AND LOWER - BARRETTS Chief Complaint: upper and lower- barrets Is patient in pain?: No Allergies amoxicillin trihydrate (From Augmentin) Allergy (Verified 05/16/25 13:16) CANT BREATHE potassium clavulanate (From Augmentin) Allergy (Verified 05/16/25 13:16) CANT BREATHE tetracycline Allergy (Verified 05/16/25 13:16) BRONCHIAL SPASM atorvastatin (From Lipitor) Adverse Reaction (Verified 05/16/25 13:16) memory loss, aggitated Medications ???Medication ???Instructions ???Recorded ???Confirmed ???Type ascorbic acid (vitamin C) 500 mg 500 mg PO DAILY SUPPLEMENT 9 05/16/25 History capsule multivitamin with minerals 1 tab PO DAILY supplement 05/11/20 05/16/25 History aspirin 81 mg tablet,delayed 81 mg PO DAILY HEART HEALTH 05/16/25 History release (Adult Aspirin Regimen) albuterol sulfate 90 mcg/actuation 2 puff inhalation Q6H PRN 05/16/25 Rx aerosol inhaler (ProAir HFA) shortness of breath or wheezing #8.5 grams coenzyme Q10 200 mg capsule (Co 200 mg PO DAILY 01/05/23 05/16/25 History Q-10) cholecalciferol (vitamin D3) 50 50 mcg PO DAILY 09/08/23 05/16/25 History mcg (2,000 unit) capsule omeprazole 40 mg capsule,delayed 40 mg PO DAILY #90 caps 02/26/24 0 05/16/25 Rx release rosuvastatin 20 mg tablet 20 mg PO DAILY CHOLESTEROL 4 05/16/25 Rx LOWERING #90 tabs metoprolol tartrate 25 mg tablet 12.5 mg (1/2 x 25 mg) PO BID BLOOD 03/25/24 05/16/25 Rx PRESSURE #90 tabs fenofibrate 54 mg tablet 54 mg PO QDAY #90 tabs 10/21/24 Rx Have you fallen in the past year?: No PFSH Medical History Lyme disease Addiction Health care maintenance Lung nodule Hearing difficulty Impacted cerumen of left ear Screening for thyroid disorder Malaise and fatigue Flu vaccine need Thrombocytopenia Preventative health care History of Shukla's esophagus Postoperative atrial fibrillation (04/12/20) Atherosclerosis of coronary artery of [place] heart without angina pectoris History of acute inferior wall myocardial infarction (05/12/19) Essential (primary) hypertension STEMI (ST elevation myocardial infarction) (05/12/19) Bradycardia Fatty infiltration of liver Elevated liver enzymes Barretts esophagus Hiatal hernia GERD (gastroesophageal reflux disease) Vitamin A deficiency Gastritis Hyperlipidemia Asthma Surgical History H/O coronary artery bypass surgery (04/10/20) History of left heart catheterization (08/29/19) History of coronary artery stent placement (05/12/19) History of back surgery History of tonsillectomy History of testicular surgery History of appendectomy Family History Father Heart disease Myocardial infarction at 54 from it Sister Depression attempted suicide before Grandfather Alcoholism Mother Breast cancer Diabetes Hypertension CVA (cerebral vascular accident) Social History Smoking Status: Never smoker alcohol intake: never substance use type: does not use what type of physical activity do you participate in: other details: active job frequency: 3-4 times per week HPI HPI HPI: 69-year-old male presents for EGD and colonoscopy. Patient was last EGD was in [address] Mills found short segment of Shukla's which was biopsied as well as medium size hiatal hernia and some chronic gastritis recommend follow-up in 3 years for repeat endoscopy. Patient states he also had a colonoscopy at age 49 [address] Mills negative at that time. Patient states he has bowel moods daily denies any blood. Patient denies any chronic abdominal pain/nausea/vomiting . Patient reflux and Tums are controlled with omeprazole 40 mg p.o. daily. Patient denies any family history of colon cancer. Patient is on aspirin 81 mg due to his bypass in 2019 and cardiac stents. ROS General General: Yes weight change; No ap (more content not included)... Normal [facility] Absolute neutrophil countOrd ered By: Julio César Vera on 11-26-2024 Neutrophils (Bld) [#/Vol] 2.8 10*3/uL 2.0-7.7 [facility] Anion gap in Serum or Plasma Ordered By: Julio César Vera on 11-26-2024 Anion gap [Moles/Vol] 11 mmol[facility]L 5-[facility] BUN/creatinine ratioOrdered By: Julio César Vera on 11-26-2024 Urea nitrogen/Creatinine [Mass ratio] 16.1 mg/mg 10-20 [facility] Basophil percentageOrdered B y: Julio César Vera on 11-26-2024 Basophils/100 WBC (Bld) 0.8 % 0-1 [facility] Bilirubin, totalOrdered By: Julio César Vera on 11-26-2024 Bilirubin [Mass/Vol] 0.76 mg/dL 0.00-1.30 [facility] CBC W/Diff, Automatedon Absolute Lymph 1.31 X10 3/uL Normal 0.83-4.51 [facility] Comment on above: Order Comment: Order Date: 11/22/24 Order Info: [id number] - CBCD Performed By: #### L 501.9520, L500.4100, L100.0100, L500.4050 #### [facility] Laboratory [address] [place], [address] Absolute Neut 2.8 X10 3/uL Normal 2.0-7.7 [facility] Comment on above: Order Comment: Order Date: 11/22/24 Order Info: [id number] - CBCD Performed By: #### L 501.9520, L500.4100, L100.0100, L500.4050 #### [facility] Laboratory [address] [place], [address] Basophils/100 WBC (Bld) 0.8 % Normal 0-1 [facility] Comment on above: Order Comment: Order Date: 11/22/24 Order Info: [id number] - CBCD Performed By: #### L 501.9520, L500.4100, L100.0100, L500.4050 #### [facility] Laboratory [address] [place], [address] Eosinophils/100 WBC (Bld) 2.7 % Normal 0-5 [facility] Comment on above: Order Comment: Order Date: 11/22/24 Order Info: [id number] - CBCD Performed By: #### L 501.9520, L500.4100, L100.0100, L500.4050 #### [facility] Laboratory [address] [place], [address] Erythrocyte distribution width (RBC) [Ratio] 12.1 % Normal 11.6-14.6 [facility] Comment on above: Order Comment: Order Date: 11/22/24 Order Info: [id number] - CBCD Performed By: #### L 501.9520, L500.4100, L100.0100, L500.4050 #### [facility] Laboratory [address] [place], [address] Hematocrit (Bld) [Volume fraction] 47.0 % Normal 40-54 [facility] Comment on above: Order Comment: Order Date: 11/22/24 Order Info: [id number]- - CBCD Performed By: #### L 501.9520, L500.4100, L100.0100, L500.4050 #### [facility] Laboratory [address] [place], [address] Hemoglobin (Bld) [Mass/Vol] 16.3 g/dL Normal 13.0-16.5 [facility] Comment on above: Order Comment: Order Date: 11/22/24 Order Info: [id number]- - CBCD Performed By: #### L 501.9520, L500.4100, L100.0100, L500.4050 #### [facility] Laboratory [address] [place], [address] IG% 0.200 Normal 0.0-0.9 [facility] Comment on above: Order Comment: Order Date: 11/22/24 Order Info: [id number] - CBCD Result Comment: IG% - Immature Granulocytes (promyelocytes, myelocytes and metamyelocytes) > 1% indicates that a LEFT SHIFT is Present. Performed By: #### L 501.9520, L500.4100, L100.0100, L500.4050 #### [facility] Laboratory [address] [place], [address] Lymphocytes/100 WBC (Bld) 27.0 % Normal 19-41 [facility] Comment on above: Order Comment: Order Date: 11/22/24 Order Info: 0184-1 - CBCD Performed By: #### L 501.9520, L500.4100, L100.0100, L500.4050 #### [facility] Laboratory [address] [place], [address] MCH (RBC) [Entitic mass] 34.2 pg High 27.0-32.0 [facility] Comment on above: Order Comment: Order Date: 11/22/24 Order Info: 0184-1 - CBCD Performed By: #### L 501.9520, L500.4100, L100.0100, L500.4050 #### [facility] Laboratory [address] [place], [address] MCHC (RBC) [Mass/Vol] 34.7 g/dL Normal 32-36 [facility] Comment on above: Order Comment: Order Date: 11/22/24 Order Info: [id number]- - CBCD Performed By: #### L 501.9520, L500.4100, L100.0100, L500.4050 #### [facility] Laboratory [address] [place], [address] MCV (RBC) [Entitic vol] 98.7 fL High 80-94 [facility] Comment on above: Order Comment: Order Date: 11/22/24 Order Info: [id number]- - CBCD Performed By: #### L 501.9520, L500.4100, L100.0100, L500.4050 #### [facility] Laboratory [address] [place], [address] Monocytes/100 WBC (Bld) 10.9 % High 0-10 [facility] Comment on above: Order Comment: Order Date: 11/22/24 Order Info: [id number] - CBCD Performed By: #### L 501.9520, L500.4100, L100.0100, L500.4050 #### [facility] Laboratory [address] [place], [address] Neutrophils/100 WBC (Bld) 58.4 % Normal 47-70 [facility] Comment on above: Order Comment: Order Date: 11/22/24 Order Info: [id number] - CBCD Performed By: #### L 501.9520, L500.4100, L100.0100, L500.4050 #### [facility] Laboratory [address] [place], [address] Nucleated RBC (Bld) [#/Vol] 0 10*3/uL Normal 0-5 [facility] Comment on above: Order Comment: Order Date: 11/22/24 Order Info: [id number] - CBCD Performed By: #### L 501.9520, L500.4100, L100.0100, L500.4050 #### [facility] Laboratory [address] [place], [address] Platelet mean volume (Bld) [Entitic vol] 10.2 fL Normal 6.2-12.0 [facility] Comment on above: Order Comment: Order Date: 11/22/24 Order Info: [id number]- - CBCD Performed By: #### L 501.9520, L500.4100, L100.0100, L500.4050 #### [facility] Laboratory [address] [place], [address] Platelets (Bld) [#/Vol] 149 10*3/uL Low 150-450 [facility] Comment on above: Order Comment: Order Date: 11/22/24 Order Info: [id number] - CBCD Performed By: #### L 501.9520, L500.4100, L100.0100, L500.4050 #### [facility] Laboratory [address] [place], [address] RBC (Bld) [#/Vol] 4.76 10*6/uL Normal 4.6-6.2 [facility] Comment on above: Order Comment: Order Date: 11/22/24 Order Info: [id number] - CBCD Performed By: #### L 501.9520, L500.4100, L100.0100, L500.4050 #### [facility] Laboratory [address] [place], [place], [id number] RDW SD 44.5 fl High 35.1-43.9 [facility] Comment on above: Order Comment: Order Date: 11/22/24 Order Info: [id number] - CBCD Performed By: #### L 501.9520, L500.4100, L100.0100, L500.4050 #### [facility] Laboratory [address] [place], [address] WBC (Bld) [#/Vol] 4.9 10*3/uL Normal 4.4-11.0 [facility] Comment on above: Order Comment: Order Date: 11/22/24 Order Info: [id number] - CBCD Performed By: #### L 501.9520, L500.4100, L100.0100, L500.4050 #### [facility] Laboratory [address] [place], [place], [address] Calculated very low density lipoprotein (VLDL) cholesterol measurementOrdered By: Julio César Vera on 11-26-2024 VLDL Cholesterol 18 mg/dL 5-40 [facility] Carbon dioxide, total [Moles /volume] in Central venous bloodOrdered By: Julio César Vera on 11-26-2024 CO2 [Moles/Vol] 24.3 mmol/L 21.0-32.0 [facility] Chloride assayOrdered By: Trav Vera on 11-26-2024 Chloride [Moles/Vol] 102 mmol/L 98-108 [facility] Comprehensive Metabolic Prof ilon 11-26-2024 Albumin [Mass/Vol] 4.2 g/dL Normal 3.4-4.8 [facility] Comment on above: Order Comment: Order Date: 11/22/24 Order Info: [id number] - CMP Order Info: [id number] - LIPID Order Info: [id number] - TSH Performed By: #### L 501.9520, L500.4100, L100.0100, L500.4050 #### [facility] Laboratory [address] [place], [address] Albumin/Globulin [Mass ratio] 1.4 {ratio} Normal 0.9-2.4 [facility] Comment on above: Order Comment: Order Date: 11/22/24 Order Info: [id number] - CMP Order Info: [id number] - LIPID Order Info: [id number] - TSH Performed By: #### L 501.9520, L500.4100, L100.0100, L500.4050 #### [facility] Laboratory [address] [place], [address] ALK PHOS 75 U/L Normal 40-129 [facility] Comment on above: Order Comment: Order Date: 11/22/24 Order Info: [id number] - CMP Order Info: - LIPID Order Info: [id number] - TSH Performed By: #### L 501.9520, L500.4100, L100.0100, L500.4050 #### [facility] Laboratory [address] [place], [address] ALT [Catalytic activity/Vol] 66 U/L High <=46 [facility] Comment on above: Order Comment: Order Date: 11/22/24 Order Info: [id number] - CMP Order Info: [id number] - LIPID Order Info: [id number] - TSH Performed By: #### L 501.9520, L500.4100, L100.0100, L500.4050 #### [facility] Laboratory [address] [place], [address] AST [Catalytic activity/Vol] 55 U/L High <=37 [facility] Comment on above: Order Comment: Order Date: 11/22/24 Order Info: [id number] - CMP Order Info: [id number] - LIPID Order Info: [id number] - TSH Performed By: #### L 501.9520, L500.4100, L100.0100, L500.4050 #### [facility] Laboratory [address] [place], [address] Bilirubin [Mass/Vol] 0.76 mg/dL Normal 0.00-1.30 [facility] Comment on above: Order Comment: Order Date: 11/22/24 Order Info: [id number]- - CMP Order Info: [id number] - LIPID Order Info: 3 - TSH Performed By: #### L 501.9520, L500.4100, L100.0100, L500.4050 #### [facility] Laboratory [address] [place], [address] BUN/CRE 16.1 RATIO Normal 10-20 [facility] Comment on above: Order Comment: Order Date: 11/22/24 Order Info: 07 - CMP Order Info: - LIPID Order Info: [id number] - TSH Performed By: #### L 501.9520, L500.4100, L100.0100, L500.4050 #### [facility] Laboratory [address] [place], [address] Calcium [Mass/Vol] 9.5 mg/dL Normal 7.6-11.0 [facility] Comment on above: Order Comment: Order Date: 11/22/24 Order Info: 07 - CMP Order Info: [id number] - LIPID Order Info: [id number] - TSH Performed By: #### L 501.9520, L500.4100, L100.0100, L500.4050 #### [facility] Laboratory [address] [place], [address] Chloride [Moles/Vol] 102 mmol/L Normal 98-108 [facility] Comment on above: Order Comment: Order Date: 11/22/24 Order Info: [id number] - CMP Order Info: [id number] - LIPID Order Info: 3 - TSH Performed By: #### L 501.9520, L500.4100, L100.0100, L500.4050 #### [facility] Laboratory [address] [place], [address] CO2 [Moles/Vol] 24.3 mmol/L Normal 21.0-32.0 [facility] Comment on above: Order Comment: Order Date: 11/22/24 Order Info: 07 - CMP Order Info: [id number] - LIPID Order Info: [id number] - TSH Performed By: #### L 501.9520, L500.4100, L100.0100, L500.4050 #### [facility] Laboratory [address] [place], [address] Creatinine [Mass/Vol] 1.29 mg/dL High 0.70-1.20 [facility] Comment on above: Order Comment: Order Date: 11/22/24 Order Info: [id number] - CMP Order Info: - LIPID Order Info: [id number] - TSH Performed By: #### L 501.9520, L500.4100, L100.0100, L500.4050 #### [facility] Laboratory [address] [place], [address] GAP 11 Normal 5-15 [facility] Comment on above: Order Comment: Order Date: 11/22/24 Order Info: 07 - CMP Order Info: [id number] - LIPID Order Info: [id number] - TSH Performed By: #### L 501.9520, L500.4100, L100.0100, L500.4050 #### [facility] Laboratory [address] [place], [address] GFR/1.73 sq M.predicted among non-blacks MDRD (S/P/Bld) [Vol rate/Area] 59 mL/min/{1.73_m2} Low >60 [facility] Comment on above: Order Comment: Order Date: 11/22/24 Order Info: 07 - CMP Order Info: - LIPID Order Info: [id number] - TSH Result Comment: mL/m in/1.73m2 CKD-EPI Creatinine Equation (2020) Performed By: #### L 501.9520, L500.4100, L100.0100, L500.4050 #### [facility] Laboratory [address] [place], [address] Globulin (S) [Mass/Vol] 3.0 g/dL Normal 2.2-4.2 [facility] Comment on above: Order Comment: Order Date: 11/22/24 Order Info: 07-1 - CMP Order Info: [id number] - LIPID Order Info: [id number] - TSH Performed By: #### L 501.9520, L500.4100, L100.0100, L500.4050 #### [facility] Laboratory [address] [place], [address] Glucose [Mass/Vol] 99 mg/dL Normal 70-99 [facility] Comment on above: Order Comment: Order Date: 11/22/24 Order Info: 07- - CMP Order Info: [id number] - LIPID Order Info: [id number] - TSH Performed By: #### L 501.9520, L500.4100, L100.0100, L500.4050 #### [facility] Laboratory [address] [place], [address] Potassium [Moles/Vol] 4.7 mmol/L Normal 3.3-5.1 [facility] Comment on above: Order Comment: Order Date: 11/22/24 Order Info: [id number]- - CMP Order Info: [id number] - LIPID Order Info: [id number] - TSH Performed By: #### L 501.9520, L500.4100, L100.0100, L500.4050 #### [facility] Laboratory [address] [place], [address] Sodium [Moles/Vol] 137 mmol/L Normal 133-145 [facility] Comment on above: Order Comment: Order Date: 11/22/24 Order Info: [id number] - CMP Order Info: [id number] - LIPID Order Info: [id number] - TSH Performed By: #### L 501.9520, L500.4100, L100.0100, L500.4050 #### [facility] Laboratory [address] [place], [place], [address] T PROT 7.3 g/dL Normal 5.9-8.4 [facility] Comment on above: Order Comment: Order Date: 11/22/24 Order Info: [id number] - CMP Order Info: [id number] - LIPID Order Info: [id number] - TSH Performed By: #### L 501.9520, L500.4100, L100.0100, L500.4050 #### [facility] Laboratory [address] [place], [place], [address] Urea nitrogen [Mass/Vol] 21 mg/dL High 4-19 [facility] Comment on above: Order Comment: Order Date: 11/22/24 Order Info: [id number] - CMP Order Info: [id number] - LIPID Order Info: [id number] - TSH Performed By: #### L 501.9520, L500.4100, L100.0100, L500.4050 #### [facility] Laboratory [address] [place], [place], [id number] Eosinophil percentageOrdered By: Julio César Vera on 11-26-2024 Eosinophils/100 WBC (Bld) 2.7 % 0-5 [facility] Erythrocyte distribution wid th ratioOrdered By: Julio César Vera on 11-26-2024 Erythrocyte distribution width (RBC) [Ratio] 12.1 % 11.6-14.6 [facility] Erythrocyte distribution wid th standard deviationOrdered By: Julio César Vera on 11-26-2024 Erythrocyte distribution width (RBC) [Entitic vol] 44.5 fL High 35.1-43.9 [facility] GFR/1.73 sq M.predicted jessica g non-blacks MDRD (S/P/Bld) [Vol rate/Area]Ordered By: Julio César Vera on 11-26-2024 Estimated GFR (MDRD) Non-Af Amer 59 Low >60 [facility] Comment on above: mL/min/1.73m2 CKD-EP I Creatinine Equation (2020) Hematocrit Auto (Bld) [Volum e fraction]Ordered By: Julio César Vera on 11-26-2024 Hematocrit (Bld) [Volume fraction] 47.0 % 40-54 [facility] Hemoglobin measurementOrdere d By: Julio César Vera on 11-26-2024 Hemoglobin (Bld) [Mass/Vol] 16.3 g/dL 13.0-16.5 [facility] Immature granulocytes/100 WB C Auto (Bld)Ordered By: Julio César Vera on 11-26-2024 Immature granulocytes/100 WBC (Bld) 0.200 % 0.0-0.9 [facility] Comment on above: IG% - Immature Granu locytes (promyelocytes, myelocytes and metamyelocytes) > 1% indicates that a LEFT SHIFT is Present. L506.1001on 11-26-2024 Vitamin D 25-OH 80.0 ng/mL Normal 30-100 [facility] Comment on above: Order Comment: Order Date: 11/22/24 Order Info: [id number] - CMP Order Info: [id number] - LIPID Order Info: [id number] - TSH Result Comment: Roselia min D Status Deficiency: <20 ng/mL (50nmol/L) Insufficiency: 20-30 ng/mL (50-75 nmol/L) Sufficiency: 30-100 ng/mL (75-250 nmol/L) Toxicity: >100 ng/mL (>250 nmol/L) Performed By: #### L 506.1001 #### [facility] Laboratory [facility] [place], [address] LDL calc ser/plasOrdered By: Julio César Vera on 11-26-2024 LDL Cholesterol, Calculated 60 mg/dL [facility] Comment on above: Centzdcqmw=254-755 m g/dL & Higher Qyra=143 mg/dL or greater Laboratory - Chemistry and C hemistry - challengeOrdered By: Julio César Vera on 11-26-2024 AST [Catalytic activity/Vol] 55 U/L High <38 [facility] Lipid Profileon 11-26-2024 CHOL:HDL 2.73 Normal [facility] Comment on above: Order Comment: Order Date: 11/22/24 Order Info: [id number] - CMP Order Info: [id number] - LIPID Order Info: 3 - TSH Performed By: #### L 501.9520, L500.4100, L100.0100, L500.4050 #### [facility] Laboratory [address] [place], [address] Cholesterol [Mass/Vol] 124 mg/dL Normal <=200 [facility] Comment on above: Order Comment: Order Date: 11/22/24 Order Info: [id number]- - CMP Order Info: - LIPID Order Info: 3 - TSH Result Comment: Chol esterol level, Desirable <200 mg/dL Borderline high cholesterol 200-239 mg/dL High cholesterol >=240 mg/dL Recommendations of the NCEP Adult Treatment Panel for the following risk-cutoff thresholds for the [place] population. Performed By: #### L 501.9520, L500.4100, L100.0100, L500.4050 #### [facility] Laboratory [address] [place], [address] Cholesterol in HDL [Mass/Vol] 45 mg/dL Normal [facility] Comment on above: Order Comment: Order Date: 11/22/24 Order Info: [id number] - CMP Order Info: [id number] - LIPID Order Info: 3 - TSH Result Comment: Teresa onal Cholesterol Education Program (NCEP) guidelines: <40 mg/dL: Low HDL-cholesterol (major risk factor for CHD) >= 60 mg/dL: High HDL-cholesterol (negative risk factor for CHD) HDL-cholesterol is affected by a number of factors, e.g. smoking, exercise, hormones, sex and age. Performed By: #### L 501.9520, L500.4100, L100.0100, L500.4050 #### [facility] Laboratory [address] [place], [address] Cholesterol in LDL [Mass/Vol] 60 mg/dL Normal [facility] Comment on above: Order Comment: Order Date: 11/22/24 Order Info: [id number] - CMP Order Info: [id number] - LIPID Order Info: [id number] - TSH Result Comment: Bord cchami=873-728 mg/dL Higher Pdtz=525 mg/dL or greater Performed By: #### L 501.9520, L500.4100, L100.0100, L500.4050 #### [facility] Laboratory [address] [place], [address] Cholesterol in VLDL [Mass/Vol] 18 mg/dL Normal 5-40 [facility] Comment on above: Order Comment: Order Date: 11/22/24 Order Info: [id number] - CMP Order Info: [id number] - LIPID Order Info: [id number] - TSH Performed By: #### L 501.9520, L500.4100, L100.0100, L500.4050 #### [facility] Laboratory [address] [place], [address] Triglyceride [Mass/Vol] 91 mg/dL Normal [facility] Comment on above: Order Comment: Order Date: 11/22/24 Order Info: [id number] - CMP Order Info: [id number] - LIPID Order Info: 3 - TSH Result Comment: The drugs N-Acetylcysteine and Metamizole may falsely depress this assay. Normal range: <150 mg/dL Borderline High: 150-199 mg/dL High: 200-499 mg/dL Very High: >500 mg/dL Performed By: #### L 501.9520, L500.4100, L100.0100, L500.4050 #### [facility] Laboratory [address] [place], [address] Lymphocytes Auto (Unsp spec) [#/Vol]Ordered By: Julio César Vera on 11-26-2024 Lymphocytes (Bld) [#/Vol] 1.31 10*3/uL 0.83-4.51 [facility] Lymphocytes/100 WBC Auto (Un sp spec)Ordered By: Julio César Vera on 11-26-2024 Lymphocytes/100 WBC (Bld) 27.0 % 19-41 [facility] MCV (mean corpuscular volume ) determinationOrdered By: Julio César Vera on 11-26-2024 MCV (RBC) [Entitic vol] 98.7 fL High 80-94 [facility] Mean corpuscular hemoglobin (MCH) determinationOrdered By: Julio César Vera on 11-26-2024 MCH (RBC) [Entitic mass] 34.2 pg High 27.0-32.0 [facility] Mean corpuscular hemoglobin concentration (MCHC) determinationOrdered By: Julio César Vera on 11-26-2024 MCHC (RBC) [Mass/Vol] 34.7 g/dL 32-36 [facility] Mean platelet volume determi nationOrdered By: Julio César Vera on 11-26-2024 Platelet mean volume (Bld) [Entitic vol] 10.2 fL 6.2-12.0 [facility] Monocyte percentageOrdered B y: Julio César Vera on 11-26-2024 Monocytes/100 WBC (Bld) 10.9 % High 0-10 [facility] Neutrophil percentageOrdered By: Julio César Vera on 11-26-2024 Neutrophils/100 WBC (Bld) 58.4 % 47-70 [facility] Nucleated red blood cell per centageOrdered By: Julio César Vera on 11-26-2024 Nucleated RBC/100 WBC (Bld) [Ratio] 0 % 0-5 [facility] Platelet countOrdered By: Trav Vera on 11-26-2024 Platelets (Bld) [#/Vol] 149 10*3/uL Low 150-450 [facility] Potassium (Unsp spec) [Mass/ Vol]Ordered By: Julio César Vera on 11-26-2024 Potassium [Moles/Vol] 4.7 mmol/L 3.3-5.1 [facility] RBC Auto (Bld) [#/Vol]Ordere d By: Julio César Vera on 11-26-2024 RBC (Bld) [#/Vol] 4.76 10*6/uL 4.6-6.2 [facility] Screening total cholesterol/ high density lipoprotein (HDL) cholesterol ratioOrdered By: Julio César Vera on 11-26-2024 Cholesterol.total/Jessica sterol in HDL [Mass ratio] 2.73 {ratio} [facility] Serum creatinine measurement (mass/volume)Ordered By: Julio César Vera on 11-26-2024 Creatinine [Mass/Vol] 1.29 mg/dL High 0.70-1.20 [facility] Serum globulin measurementOr dered By: Julio César Vera on 11-26-2024 Globulin (S) [Mass/Vol] 3.0 g/dL 2.2-4.2 [facility] Serum glucose measurement (m ass/volume)Ordered By: Julio César Vera on 11-26-2024 Glucose [Mass/Vol] 99 mg/dL 70-99 [facility] Serum or plasma alanine altamirano otransferase (ALT) measurementOrdered By: Julio César Vera on 11-26-2024 ALT [Catalytic activity/Vol] 66 U/L High <47 [facility] Serum or plasma albumin shahrzad urement (mass/volume)Ordered By: Julio César Vera on 11-26-2024 Albumin [Mass/Vol] 4.2 g/dL 3.4-4.8 [facility] Serum or plasma albumin/glob ulin mass ratioOrdered By: Julio César Vera on 11-26-2024 Albumin/Globulin [Mass ratio] 1.4 {ratio} 0.9-2.4 [facility] Serum or plasma alkaline coreen sphatase measurementOrdered By: Julio César Vera on 11-26-2024 ALP [Catalytic activity/Vol] 75 U/L 40-129 [facility] Serum or plasma calcium shahrzad urement (mass/volume)Ordered By: Julio César Vera on 11-26-2024 Calcium [Mass/Vol] 9.5 mg/dL 7.6-11.0 [facility] Serum or plasma cholesterol in HDL measurement (mass/volume)Ordered By: Julio César Vera on 11-26-2024 Cholesterol in HDL [Mass/Vol] 45 mg/dL >40 [facility] Comment on above: National Cholesterol Education Program (NCEP) guidelines:<40 mg/dL: Low HDL-cholesterol (major risk factor for CHD)>= 60 mg/dL: High HDL-cholesterol (negative risk factor for CHD)HDL-cholesterol is affected by a number of factors, e.g. smoking, exercise, hormones, sex and age. Serum or plasma cholesterol measurement (mass/volume)Ordered By: Julio César Vera on 11-26-2024 Cholesterol [Mass/Vol] 124 mg/dL <[address] [facility] Comment on above: Cholesterol level, D esirable <200 mg/dLBorderline high cholesterol 200-239 mg/dLHigh cholesterol >=240 mg/dLRecommendations of the NCEP Adult Treatment Panel for the following risk-cutoff thresholds for the [place] population. Serum or plasma urea nitroge n measurement (mass/volume)Ordered By: Julio César Vera on 11-26-2024 Urea nitrogen [Mass/Vol] 21 mg/dL High 4-19 [facility] Sodium levelOrdered By: Patience Vera on 11-26-2024 Sodium [Moles/Vol] 137 mmol/L 133-145 [facility] TSH DL <= 0.005 mIU/L QnOrde red By: Julio César Vera on 11-26-2024 Thyroid Stimulating Hormone (TSH) 2.570 uIU/mL 0.300-4.200 [facility] Thyroid Stim Hormone (TSH)on 11-26-2024 TSH 2.570 uIU/mL Normal 0.300-4.200 [facility] Comment on above: Order Comment: Order Date: 11/22/24 Order Info: [id number] - CMP Order Info: [id number] - LIPID Order Info: [id number] - TSH Performed By: #### L 501.9520, L500.4100, L100.0100, L500.4050 #### [facility] Laboratory [facility] [place], [address] Total proteinOrdered By: Annamaria Vera on 11-26-2024 Protein [Mass/Vol] 7.3 g/dL 5.9-8.4 [facility] Triglycerides measurementOrd ered By: Julio César Vera on 11-26-2024 Triglyceride [Mass/Vol] 91 mg/dL <199 [facility] Comment on above: The drugs N-Acetylcy steine and Metamizole may falsely depress this assay. Normal range: <150 mg/dLBorderline High: 150-199 mg/dLHigh: 200-499 mg/dLVery High: >500 mg/dL Vitamin D, 25-hydroxyOrdered By: Julio César Vera on 11-26-2024 Vitamin D 25-Hydroxy 80.0 ng/mL 30-100 [facility] Comment on above: Vitamin D StatusDefi ciency: <20 ng/mL (50nmol/L)Insufficiency: 20-30 ng/mL (50-75 nmol/L)Sufficiency: 30-100 ng/mL (75-250 nmol/L)Toxicity: >100 ng/mL (>250 nmol/L) White blood cell (WBC) count Ordered By: Julio César Vera on 11-26-2024 WBC (Bld) [#/Vol] 4.9 10*3/uL 4.4-11.0 [facility] Lyme Antibodies,W [place] LYME IgG INTERP Negative Normal . [facility] Comment on above: Result Comment: Posi tive: 5 of the following Borrelia-specific bands: 18,23,28,30,39,41,45,58, 66, and 93. Negative: No bands or banding patterns which do not meet positive criteria. Performed By: #### L 501.9910, L500.4100, L7000.5800, L500.4050 ####[facility] [id number] [place], [address] LYME IgM INTERP Negative Normal . [facility] Comment on above: Result Comment: Note : An equivocal or positive EIA result followed by a negative Line Blot result is considered NEGATIVE. An equivocal or positive EIA result followed by a positive Line Blot is considered POSITIVE by the CDC. Positive: 2 of the following bands: 23,39 or 41 Negative: No bands or banding patterns which do not meet positive criteria. Criteria for positivity are those recommended by CDC/ASTPHLD. p23=Osp C, q12=kflnjhvoz Note: Sera from individuals with the following may cross react in the Lyme Line Blot assays: other spirochetal diseases (periodontal disease, leptospirosis, relapsing fever, yaws, and pinta); connective autoimmune (Rheumatoid Arthritis and Systemic Lupus Erythematosus and also individuals with Antinuclear Antibody); other infections ([place] Spotted Fever; Sayra-Granda Virus, and Cytomegalovirus). Please Note: Lyme immunoblot alone is not recommended for the diagnosis of Lyme disease. Current guidelines recommend the use of a two-tiered approach to Lyme serology testing to improve the sensitivity and specificity of testing. [facility] offers test code 799689 Lyme Disease Serology with Reflex to aid in the diagnosis of Lyme Disease. Performed at: [address] [id number] [employer]bound Tele[employer]eting Representative: Gilmer Brink MD, Phone: [phone] Performed By: #### L 501.9910, L500.4100, L7000.5800, L500.4050 ####[facility] [id number] [place], [address] P18 Ab Absent Normal . [facility] Comment on above: Performed By: #### L 501.9910, L500.4100, L7000.5800, L500.4050 ####[facility] [address] [place], [address] P23 Ab Absent Normal . [facility] Comment on above: Performed By: #### L 501.9910, L500.4100, L7000.5800, L500.4050 ####[facility] [address] [place], [address] P28 Ab Absent Normal . [facility] Comment on above: Performed By: #### L 501.9910, L500.4100, L7000.5800, L500.4050 ####[facility] [address] [place], [address] P30 Ab Absent Normal . [facility] Comment on above: Performed By: #### L 501.9910, L500.4100, L7000.5800, L500.4050 ####[facility] [id number] [place], [address] P39 Ab Absent Normal . [facility] Comment on above: Performed By: #### L 501.9910, L500.4100, L7000.5800, L500.4050 ####[facility] [id number] [place], [address] P41 Ab Absent Normal . [facility] Comment on above: Performed By: #### L 501.9910, L500.4100, L7000.5800, L500.4050 ####[facility] [id number] [place], [address] P45 Ab Absent Normal . [facility] Comment on above: Performed By: #### L 501.9910, L500.4100, L7000.5800, L500.4050 ####[facility] [id number] [place], [address] P58 Ab Absent Normal . [facility] Comment on above: Performed By: #### L 501.9910, L500.4100, L7000.5800, L500.4050 ####[facility] [address] [place], [address] P66 Ab Absent Normal . [facility] Comment on above: Performed By: #### L 501.9910, L500.4100, L7000.5800, L500.4050 ####[facility] [address] [place], [address] P93 Ab Absent Normal . [facility] Comment on above: Performed By: #### L 501.9910, L500.4100, L7000.5800, L500.4050 ####[facility] [address] [place], [address] Albumin to globulin ratioOrd ered By: Minoo Dahl on 10-21-2024 Albumin/Globulin [Mass ratio] 1.0 {ratio} 0.9-2.4 [facility] Bilirubin, totalOrdered By: Minoo Dahl on 10-21-2024 Bilirubin [Mass/Vol] 0.50 mg/dL 0.20-1.00 [facility] Comment on above: For patients on eltr ombopag therapy, use of Dimension [place] TBIL is not recommended. Blood urea nitrogen (BUN)/cr eatinine ratioOrdered By: Minoo Dahl on 10-21-2024 Urea nitrogen/Creatinine [Mass ratio] 18.9 mg/mg 10-20 [facility] Carbon dioxide measurementOr dered By: Minoo Dahl on 10-21-2024 CO2 [Moles/Vol] 24.0 mmol/L 21.0-32.0 [facility] Chloride measurementOrdered By: Minoo Dahl on 10-21-2024 Chloride [Moles/Vol] 106 mmol/L 98-107 [facility] Comprehensive Metabolic Prof ilon 10-21-2024 Albumin [Mass/Vol] 3.7 g/dL Normal 3.2-5.0 [facility] Comment on above: Performed By: #### L 501.9910, L500.4100, L7000.5800, L500.4050 #### [facility] Laboratory [address] [place], [address] Albumin/Globulin [Mass ratio] 1.0 {ratio} Normal 0.9-2.4 [facility] Comment on above: Performed By: #### L 501.9910, L500.4100, L7000.5800, L500.4050 #### [facility] Laboratory [address] [place], [address] ALK P 73 U/L Normal 45-117 [facility] Comment on above: Performed By: #### L 501.9910, L500.4100, L7000.5800, L500.4050 #### [facility] Laboratory [address] [place], [address] ALT [Catalytic activity/Vol] 62 U/L High 16-61 [facility] Comment on above: Performed By: #### L 501.9910, L500.4100, L7000.5800, L500.4050 #### [facility] Laboratory [address] [place], [address] AST [Catalytic activity/Vol] 41 U/L High 15-37 [facility] Comment on above: Performed By: #### L 501.9910, L500.4100, L7000.5800, L500.4050 #### [facility] Laboratory [address] [place], [address] Bilirubin [Mass/Vol] 0.50 mg/dL Normal 0.20-1.00 [facility] Comment on above: Result Comment: For patients on eltrombopag therapy, use of Dimension [place] TBIL is not recommended. Performed By: #### L 501.9910, L500.4100, L7000.5800, L500.4050 #### [facility] Laboratory [address] [place], [address] BUN/CRE 18.9 RATIO Normal 10-20 [facility] Comment on above: Performed By: #### L 501.9910, L500.4100, L7000.5800, L500.4050 #### [facility] Laboratory [address] [place], [address] CA,Total 9.3 mg/dL Normal 8.5-10.1 [facility] Comment on above: Performed By: #### L 501.9910, L500.4100, L7000.5800, L500.4050 #### [facility] Laboratory [address] [place], [address] Chloride [Moles/Vol] 106 mmol/L Normal 98-107 [facility] Comment on above: Performed By: #### L 501.9910, L500.4100, L7000.5800, L500.4050 #### [facility] Laboratory [address] [place], [address] CO2 [Moles/Vol] 24.0 mmol/L Normal 21.0-32.0 [facility] Comment on above: Performed By: #### L 501.9910, L500.4100, L7000.5800, L500.4050 #### [facility] Laboratory [address] [place], [address] Creatinine [Mass/Vol] 1.27 mg/dL Normal 0.70-1.30 [facility] Comment on above: Result Comment: The validity of the calculated GFR GFRAA in patients over 70 years has not been determined. Clinical correlation is essential. Performed By: #### L 501.9910, L500.4100, L7000.5800, L500.4050 #### [facility] [address] [place], [address] EST GFR - AA 72 mL/min Normal >60 [facility] Comment on above: Result Comment: Afri can [place] GFR Calc Performed By: #### L 501.9910, L500.4100, L7000.5800, L500.4050 #### [facility] Laboratory [address] [place], [address] GAP 7 Normal 5-15 [facility] Comment on above: Performed By: #### L 501.9910, L500.4100, L7000.5800, L500.4050 #### [facility] Laboratory [address] [place], [address] GFR/1.73 sq M.predicted among non-blacks MDRD (S/P/Bld) [Vol rate/Area] 59 mL/min/{1.73_m2} Low >60 [facility] Comment on above: Result Comment: Non- GFR Calc Performed By: #### L 501.9910, L500.4100, L7000.5800, L500.4050 #### [facility] Laboratory [address] [place], [address] Globulin (S) [Mass/Vol] 3.6 g/dL Normal 2.2-4.2 [facility] Comment on above: Performed By: #### L 501.9910, L500.4100, L7000.5800, L500.4050 #### [facility] Laboratory [address] [place], [address] Glucose [Mass/Vol] 92 mg/dL Normal 74-106 [facility] Comment on above: Performed By: #### L 501.9910, L500.4100, L7000.5800, L500.4050 #### [facility] Laboratory [address] [place], [address] Potassium [Moles/Vol] 4.3 mmol/L Normal 3.5-5.1 [facility] Comment on above: Performed By: #### L 501.9910, L500.4100, L7000.5800, L500.4050 #### [facility] Laboratory [address] [place], [address] Sodium [Moles/Vol] 137 mmol/L Normal 136-145 [facility] Comment on above: Performed By: #### L 501.9910, L500.4100, L7000.5800, L500.4050 #### [facility] Laboratory [address] [place], [address] T PROT 7.3 g/dL Normal 6.4-8.2 [facility] Comment on above: Performed By: #### L 501.9910, L500.4100, L7000.5800, L500.4050 #### [facility] Laboratory [address] [place], [address] Urea nitrogen [Mass/Vol] 24 mg/dL High 7-18 [facility] Comment on above: Performed By: #### L 501.9910, L500.4100, L7000.5800, L500.4050 #### [facility] Laboratory [address] [place], [address] Estimated glomerular filtrat ion rate (GFR) AmericanOrdered By: Minoo Dahl on 10-21-2024 Estimated GFR (MDRD) Amer 72 mL/min >60 [facility] Comment on above: GFR Calc Glomerular filtration rate ( GFR) estimationOrdered By: Minoo Dahl on 10-21-2024 Estimated GFR (MDRD) Non-Af Amer 59 mL/min Low >60 [facility] Comment on above: Non- GFR Calc Glucose measurementOrdered B y: Minoo Dahl on 10-21-2024 Glucose [Mass/Vol] 92 mg/dL 74-106 [facility] High density lipoprotein (HD L) measurementOrdered By: Minoo Dahl on 10-21-2024 Cholesterol in HDL [Mass/Vol] 42 mg/dL >40 [facility] Comment on above: The drugs N-Acetylcy steine and Metamizole may falsely depress this assay. Reference Range HDL <40 mg/dL Low HDL Cholesterol HDL >or= 60 mg/dL High HDL Cholesterol Internal Medicine Office Vis iton 10-21-2024 Internal Medicine Office Visit [facility] [address] [place] [address] [place] [address] OFFICE VISIT Date of Service: 10/21/24 MR#: [id number] Acct: [id number] Name: JIMMY DEMPSEY Rep #: [id number] : 1955 Provider: Dr. Minoo baugh MD Age/Sex: 69/M Location: [facility] Status: Signed Intake Vital Signs 08/14/24 11:14 10/21/24 15:18 Height 5 ft 10 in 5 ft 10 in Weight: 212 lb BMI 30.4 BP 118/68 Blood Pressure Location Lt brachial Position Sitting Respiration 16 Pulse 52 L Pulse Source Monitor Temp 97.3 F L Temp Source Temporal Pulse Oximetry (%) 98 Oxygen Delivery Method room air Intake Visit Reasons: TICK BITE/WANTS CHK FOR LYME DISEASE Chief Complaint: FU Chronic conditions. Concerns Gas Cutter Required: No Accompanied by: Self Is patient in pain?: No Allergies amoxicillin trihydrate (From Augmentin) Allergy (Verified 10/21/24 15:14) CANT BREATHE potassium clavulanate (From Augmentin) Allergy (Verified 10/21/24 15:14) CANT BREATHE tetracycline Allergy (Verified 10/21/24 15:14) BRONCHIAL SPASM atorvastatin (From Lipitor) Adverse Reaction (Verified 10/21/24 15:14) memory loss, aggitated Medications ???Medication ???Instructions ???Recorded ???Confirmed ???Type ascorbic acid (vitamin C) 500 mg 500 mg PO DAILY SUPPLEMENT 08/28/19 10/21/24 History capsule multivitamin with minerals 1 tab PO DAILY supplement 05/11/20 10/21/24 History aspirin 81 mg tablet,delayed 81 mg PO DAILY HEART HEALTH 05/22/20 10/21/24 History release (Adult Aspirin Regimen) albuterol sulfate 90 mcg/actuation 2 puff inhalation Q6H PRN 07/28/20 10/21/24 Rx aerosol inhaler (ProAir HFA) shortness of breath or wheezing #8.5 grams coenzyme Q10 200 mg capsule (Co 200 mg PO DAILY 01/05/23 10/21/24 History Q-10) cholecalciferol (vitamin D3) 50 50 mcg PO DAILY 09/08/23 10/21/24 History mcg (2,000 unit) capsule omeprazole 40 mg capsule,delayed 40 mg PO DAILY #90 caps 02/26/24 10/21/24 Rx release rosuvastatin 20 mg tablet 20 mg PO DAILY CHOLESTEROL 03/05/24 10/21/24 Rx LOWERING #90 tabs metoprolol tartrate 25 mg tablet 12.5 mg (1/2 x 25 mg) PO BID BLOOD 03/25/24 10/21/24 Rx PRESSURE #90 tabs Have you fallen in the past year?: No PFSH Medical History Lyme disease Addiction Health care maintenance Lung nodule Hearing difficulty Impacted cerumen of left ear Screening for thyroid disorder Malaise and fatigue Flu vaccine need Thrombocytopenia Preventative health care History of Shukla's esophagus Postoperative atrial fibrillation (04/12/20) Atherosclerosis of coronary artery of [place] heart without angina pectoris History of acute inferior wall myocardial infarction (05/12/19) Essential (primary) hypertension STEMI (ST elevation myocardial infarction) (05/12/19) Bradycardia Fatty infiltration of liver Elevated liver enzymes Barretts esophagus Hiatal hernia GERD (gastroesophageal reflux disease) Vitamin A deficiency Gastritis Hyperlipidemia Asthma Surgical History H/O coronary artery bypass surgery (04/10/20) History of left heart catheterization (08/29/19) History of coronary artery stent placement (05/12/19) History of back surgery History of tonsillectomy History of testicular surgery History of appendectomy Family History Father Heart disease Myocardial infarction at 54 from it Sister Depression attempted suicide before Grandfather Alcoholism Mother Breast cancer Diabetes Hypertension CVA (cerebral vascular accident) Social History Smoking Status: Never smoker alcohol intake: never substance use type: does not use what type of physical activity do you participate in: other details: active job frequency: 3-4 times per week HPI HPI Chief Complaint: FU Chronic conditions. Concerns Details: JIMMY DEMPSEY, is a 69 M who presents to the office today for follow-up of his chronic conditions. Also has some concerns. Seen at the urgent care a couple months ago and managed for what he believes was a tick bite. He states that at that time, he had a bull's-eye rash. Due to listed allergies, was treated with azithromycin. He states that area of rash is still largely present. He would like tested for Lyme's disease. He also reports left ear concerns. Wears a hearing aid and has noted wax when he takes it out. No pain or drainage. His other chronic medical conditions are stable. Blood pressure today at 118/68 mmHg. No chest pain, palpitation or shortness of breath. Taking his medications as prescribed. ROS Const Constitutional: No body ache, chills, ex (more content not included)... Normal [facility] Laboratory - Chemistry and C hemistry - challengeOrdered By: Minoo Dahl on 10-21-2024 AST [Catalytic activity/Vol] 41 U/L High 15-37 [facility] Lipid Profileon 10-21-2024 Cholesterol [Mass/Vol] 159 mg/dL Normal 200 [facility] Comment on above: Result Comment: <200 mg/dL Desirable 200-240 mg/dL Borderline >240 mg/dL High Risk Performed By: #### L 501.9910, L500.4100, L7000.5800, L500.4050 ####[facility] [id number] [place], [address] Cholesterol in HDL [Mass/Vol] 42 mg/dL Normal [facility] Comment on above: Result Comment: The drugs N-Acetylcysteine and Metamizole may falsely depress this assay. Reference Range HDL <40 mg/dL Low HDL Cholesterol HDL >or= 60 mg/dL High HDL Cholesterol Performed By: #### L 501.9910, L500.4100, L7000.5800, L500.4050 ####[facility] [id number] [place], [address] Cholesterol in LDL [Mass/Vol] 62 mg/dL Normal 0-130 [facility] Comment on above: Performed By: #### L 501.9910, L500.4100, L7000.5800, L500.4050 ####[facility] [id number] [place], [address] Cholesterol in VLDL [Mass/Vol] 55 mg/dL High 5-40 [facility] Comment on above: Performed By: #### L 501.9910, L500.4100, L7000.5800, L500.4050 ####[facility] [id number] [place], [address] Triglyceride [Mass/Vol] 274 mg/dL High [facility] Comment on above: Result Comment: The drugs N-Acetylcysteine and Metamizole may falsely depress this assay. Serum Triglycerides Reference Interval Normal <150 mg/dL Borderline high 150 - 199 mg/dL High 200 - 499 mg/dL Very High > or = 500 mg/dL Performed By: #### L 501.9910, L500.4100, L7000.5800, L500.4050 ####[facility] [id number] [place], [address] Low density lipoprotein (LDL ) cholesterol measurementOrdered By: Minoo Dahl on 10-21-2024 Cholesterol in LDL [Mass/Vol] 62 mg/dL 0-130 [facility] Lyme disease 18 [place] p rotein IgG antibody detectionOrdered By: Minoo Dahl on 10-21-2024 Lyme Disease IgG Ab 18 kDa Band Absent . [facility] Lyme disease 23 [place] p rotein IgM antibody detectionOrdered By: Minoo Dahl on 10-21-2024 Lyme Disease IgM Ab 23 kDa Band Absent . [facility] Lyme disease 28 [place] p rotein IgG antibody detectionOrdered By: Minoo Dahl on 10-21-2024 Lyme Disease IgG Ab 28 kDa Band Absent . [facility] Lyme disease 39 [place] p rotein IgG antibody detectionOrdered By: Minoo Dahl on 10-21-2024 Lyme Disease IgG Ab 39 kDa Band Absent . [facility] Lyme disease 39 [place] p rotein IgM antibody detectionOrdered By: Minoo Dahl on 10-21-2024 Lyme Disease IgM Ab 39 kDa Band Absent . [facility] Lyme disease 41 [place] p rotein IgG antibody detectionOrdered By: Minoo Dahl on 10-21-2024 Lyme Disease IgG Ab 41 kDa Band Absent . [facility] Lyme disease 41 [place] p rotein IgM antibody detectionOrdered By: Minoo Dahl on 10-21-2024 Lyme Disease IgM Ab 41 kDa Band Absent . [facility] Lyme disease 45 [place] p rotein IgG antibody detectionOrdered By: Minoo Dahl on 10-21-2024 Lyme Disease IgG Ab 45 kDa Band Absent . [facility] Lyme disease 58 [place] p rotein IgG antibody detectionOrdered By: Minoo Dahl on 10-21-2024 Lyme Disease IgG Ab 58 kDa Band Absent . [facility] Lyme disease 66 [place] p rotein IgG antibody assayOrdered By: Minoo Dahl on 10-21-2024 Lyme Disease IgG Ab 66 kDa Band Absent . [facility] Lyme disease p23 IgG antibod y assayOrdered By: Minoo Dahl on 10-21-2024 Lyme Disease IgG Ab 23 kDa Band Absent . [facility] No Panel InformationOrdered By: Minoo Dahl on 10-21-2024 Lyme Disease IgG Ab 30 kDa Band Absent . [facility] Lyme Disease IgG Ab 93 kDa Band Absent . [facility] Lyme Disease IgG West Blot Interp Negative . [facility] Comment on above: Positive: 5 of the f ollowing Borrelia-specific bands: 18,23,28,30,39,41,45,58, 66, and 93. Negative: No bands or banding patterns which do not meet positive criteria. Lyme Disease IgM Ab (Western Blot) Negative . [facility] Comment on above: Note: An equivocal o r positive EIA result followed by anegative Line Blot result is considered NEGATIVE. Anequivocal or positive EIA result followed by a positiveLine Blot is considered POSITIVE by the CDC.Positive: 2 of the following bands: 23,39 or 41Negative: No bands or banding patterns which do not meetpositive criteria.Criteria for positivity are those recommended byCDC/ASTPHLD. p23=Osp C, e13=[id number]:Sera from individuals with the following may cross reactin the Lyme Line Blot assays: other spirochetal diseases(periodontal disease, leptospirosis, relapsing fever, yaws,and pinta); connective autoimmune (Rheumatoid Arthritis andSystemic Lupus Erythematosus and also individuals withAntinuclear Antibody); other infections (Tex MountainSpotted Fever; Sayra-Granda Virus, and Cytomegalovirus).Please Note: Lyme immunoblot alone is not recommended forthe diagnosis of Lyme disease. Current guidelines recommendthe use of a two-tiered approach to Lyme serology testingto improve the sensitivity and specificity of testing.[facility] offers test code [id number] Lyme Disease Serology withReflex to aid in the diagnosis of Lyme Disease.Performed at: [address] [id number] Director: Gilmer Brink MD, Phone: [phone] PSA,Total - Annual Screenon 10-21-2024 PSA,TOT SCREEN 0.72 ng/mL Normal 0.00-4.00 [facility] Comment on above: Result Comment: This test was performed using the TPSA assay method for the Track the Bet chemistry system. Values obtained with different assay methods cannot be used interchangably. When changing PSA assays in the course of monitoring a patient, additional sequential testing should be carried out to confirm baseline values. Performed By: #### L 501.9910, L500.4100, L7000.5800, L500.4050 ####[facility] [id number] [place], [address] Potassium measurementOrdered By: Minoo Dahl on 10-21-2024 Potassium [Moles/Vol] 4.3 mmol/L 3.5-5.1 [facility] Screening prostate specific antigen (PSA) measurementOrdered By: Minoo Dahl on 10-21-2024 Prostate Specific Antigen Screen 0.72 ng/mL 0.00-4.00 [facility] Comment on above: This test was perfor med using the TPSA assay method for theTrack the Bet chemistry system. Values obtained with differentassay methods cannot be used interchangably.When changing PSA assays in the course of monitoring apatient, additional sequential testing should be carriedout to confirm baseline values. Serum anion gap measurementO rdered By: Minoo Dahl on 10-21-2024 Anion gap [Moles/Vol] 7 mmol/L 5-15 [facility] Serum globulin measurementOr dered By: Minoo Dahl on 10-21-2024 Globulin (S) [Mass/Vol] 3.6 g/dL 2.2-4.2 [facility] Serum or plasma alanine altamirano otransferase (ALT) measurementOrdered By: Minoo Dahl on 10-21-2024 ALT [Catalytic activity/Vol] 62 U/L High 16-61 [facility] Serum or plasma albumin shahrzad urement (mass/volume)Ordered By: Minoo Dahl on 10-21-2024 Albumin [Mass/Vol] 3.7 g/dL 3.2-5.0 [facility] Serum or plasma alkaline coreen sphatase measurementOrdered By: Minoo Dahl on 01-27-2025 ALP [Catalytic activity/Vol] 73 U/L 45-117 [facility] Serum or plasma calcium shahrzad urement (mass/volume)Ordered By: Minoo Dahl on 10-21-2024 Calcium [Mass/Vol] 9.3 mg/dL 8.5-10.1 [facility] Serum or plasma cholesterol measurement (mass/volume)Ordered By: Minoo Dahl on 10-21-2024 Cholesterol [Mass/Vol] 159 mg/dL <200 [facility] Comment on above: <200 mg/dL Desirable 200-240 mg/dL Borderline >240 mg/dL High Risk Serum or plasma creatinine m easurement (mass/volume)Ordered By: Minoo Dahl on 10-21-2024 Creatinine [Mass/Vol] 1.27 mg/dL 0.70-1.30 [facility] Comment on above: The validity of the calculated GFR & GFRAA in patients over 70 years has not been determined. Clinical correlation is essential. Serum or plasma urea nitroge n measurement (mass/volume)Ordered By: Minoo Dahl on 10-21-2024 Urea nitrogen [Mass/Vol] 24 mg/dL High 7-18 [facility] Sodium levelOrdered By: Liz Dahl on 10-21-2024 Sodium [Moles/Vol] 137 mmol/L 136-145 [facility] Total proteinOrdered By: Sincere Dahl on 10-21-2024 Protein [Mass/Vol] 7.3 g/dL 6.4-8.2 [facility] Triglycerides measurementOrd ered By: Minoo Dahl on 10-21-2024 Triglyceride [Mass/Vol] 274 mg/dL High <199 [facility] Comment on above: The drugs N-Acetylcy steine and Metamizole may falsely depress this assay.Serum Triglycerides Reference Interval Normal <150 mg/dL Borderline high 150 - 199 mg/dL High 200 - 499 mg/dL Very High > or = 500 mg/dL Very low density lipoprotein (VLDL) cholesterol measurementOrdered By: Minoo Dahl on 10-21-2024 VLDL Cholesterol 55 mg/dL High 5-40 [facility] Urgent Care Visit Reporton 0 10-18-2024 Urgent Care Visit Report [facility] [address], [address] [place] [address] OFFICE VISIT Date of Service: 10/18/24 MR#: [id number] Acct: [id number] Name: JIMMY DEMPSEY Rep #: [id number] : 1955 Provider: EDE Mina Age/Sex: 69/M Location: [facility] Status: Signed Intake Vital Signs 08/14/24 11:14 10/18/24 17:42 Height 5 ft 10 in BP 126/64 H 132/82 H Blood Pressure Location Lt brachial Rt brachial Position Sitting Sitting Respiration 16 16 Pulse 57 L 72 Pulse Source Monitor Palpation Temp 98.0 F 98.0 F Temp Source Oral Oral Pulse Oximetry (%) 97 96 Oxygen Delivery Method room air room air Intake Visit Reasons: L EYE IRRITATION Chief Complaint: Redness in the left eye. Allergies amoxicillin trihydrate (From Augmentin) Allergy (Verified 08/14/24 11:23) CANT BREATHE potassium clavulanate (From Augmentin) Allergy (Verified 08/14/24 11:23) CANT BREATHE tetracycline Allergy (Verified 08/14/24 11:23) BRONCHIAL SPASM atorvastatin (From Lipitor) Adverse Reaction (Verified 08/14/24 11:23) memory loss, aggitated Have you fallen in the past year?: No [facility] Medical History (Updated 10/18/24 @ 17:40 by Evaristo MERA, PA) Lyme disease Addiction Health care maintenance Lung nodule Hearing difficulty Impacted cerumen of left ear Screening for thyroid disorder Malaise and fatigue Flu vaccine need Thrombocytopenia Preventative health care History of Shukla's esophagus Postoperative atrial fibrillation (04/12/20) Atherosclerosis of coronary artery of [place] heart without angina pectoris History of acute inferior wall myocardial infarction (05/12/19) Essential (primary) hypertension STEMI (ST elevation myocardial infarction) (05/12/19) Bradycardia Fatty infiltration of liver Elevated liver enzymes Barretts esophagus Hiatal hernia GERD (gastroesophageal reflux disease) Vitamin A deficiency Gastritis Hyperlipidemia Asthma Surgical History H/O coronary artery bypass surgery (04/10/20) History of left heart catheterization (08/29/19) History of coronary artery stent placement (05/12/19) History of back surgery History of tonsillectomy History of testicular surgery History of appendectomy Family History Father Heart disease Myocardial infarction at 54 from it Sister Depression attempted suicide before Grandfather Alcoholism Mother Breast cancer Diabetes Hypertension CVA (cerebral vascular accident) Social History Smoking Status: Never smoker alcohol intake: never substance use type: does not use what type of physical activity do you participate in: other details: active job frequency: 3-4 times per week HPI HPI Chief Complaint: Redness in the left eye. Details: JIMMY DEMPSEY, is a 69 M who presents to the office today for complaint of red area in his left eye. Patient states that he noticed it today. He denies any injury or vision changes to the left eye. Patient denies chronic pain. No other associated symptoms or alleviating/aggravat ing factors. ROS Const Constitutional: No other (As above) Exam Const General: cooperative and healthy appearing [facility] Head: normocephalic and atraumatic Ears: hearing grossly normal bilaterally Face and sinus: face symmetric Eyes General: appearance normal, both eyes and all related structures Visual Aguilar: normal visual aguilar by confrontation Alignment and Position: alignment normal Periorbital: periorbital findings normal Eyelids: eyelids normal Conjunctivae: conjunctival abnormality left subconjunctival hemorrhage Pupils: PERRL Skin General: no rashes or lesions noted Psych Appearance: grossly normal Coding Level of Care Code Off vis,est,level 3 Diagnoses Subconjunctival hemorrhage of left eye H11.32 Assessment and Plan Assessment and Plan (1) Subconjunctival hemorrhage of left eye: Status: Acute Plan: Patient advised of the likely benign nature of the subconjunctival hemorrhage. He has been advised to make sure to monitor his blood pressure. Encouraged to get plenty of rest, drink lots of clear liquids, and use a warm compress for comfort. Patient also educated on other symptomatic management techniques. To be seen in 7-10 days if no improvement; sooner if worsening of symptoms. Clinical Quality Measures Falls Risk Screening/Assistive Devices Have you fallen in the past year?: No 10/18/24 1743 Date Evaristo Quiles Signature: Date (if applicable) CC: Normal [facility] Urgent Care Visit Reporton 1 10-14-2023 Urgent Care Visit Report [facility] [address], [address] [place] [address] OFFICE VISIT Date of Service: 08/14/24 MR#: [id number] Acct: [id number] Name: JIMMY DEMPSEY Rep #: [id number] : 1955 Provider: EDE Souza Age/Sex: 68/M Location: [facility] Status: Signed Intake Vital Signs 03/25/24 13:47 08/14/24 11:14 Height 5 ft 10 in 5 ft 10 in Weight: 204 lb BMI 29.2 BP 118/60 126/64 H Blood Pressure Location Lt brachial Lt brachial Position Sitting Sitting Respiration 16 16 Pulse 54 L 57 L Pulse Source Monitor Monitor Temp 97.8 F 98.0 F Temp Source Temporal Oral Pulse Oximetry (%) 97 97 Oxygen Delivery Method room air room air Intake Visit Reasons: POSSIBLE TICK Chief Complaint: Concern for tick bite right groin/thigh Accompanied by: Self Is patient in pain?: No Allergies amoxicillin trihydrate (From Augmentin) Allergy (Verified 08/14/24 11:23) CANT BREATHE potassium clavulanate (From Augmentin) Allergy (Verified 08/14/24 11:23) CANT BREATHE tetracycline Allergy (Verified 08/14/24 11:23) BRONCHIAL SPASM atorvastatin (From Lipitor) Adverse Reaction (Verified 08/14/24 11:23) memory loss, aggitated Medications ???Medication ???Instructions ???Recorded ???Confirmed ???Type ascorbic acid (vitamin C) 500 mg 500 mg PO DAILY SUPPLEMENT 08/28/19 08/14/24 History capsule multivitamin with minerals 1 tab PO DAILY supplement 05/11/20 08/14/24 History aspirin 81 mg tablet,delayed 81 mg PO DAILY HEART HEALTH 05/22/20 08/14/24 History release (Adult Aspirin Regimen) albuterol sulfate 90 mcg/actuation 2 puff inhalation Q6H PRN 07/28/20 08/14/24 Rx aerosol inhaler (ProAir HFA) shortness of breath or wheezing #8.5 grams coenzyme Q10 200 mg capsule (Co 200 mg PO DAILY 01/05/23 08/14/24 History Q-10) cholecalciferol (vitamin D3) 50 50 mcg PO DAILY 09/08/23 08/14/24 History mcg (2,000 unit) capsule omeprazole 40 mg capsule,delayed 40 mg PO DAILY #90 caps 02/26/24 08/14/24 Rx release rosuvastatin 20 mg tablet 20 mg PO DAILY CHOLESTEROL 03/05/24 08/14/24 Rx LOWERING #90 tabs metoprolol tartrate 25 mg tablet 12.5 mg (1/2 x 25 mg) PO BID BLOOD 03/25/24 08/14/24 Rx PRESSURE #90 tabs azithromycin 500 mg tablet 500 mg PO QDAY #10 tabs 08/14/24 08/14/24 Rx Have you fallen in the past year?: No PFSH Medical History (Updated 08/14/24 @ 12:57 by Skinny MERA, PA) Lyme disease Addiction Health care maintenance Lung nodule Hearing difficulty Impacted cerumen of left ear Screening for thyroid disorder Malaise and fatigue Flu vaccine need Thrombocytopenia Preventative health care History of Shukla's esophagus Postoperative atrial fibrillation (04/12/20) Atherosclerosis of coronary artery of [place] heart without angina pectoris History of acute inferior wall myocardial infarction (05/12/19) Essential (primary) hypertension STEMI (ST elevation myocardial infarction) (05/12/19) Bradycardia Fatty infiltration of liver Elevated liver enzymes Barretts esophagus Hiatal hernia GERD (gastroesophageal reflux disease) Vitamin A deficiency Gastritis Hyperlipidemia Asthma Surgical History H/O coronary artery bypass surgery (04/10/20) History of left heart catheterization (08/29/19) History of coronary artery stent placement (05/12/19) History of back surgery History of tonsillectomy History of testicular surgery History of appendectomy Family History Father Heart disease Myocardial infarction at 54 from it Sister Depression attempted suicide before Grandfather Alcoholism Mother Breast cancer Diabetes Hypertension CVA (cerebral vascular accident) Social History Smoking Status: Never smoker alcohol intake: never substance use type: does not use what type of physical activity do you participate in: other details: active job frequency: 3-4 times per week HPI HPI Chief Complaint: Concern for tick bite right groin/thigh Details: JIMMY DEMPSEY, is a 68 M who presents to the office today for initial evaluation of tick bite to her right anterior proximal thigh, stating likely contracted it yesterday while outside raking leaves and yard. He appreciates local, bull's-eye presentation to the same area, though admits no complaints of fever, chills, sweats, lightheadedness/dizz iness, nausea/vomiting, myalgias or headache or joint pain or neck pain or skin rashes. Patient admits to attempting to remove the tick himself last evening unsuccessfully. No boby-[id number] products taken to assist. No other associated symptoms and no other alleviating/aggravat ing factors. ROS (more content not included)... Normal [facility] 07-08-2024 [facility] Office Visit (CAW[facility]) JIMMY DEMPSEY ([id number]) 1955 M Date Time Provider Department 07/08/24 4:20 PM FRANCISCO JAVIER LYNCH During your visit today, we recorded the following information about you: Pulse Blood pressure Weight 67/minute 125/77 91.6 kg Francisco Javier Lynch MD 07/08/2024 4:56 PM Signed Francisco Javier Lynch MD Interventional Cardiology [address] [place] [id number] [phone] Chief Complaint Patient presents with: Follow Up HISTORY OF PRESENT ILLNESS: Mr. Dempsey is a 68 year old male seen in my office today for assessment management of his coronary artery disease patient had established CAD history with multiple angioplasty and stent in 2018 progression of his disease led him to have bypass surgery which consisted of a SCHWARTZ to the LAD vein graft obtuse marginal and second obtuse patient is doing well from a cardiac point of view asymptomatic denies chest pain or shortness of breath he does have bradycardia but had no further lightheadedness episodes since August 2023 Cardiac Risk Factors age (male over 45, female over 55), hyperlipidemia, obesity, hypertension, family history of CAD PAST MEDICAL HISTORY Diagnosis Date Asthma Barretts esophagus Bradycardia CAD (coronary artery disease) Elevated liver enzymes Fatty infiltration of liver Gastritis GERD (gastroesophageal reflux disease) Hiatal hernia History of SC (myocardial infarction) 04/2019 HTN (hypertension) Hypercholesteremia Mixed hyperlipidemia S/P drug eluting coronary stent placement 04/2019 RCA Vitamin A deficiency PAST SURGICAL HISTORY Procedure Laterality Date APPENDECTOMY CABG (3) VEIN GRAFTS AND ARTERIAL GRAFT(S) 04/10/2020 COLONOSCOPY FLX DX W/COLLJ SPEC WHEN PFRMD 10/04/2014 EGD TRANSORAL BIOPSY SINGLE/MULTIPLE 10/04/2014 LOW BACK DISK SURGERY 2007 LASER PAST SURGICAL HISTORY OF procedure for undescended testicles STENT PLACEMENT 04/2019 FAMILY HISTORY Problem Relation Age of Onset Hypertension Mother Breast Cancer Mother Heart Attack Father BLOOD CLOT BEHIND HEART Heart disease Father Melanoma Sister Bipolar disorder Sister Hypertension Sister Social History Tobacco Use Smoking status: Never Smokeless tobacco: Never Vaping Use Vaping status: Never Used Substance Use Topics Alcohol use: No Drug use: Never ALLERGIES Allergen Reactions Amoxicillin Intolerance Atorvastatin Mental Status Change Augmentin [Amoxicil* GI Upset Levaquin [Levofloxa* Other: See Comments Per Patient does not work for him Tetracyclines Cough Medications: Current Outpatient Medications Medication Sig Dispense Refill Magnesium 200 mg tab Take by mouth once daily. ubidecarenone (ULTRA COQ10 ORAL) Take by mouth once daily. omeprazole (PRILOSEC) 40 mg capsule aspirin, enteric coated (ASPIRIN EC) 81 mg EC tablet Take 1 tablet by mouth once daily. 30 tablet 0 metoprolol tartrate, short acting, (LOPRESSOR) 25 mg tablet Take 0.5 tablets by mouth every 12 hours. 30 tablet 2 rosuvastatin (CRESTOR) 10 mg tablet Take 2 tablets by mouth once daily. 60 tablet 2 multivitamin tablet Take 1 tablet by mouth once daily. No current facility-administere d medications for this visit. Review of Systems Constitutional: Negative for chills, diaphoresis, fever, malaise/fatigue and weight loss. HENT: Negative for congestion, ear discharge, ear pain, hearing loss, nosebleeds, sinus pain, sore throat and tinnitus. Eyes: Negative for blurred vision, double vision, photophobia, pain, discharge and redness. Respiratory: Negative for cough, hemoptysis, sputum production, shortness of breath, wheezing and stridor. Cardiovascular: Negative for chest pain, palpitations, orthopnea, claudication, leg swelling and PND. Gastrointestinal: Negative for abdominal pain, blood in stool, constipation, diarrhea, heartburn, melena, nausea and vomiting. Genitourinary: Negative for dysuria, flank pain, frequency, hematuria and urgency. Musculoskeletal: Negative for back pain, falls, joint pain, myalgias and neck pain. Skin: Negative for itching and rash. Neurological: Negative for dizziness, tingling, tremors, sensory change, speech change, focal weakness, seizures, loss of consciousness, weakness and headaches. Endo/Heme/Allergies: Negative for environmental allergies and polydipsia. Does not bruise/bleed easily. Psychiatric/Behavior al: Negative for depression, hallucinations, memory loss, substance abuse and suicidal ideas. The patient is not nervous/anxious and does not have insomnia. Physical Examination: Vitals:BP 125/77 Pulse 67 Wt 202 lb (91.6kg) SpO2 95% BP w/Orthostatic Vitals Date and Time Orthostatic BP Orthostatic Pulse BP Pulse BP Position BP Site BP Cuff Size 07/08/24 1624 -- -- 125/77 67 -- -- -- Last 2 Encounter Wt Readings: Date (more content not included)... Normal [facility] 03-25-2024 [place] Telephone (CAWSTR) JIMMY DEMPSEY ([id number]) 1955 M Date Time Provider Department 03/25/24 FRANCISCO JAVIER LYNCH During your visit today, we recorded the following information about you: Ngozi Wise 03/25/2024 4:39 PM Signed Patient called to scheduled one year follow up appointment with Dr. Lynch and [facility]. No documentation of authorization to transfer from [place] to [place] office is available in patient's chart nor in previous OV note with provider. Please document then advise patient if eligible to schedule at [place] facility. Mary Anne Moody RN 03/26/2024 9:03 AM Signed Patient called and scheduled. Mary Anne Moody RN Allergies As of Date: 03/25/2024 Noted Allergy Reaction AMOXICILLIN 10/29/2015 5 - Intolerance ATORVASTATIN 07/03/2019 1 - Mental Status Change AUGMENTIN (AMOXICILLIN-POT CLAVUL*04/10/2020 8 - GI Upset LEVAQUIN (LEVOFLOXACIN) 10/29/2015 14 - Other: See Comments Comments: Per Patient does not work for him TETRACYCLINES 10/29/2015 3 - Cough Date Reviewed: 05/31/2023 Reviewed by: Lily Salazar MA - Fully Assessed Reason for Visit: Appointment [186] Prescriptions as of 03/26/2024 - Methylcellulose, Laxative, 500 mg tab Take by mouth. - omeprazole (PRILOSEC) 40 mg capsule - aspirin, enteric coated (ASPIRIN EC) 81 mg EC tablet Take 1 tablet by mouth once daily. - metoprolol tartrate, short acting, (LOPRESSOR) 25 mg tablet Take 0.5 tablets by mouth every 12 hours. - rosuvastatin (CRESTOR) 10 mg tablet Take 2 tablets by mouth once daily. - multivitamin tablet Take 1 tablet by mouth once daily. Meds Comments as of 04/21/2020: 04/21/2020- Severe interaction noted between aspirin and brilinta; however pt is not taking brilinta currently. 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] 05/17/2013 Hearing difficulty [H91.90] 07/11/2022 History of Shukla's esophagus [Z87.19] 06/05/2023 Impacted cerumen [H61.20] 06/05/2023 Malaise and fatigue [R53.81, R53.83] 06/05/2023 Low platelet count (HCC) [D69.6] 06/05/2023 Myocardial infarction (HCC) [I21.9] 05/12/2019 Sinusitis [J32.9] 06/05/2023 Vitamin D deficiency [E55.9] 08/10/2017 Encounter Status:Closed by MARY ANNE MOODY on 03/26/24 Normal [facility] Absolute lymphocyte countOrd ered By: ED PROVIDER on 08-28-2023 Lymphocytes Auto (Unsp spec) [#/Vol] 1.48 10*3/uL 0.83-4.51 [facility] Basophil percentageOrdered B y: ED PROVIDER on 08-28-2023 Basophils/100 WBC (Bld) 0.9 % 0-1 [facility] Eosinophils/100 WBC (Bld) 2.6 % 0-5 [facility] Neutrophils (Bld) [#/Vol] 3.1 10*3/uL 2.0-7.7 [facility] Neutrophils/100 WBC (Bld) 59.0 % 47-70 [facility] WBC (Bld) [#/Vol] 5.3 10*3/uL 4.4-11.0 [facility] Basophil percentageOrdered B y: Shon Morel on 08-28-2023 Chloride [Moles/Vol] 106 mmol/L 98-107 [facility] Glucose [Mass/Vol] 121 mg/dL 74-106 [facility] Comment on above: Fasting Glucose resu lt from 100 to 125 mg/dL suggests IMPAIRED HOMEOSTASIS per A.D.A. criteria. Potassium [Moles/Vol] 5.6 mmol/L 3.5-5.1 [facility] Comment on above: Moderate Hemolysis, Result may be falsely increased. Sodium [Moles/Vol] 137 mmol/L 136-145 [facility] Blood erythrocytes count (nu mber/volume)Ordered By: ED PROVIDER on 08-28-2023 RBC (Bld) [#/Vol] 5.04 10*6/uL 4.6-6.2 [facility] Blood hemoglobin measurement (mass/volume)Ordered By: ED PROVIDER on 08-28-2023 Hemoglobin (Bld) [Mass/Vol] 16.4 g/dL 13.0-16.5 [facility] Blood lymphocytes/100 leukoc ytesOrdered By: ED PROVIDER on 08-28-2023 Lymphocytes/100 WBC (Bld) 27.9 % 19-41 [facility] Blood monocytes/100 leukocyt esOrdered By: ED PROVIDER on 08-28-2023 Monocytes/100 WBC (Bld) 9.4 % 0-10 [facility] Blood platelet mean volumeOr dered By: ED PROVIDER on 08-28-2023 Platelet mean volume (Bld) [Entitic vol] 9.4 fL 6.2-12.0 [facility] Determination of erythrocyte mean corpuscular volume (MCV)Ordered By: ED PROVIDER on 08-28-2023 MCV (RBC) [Entitic vol] 100.8 fL 80-94 [facility] Hematocrit Auto (Bld) [Volum e fraction]Ordered By: ED PROVIDER on 08-28-2023 Hematocrit (Bld) [Volume fraction] 50.8 % 40-54 [facility] Laboratory - Chemistry and C hemistry - challengeOrdered By: Shon Morel on 08-28-2023 CO2 [Moles/Vol] 26.0 mmol/L 21.0-32.0 [facility] Urea nitrogen/Creatinine [Mass ratio] 15.6 mg/mg 10-20 [facility] Laboratory - Hematology and Cell countsOrdered By: ED PROVIDER on 08-28-2023 Erythrocyte distribution width (RBC) [Entitic vol] 45.3 fL 35.1-43.9 [facility] Erythrocyte distribution width (RBC) [Ratio] 12.1 % 11.6-14.6 [facility] Immature granulocytes/100 WBC (Bld) 0.200 % 0.0-0.9 [facility] Comment on above: IG% - Immature Granu locytes (promyelocytes, myelocytes and metamyelocytes) > 1% indicates that a LEFT SHIFT is Present. MCH (RBC) [Entitic mass] 32.5 pg 27.0-32.0 [facility] Nucleated RBC/100 WBC (Bld) [Ratio] 0 % 0-5 [facility] MCHC Auto (RBC) [Mass/Vol]Or dered By: ED PROVIDER on 08-28-2023 MCHC (RBC) [Mass/Vol] 32.3 g/dL 32-36 [facility] No Panel InformationOrdered By: Shon Morel on 08-28-2023 Troponin I High Sensitivity 4 pg/mL 3.0-78.0 [facility] Comment on above: Please Note: New [place] t Units and Gender Specific Reference Ranges. For more information see Policy Stat Procedure [place] High Sensitivity Troponin (TNIH) and attachments. Estimated Creatinine Clearance Calc 0.00 ml/min [facility] Estimated GFR (MDRD) Amer 67 mL/min >60 [facility] Comment on above: GFR Calc Estimated GFR (MDRD) Non-Af Amer 56 mL/min >60 [facility] Comment on above: Non- GFR Calc Platelets bldOrdered By: ED PROVIDER on 08-28-2023 Platelets (Bld) [#/Vol] 153 10*3/uL 150-450 [facility] Serum or plasma calcium shahrzad urement (mass/volume)Ordered By: Shon Morel on 08-28-2023 Calcium [Mass/Vol] 9.3 mg/dL 8.5-10.1 [facility] Serum or plasma creatinine m easurement (mass/volume)Ordered By: Shon Morel on 08-28-2023 Creatinine [Mass/Vol] 1.35 mg/dL 0.70-1.30 [facility] Comment on above: The validity of the calculated GFR & GFRAA in patients over 70 years has not been determined. Clinical correlation is essential. Serum or plasma urea nitroge n measurement (mass/volume)Ordered By: Shon Morel on 08-28-2023 Urea nitrogen [Mass/Vol] 21 mg/dL 7-18 [facility] Thin prep Papanicolaou smear with manual screeningOrdered By: Shon Morel on 08-28-2023 Thin prep Papanicolaou smear with manual screening 5 5-15 [facility] Absolute lymphocyte countOrd ered By: Minoo Dahl on 07-05-2023 Lymphocytes Auto (Unsp spec) [#/Vol] 1.64 10*3/uL 0.83-4.51 [facility] Basophil percentageOrdered B y: Minoo Dahl on 07-05-2023 Basophils/100 WBC (Bld) 0.5 % 0-1 [facility] Bilirubin [Mass/Vol] 0.60 mg/dL 0.20-1.00 [facility] Comment on above: For patients on eltr ombopag therapy, use of Dimension [place] TBIL is not recommended. Chloride [Moles/Vol] 105 mmol/L 98-107 [facility] Cholesterol [Mass/Vol] 130 mg/dL <200 [facility] Comment on above: <200 mg/dL Desirable 200-240 mg/dL Borderline >240 mg/dL High Risk Eosinophils/100 WBC (Bld) 1.7 % 0-5 [facility] Glucose [Mass/Vol] 89 mg/dL 74-106 [facility] Neutrophils (Bld) [#/Vol] 3.8 10*3/uL 2.0-7.7 [facility] Neutrophils/100 WBC (Bld) 62.3 % 47-70 [facility] Potassium [Moles/Vol] 4.4 mmol/L 3.5-5.1 [facility] Protein [Mass/Vol] 7.1 g/dL 6.4-8.2 [facility] Sodium [Moles/Vol] 137 mmol/L 136-145 [facility] Triglyceride [Mass/Vol] 115 mg/dL <199 [facility] Comment on above: The drugs N-Acetylcy steine and Metamizole may falsely depress this assay.Serum Triglycerides Reference Interval Normal <150 mg/dL Borderline high 150 - 199 mg/dL High 200 - 499 mg/dL Very High > or = 500 mg/dL WBC (Bld) [#/Vol] 6.1 10*3/uL 4.4-11.0 [facility] Blood erythrocytes count (nu mber/volume)Ordered By: Minoo Dahl on 07-05-2023 RBC (Bld) [#/Vol] 4.47 10*6/uL 4.6-6.2 [facility] Blood hemoglobin measurement (mass/volume)Ordered By: Minoo Dahl on 07-05-2023 Hemoglobin (Bld) [Mass/Vol] 14.7 g/dL 13.0-16.5 [facility] Blood lymphocytes/100 leukoc ytesOrdered By: Minoo Dahl on 07-05-2023 Lymphocytes/100 WBC (Bld) 27.1 % 19-41 [facility] Blood monocytes/100 leukocyt esOrdered By: eduardo Dahl on 07-05-2023 Monocytes/100 WBC (Bld) 8.4 % 0-10 [facility] Blood platelet mean volumeOr dered By: Minoo Dahl on 07-05-2023 Platelet mean volume (Bld) [Entitic vol] 9.4 fL 6.2-12.0 [facility] Determination of erythrocyte mean corpuscular volume (MCV)Ordered By: Minoo Dahl on 07-05-2023 MCV (RBC) [Entitic vol] 100.0 fL 80-94 [facility] Hematocrit Auto (Bld) [Volum e fraction]Ordered By: Minoo Dahl on 07-05-2023 Hematocrit (Bld) [Volume fraction] 44.7 % 40-54 [facility] Laboratory - Chemistry and C hemistry - challengeOrdered By: Minoo Dahl on 07-05-2023 ALP [Catalytic activity/Vol] 74 U/L 45-117 [facility] ALT [Catalytic activity/Vol] 39 U/L 16-61 [facility] CO2 [Moles/Vol] 28.0 mmol/L 21.0-32.0 [facility] Globulin (S) [Mass/Vol] 3.2 g/dL 2.2-4.2 [facility] Urea nitrogen/Creatinine [Mass ratio] 16.0 mg/mg 10-20 [facility] Laboratory - Hematology and Cell countsOrdered By: Minoo Dahl on 07-05-2023 Erythrocyte distribution width (RBC) [Entitic vol] 45.9 fL 35.1-43.9 [facility] Erythrocyte distribution width (RBC) [Ratio] 12.5 % 11.6-14.6 [facility] Immature granulocytes/100 WBC (Bld) 0.000 % 0.0-0.9 [facility] Comment on above: IG% - Immature Granu locytes (promyelocytes, myelocytes and metamyelocytes) > 1% indicates that a LEFT SHIFT is Present. MCH (RBC) [Entitic mass] 32.9 pg 27.0-32.0 [facility] Nucleated RBC/100 WBC (Bld) [Ratio] 0 % 0-5 [facility] MCHC Auto (RBC) [Mass/Vol]Or dered By: Minoo Dahl on 07-05-2023 MCHC (RBC) [Mass/Vol] 32.9 g/dL 32-36 [facility] No Panel InformationOrdered By: Minoo Dahl on 07-05-2023 Estimated GFR (MDRD) Amer 70 mL/min >60 [facility] Comment on above: GFR Calc Estimated GFR (MDRD) Non-Af Amer 58 mL/min >60 [facility] Comment on above: Non- GFR Calc Vitamin D 25-Hydroxy 37.6 ng/mL [facility] Comment on above: Vitamin D 25(OH) Sta tus Range Deficiency <20 ng/mL (50nmol/L) Insufficiency 20 - 30 ng/mL (50 - 75 nmol/L) Sufficiency 30 - 100 ng/mL (75 - 250 nmol/L) Toxicity >100 ng/mL (>250 nmol/L) Platelets bldOrdered By: Sincere Dahl on 07-05-2023 Platelets (Bld) [#/Vol] 137 10*3/uL 150-450 [facility] Serum or plasma albumin shahrzad urement (mass/volume)Ordered By: Minoo Dahl on 07-05-2023 Albumin [Mass/Vol] 3.9 g/dL 3.2-5.0 [facility] Serum or plasma albumin/glob ulin mass ratioOrdered By: Minoo Dahl on 07-05-2023 Albumin/Globulin [Mass ratio] 1.2 {ratio} 0.9-2.4 [facility] Serum or plasma calcium shahrzad urement (mass/volume)Ordered By: Minoo Dahl on 07-05-2023 Calcium [Mass/Vol] 9.0 mg/dL 8.5-10.1 [facility] Serum or plasma cholesterol in HDL measurement (mass/volume)Ordered By: Minoo Dahl on 07-05-2023 Cholesterol in HDL [Mass/Vol] 45 mg/dL >40 [facility] Comment on above: The drugs N-Acetylcy steine and Metamizole may falsely depress this assay. Reference Range HDL <40 mg/dL Low HDL Cholesterol HDL >or= 60 mg/dL High HDL Cholesterol Serum or plasma cholesterol in VLDL measurement (mass/volume)Ordered By: Minoo Dahl on 07-05-2023 Cholesterol in VLDL [Mass/Vol] 23 mg/dL 5-40 [facility] Serum or plasma creatinine m easurement (mass/volume)Ordered By: Minoo Dahl on 07-05-2023 Creatinine [Mass/Vol] 1.31 mg/dL 0.70-1.30 [facility] Comment on above: The validity of the calculated GFR & GFRAA in patients over 70 years has not been determined. Clinical correlation is essential. Serum or plasma low density lipoprotein (LDL) cholesterol measurement (mass/volume)Ordered By: Minoo Dahl on 07-05-2023 Cholesterol in LDL [Mass/Vol] 62 mg/dL 0-130 [facility] Serum or plasma urea nitroge n measurement (mass/volume)Ordered By: Minoo Dahl on 07-05-2023 Urea nitrogen [Mass/Vol] 21 mg/dL 7-18 [facility] Thin prep Papanicolaou smear with manual screeningOrdered By: Minoo Dahl on 07-05-2023 Thin prep Papanicolaou smear with manual screening 25 U/L 15-37 [facility] Thin prep Papanicolaou smear with manual screening 4 5-15 [facility] CNOVon 05-31-2023 CNOV Office Visit (AGCARDPOB) JIMMY DEMPSEY ([id number]) 1955 M Date Time Provider Department 05/31/23 3:20 PM FRANCISCO JAVIER LYNCH AGCARDPOB During your visit today, we recorded the following information about you: Pulse Blood pressure Weight Height 74/minute 144/90 89.4 kg 1.778 m Lily Salazar MA 05/31/2023 3:24 PM Signed No cardiac concerns today Lily Salazar MA 05/31/2023 3:36 PM Signed No cardiac concerns today Francisco Javier Lynch MD 05/31/2023 4:59 PM Signed Francisco Javier Lynch MD Interventional Cardiology [address] [place], [place] [id number] Chief Complaint Patient presents with: New Patient Evaluation: Stemi HISTORY OF PRESENT ILLNESS: Mr. Dempsey is a 67 year old male in my office today for assessment of bradycardia patient had prior history of severe coronary artery disease with multiple stents in 2019 with progression of his coronary artery disease required bypass surgery in 2020 he had a SCHWARTZ to the LAD vein graft to the first obtuse marginal vein graft to the second acute marginal Is doing well from the cardiac point of view asymptomatic denies chest pain or shortness of breath Acquired of the fifth breath recently and he noticed that at night his heart rate goes down to 38 and 40 sinus bradycardia asymptomatic denies syncope presyncope Plan active with no limitation Cardiac Risk Factors age (male over 45, female over 55), hyperlipidemia, hypertension, family history of CAD PAST MEDICAL HISTORY Diagnosis Date Asthma CAD (coronary artery disease) History of SC (myocardial infarction) 04/2019 HTN (hypertension) Hypercholesteremia S/P drug eluting coronary stent placement 04/2019 RCA PAST SURGICAL HISTORY Procedure Laterality Date APPENDECTOMY CABG (3) VEIN GRAFTS AND ARTERIAL GRAFT(S) 04/10/2020 COLONOSCOPY FLX DX W/COLLJ SPEC WHEN PFRMD 10/04/2014 EGD TRANSORAL BIOPSY SINGLE/MULTIPLE 10/04/2014 LOW BACK DISK SURGERY 2007 LASER PAST SURGICAL HISTORY OF procedure for undescended testicles STENT PLACEMENT 04/2019 FAMILY HISTORY Problem Relation Age of Onset Hypertension Mother Breast Cancer Mother Heart Attack Father BLOOD CLOT BEHIND HEART Melanoma Sister Bipolar disorder Sister Hypertension Sister Social History Tobacco Use Smoking status: Never Smokeless tobacco: Never Vaping Use Vaping Use: Never used Substance Use Topics Alcohol use: No Drug use: Never ALLERGIES Allergen Reactions Amoxicillin Intolerance Atorvastatin Mental Status Change Augmentin [Amoxicil* GI Upset Levaquin [Levofloxa* Other: See Comments Per Patient does not work for him Tetracyclines Cough Medications: Current Outpatient Medications Medication Sig Dispense Refill omeprazole (PRILOSEC) 40 mg capsule aspirin, enteric coated (ASPIRIN EC) 81 mg EC tablet Take 1 tablet by mouth once daily. 30 tablet 0 metoprolol tartrate, short acting, (LOPRESSOR) 25 mg tablet Take 0.5 tablets by mouth every 12 hours. 30 tablet 2 rosuvastatin (CRESTOR) 10 mg tablet Take 2 tablets by mouth once daily. 60 tablet 2 multivitamin tablet Take 1 tablet by mouth once daily. psyllium husk, with sugar, (METAMUCIL FIBER THIN) 2 gram wafr Take 1 capsule by mouth once daily. ticagrelor (BRILINTA) 90 mg tablet Take 1 tablet by mouth twice daily. Please make sure you talk to Dr. Hook about IF/WHEN you should take this meds. (Patient not taking: Reported on 04/21/2020) No current facility-administere d medications for this visit. Review of Systems Constitutional: Negative for chills, diaphoresis, fever, malaise/fatigue and weight loss. HENT: Negative for congestion, ear discharge, ear pain, hearing loss, nosebleeds, sinus pain, sore throat and tinnitus. Eyes: Negative for blurred vision, double vision, photophobia, pain, discharge and redness. Respiratory: Negative for cough, hemoptysis, sputum production, shortness of breath, wheezing and stridor. Cardiovascular: Negative for chest pain, palpitations, orthopnea, claudication, leg swelling and PND. Gastrointestinal: Negative for abdominal pain, blood in stool, constipation, diarrhea, heartburn, melena, nausea and vomiting. Genitourinary: Negative for dysuria, flank pain, frequency, hematuria and urgency. Musculoskeletal: Negative for back pain, falls, joint pain, myalgias and neck pain. Skin: Negative for itching and rash. Neurological: Negative for dizziness, tingling, tremors, sensory change, speech change, focal weakness, seizures, loss of consciousness, weakness and headaches. Endo/Heme/Allergies: Negative for environmental allergies and polydipsia. Does not bruise/bleed easily. Psychiatric/Behavior al: Negative for depression, hallucinations, memory loss, substance abuse and suicidal ideas. The patient is not nervous/anxious and does not have insomnia. Physical Examin (more content not included)... Normal [facility] 02-22-2023 [facility] Telephone (AGCARDPOB) JIMMY DEMPSEY ([id number]) 1955 M Date Time Provider Department 02/22/23 AG CARD AGCARDPOB During your visit today, we recorded the following information about you: Tanner Lerma 02/22/2023 9:28 AM Signed PCP referral for hx of STEMI, myocardial infarction, aortocoronary bypass graft, CAD - Please schedule patient with Dr. Castillo Referral was sent to Dr. Chan. Not appropriate for EP, I explained this to patients and she said she would have her call back and schedule himself. Tanner Florentin Allergies As of Date: 02/22/2023 Noted Allergy Reaction AMOXICILLIN 10/29/2015 5 - Intolerance ATORVASTATIN 07/03/2019 1 - Mental Status Change AUGMENTIN (AMOXICILLIN-POT CLAVUL*04/10/2020 8 - GI Upset LEVAQUIN (LEVOFLOXACIN) 10/29/2015 14 - Other: See Comments Comments: Per Patient does not work for him TETRACYCLINES 10/29/2015 3 - Cough Date Reviewed: 09/30/2020 Reviewed by: Carol Redman LPN - Fully Assessed Reason for Visit: Appointment [186] Prescriptions as of 02/22/2023 - omeprazole (PRILOSEC) 40 mg capsule - aspirin, enteric coated (ASPIRIN EC) 81 mg EC tablet Take 1 tablet by mouth once daily. - metoprolol tartrate, short acting, (LOPRESSOR) 25 mg tablet Take 0.5 tablets by mouth every 12 hours. - psyllium husk, with sugar, (METAMUCIL FIBER THIN) 2 gram wafr Take 1 capsule by mouth once daily. - ticagrelor (BRILINTA) 90 mg tablet Take 1 tablet by mouth twice daily. Please make sure you talk to Dr. Hook about IF/WHEN you should take this meds. - acetaminophen (TYLENOL) 500 mg tablet Take 2 tablets by mouth every 6 hours. - rosuvastatin (CRESTOR) 10 mg tablet Take 2 tablets by mouth once daily. - multivitamin tablet Take 1 tablet by mouth once daily. - albuterol (PROVENTIL) 2.5 mg /3 mL (0.083 %) nebulizer solution Use 2.5 mg via nebulizer every 4 hours as needed for Wheezing/Shortness of Breath. - albuterol HFA (PROVENTIL HFA, VENTOLIN HFA) 90 mcg/actuation inhaler Inhale 2 Puffs as instructed every 4 hours as needed for Wheezing/Shortness of Breath. Meds Comments as of 04/21/2020: 04/21/2020- Severe interaction noted between aspirin and brilinta; however pt is not taking brilinta currently. Problem List As Of Date 02/22/2023 Noted Resolved GERD (gastroesophageal reflux disease) [K21.9] 09/08/2014 Preoperative testing [Z01.818] 09/08/2014 CAD (coronary artery disease) [I25.10] 04/10/2020 S/P CABG x 3 [Z95.1] 04/10/2020 Acute postoperative respiratory insufficiency [*04/10/2020 04/16/2020 HTN (hypertension) [I10] Hypercholesteremia [E78.00] Leukocytosis [D72.829] 04/16/2020 Encounter Status:Closed by TANNER LERMA on 02/22/23 Normal [facility] Basophil percentageOrdered B y: Domingo Morrow on 01-05-2023 Cholesterol [Mass/Vol] 116 mg/dL <200 [facility] Comment on above: <200 mg/dL Desirable 200-240 mg/dL Borderline >240 mg/dL High Risk Triglyceride [Mass/Vol] 125 mg/dL <199 [facility] Comment on above: The drugs N-Acetylcy steine and Metamizole may falsely depress this assay.Serum Triglycerides Reference Interval Normal <150 mg/dL Borderline high 150 - 199 mg/dL High 200 - 499 mg/dL Very High > or = 500 mg/dL No Panel InformationOrdered By: Domingo Morrow on 01-05-2023 Thyroid Stimulating Hormone (TSH) 1.85 uIU/mL 0.358-3.74 [facility] Vitamin D 25-Hydroxy 35.1 ng/mL [facility] Comment on above: Vitamin D 25(OH) Sta tus Range Deficiency <20 ng/mL (50nmol/L) Insufficiency 20 - 30 ng/mL (50 - 75 nmol/L) Sufficiency 30 - 100 ng/mL (75 - 250 nmol/L) Toxicity >100 ng/mL (>250 nmol/L) Serum or plasma cholesterol in HDL measurement (mass/volume)Ordered By: Domingo Morrow on 01-05-2023 Cholesterol in HDL [Mass/Vol] 45 mg/dL >40 [facility] Comment on above: The drugs N-Acetylcy steine and Metamizole may falsely depress this assay. Reference Range HDL <40 mg/dL Low HDL Cholesterol HDL >or= 60 mg/dL High HDL Cholesterol Serum or plasma cholesterol in VLDL measurement (mass/volume)Ordered By: Domingo Morrow on 01-05-2023 Cholesterol in VLDL [Mass/Vol] 25 mg/dL 5-40 [facility] Serum or plasma low density lipoprotein (LDL) cholesterol measurement (mass/volume)Ordered By: Domingo Morrow on 01-05-2023 Cholesterol in LDL [Mass/Vol] 46 mg/dL 0-130 [facility] XR CHEST 2V FRONTAL/LATon XR CHEST 2V FRONTAL/LAT Final Report DATE OF EXAM: Sep 30 2020 3:11PM [id number] - XR CHEST 2V FRONTAL/LAT / PROCEDURE REASON: Lung nodule Physician Interpretation EXAMINATION: CHEST RADIOGRAPH (2 VIEW FRONTAL & LATERAL) CLINICAL HISTORY: Lung nodule MQ: XC2_6 EXAM DATE/TIME: 09/30/2020 3:11 PM COMPARISON: Chest radiograph 09/27/2020 RESULT: Lines, tubes, and devices: Interval removal of right chest tube. No pneumothorax. Stable mediastinal wires. Lungs and pleura: No consolidation. Linear density in the right mid lung field likely represents atelectasis.. No pleural effusion. Cardiomediastinal silhouette: Normal cardiomediastinal silhouette. Bones and soft tissues: Unremarkable. IMPRESSION: No acute radiographic abnormality. [employer]: [facility] Transcribe Date/Time: Sep 30 2020 3:15P Dictated by : DEANGELO OSORIO MD This examination was interpreted and the report reviewed and electronically signed by: DEANGELO OSORIO MD on Sep 30 2020 3:16PM EST [facility] XR CHEST 2V FRONTAL/LATon XR CHEST 2V FRONTAL/LAT Final Report DATE OF EXAM: Sep 27 2020 11:48AM [id number] [id number] - XR CHEST 2V FRONTAL/LAT / PROCEDURE REASON: J95.811-Postprocedur al pneumothorax Physician Interpretation EXAMINATION: CHEST RADIOGRAPH (2 VIEW FRONTAL & LATERAL) CLINICAL HISTORY: Postprocedural pneumothorax MQ: XC2_6 EXAM DATE/TIME: 09/27/2020 11:48 AM COMPARISON: 05/21/2020 RESULT: Lines, tubes, and devices: Right chest tube in place. Status post plate and screw fixation of the sternum. Lungs and pleura: No consolidation. No lung mass. No pleural effusion. No pneumothorax. Cardiomediastinal silhouette: Normal heart size. Bones and soft tissues: Degenerative changes are present within the thoracic spine. IMPRESSION: No acute radiographic abnormality. No pneumothorax. [employer]: [facility] Transcribe Date/Time: Sep 27 2020 12:18P Dictated by : MADELAINE WILLIAMSON MD This examination was interpreted and the report reviewed and electronically signed by: MADELAINE WILLIAMSON MD on Sep 27 2020 12:20PM EST [facility] CT BIOPSY LUNGon 09-24-2020 CT BIOPSY LUNG Final Report DATE OF EXAM: Sep 24 2020 6:53PM [facility] 2009 - CT BIOPSY LUNG / PROCEDURE REASON: Lung nodule [R91.1] Physician Interpretation PROCEDURE PERFORMED: CT GUIDED RIGHT LUNG NODULE BIOPSY ON 09/24/2020 PRE-PROCEDURE DIAGNOSIS: Indeterminate right lung nodule POST-PROCEDURE DIAGNOSIS: Same INDICATION FOR PROCEDURE: The patient is a 64 years old Male who presents with an indeterminate right lung nodule. STAFF RADIOLOGIST: Madelaine Williamson MD LEARNING CONSULTANT(S): None CONSENT: The risks, benefits, treatment options, potential complications and personnel involved were discussed with the patient. All questions were answered and consent was obtained. The patient indicated he was willing to proceed. The staff physician personally verified consent. TIME OUT: A time out was performed immediately prior to procedure start with the nursing, anesthesia and interventional team, correctly identifying the patient name, date of , procedure, anatomy (including marking of site and side), patient position, procedure consent form, relevant diagnostic and radiology test results, antibiotic administration (when indicated), safety precautions, and procedure-specific equipment needs. RESULT: PROCEDURE: After performing the time out, the right lung nodule was localized under CT. Skin entry site was prepped and draped in the usual sterile fashion. Access was initially attempted from a right lateral approach, however, this proved difficult again due to the presence of the overlying rib. So, another access was chosen from the anterior right chest wall, and a 19-gauge introducer needle was advanced into the nodule. 8 cores were obtained with a 20-gauge needle. 5 of these were sent on a Telfa pad soaked with saline, and 3 were sent in a container filled with saline. Pathology reviewed the samples, and recommended to obtain more tissue and bigger cores. So, the 19-gauge introducer needle was removed, and a 17-gauge introducer needle was advanced into the nodule. 5 cores were obtained with an 18-gauge needle. Again these were sent to pathology. They recommended to obtain more tissue. So, 7 more core samples were obtained and sent in formalin. The procedure was performed by the: attending radiologist, without an offset press assistant. The attending radiologist performed the following procedural activities: Entire procedure ANESTHESIA/SEDATION: No sedation was given. Local anesthesia was achieved utilizing lidocaine. Vital signs were monitored by the nurse. START TIME/TIMEOUT TIME: 4:57 PM END TIME: 6:18 PM INTRA-SERVICE (SEDATION) TIME: NA PATIENT MONITORING: The staff physician personally supervised and directed an independent trained observer who assisted in monitoring the patient?s level of consciousness and physiological status throughout the procedure. COMPLICATIONS: None SIGN-OUT DISCUSSION: Completed ESTIMATED BLOOD LOSS: Minimal CONTRAST: None CT ABDOMEN AND PELVIS RADIATION DOSE: Dose-length product (DLP) = 326 mGycm. SPECIMENS: 20 core biopsy specimen(s) was/were sent to pathology. 13 in saline and 7 in formalin. BIOPSY DEVICE: 20 and 18 gauge Bard core biopsy needle. IMPRESSION: CT GUIDED BIOPSY OF RIGHT LUNG NODULE DESCRIBED. THE PATIENT HAS AN EXISTING RIGHT HEIMLICH CHEST TUBE INITIALLY PLACED ON 09/23/2020 FOR TREATMENT OF PNEUMOTHORAX. THIS CAN BE EVALUATED IN A FEW DAYS AND IF DEEMED NOT NEEDED ANYMORE, COULD BE REMOVED. [employer]: [facility] Transcribe Date/Time: Sep 25 2020 9:16A Dictated by : MADELAINE WILLIAMSON MD This examination was interpreted and the report reviewed and electronically signed by: MADELAINE WILLIAMSON MD on Sep 25 2020 9:47AM EST [facility] CT BIOPSY LUNGon 09-23-2020 CT BIOPSY LUNG Final Report DATE OF EXAM: Sep 23 2020 2:44PM [facility] 2009 - CT BIOPSY LUNG / PROCEDURE REASON: nodule Physician Interpretation PROCEDURE PERFORMED: CT GUIDED OF BASAL RIGHT UPPER LOBE NODULE BIOPSY ON 09/23/2020 PRE-PROCEDURE DIAGNOSIS: Pulmonary nodule POST-PROCEDURE DIAGNOSIS: Same INDICATION FOR PROCEDURE: The patient is a 64 years old Male who presents with a pulmonary nodule in the peripheral base of the right upper lobe. STAFF RADIOLOGIST: Madelaine Williamson MD LEARNING CONSULTANT(S): None CONSENT: The risks, benefits, treatment options, potential complications and personnel involved were discussed with the patient. All questions were answered and consent was obtained. The patient indicated he was willing to proceed. The staff physician personally verified consent. TIME OUT: A time out was performed immediately prior to procedure start with the nursing, anesthesia and interventional team, correctly identifying the patient name, date of , procedure, anatomy (including marking of site and side), patient position, procedure consent form, relevant diagnostic and radiology test results, antibiotic administration (when indicated), safety precautions, and procedure-specific equipment needs. RESULT: PROCEDURE: After performing the time out, the nodule was localized under CT. Skin entry site was prepped and draped in the usual sterile fashion. Under direct CT guidance, a 19 gauge trochar needle was advanced to the nodule. Through the trochar, 3 passes were made into the nodule using a 20 gauge cutting needle. The procedure was performed by the: attending radiologist, without an offset press assistant. The attending radiologist performed the following procedural activities: Entire procedure ANESTHESIA/SEDATION: Conscious sedation was achieved using Versed and fentanyl intravenously. Local anesthesia was achieved utilizing lidocaine. Vital signs were monitored by the nurse. START TIME/TIMEOUT TIME: 1:40 PM END TIME: 2:35 PM INTRA-SERVICE (SEDATION) TIME: 57 minutes PATIENT MONITORING: The staff physician personally supervised and directed an independent trained observer who assisted in monitoring the patient?s level of consciousness and physiological status throughout the procedure. COMPLICATIONS: While performing the biopsy, the patient developed a pneumothorax that continued to increase throughout the duration of the procedure, precluding adequate performance of the biopsy, so it became prudent to evacuate the pneumothorax. Access was obtained into the pleural space utilizing a Yueh catheter, and this was connected to continuous suction. The biopsy was performed while the Yueh catheter was in place. Despite continuous suction however, the pneumothorax was persistent, allowing only for 3 passes within the nodule. At that point, the patient was experiencing significant discomfort, and could not reproduce the breathing pattern (deep inspiration), that allowed access into the nodule. So, further attempts to access the nodules were not made. A 10.2 Portuguese Heimlich chest tube was decided to be placed into the pleural space utilizing the trocar technique. The tube was placed cephalad into the right lung apex, and positioning was confirmed with a final CT scan. The tube was secured to the skin with a nonabsorbable suture. It was connected to Heimlich valve. A sterile dressing was applied. The patient is to follow-up on 09/25/2020 for a clamping trial and possible chest tube removal. SIGN-OUT DISCUSSION: Completed ESTIMATED BLOOD LOSS: Minimal CONTRAST: None CT ABDOMEN AND PELVIS RADIATION DOSE: Dose-length product (DLP) = 359 mGycm. SPECIMENS: Core biopsy specimen(s) was/were sent to pathology in formalin BIOPSY DEVICE: 20 gauge Bard core biopsy needle. IMPRESSION: CT GUIDED BIOPSY OF BASAL RIGHT UPPER LOBE NODULE DESCRIBED [employer]: [facility] Transcribe Date/Time: Sep 24 2020 8:26A Dictated by : MADELAINE WILLIAMSON MD This examination was interpreted and the report reviewed and electronically signed by: MADELAINE WILLIAMSON MD on Sep 24 2020 9:02AM EST [facility] CT CHEST WO IVCONon -- 20 CT CHEST WO IVCON Final Report DATE OF EXAM: Sep 08 2020 2:39PM [facility] 0541 - CT CHEST WO IVCON / PROCEDURE REASON: Lung nodules Physician Interpretation EXAMINATION: CHEST CT WITHOUT CONTRAST CLINICAL HISTORY: Lung nodules A faint pleural density noted right lateral chest. ?This is obscured by overlyin g bony structures. ?This appears to be present on the outside CT chest 0. F/U RT. SIDED PLEURAL DENSITY HX OF CABG 03/2020 Technique: Spiral CT acquisition of the chest from the thoracic inlet to the upper abdomen without contrast. MQ: CTCWO_6 CT Radiation dose: Integrated Dose-length product (DLP) for this visit = [address] Dose Reduction Employed: mAs-kVp adjusted based on patient size-age Comparison: Chest radiograph dated 05/21/2020. Prior chest CT dated 05/11/2020 RESULT: Limitations: None. Lines, tubes, and devices: None. Lung parenchyma and airways: There is minimal biapical fibrosis. There is dependent atelectasis. Mild reticulation is seen within the periphery of both lungs. Stable subpleural nodular opacity seen within the inferior aspect of the right lung, measuring approximately 1.1 x 1.0 cm (series 2, image #103). This corresponds to the abnormality seen on prior chest radiograph. There is no pneumothorax or endobronchial lesion. There is mild, diffuse bronchial wall thickening. Pleural space: There is no pleural effusion. Lower neck, lymph nodes, and mediastinum: There are no pathologically enlarged axillary lymph nodes. There are prominent, less than 1 cm mediastinal and bilateral hilar lymph nodes, likely reactive. Heart, pericardium, and thoracic vessels: The patient is status post median sternotomy. Evidence of prior CABG, with harvesting of the SCHWARTZ. Atherosclerotic calcifications are present with thoracic aorta and coronary arteries. The heart is normal in size. There is a trace pericardial effusion. There is a small hiatal hernia. Associated mural thickening of the esophagus. Consider esophagitis. Bones and soft tissues: There is scoliosis, osteopenia, and multilevel degenerative change seen within the visualized spine. Bilateral shoulder DJD. The patient is status post median sternotomy. There is no destructive bony lesion. Upper abdomen: Nodular wall thickening of the stomach likely relates to underdistention. The gallbladder is relatively collapsed but is otherwise unremarkable. Nonspecific bilateral perinephric fat stranding. IMPRESSION: Stable subpleural nodular opacity within the inferior aspect of the right lung, measuring approximately 1.1 cm. This corresponds to the abnormality seen on prior chest radiograph. Incidental Finding: Follow-up Acuity: Incidental Finding: Solid >8 mm Routing Code: RI_1 Routing Code: RI_1 Recommendation: Consult to [facility] - [id number] Time Frame: at the discretion of the clinical team. Comments: Follow-up for this incidentally detected lung nodule with PET/CT or Biopsy within 4 weeks, or Chest CT exam in 3 months is recommended. Mild reticulation is seen within the periphery of the lungs and lower lobes, bilaterally. Mild, diffuse bronchial wall thickening. Prominent, less than 1 cm mediastinal and bilateral hilar lymph nodes, likely reactive. Evidence of prior CABG. Small hiatal hernia. Mural thickening of the esophagus. Consider esophagitis. [employer]: [facility] Transcribe Date/Time: Sep 09 2020 9:43A Dictated by : REYNOLD OSORIO MD This examination was interpreted and the report reviewed and electronically signed by: REYNOLD OSORIO MD on Sep 09 2020 9:49AM EST ACTIONABLE [facility] XR CHEST 2V FRONTAL/LATon XR CHEST 2V FRONTAL/LAT Final Report DATE OF EXAM: May 21 2020 1:40PM [facility] [id number] - XR CHEST 2V FRONTAL/LAT / PROCEDURE REASON: multiple diagnoses Physician Interpretation EXAMINATION: CHEST RADIOGRAPH (2 VIEW FRONTAL & LATERAL) CLINICAL HISTORY: S/P angioplasty with stent S/P CABG x 3 MQ: XC2_6 EXAM DATE/TIME: 05/21/2020 1:40 PM COMPARISON: 05/11/2020 RESULT: Lines, tubes, and devices: Sternotomy. Lungs and pleura: No consolidation. No pleural effusion. No pneumothorax. A faint pleural density noted right lateral chest. This is obscured by overlying bony structures. This appears to be present on the outside CT chest 05/11/2020. Clinical correlation and follow-up to evaluate for mass density Cardiomediastinal silhouette: Normal cardiomediastinal silhouette. Bones and soft tissues: Degenerative spine changes. IMPRESSION: No acute radiographic abnormality. Indeterminate pleural density right lung/follow-up [employer]: [facility] Transcribe Date/Time: May 21 2020 5:16P Dictated by : ROBERT KEYES MD This examination was interpreted and the report reviewed and electronically signed by: ROBERT KEYES MD on May 21 2020 5:21PM EST [facility] Office Visit: Dao Pt. Visito n 08-10-2017 Documentation of current medications (procedure) Done Invalid Interpretation Code [facility] Work Phone: Fall risk assessment No Invalid Interpretation Code [facility] Work Phone: Tobacco smoking status NHIS Never Invalid Interpretation Code [facility] Work Phone: Tobacco use [facility]PH[facility] Never smoker Invalid Interpretation Code [facility] Work Phone: Office Visit: flynn Fish Documentation of current medications (procedure) Done Invalid Interpretation Code [facility] Work Phone: Fall risk assessment No Invalid Interpretation Code [facility] Work Phone: Protein mass conc Done Invalid Interpretation Code [facility] Work Phone: Tobacco smoking status NHIS Never Invalid Interpretation Code [facility] Work Phone: Tobacco smoking status SDIS Never smoker Invalid Interpretation Code [facility] Work Phone: Tobacco use [facility] Never smoker Invalid Interpretation Code [facility] Work Phone: EKG [facility] Vital Signs Date Time Vital Sign Value Performing Clinician Facility 05-16-2025 13:15-0400 Body height 177.8 cm Julio César Vera MD Work Phone: [facility] 05-16-2025 13:15-0400 Body mass index (BMI) [Ratio] 28.3 kg/m2 Julio César Vera MD Work Phone: [facility] 05-16-2025 13:15-0400 Body temperature 97.2 [degF] Julio César Vera MD Work Phone: [facility] 05-16-2025 13:15-0400 Body weight 89.47 kg Julio César Vera MD Work Phone: [facility] 05-16-2025 13:15-0400 Diastolic blood pressure 78 mm[Hg] Julio César Vera MD Work Phone: [facility] 05-16-2025 13:15-0400 Heart rate 50 /min Julio César Vera MD Work Phone: [facility] 05-16-2025 13:15-0400 Respiratory rate 18 /min Julio César Vera MD Work Phone: [facility] 05-16-2025 13:15-0400 SaO2% (BldA) [Mass fraction] 97 % Julio César Vera MD Work Phone: [facility] 05-16-2025 13:15-0400 Systolic blood pressure 127 mm[Hg] Julio César Vera MD Work Phone: [facility] 10-21-2024 15:18-0500 Body height 177.[address] Minoo Dahl MD Work Phone: [facility] 10-21-2024 15:18-0500 Body mass index (BMI) [Ratio] 30.4 kg/m2 Dr. Minoo Dahl MD Work Phone: [facility] 10-21-2024 15:18-0500 Body temperature 97.3 [degF] Dr. Minoo Dahl MD Work Phone: [facility] 10-21-2024 15:18-0500 Body weight 96.[address] Minoo Dahl MD Work Phone: [facility] 10-21-2024 15:18-0500 Diastolic blood pressure 68 mm[Hg] Dr. Minoo Dahl MD Work Phone: [facility] 10-21-2024 15:18-0500 Heart rate 52 /min Dr. Minoo Dahl MD Work Phone: [facility] 10-21-2024 15:18-0500 Respiratory rate 16 /min Dr. Minoo Dahl MD Work Phone: [facility] 10-21-2024 15:18-0500 SaO2% (BldA) [Mass fraction] 98 % Dr. Minoo Dahl MD Work Phone: [facility] 10-21-2024 15:18-0500 Systolic blood pressure 118 mm[Hg] Dr. Minoo Dahl MD Work Phone: [facility] 10-18-2024 17:42-0500 Body temperature 98 [degF] Dr. Minoo Dahl MD Work Phone: [facility] 10-18-2024 17:42-0500 Diastolic blood pressure 82 mm[Hg] Dr. Minoo Dahl MD Work Phone: [facility] 10-18-2024 17:42-0500 Heart rate 72 /min Dr. Minoo Dahl MD Work Phone: [facility] 10-18-2024 17:42-0500 Respiratory rate 16 /min Dr. Minoo Dahl MD Work Phone: [facility] 10-18-2024 17:42-0500 SaO2% (BldA) [Mass fraction] 96 % Dr. Minoo Dahl MD Work Phone: [facility] 10-18-2024 17:42-0500 Systolic blood pressure 132 mm[Hg] Dr. Minoo Dahl MD Work Phone: [facility] 08-14-2024 11:14-0500 Body temperature 98 [degF] Dr. Minoo Dahl MD Work Phone: [facility] 08-14-2024 11:14-0500 Diastolic blood pressure 64 mm[Hg] Dr. Minoo Dahl MD Work Phone: [facility] 08-14-2024 11:14-0500 Heart rate 57 /min Dr. Minoo Dahl MD Work Phone: [facility] 08-14-2024 11:14-0500 Respiratory rate 16 /min Dr. Minoo Dahl MD Work Phone: [facility] 08-14-2024 11:14-0500 SaO2% (BldA) [Mass fraction] 97 % Dr. Minoo Dahl MD Work Phone: [facility] 08-14-2024 11:14-0500 Systolic blood pressure 126 mm[Hg] Dr. Minoo Dahl MD Work Phone: [facility] 07-08-2024 16:24-0400 Body mass index (BMI) [Ratio] 28.98 kg/m2 Francisco Javier Lynch MD Work Phone: [facility] 07-08-2024 16:24-0400 Body weight 91.63 kg Francisco Javier Lynch MD Work Phone: [facility] 07-08-2024 16:24-0400 Diastolic blood pressure 77 mm[Hg] Francisco Javier Lynch MD Work Phone: [facility] 07-08-2024 16:24-0400 Heart rate 67 /min Francisco Javier Lynhc MD Work Phone: [facility] 07-08-2024 16:24-0400 SaO2% (BldA) [Mass fraction] 95 % Francisco Javier Lynch MD Work Phone: [facility] 07-08-2024 16:24-0400 Systolic blood pressure 125 mm[Hg] Francisco Javier Lynch MD Work Phone: [facility] 08-28-2023 15:00-0500 Respiratory rate 18 /min Dr. Minoo Dahl Work Phone: [facility] 08-28-2023 12:46-0500 Body mass index (BMI) [Ratio] 0 kg/m2 Dr. Minoo Dahl Work Phone: [facility] 08-28-2023 12:46-0500 Body weight [address] Minoo Dahl Work Phone: [facility] 08-28-2023 12:44-0500 Body height 177.[address] Minoo Dahl Work Phone: [facility] 08-28-2023 12:44-0500 Body temperature 97.2 [degF] Dr. Minoo Dahl Work Phone: [facility] 08-28-2023 12:44-0500 Diastolic blood pressure 82 mm[Hg] Dr. Minoo Dahl Work Phone: [facility] 08-28-2023 12:44-0500 Heart rate 47 /min Dr. Minoo Dahl Work Phone: [facility] 08-28-2023 12:44-0500 SaO2% (BldA) [Mass fraction] 98 % Dr. Minoo Dahl Work Phone: [facility] 08-28-2023 12:44-0500 Systolic blood pressure 124 mm[Hg] Dr. Minoo Dahl Work Phone: [facility] 07-05-2023 13:13-0400 Body height 177.[address] Minoo Dahl Work Phone: [facility] 07-05-2023 13:13-0400 Body mass index (BMI) [Ratio] 28.5 kg/m2 Dr. Minoo Dahl Work Phone: [facility] 07-05-2023 13:13-0400 Body temperature 98.1 [degF] Dr. Minoo Dahl Work Phone: [facility] 07-05-2023 13:13-0400 Body weight 90.[address] Minoo Dahl Work Phone: [facility] 07-05-2023 13:13-0400 Diastolic blood pressure 80 mm[Hg] Dr. Minoo Dahl Work Phone: [facility] 07-05-2023 13:13-0400 Heart rate 63 /min Dr. Minoo aDhl Work Phone: [facility] 07-05-2023 13:13-0400 Respiratory rate 16 /min Dr. Minoo Dahl Work Phone: [facility] 07-05-2023 13:13-0400 SaO2% (BldA) [Mass fraction] 98 % Dr. Minoo Dahl Work Phone: [facility] 07-05-2023 13:13-0400 Systolic blood pressure 142 mm[Hg] Dr. Minoo Dahl Work Phone: [facility] 05-31-2023 15:29-0400 Body height 177.8 cm Francisco Javier Lynch MD Work Phone: [facility] 05-31-2023 15:29-0400 Body weight 89.36 kg Francisco Javier Lynch MD Work Phone: [facility] 05-31-2023 15:29-0400 Diastolic blood pressure 90 mm[Hg] Francisco Javier Lynch MD Work Phone: [facility] 05-31-2023 15:29-0400 Heart rate 74 /min Francisco Javier Lynch MD Work Phone: [facility] 05-31-2023 15:29-0400 SaO2% (BldA) [Mass fraction] 96 % Francisco Javier Lynch MD Work Phone: [facility] 05-31-2023 15:29-0400 Systolic blood pressure 144 mm[Hg] Francisco Javier Lynch MD Work Phone: [facility] 01-05-2023 12:55-0400 Body height 177.[address] Minoo Dahl Work Phone: [facility] 01-05-2023 12:55-0400 Body mass index (BMI) [Ratio] 28.3 kg/m2 Dr. Minoo Dahl Work Phone: [facility] 01-05-2023 12:55-0400 Body temperature 96.5 [degF] Dr. Minoo Dahl Work Phone: [facility] 01-05-2023 12:55-0400 Body weight 89.[address] Minoo Dahl Work Phone: [facility] 01-05-2023 12:55-0400 Diastolic blood pressure 86 mm[Hg] Dr. Minoo Dahl Work Phone: [facility] 01-05-2023 12:55-0400 Heart rate 55 /min Dr. Minoo Dahl Work Phone: [facility] 01-05-2023 12:55-0400 Respiratory rate 18 /min Dr. Minoo Dhal Work Phone: [facility] 01-05-2023 12:55-0400 SaO2% (BldA) [Mass fraction] 96 % Dr. Minoo Dahl Work Phone: [facility] 01-05-2023 12:55-0400 Systolic blood pressure 144 mm[Hg] Dr. Minoo Dahl Work Phone: [facility] 08-10-2017 13:40-0500 BMI (Body Mass Index) 30.49 kg/m2 Minoo Dahl MD [facility] Work Phone: 08-10-2017 13:40-0500 Body Temperature 98.2 [degF] Minoo Dahl MD [facility] Work Phone: 08-10-2017 13:40-0500 BP Diastolic 77 mm[Hg] Minoo Dahl MD [facility] Work Phone: 08-10-2017 13:40-0500 BP Systolic 122 mm[Hg] Minoo Dahl MD [facility] Work Phone: 08-10-2017 13:40-0500 Height 177.8 cm Minoo Dahl MD [facility] Work Phone: 08-10-2017 13:40-0500 Pulse (Heart Rate) 62 /min Minoo Dahl MD [facility] Work Phone: 08-10-2017 13:40-0500 Respiratory Rate 16 /min Minoo Dahl MD [facility] Work Phone: 08-10-2017 13:40-0500 Weight 96.39 kg Minoo Dahl MD [facility] Work Phone: 06-28-2017 07:45-0400 BMI (Body Mass Index) 30.7 kg/m2 [facility] Work Phone: 06-28-2017 07:45-0400 BP Diastolic 73 mm[Hg] [facility] Work Phone: 06-28-2017 07:45-0400 BP Systolic 129 mm[Hg] [facility] Work Phone: 06-28-2017 07:45-0400 Height 177.8 cm [facility] Work Phone: 06-28-2017 07:45-0400 Pulse (Heart Rate) 65 /min [facility] Work Phone: 06-28-2017 07:45-0400 Respiratory Rate 18 /min [facility] Work Phone: 06-28-2017 07:45-0400 Weight 97.07 kg [facility] Work Phone: Encounters Encounter Date Encounter Type Care Provider Facility Start: 06-18-2025 ambulatory [facility] Evelyne y:[facility] Start: 05-16-2025 End: 05-16-[address] Odette Franks MD -[facility] Work Phone: Start: 05-16-2025 End: 05-16-2025 ambulatory Julio César Vera MD Work Phone: -[facility] Start: 11-26-2024 End: 11-26-[address] Minoo Dahl MD Work Phone: [facility] Work Phone: Start: 11-26-2024 End: 11-26-[address] Julio César Vera MD -[facility] Start: 11-26-2024 End: 11-26-2024 ambulatory Julio César Vera Facility:[facility] Start: 10-21-2024 End: 10-21-[address] Minoo Dahl MD -[facility] Work Phone: Start: 10-21-2024 End: 10-21-[address] Minoo Dahl MD [facility] Start: 10-21-2024 End: 10-21-2024 ambulatory Minoo Dahl Facility:[facility] Start: 10-21-2024 End: 10-21-2024 ambulatory Lizfort pierceedd Dahl Facility:[facility] Start: 10-18-2024 End: 10-18-2024 ambulatory Minoo Dahl Facility:[facility] Start: 10-18-2024 End: 10-18-2024 Patient encounter procedure Evaristo Riojas [facility] -[facility] Work Phone: Start: 08-14-2024 End: 08-14-2024 Patient encounter procedure Skinny Vilchis PA -[facility] Work Phone: Start: 08-14-2024 End: 08-14-2024 ambulatory Minoo Dahl Facility:[facility] Start: 07-08-2024 End: 07-08-2024 ambulatory FRANCISCO JAVIER LYNCH Facility:[facility] Start: 07-08-2024 End: 07-08-2024 Patient encounter procedure Francisco Javier Lynch MD Work Phone: Cardiology Comment on above: Coronary artery dise ase involving [place] coronary artery of [place] heart without angina pectoris (Primary Dx); Primary hypertension; Hypercholesteremia; Sinus bradycardia Start: 03-25-2024 Telephone encounter Francisco Javier Lynch MD Work Phone: Cardiology Comment on above: Appointment Start: 08-28-2023 End: 08-28-2023 Emergency department patient visit Dr. Minoo Dahl Work Phone: [facility]-Emergency Department Work Phone: Start: 07-05-2023 End: 07-05-[address] Minoo Dahl Work Phone: [facility] Work Phone: Start: 07-05-2023 End: 07-05-[address] Minoo Dahl Work Phone: [facility]-Laboratory, [facility] Start: 07-05-2023 End: 07-05-2023 Encounter for general adult medical examination without abnormal findings Dr. Minoo Dahl Work Phone: [facility] Start: 07-05-2023 End: 07-05-[address] Minoo Dahl Work Phone: [facility] Work Phone: Start: 05-31-2023 End: 05-31-2023 ambulatory FRANCISCO JAVIER LYNCH Facility:[facility] Start: 05-31-2023 End: 05-31-2023 Patient encounter procedure Francisco Javier Lynch MD Work Phone: [facility] Comment on above: Coronary artery dise ase involving [place] coronary artery of [place] heart without angina pectoris [I25.10] (Primary Dx); S/P CABG x 3; Primary hypertension; Hypercholesteremia; Sinus bradycardia Start: 02-22-2023 Telephone encounter [facility] Work Phone: [facility] Comment on above: Appointment Start: 02-16-2023 End: 02-16-[address] Minoo Dahl Work Phone: [facility] Work Phone: Start: 02-16-2023 End: 02-16-[address] Minoo Dahl Work Phone: [facility] Start: 01-05-2023 End: 01-05-[address] Minoo Dahl Work Phone: [facility] Start: 07-11-[address] Minoo Dahl Work Phone: [facility] Start: 03-03-[address] Minoo Dahl Work Phone: [facility] Start: 04-10-2020 Patient encounter status [facility] Work Phone: [facility] Work Phone: Procedures Date Procedure Procedure Detail Performing Clinician Start: 08-28-2023 CT of head without contrast Dr. Sherry Dahl Work Phone: Start: 08-28-2023 Plain chest X-ray Dr. Minoo Dahl Work Phone: Start: 05-31-2023 Ecg routine ecg w/least 12 lds trcg only w/o i&r Francisco Javier Lynch MD Work Phone: Start: 02-16-2023 CT of chest without contrast Dr. Nely Dahl Work Phone: Start: 04-10-2020 History of coronary artery bypass grafting H/O coronary artery bypass surgery Dr. Minoo Dahl Work Phone: Comment on above: CABG x 3 SCHWARTZ-LAD, SVG-OM1 and SVG-OM2 Start: 05-12-2019 History of placement of stent for coronary artery disease History of coronary artery stent placement Dr. Minoo Dahl Work Phone: Comment on above: SFT-CIF-LRLP w/ 3.0 x 15 mm Elunir Stent , ORQUIDEA-Distal RCA w/ 4 x 38 mm Synergy Stent, 4 x 12 mm Elunir and 4 x 8 mm Synergy Stent 05/12/19 Start: 06-28-2017 End: 06-28-2017 Esophagogastroduodenoscopy transoral diagnostic Emanuel Mills MD Work Phone: Start: 10-04-2014 Colonoscopy [facility] Work Phone: History of coronary artery bypass grafting S/P CABG x 3 Francisco Javier Lynch MD Work Phone: Plan of Treatment Date Care Activity Detail Author Start: 2028 RSV Vaccine (1 - 1-dose 75+ series) RSV Vaccine (1 - 1-dose 75+ series) [facility] Start: 07-08-2025 BP Controlled (<130/80) BP Controlled (<130/80) [facility] Start: 07-07-2025 End: 07-07-2025 Patient encounter procedure 07/07/2025 4:00 PM EDT Office Visit Cardiology [address] [place] [address] Francisco Javier Lynch MD [address], [address] [place] [address] (Fax) 6 month check Cardiology Comment on above: 6 month check Start: 07-08-2024 End: 07-08-2024 Patient encounter procedure 07/08/2024 4:20 PM EDT Office Visit Cardiology [address] [place] [address] Francisco Javier Lynch MD [address], [address] [place], [place] [id number] (Fax) 1 year follow up Cardiology Comment on above: 1 year follow up Start: 05-26-2024 Covid-19 Vaccine () Covid-19 Vaccine ( season) [facility] Start: 05-26-2024 Influenza vaccination Influenza Vaccine (#1) [facility] Start: 09-25-2023 Advance Directive Discussion Advance Directive Discussion [facility] Start: 09-25-2023 Behavioral Health Screening Behavioral Health Screening [facility] Start: 08-28-2023 End: 08-28-2023 [facility] Start: 07-05-2023 Patient referral [facility] Work Phone: Start: 05-26-2023 Covid-19 Vaccine ( season) Covid-19 Vaccine ( season) [facility] Start: 05-26-2023 Influenza vaccination INFLUENZA (#1) [facility] Start: 04-16-2023 DIABETES SCREEN DIABETES SCREEN [facility] Start: 04-16-2023 Diabetes Screening Diabetes Screening [facility] Start: 01-05-2023 Patient referral [facility] Work Phone: Start: 11-26-2022 COVID-19 VACCINE (6 - Moderna series) COVID-19 VACCINE (6 - Moderna series) [facility] Start: 09-25-2022 ADVANCE DIRECTIVE DISCUSSION ADVANCE DIRECTIVE DISCUSSION [facility] Start: 09-25-2022 DEPRESSION ASSESSMENT DEPRESSION ASSESSMENT [facility] Start: 02-18-2021 COVID-19 VACCINE (3 - Booster for Moderna series) COVID-19 VACCINE (3 - Booster for Moderna series) [facility] Start: 07-03-2020 Pneumococcal Vaccine: 65+ (2 of 2 - PPSV23 or PCV20) Pneumococcal Vaccine: 65+ (2 of 2 - PPSV23 or PCV20) [facility] Start: 2018 PNEUMOCOCCAL: 65+ (1 - PCV) PNEUMOCOCCAL: 65+ (1 - PCV) [facility] Start: 09-13-2017 End: 09-13-2017 Appointment Appointment [facility] Work Phone: Start: 08-10-2017 End: 08-10-2017 *CMP Complete Metabolic Panel *CMP Complete Metabolic Panel [facility] Work Phone: Start: 08-10-2017 End: 08-10-2017 Lipid panel [AGGREGATE] *Lipid Profile [facility] Work Phone: Start: 08-10-2017 End: 08-10-2017 Appointment Appointment [facility] Work Phone: Start: 07-14-2017 End: 07-14-2017 Appointment Appointment [facility] Work Phone: Start: 06-29-2017 End: 06-29-2017 Esophagogastroduodenoscopy transoral diagnostic EGD; diagnostic [facility] Work Phone: Start: 06-28-2017 End: 06-28-2017 Esophagogastroduodenoscopy transoral diagnostic EGD; diagnostic [facility] Work Phone: Start: 06-28-2017 End: 06-28-2017 Appointment Appointment [facility] Work Phone: Start: 10-04-2015 Colonoscopy COLONOSCOPY [facility] Start: 10-04-2015 COLORECTAL CANCER SCREENING COLORECTAL CANCER SCREENING [facility] Start: 10-04-2015 Screening for malignant neoplasm of colon [facility] Start: 2013 RSV Vaccine (1 - 1-dose 60+ series) RSV Vaccine (1 - 1-dose 60+ series) [facility] Start: 2003 SHINGRIX VACCINE (1 of 2) SHINGRIX VACCINE (1 of 2) [facility] Start: 1998 COLOGUARD (FIT-DNA) COLOGUARD (FIT-DNA) [facility] Start: [address] COLONOGRAPHY [facility] Start: 1998 FECAL OCCULT BLOOD FECAL OCCULT BLOOD [facility] Start: 1998 Screening for malignant neoplasm of colon [facility] Start: 1998 SIGMOIDOSCOPY SIGMOIDOSCOPY [facility] Start: 1988 Lipid panel Lipid Screening [facility] Start: 1988 LIPID SCREEN LIPID SCREEN [facility] Start: 1972 Urine microalbumin profile [facility] Start: 1971 ANNUAL PCP TEAM CHRONIC DISEASE VISIT ANNUAL PCP TEAM CHRONIC DISEASE VISIT [facility] Start: 1971 Anxiety Screening Anxiety Screening [facility] Start: 1971 BP CONTROLLED (<130/80) BP CONTROLLED (<130/80) [facility] Start: 1971 Depression Screening Depression Screening [facility] Start: 1971 Hepatitis B surface antibody level LDL CHOLESTEROL [facility] Start: 1971 HEPATITIS C SCREENING HEPATITIS C SCREENING [facility] Start: 1971 Hepatitis C screening Hepatitis C Screening [facility] Lipid 1996 panel - S [place] or Plasma [facility] Patient Education ED Dizziness, Uncertain Cause [facility] Work Phone: Patient referral [facility] Work Phone: Prostate specific an tigen measurement [facility] Immunizations Immunization Date Immunization Notes Care Provider Ghazala yeung 07-08-2024 Influenza High-Dose Quadrivalent Dr. Minoo Dahl MD Work Phone: [facility] 07-05-2023 influenza, injectabl e, quadrivalent, preservative free Dr. Minoo Dahl Work Phone: [facility] 07-05-2023 influenza virus vaccine, unspecified formulation Francisco Javier Lynch MD Work Phone: [facility] 07-11-2022 influenza, injectabl e, quadrivalent, preservative free Dr. Minoo Dahl Work Phone: [facility] 07-11-2022 influenza, seasonal, injectable Dr. Minoo Dahl Work Phone: [facility] 07-11-2022 influenza virus vaccine, unspecified formulation Francisco Javier Lynch MD Work Phone: [facility] 12-24-2020 Covid (Moderna) Dr. Sherry Dahl Work Phone: [facility] 11-26-2020 Cassid (Moderna) Dr. Sherry Dahl Work Phone: [facility] 07-09-2020 influenza, injectabl e, quadrivalent, preservative free Dr. Minoo Dahl Work Phone: [facility] 07-09-2020 influenza, seasonal, injectable Dr. Minoo Dahl Work Phone: [facility] 07-09-2020 influenza, seasonal, injectable, preservative free Francisco Javier Lynch MD Work Phone: [facility] 07-16-2019 influenza, injectabl e, quadrivalent, preservative free Dr. Minoo Dahl Work Phone: [facility] 07-16-2019 influenza, seasonal, injectable Dr. Minoo Dahl Work Phone: [facility] 07-03-2019 pneumococcal conjuga te vaccine, [address] Minoo Dahl Work Phone: [facility] 06-25-2015 influenza, seasonal, injectable Francisco Javier Lynch MD Work Phone: [facility] 07-29-2009 novel [id number], preservative-free, injectable Francisco Javier Lynch MD Work Phone: [facility] 06-10-2009 influenza virus vaccine, whole virus Francisco Javier Lynch MD Work Phone: [facility] Payers Date Payer Category Payer Self-pay [id number] 2021 Unknown [id number] 2021 Medicare [id number] 2016 Unknown [id number] Medicare MEDICARE A ONLY [id number] Unknown [id number] [id number] Unknown [id number] Unknown [id number] Unknown [id number] Unknown [id number] [id number] Unknown [id number] Unknown [id number] Social History Date Type Detail Facility Start: 01-05-2023 End: 08-28-2023 Tobacco smoking status SDIS Unknown if ever smoked [facility] Start: 08-28-2019 None [facility] Start: 08-28-2019 Spouse/ Signif icant Other [facility] Start: 07-27-2020 Non-smoker [facility] Start: 1955 Sex Assigned At Male [facility] Start: 07-27-2014 End: 08-14-2024 Tobacco smoking status NHIS Never smoked tobacco [facility] Work Phone: Start: 07-27-2014 End: 05-31-2023 Tobacco use and exposure Smokeless tobacco non-user [facility] Work Phone: Start: 09-30-2020 End: 07-08-2024 Alcohol intake Current non-drinker of alcohol (finding) [facility] Start: 04-13-2020 History SDOH Financial 5 [facility] Start: 04-13-2020 History SDOH Food Worry 1 [facility] Start: 04-13-2020 History SDOH Transpo rt Med 2 [facility] Start: 04-13-2020 End: 05-31-2023 History of Social function [facility] Work Phone: Start: 04-13-2020 End: 05-31-2023 Tobacco use panel [facility] Work Phone: How hard is it for y ou to pay for the very basics like food, housing, medical care, and heating Not hard at all [facility] Work Phone: (I/We) worried wheseng er (my/our) food would run out before (I/we) got money to buy more. Never true [facility] Work Phone: Start: 03-28-2020 Gender identity Identifies as male gender (finding) [facility] Start: 03-28-2020 Sexual orientation Heterosexual (emily shady) [facility] Start: 12-06-2024 Sex Male (finding) [facility] Medical Equipment Procedure Code Equipment Code Equipment Original Text Equipment Identifier Dates Malone Thk1.65mm Rectangle Ptfe 4.5x6mm Cardiovascular [place] - [id number] Start: 04-10-2020 Plate Sternalock Johan Bone 8 Hole Sternum - [id number] Start: 04-10-2020 Screw Sternalock Johan 2.4mm Gold 12mm Bone Self Drill Lock Primary Closure - [id number] Start: 04-10-2020 Screw Sternalock Johan 2.4mm Gold 14mm Bone Self Drill Lock Primary Closure - [id number] Start: 04-10-2020 Clinical Notes 04-10-2020 to 08-14-2024 Note Date & Type Note Facility 08-14-2024 Evaluation note Diagnosis Onset Date Resolution Lyme disease acute July 11:17am Subconjunctival hemorrhage of left eye acute September 262024 5:19pm Health care maintenance acute J anuary 2024 3:15pm Impacted cerumen of left ear acute October 21 3:15pm Lyme disease acute September 3:15pm Essential (primary) hypertension chronic October 21 3:15pm Hyperlipidemia chronic October 212024 3:15pm [facility] Work Phone: 1(465) 387-841610-14-2024 NoteHNO ID: [id number] Author: FRANCISCO JAVIER LYNCH MD Service: ? Author Type: Physician Type: Progress Notes Filed: 07/08/2024 16:56 Note Text: Francisco Javier Lynch MD Interventional Cardiology [address] [address] [id number] Chief Complaint Patient presents with: Follow Up HISTORY OF PRESENT ILLNESS: Mr. Dempsey is a 68 year old male seen in my office today for assessment management of his coronary artery disease patient had established CAD history with multiple angioplasty and stent in 2018 progression of his disease led him to have bypass surgery which consisted of a SCHWARTZ to the LAD vein graft obtuse marginal and second obtuse patient is doing well from a cardiac point of view asymptomatic denies chest pain or shortness of breath he does have bradycardia but had no further lightheadedness episodes since August 2023 Cardiac Risk Factors age (male over 45, female over 55), hyperlipidemia, obesity, hypertension, family history of CAD PAST MEDICAL HISTORY Diagnosis Date Asthma Barretts esophagus Bradycardia CAD (coronary artery disease) Elevated liver enzymes Fatty infiltration of liver Gastritis GERD (gastroesophageal reflux disease) Hiatal hernia History of SC (myocardial infarction) 04/2019 HTN (hypertension) Hypercholesteremia Mixed hyperlipidemia S/P drug eluting coronary stent placement 04/2019 RCA Vitamin A deficiency PAST SURGICAL HISTORY Procedure Laterality Date APPENDECTOMY CABG (3) VEIN GRAFTS AND ARTERIAL GRAFT(S) 04/10/2020 COLONOSCOPY FLX DX W/COLLJ SPEC WHEN PFRMD 10/04/2014 EGD TRANSORAL BIOPSY SINGLE/MULTIPLE 10/04/2014 LOW BACK DISK SURGERY 2007 LASER PAST SURGICAL HISTORY OF procedure for undescended testicles STENT PLACEMENT 04/2019 FAMILY HISTORY Problem Relation Age of Onset Hypertension Mother Breast Cancer Mother Heart Attack Father BLOOD CLOT BEHIND HEART Heart disease Father Melanoma Sister Bipolar disorder Sister Hypertension Sister Social History Tobacco Use Smoking status: Never Smokeless tobacco: Never Vaping Use Vaping status: Never Used Substance Use Topics Alcohol use: No Drug use: Never ALLERGIES Allergen Reactions Amoxicillin Intolerance Atorvastatin Mental Status Change Augmentin [Amoxicil* GI Upset Levaquin [Levofloxa* Other: See Comments Per Patient does not work for him Tetracyclines Cough Medications: Current Outpatient Medications Medication Sig Dispense Refill Magnesium 200 mg tab Take by mouth once daily. ubidecarenone (ULTRA COQ10 ORAL) Take by mouth once daily. omeprazole (PRILOSEC) 40 mg capsule aspirin, enteric coated (ASPIRIN EC) 81 mg EC tablet Take 1 tablet by mouth once daily. 30 tablet 0 metoprolol tartrate, short acting, (LOPRESSOR) 25 mg tablet Take 0.5 tablets by mouth every 12 hours. 30 tablet 2 rosuvastatin (CRESTOR) 10 mg tablet Take 2 tablets by mouth once daily. 60 tablet 2 multivitamin tablet Take 1 tablet by mouth once daily. No current facility-administered medications for this visit. Review of Systems Constitutional: Negative for chills, diaphoresis, fever, malaise/fatigue and weight loss. HENT: Negative for congestion, ear discharge, ear pain, hearing loss, nosebleeds, sinus pain, sore throat and tinnitus. Eyes: Negative for blurred vision, double vision, photophobia, pain, discharge and redness. Respiratory: Negative for cough, hemoptysis, sputum production, shortness of breath, wheezing and stridor. Cardiovascular: Negative for chest pain, palpitations, orthopnea, claudication, leg swelling and PND. Gastrointestinal: Negative for abdominal pain, blood in stool, constipation, diarrhea, heartburn, melena, nausea and vomiting. Genitourinary: Negative for dysuria, flank pain, frequency, hematuria and urgency. Musculoskeletal: Negative for back pain, falls, joint pain, myalgias and neck pain. Skin: Negative for itching and rash. Neurological: Negative for dizziness, tingling, tremors, sensory change, speech change, focal weakness, seizures, loss of consciousness, weakness and headaches. Endo/Heme/Allergies: Negative for environmental allergies and polydipsia. Does not bruise/bleed easily. Psychiatric/Behavioral: Negative for depression, hallucinations, memory loss, substance abuse and suicidal ideas. The patient is not nervous/anxious and does not have insomnia. Physical Examination: Vitals:BP 125/77 Pulse 67 Wt 202 lb (91.6kg) SpO2 95% BP w/Orthostatic Vitals Date and Time Orthostatic BP Orthostatic Pulse BP Pulse BP Position BP Site BP Cuff Size 07/08/24 1624 -- -- 125/77 67 -- -- -- Last 2 Encounter Wt Readings: Date: Wt: 07/08/2024 91.6 kg (202 lb) 05/31/2023 89.4 kg (197 lb) Physical Exam Constitutional: General: He is not in acute distress. Appearance: He is not diaphoretic. HENT: Head: Normocephalic and atraumatic. Right Ear: External ear normal. Left Ea (more content not included)...[facility]10-14-2024 History of Present illness Narrative* Francisco Javier Lynch MD - 07/08/2024 4:53 PM EDT Images from the original note were not included. Francisco Javier Lynch MD Interventional Cardiology [address] [place] [address] [phone] Chief Complaint Patient presents with: Follow Up HISTORY OF PRESENT ILLNESS: Mr. Dempsey is a 68 year old male seen in my office today for assessment management of his coronaryartery disease patient had established CAD history with multiple angioplasty and stent in 2018 progression of his disease led him to have bypass surgery which consisted of a SCHWARTZ to the LAD vein graft obtuse marginal and second obtuse patient is doing well from a cardiac point of view asymptomatic denies chest pain or shortness of breath he does have bradycardia but had no further lightheadednessepisodes since August 2023 Cardiac Risk Factors age (male over 45, female over 55), hyperlipidemia, obesity, hypertension, family history of CAD PAST MEDICAL HISTORY Diagnosis Date Asthma Barretts esophagus Bradycardia CAD (coronary artery disease) Elevated liver enzymes Fatty infiltration of liver Gastritis GERD (gastroesophageal reflux disease) Hiatal hernia History of SC (myocardial infarction) 04/2019 HTN (hypertension) Hypercholesteremia Mixed hyperlipidemia S/P drug eluting coronary stent placement 04/2019 RCA Vitamin A deficiency PAST SURGICAL HISTORY Procedure Laterality Date APPENDECTOMY CABG (3) VEIN GRAFTS & ARTERIAL GRAFT(S) 04/10/2020 COLONOSCOPY FLX DX W/COLLJ SPEC WHEN PFRMD 10/04/2014 EGD TRANSORAL BIOPSY SINGLE/MULTIPLE 10/04/2014 LOW BACK DISK SURGERY 2007 LASER PAST SURGICAL HISTORY OF procedure for undescended testicles STENT PLACEMENT 04/2019 FAMILY HISTORY Problem Relation Age of Onset Hypertension Mother Breast Cancer Mother Heart Attack Father BLOOD CLOT BEHIND HEART Heart disease Father Melanoma Sister Bipolar disorder Sister Hypertension Sister Social History Tobacco Use Smoking status: Never Smokeless tobacco: Never Vaping Use Vaping status: Never Used Substance Use Topics Alcohol use: No Drug use: Never ALLERGIES Allergen Reactions Amoxicillin Intolerance Atorvastatin Mental Status Change Augmentin [Amoxicil* GI Upset Levaquin [Levofloxa* Other: See Comments Per Patient does not work for him Tetracyclines Cough Medications: Current Outpatient Medications Medication Sig Dispense Refill Magnesium 200 mg tab Take by mouth once daily. ubidecarenone (ULTRA COQ10 ORAL) Take by mouth once daily. omeprazole (PRILOSEC) 40 mg capsule aspirin, enteric coated (ASPIRIN EC) 81 mg EC tablet Take 1 tablet by mouth once daily. 30 tablet 0 metoprolol tartrate, short acting, (LOPRESSOR) 25 mg tablet Take 0.5 tablets by mouth every 12 hours. 30 tablet 2 rosuvastatin (CRESTOR) 10 mg tablet Take 2 tablets by mouth once daily. 60 tablet 2 multivitamin tablet Take 1 tablet by mouth once daily. No current facility-administered medications for this visit. Review of Systems Constitutional: Negative for chills, diaphoresis, fever, malaise/fatigue and weight loss. HENT: Negative for congestion, ear discharge, ear pain, hearing loss, nosebleeds, sinus pain, sore throat and tinnitus. Eyes: Negative for blurred vision, double vision, photophobia, pain, discharge and redness. Respiratory: Negative for cough, hemoptysis, sputum production, shortness of breath, wheezing and stridor. Cardiovascular: Negative for chest pain, palpitations, orthopnea, claudication, leg swelling and PND. Gastrointestinal: Negative for abdominal pain, blood in stool, constipation, diarrhea, heartburn, melena, nausea and vomiting. Genitourinary: Negative for dysuria, flank pain, frequency, hematuria and urgency. Musculoskeletal: Negative for back pain, falls, joint pain, myalgias and neck pain. Skin: Negative for itching and rash. Neurological: Negative for dizziness, tingling, tremors, sensory change, speech change, focal weakness, seizures, loss of consciousness, weakness and headaches. Endo/Heme/Allergies: Negative for environmental allergies and polydipsia. Does not bruise/bleed easily. Psychiatric/Behavioral: Negative for depression, hallucinations, memory loss, substance abuse and suicidal ideas. The patient is not nervous/anxious and does not have insomnia. Physical Examination: Vitals:BP 125/77 Pulse 67 Wt 202 lb (91.6kg) SpO2 95% BP w/Orthostatic Vitals Date and Time Orthostatic BP Orthostatic Pulse BP Pulse BP Position BP Site BP Cuff Size 07/08/24 1624 -- -- 125/77 67 -- -- -- Last 2 Encounter Wt Readings: Date: Wt: 07/08/2024 91.6 kg (202 lb) 05/31/2023 89.4 kg (197 lb) Physical Exam Constitutional: General: He is not in acute distress. Appearance: He is not diaphoretic. HENT: Head: Normocephalic and atraumatic. Right Ear: External ear normal. Left Ear: External ear normal. Nose: Nose normal. Mouth/Throat: Pharynx: Oropharynx is clear. Eyes: General: Right eye: No discharge. Left eye: No discharge. Conjunctiva/sclera: Conjunctivae normal. Pupils: Pupils are equal, round, and reactive to light. Cardiovascular: Rate and Rhythm: Normal rate and regular rhythm. Heart sounds: Normal heart sounds, S1 normal and S2 normal. No murmur heard. No friction rub. No gallop. No S3 or S4 sounds. Pulmonary: Effort: Pulmonary effort is normal. No respiratory distress. Breath sounds: Normal breath sounds. No wheezing or rales. Chest: Chest wall: No tenderness. Abdominal: General: Abdomen is flat. Musculoskeletal: General: Normal range of motion. Cervical back: Normal range of motion and neck supple. Skin: General: Skin is warm and dry. Neurological: Mental Status: He is alert and oriented to person, place, and time. Psychiatric: Mood and Affect: Mood normal. Thought Content: Thought content normal. Judgment: Judgment normal. Pertinent Labs: CBC: Hemoglobin (g/dL) Date Value 09/21/2020 16.1 HGB (g/dL) Date Value 04/15/2020 11.1 Hematocrit (%) Date Value 09/21/2020 48.3 04/15/2020 32.2 WBC Date Value 09/21/2020 5.15 k/uL 04/15/2020 7.84 thou/cmm Platelet Count Date Value 09/21/2020 148 k/uL 04/15/2020 126 thou/cmm BMP: Glucose (mg/dL) Date Value 04/16/2020 98 Potassium (mmol/L) Date Value 04/16/2020 4.1 Sodium (mmol/L) Date Value 04/16/2020 140 Chloride (mmol/L) Date Value 04/16/2020 101 CO2 (mmol/L) Date Value 04/16/2020 28 Creatinine (mg/dL) Date Value 04/16/2020 1.19 BUN (mg/dL) Date Value 04/16/2020 23 Anion Gap (mmol/L) Date Value 04/16/2020 11 Calcium (mg/dL) Date Value 04/16/2020 9.0 INR: Lipid Profile: No results found for: CHOL, HDL, LDL, TG Hemoglobin A1C: No results found for: HGBA1C TSH: TSH Date Value Ref Range Status 04/02/2020 2.120 0.270 - 4.200 uIU/mL Final Comment: : 1st trimester:(9-12 weeks):0.180-2.900 uIU/mL 2nd trimester: 0.110-3.980 uIU/mL 3rd trimester: 0.480-4.710 uIU/mL Patients taking a biotin dose of up to 5 mg/day should refrain from taking biotin for 4 hours prior to sample collection. Patients taking a biotin dose of 5 to 10 mg/day should refrain from taking biotin for 8 hours prior to sample collection. Patients taking a biotin dose > 10 mg/day should consult with their physician or the laboratory prior to having a sample taken. Clinicians should consider biotin interference as a source of error, when clinically suspicious of the laboratory result. Prior Cardiac Testing none Assessment and Plan: 68 years old gentleman with prior history of coronary artery disease status multiple complaints and ASSESSMENT/PLAN: 1. Coronary artery disease involving [place] coronary artery of [place] heart without angina pectoris- ICD9: 414.01, ICD10: I25.10 (primary diagnosis) Stable with no angina continue medical therapy - ECG COMPLETE 2. Primary hypertension - ICD9: 401.9, ICD10: I10 - Controlled - Continue current medications - Recommend home blood pressure monitoring, to bring results to next visit - Encouraged sodium restriction, DASH or Mediterranean diet - Recommend regular aerobic exercise - ECG COMPLETE 3. Hypercholesteremia - ICD9: 272.0, ICD10: E78.00 On statin - ECG COMPLETE 4. Sinus bradycardia - ICD9: 427.89, ICD10: R00.1 Asymptomatic continue monitoring - ECG COMPLETE Francisco Javier Lynch MD Follow up planning: One year Electronically signed by Francisco Javier Lynch MD on July 08, 2024, 4:53 PM The above note was partially created using a dictation recognition software. A reasonable attempt has been made to correct any errors. documented in [facility] encounter[facility] Telephone encounter Note * Telephone Encounter - Mary Anne Moody RN - 03/26/2024 9:03 AM EDT Patient called and scheduled. Mary Anne Moody RN [facility]07-[facility] Miscellaneous Notes* Telephone Encounter - Mary Anne Moody RN - 03/26/2024 9:03 AM EDT Patient called and scheduled. Mary Anne Moody RN * Telephone Encounter - Ngozi Wise - 03/25/2024 4:38 PM EDT Patient called to scheduled one year follow up appointment with Dr. Lynch and [facility]. No documentation of authorization to transfer from [place] to [place] office is available in patient's chart nor in previous OV note with provider. Please document then advise patient if eligible to schedule at [facility]. documented in this encounterBet[facility]07-01-2024 Telephone encounter Note * Telephone Encounter - Ngozi Wise - 03/25/2024 4:38 PM EDT Patient called to scheduled one year follow up appointment with Dr. Lynch and [facility]. No documentation of authorization to transfer from [place] to [place] office is available in patient's chart nor in previous OV note with provider. Please document then advise patient if eligible to schedule at [facility]. [facility]09-06-[facility]23 NoteHNO ID: [id number] Author: Francisco Javier Lynch MD Service: ? Author Type: Physician Type: Progress Notes Filed: 05/31/2023 4:59 PM Note Text: Francisco Javier Lynch MD Interventional Cardiology [address] [place], [place] [id number] Chief Complaint Patient presents with: New Patient Evaluation: Stemi HISTORY OF PRESENT ILLNESS: Mr. Dempsey is a 67 year old male in my office today for assessment of bradycardia patient had prior history of severe coronary artery disease with multiple stents in 2018 with progression of his coronary artery disease required bypass surgery in 2019 he had a SCHWARTZ to the LAD vein graft to the first obtuse marginal vein graft to the second acute marginal Is doing well from the cardiac point of view asymptomatic denies chest pain or shortness of breath Acquired of the fifth breath recently and he noticed that at night his heart rate goes down to 38 and 40 sinus bradycardia asymptomatic denies syncope presyncope Plan active with no limitation Cardiac Risk Factors age (male over 45, female over 55), hyperlipidemia, hypertension, family history of CAD PAST MEDICAL HISTORY Diagnosis Date Asthma CAD (coronary artery disease) History of SC (myocardial infarction) 04/2019 HTN (hypertension) Hypercholesteremia S/P drug eluting coronary stent placement 04/2019 RCA PAST SURGICAL HISTORY Procedure Laterality Date APPENDECTOMY CABG (3) VEIN GRAFTS AND ARTERIAL GRAFT(S) 04/10/2020 COLONOSCOPY FLX DX W/COLLJ SPEC WHEN PFRMD 10/04/2014 EGD TRANSORAL BIOPSY SINGLE/MULTIPLE 10/04/2014 LOW BACK DISK SURGERY 2007 LASER PAST SURGICAL HISTORY OF procedure for undescended testicles STENT PLACEMENT 04/2019 FAMILY HISTORY Problem Relation Age of Onset Hypertension Mother Breast Cancer Mother Heart Attack Father BLOOD CLOT BEHIND HEART Melanoma Sister Bipolar disorder Sister Hypertension Sister Social History Tobacco Use Smoking status: Never Smokeless tobacco: Never Vaping Use Vaping Use: Never used Substance Use Topics Alcohol use: No Drug use: Never ALLERGIES Allergen Reactions Amoxicillin Intolerance Atorvastatin Mental Status Change Augmentin [Amoxicil* GI Upset Levaquin [Levofloxa* Other: See Comments Per Patient does not work for him Tetracyclines Cough Medications: Current Outpatient Medications Medication Sig Dispense Refill omeprazole (PRILOSEC) 40 mg capsule aspirin, enteric coated (ASPIRIN EC) 81 mg EC tablet Take 1 tablet by mouth once daily. 30 tablet 0 metoprolol tartrate, short acting, (LOPRESSOR) 25 mg tablet Take 0.5 tablets by mouth every 12 hours. 30 tablet 2 rosuvastatin (CRESTOR) 10 mg tablet Take 2 tablets by mouth once daily. 60 tablet 2 multivitamin tablet Take 1 tablet by mouth once daily. psyllium husk, with sugar, (METAMUCIL FIBER THIN) 2 gram wafr Take 1 capsule by mouth once daily. ticagrelor (BRILINTA) 90 mg tablet Take 1 tablet by mouth twice daily. Please make sure you talk to Dr. Hook about IF/WHEN you should take this meds. (Patient not taking: Reported on 04/21/2020) No current facility-administered medications for this visit. Review of Systems Constitutional: Negative for chills, diaphoresis, fever, malaise/fatigue and weight loss. HENT: Negative for congestion, ear discharge, ear pain, hearing loss, nosebleeds, sinus pain, sore throat and tinnitus. Eyes: Negative for blurred vision, double vision, photophobia, pain, discharge and redness. Respiratory: Negative for cough, hemoptysis, sputum production, shortness of breath, wheezing and stridor. Cardiovascular: Negative for chest pain, palpitations, orthopnea, claudication, leg swelling and PND. Gastrointestinal: Negative for abdominal pain, blood in stool, constipation, diarrhea, heartburn, melena, nausea and vomiting. Genitourinary: Negative for dysuria, flank pain, frequency, hematuria and urgency. Musculoskeletal: Negative for back pain, falls, joint pain, myalgias and neck pain. Skin: Negative for itching and rash. Neurological: Negative for dizziness, tingling, tremors, sensory change, speech change, focal weakness, seizures, loss of consciousness, weakness and headaches. Endo/Heme/Allergies: Negative for environmental allergies and polydipsia. Does not bruise/bleed easily. Psychiatric/Behavioral: Negative for depression, hallucinations, memory loss, substance abuse and suicidal ideas. The patient is not nervous/anxious and does not have insomnia. Physical Examination: Vitals:BP 144/90 Pulse 74 Ht 5' 10 (1.78m) Wt 197 lb (89.4kg) SpO2 96% BMI 28.27 kg/(m2). BP w/Orthostatic Vitals Date and Time Orthostatic BP Orthostatic Pulse BP Pulse BP Position BP Site BP Cuff Size 05/31/23 1529 -- -- 144/90 74 Sitting Left Arm Regular Adult Last 2 Encounter Wt Readings: Date: Wt: 05/31/2023 197 lb (89.4 kg) 09/30/2020 191 lb (86.6 kg) Physical Exam Constitut (more content not included)...[facility]09-06-2023 History of Present illness Narrative* Francisco Javier Lynch MD - 05/31/2023 4:54 PM EDT Images from the original note were not included. Francisco Javier Lynch MD Interventional Cardiology [address] [place], [place] [id number] Chief Complaint Patient presents with: New Patient Evaluation: Stemi HISTORY OF PRESENT ILLNESS: Mr. Dempsey is a 67 year old male in my office today for assessment of bradycardia patient had prior history of severe coronary artery disease with multiple stents in 2018 with progression of his coronary artery disease required bypass surgery in 2019 he had a SCHWARTZ to the LAD vein graft to the first obtuse marginal vein graft to the second acute marginal Is doing well from the cardiac point of view asymptomatic denies chest pain or shortness of breath Acquired of the fifth breath recently and he noticed that at night his heart rate goes down to 38 and 40 sinus bradycardia asymptomatic denies syncope presyncope Plan active with no limitation Cardiac Risk Factors age (male over 45, female over 55), hyperlipidemia, hypertension, family history of CAD PAST MEDICAL HISTORY Diagnosis Date Asthma CAD (coronary artery disease) History of SC (myocardial infarction) 04/2019 HTN (hypertension) Hypercholesteremia S/P drug eluting coronary stent placement 04/2019 RCA PAST SURGICAL HISTORY Procedure Laterality Date APPENDECTOMY CABG (3) VEIN GRAFTS & ARTERIAL GRAFT(S) 04/10/2020 COLONOSCOPY FLX DX W/COLLJ SPEC WHEN PFRMD 10/04/2014 EGD TRANSORAL BIOPSY SINGLE/MULTIPLE 10/04/2014 LOW BACK DISK SURGERY 2007 LASER PAST SURGICAL HISTORY OF procedure for undescended testicles STENT PLACEMENT 04/2019 FAMILY HISTORY Problem Relation Age of Onset Hypertension Mother Breast Cancer Mother Heart Attack Father BLOOD CLOT BEHIND HEART Melanoma Sister Bipolar disorder Sister Hypertension Sister Social History Tobacco Use Smoking status: Never Smokeless tobacco: Never Vaping Use Vaping Use: Never used Substance Use Topics Alcohol use: No Drug use: Never ALLERGIES Allergen Reactions Amoxicillin Intolerance Atorvastatin Mental Status Change Augmentin [Amoxicil* GI Upset Levaquin [Levofloxa* Other: See Comments Per Patient does not work for him Tetracyclines Cough Medications: Current Outpatient Medications Medication Sig Dispense Refill omeprazole (PRILOSEC) 40 mg capsule aspirin, enteric coated (ASPIRIN EC) 81 mg EC tablet Take 1 tablet by mouth once daily. 30 tablet 0 metoprolol tartrate, short acting, (LOPRESSOR) 25 mg tablet Take 0.5 tablets by mouth every 12 hours. 30 tablet 2 rosuvastatin (CRESTOR) 10 mg tablet Take 2 tablets by mouth once daily. 60 tablet 2 multivitamin tablet Take 1 tablet by mouth once daily. psyllium husk, with sugar, (METAMUCIL FIBER THIN) 2 gram wafr Take 1 capsule by mouth once daily. ticagrelor (BRILINTA) 90 mg tablet Take 1 tablet by mouth twice daily. Please make sure you talk toDr. Hook about IF/WHEN you should take this meds. (Patient not taking: Reported on 04/21/2020) No current facility-administered medications for this visit. Review of Systems Constitutional: Negative for chills, diaphoresis, fever, malaise/fatigue and weight loss. HENT: Negative for congestion, ear discharge, ear pain, hearing loss, nosebleeds, sinus pain, sore throat and tinnitus. Eyes: Negative for blurred vision, double vision, photophobia, pain, discharge and redness. Respiratory: Negative for cough, hemoptysis, sputum production, shortness of breath, wheezing and stridor. Cardiovascular: Negative for chest pain, palpitations, orthopnea, claudication, leg swelling and PND. Gastrointestinal: Negative for abdominal pain, blood in stool, constipation, diarrhea, heartburn, melena, nausea and vomiting. Genitourinary: Negative for dysuria, flank pain, frequency, hematuria and urgency. Musculoskeletal: Negative for back pain, falls, joint pain, myalgias and neck pain. Skin: Negative for itching and rash. Neurological: Negative for dizziness, tingling, tremors, sensory change, speech change, focal weakness, seizures, loss of consciousness, weakness and headaches. Endo/Heme/Allergies: Negative for environmental allergies and polydipsia. Does not bruise/bleed easily. Psychiatric/Behavioral: Negative for depression, hallucinations, memory loss, substance abuse and suicidal ideas. The patient is not nervous/anxious and does not have insomnia. Physical Examination: Vitals:BP 144/90 Pulse 74 Ht 5' 10 (1.78m) Wt 197 lb (89.4kg) SpO2 96% BMI 28.27 kg/(m^2). BP w/Orthostatic Vitals Date and Time Orthostatic BP Orthostatic Pulse BP Pulse BP Position BP Site BP Cuff Size 05/31/23 1529 -- -- 144/90 74 Sitting Left Arm Regular Adult Last 2 Encounter Wt Readings: Date: Wt: 05/31/2023 197 lb (89.4 kg) 09/30/2020 191 lb (86.6 kg) Physical Exam Constitutional: General: He is not in acute distress. Appearance: He is not diaphoretic. HENT: Head: Normocephalic and atraumatic. Right Ear: External ear normal. Left Ear: External ear normal. Nose: Nose normal. Mouth/Throat: Pharynx: Oropharynx is clear. Eyes: General: Right eye: No discharge. Left eye: No discharge. Conjunctiva/sclera: Conjunctivae normal. Pupils: Pupils are equal, round, and reactive to light. Cardiovascular: Rate and Rhythm: Normal rate and regular rhythm. Heart sounds: Normal heart sounds, S1 normal and S2 normal. No murmur heard. No friction rub. No gallop. No S3 or S4 sounds. Pulmonary: Effort: Pulmonary effort is normal. No respiratory distress. Breath sounds: Normal breath sounds. No wheezing or rales. Chest: Chest wall: No tenderness. Musculoskeletal: General: Normal range of motion. Cervical back: Normal range of motion and neck supple. Skin: General: Skin is warm and dry. Neurological: Mental Status: He is alert and oriented to person, place, and time. Psychiatric: Mood and Affect: Mood normal. Thought Content: Thought content normal. Pertinent Labs: CBC: Hemoglobin (g/dL) Date Value 09/21/2020 16.1 HGB (g/dL) Date Value 04/15/2020 11.1 Hematocrit (%) Date Value 09/21/2020 48.3 04/15/2020 32.2 WBC Date Value 09/21/2020 5.15 k/uL 04/15/2020 7.84 thou/cmm Platelet Count Date Value 09/21/2020 148 k/uL 04/15/2020 126 thou/cmm BMP: Glucose (mg/dL) Date Value 04/16/2020 98 Potassium (mmol/L) Date Value 04/16/2020 4.1 Sodium (mmol/L) Date Value 04/16/2020 140 Chloride (mmol/L) Date Value 04/16/2020 101 CO2 (mmol/L) Date Value 04/16/2020 28 Creatinine (mg/dL) Date Value 04/16/2020 1.19 BUN (mg/dL) Date Value 04/16/2020 23 Anion Gap (mmol/L) Date Value 04/16/2020 11 Calcium (mg/dL) Date Value 04/16/2020 9.0 INR: Lipid Profile: No results found for: CHOL, HDL, LDL, TG Hemoglobin A1C: No results found for: HGBA1C TSH: TSH Date Value Ref Range Status 04/02/2020 2.120 0.270 - 4.200 uIU/mL Final Comment: : 1st trimester:(9-12 weeks):0.180-2.900 uIU/mL 2nd trimester: 0.110-3.980 uIU/mL 3rd trimester: 0.480-4.710 uIU/mL Patients taking a biotin dose of up to 5 mg/day should refrain from taking biotin for 4 hours prior to sample collection. Patients taking a biotin dose of 5 to 10 mg/day should refrain from taking biotin for 8 hours prior to sample collection. Patients taking a biotin dose > 10 mg/day should consult with their physician or the laboratory prior to having a sample taken. Clinicians should consider biotin interference as a source of error, when clinically suspicious of the laboratory result. Prior Cardiac Testing EKG Assessment and Plan: 67 years old gentleman with asymptomatic bradycardia on beta-blockers prior history of coronary artery disease and bypass surgery ASSESSMENT/PLAN: 1. Coronary artery disease involving [place] coronary artery of [place] heart without angina pectoris[I25.10] - ICD9: 414.01, ICD10: I25.10 (primary diagnosis) Status post bypass surgery with no angina Medical therapy 2. S/P CABG x 3 - ICD9: V45.81, ICD10: Z95.1 Stable with no angina Appropriate medical therapy 3. Primary hypertension - ICD9: 401.9, ICD10: I10 - Controlled - Continue current medications - Recommend home blood pressure monitoring, to bring results to next visit - Encouraged sodium restriction, DASH or Mediterranean diet - Recommend regular aerobic exercise 4. Hypercholesteremia - ICD9: 272.0, ICD10: E78.00 On statin 5. Sinus bradycardia - ICD9: 427.89, ICD10: R00.1 Patient is asymptomatic with no presyncope or syncope plain that bradycardia is a normal finding with sleep Continue monitoring Beta-paige Francisco Javier Lynch MD Follow up planning: One year Electronically signed by Francisco Javier Lynch MD on May 31, 2023, 4:54 PM The above note was partially created using a dictation recognition software. A reasonable attempt has been made to correct any errors. documented in this encounterBet[facility]09-[facility]23 Nurse Note* Lily Salazar MA - 05/31/2023 3:29 PM EDT No cardiac concerns today * Lily Salazar MA - 05/31/2023 3:24 PM EDT No cardiac concerns today documented in this encounterBethesda North Hospital05-31-2023 Miscellaneous Notes* Telephone Encounter - Tanner Lerma - 02/22/2023 9:25 AM EDT PCP referral for hx of STEMI, myocardial infarction, aortocoronary bypass graft, CAD - Please schedule patient with Dr. Castillo Referral was sent to Dr. Chan. Not appropriate for EP, I explained this to patients and she said she would have her call back and schedule himself. Tanner Lerma documented in this encounterBethesda [facility] Hospital07-17-2020 History of Past illness Narrative* Problem Noted Date Resolved Date Acute postoperative respiratory insufficiency 04/16/2020 Leukocytosis 04/16/2020 documented as of this encounter (statuses as of 02/22/2023) [facility] of Past illness Narrative* Problem Noted Date Diagnosed Date Resolved Date Acute postoperative respiratory insufficiency 04/10/20 20 04/16/2020 Leukocytosis 04/16/2020 documented as of this encounter (statuses as of 06/01/2023) [facility]* Diagnosis Onset Date Resolution Status Lung nodule acute Atherosclerosis of coronary artery of [place] heart without angina pectoris chronic Hyperlipidemia [facility] Work Phone: Evaluation note* Diagnosis Coronary artery disease involving [place] coronary artery of [place] heart without angina pectoris [I25.10]- Primary S/P CABG x 3 Postsurgical aortocoronary bypass status Primary hypertension Unspecified essential hypertension Hypercholesteremia Pure hypercholesterolemia Sinus bradycardia Other specified cardiac dysrhythmias documented in this encounter [facility] note* Diagnosis Onset Date Resolution Status Health care maintenance acut e Essential (primary) hypertension chronic History of Shukla's esophagus chronic Hyperlipidemia chronic [facility] Work Phone: Evaluation note* Diagnosis Coronary artery disease involving [place] coronary artery of [place] heart without angina pectoris- Primary Primary hypertension Unspecified essential hypertension Hypercholesteremia Pure hypercholesterolemia Sinus bradycardia Other specified cardiac dysrhythmias documented in this encounter [facility] noteNo assessment information availableBlAdventist Health St[facility] Work Phone: Hospital Discharge instructions Additional Instructions Follow-up with your PCP and return for any worsening of your symptoms.[facility] Work Phone: Reason for referral (narrative)No reason for referral information availableWTrumbull [facility] Work Phone: Summary Purpose Family History No Family History Records Found Relationship Condition Age at Onset Recorded Date/T miroslava father Cardiac disease Unknown Myocardial infarction Unknown sister Depression Unknown grandfather Alcoholism Unknown mother Malignant neoplasm of breast Unknown Diabetes mellitus Unknown Hypertension Unknown Cerebrovascular accident (CVA) Unknown Advance Directives No Advanced Directives Records FoundDocuments on File Type Date Recorded 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 Expl 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 Advance Directive(s) 04/10/2020 5:56 AM Date Activated Date Inactivated Comments 04/21/2020 2:01 PM 09/23/2020 11:36 AM Advance Directive Response Recorded Date/ Time Living Will Yes July 27 3:04pm Power of Manager Of Maintenance Yes July 27, 2020 3:04pm Latest Code Status on File Code Status Date Activated Date Inactivated Comments Full Code 04/21/2020 2:01 PM 09/23/2020 11:36 AM Latest Code Status on File Code Status Date Activated Date Inactivated Comments Full Code 04/21/2020 2:01 PM 09/23/2020 11:36 AM Advance Directive Response Recorded Date/ Time Name of Medical Power of Manager Of Maintenance . August 28, 2023 1:10pm Living Will Yes August 28 1:10pm Power of Manager Of Maintenance Yes August 28, 2023 1:10pm Chief Complaint and Reason for Visit Chief Complaint FOLLOW UP LUNG NODULE Reason for Visit Lung nodule Atherosclerosis of coronary artery of [place] heart without angina pectoris Hyperlipidemia Chief Complaint 6 M FU Reason for Visit Health care maintena nce Essential (primary) hypertension History of Shukla's esophagus Hyperlipidemia Chief Complaint 6 M FU dizziness, vomiting, Reason for Visit Health care maintena nce Essential (primary) hypertension History of Shukla's esophagus Hyperlipidemia Chief Complaint Admit Date POSSIBLE TICK August 14, 2024 11:17am L EYE IRRITATION October 18, 2024 5 :19pm TICK BITE/WANTS CHK FOR LYME DISEASE Jorge Alberto uary 2024 3:15pm Reason for Visit Admit Date Lyme disease August 14, 2024 11:17am Subconjunctival hemorrhage of left eye J anuary 2024 5:19pm Health care maintenance October 21 3:15pm Impacted cerumen of left ear September 3:15pm Lyme disease October 21, 2024 3 :15pm Essential (primary) hypertension October 21, 2024 3:15pm Hyperlipidemia October 21, 2024 3 :15pm Chief Complaint Admit Date UPPER AND LOWER - BARRETTS May 16, 2025 12:57pm Additional Source Comments (unrecognized sect ion and content) No Status Records FoundNo Status Records FoundNo Status Records FoundNo Status Records Found INFORMATION SOURCE (unrecogn ized section and content) DATE CREATED AUTHOR 04/29/2021 [facility] DATE CREATED AUTHOR AUTHOR'S ORGANIZ ATION 06/01/2023 [facility] DATE CREATED AUTHOR AUTHOR'S ORGANIZ ATION 07/10/2024 [facility] DATE CREATED AUTHOR AUTHOR'S ORGANIZ ATION 06/16/2025 [facility] Care Teams (unrecognized sec tion and content) Team Status: Active Member Role Status Dates Dr. Minoo Dahl MD Family Provider Active Dr. Minoo Dahl MD Primary Care Provider Active Team Status: Inactive Member Role Status Dates Dr. Minoo Dahl MD Primary Care Provider, Refer ring Provider Active Domingo Morrow TRAVEL INFORMATION CENTER SUPERVISOR, TRAVEL INFORMATION CENTER SUPERVISOR-C Attending Provider Active Team Status: Inactive Member Role Status Dates Dr. Minoo Dahl MD Primary Care Provider Active Domingo Morrow TRAVEL INFORMATION CENTER SUPERVISOR, TRAVEL INFORMATION CENTER SUPERVISOR-C Attending Provider, Referring Prov ider Active Cocoa Butter Filter Operator Relationship Specialty Start Date End Date Minoo Dahl MD [address] [place] [address] PCP - General Internal Medicine 04/02/20 Miladys, Paresh S [address] [place] [address] Cardiology 10/30/19 Bam Chaparro MD [address] [place] [address] Home Care Provider Cardiothoracic Surgery 04/13/20 Bam Chaparro MD [address] [place] [address] Referring Cardiothoracic Surgery 04/13/20 Nicole Duffy RN [address] [place], [place] [id number] Facility Planner Post Acute Care 04/20/20 Cocoa Butter Filter Operator Relationship Specialty Start Date End Date Minoo Dahl MD [address] [address] PCP - General Internal Medicine 04/02/20 Miladys, Paresh S [address] [place] [address] Cardiology 10/30/19 Bam Chaparro MD [address] [place] [address] Home Care Provider Cardiothoracic Surgery 04/13/20 Bam Chaparro MD [address] [place] [address] Referring Cardiothoracic Surgery 04/13/20 Nicole Duffy RN [address] [place], [place] [id number] Facility Planner Post Acute Care 04/20/20 Team Status: Inactive Member Role Status Dates Dr. Minoo Dahl MD Primary Care P napoleon, Attending Provider, Referring Provider Active Team Status: Inactive Member Role Status Dates Dr. Minoo Dahl MD Primary Care Provider, Atten ding Provider Active Team Status: Inactive Member Role Status Dates Dr. Minoo Dahl MD Primary Care Provider Active Dr. Shon Morel DO Emergency Provider Active Cocoa Butter Filter Operator Relationship Specialty Start Date End Date Minoo Dahl MD [address] [place], [place] [address] PCP - General Internal Medicine 04/02/20 Paresh Hook MD [address] [place], [place] [id number] Cardiology 10/30/19 Bam Chaparro MD [address] [address] [place] [address] Home Care Provider Cardiothoracic Surgery 04/13/20 Bam Chaparro MD [address] [place] [address] Referring Cardiothoracic Surgery 04/13/20 Nicole Duffy RN [address] [place], [place] [id number] Facility Planner Post Acute Care 04/20/20 Cocoa Butter Filter Operator Relationship Specialty Start Date End Date Minoo Dahl MD [address] [place], [place] [phone] PCP - General Internal Medicine 04/02/20 Paresh Hook MD [address] [place] [id number] Cardiology 10/30/19 Bam Chaparro MD [address] [place], [place] [id number] Home Care Provider Cardiothoracic Surgery 04/13/20 Bam Chaparro MD [address] [place], [place] [id number] Referring Cardiothoracic Surgery 04/13/20 Nicole Duffy RN [address] [place], [place] [phone] Facility Planner Post Acute Care 04/20/20 Team Status: Inactive Member Role Status Dates Dr. Minoo Dalh MD Primary Care Provider Active Start: August 14, 2024 End: August 14, 2024 Dr. Minoo Dahl MD Referring Provider Active Start: August 14, 2024 End: August 14, 2024 Skinny MERA, PA Attending Provider Active Start: August 14, 2024 End: August 14, 2024 Team Status: Inactive Member Role Status Dates Dr. Minoo Dahl MD Primary Care Provider Active Start: October 18, 2024 End: October 18, 2024 Dr. Minoo Dahl MD Referring Provider Active Start: October 18, 2024 End: October 18, 2024 Evaristo MERA PA Attending Provider Active Sta rt: October 18, 2024 End: October 18, 2024 Team Status: Inactive Member Role Status Dates Dr. Minoo Dahl MD Primary Care Provider Active Start: October 21, 2024 End: October 21, 2024 Dr. Minoo Dahl MD Attending Provider Active Start: October 21, 2024 End: October 21, 2024 Dr. Minoo Dahl MD Referring Provider Active Start: October 21, 2024 End: October 21, 2024 Team Status: Inactive Member Role Status Dates Dr. Minoo Dahl MD Primary Care Provider Active Start: November 26, 2024 End: November 26, 2024 Julio César Vera MD Attending Provider Active Start : November 26, 2024 End: November 26, 2024 Julio César Vera MD Referring Provider Active Start : November 26, 2024 End: November 26, 2024 Team Status: Active Member Role/Relationship Status Dates Dr. Minoo Dahl MD Family Provider Active Julio César Vera MD Primary Care Provider Active Team Status: Inactive Member Role/Relationship Status Dates Dr. Odette Franks MD Attending Provider Active Start: May 16, 2025 End: May 16, 2025 Julio César Vera MD Primary Care Provider Active St art: May 16, 2025 End: May 16, 2025 Julio César Vera MD Referring Provider Active Start : May 16, 2025 End: May 16, 2025 Goals (unrecognized section and content) Goals may be documented in a n alternate sectionGoals may be documented in an alternate sectionGoals may be documented in an alternate sectionGoals may be documented in an alternate sectionGoals may be documented in an alternate section Source Comments (unrecognize d section and content) In the event this informatio n is protected by the Federal Confidentiality of Alcohol and Drug Abuse Patient Records regulations: The Federal rules restrict any use of the information to criminally investigate or prosecute any alcohol or drug abuse patient.[facility] the event this information is protected by the Federal Confidentiality of Alcohol and Drug Abuse Patient Records regulations: The Federal rules restrict any use of the information to criminally investigate or prosecute any alcohol or drug abuse patient.[facility] the event this information is protected by the Federal Confidentiality of Alcohol and Drug Abuse Patient Records regulations: The Federal rules restrict any use of the information to criminally investigate or prosecute any alcohol or drug abuse patient.[facility] the event this information is protected by the Federal Confidentiality of Alcohol and Drug Abuse Patient Records regulations: The Federal rules restrict any use of the information to criminally investigate or prosecute any alcohol or drug abuse patient.[facility] Reason for Visit (unrecogniz ed section and content) Reason Comments Appointment Reason Comments New Patient Evaluation Stemi Reason Comments Follow Up FOR RECORDS PERTAINING TO PATIENTS WHO ARE OR HAVE BEEN ENROLLED IN A CHEMICAL DEPENDENCY/SUBSTANCEABUSE PROGRAM, SOME INFORMATION MAY BE OMITTED. This clinical summary was aggregated from multiple sources. Caution should be exercised in using it in the provision of clinical care. This summary normalizes information from multiple sources, and as a consequence, information in this document may materially change the coding, format and clinical context of patient data. In addition, data may be omitted in some cases. CLINICAL DECISIONS SHOULD BE BASED ON THE PRIMARY CLINICAL RECORDS. [facility]. provides no warranty or guarantee of the accuracy or completeness of information in this document.
[2025-06-18] MEDS: Lactated Ringers 1,000 ML 15 ML IV (07:26)
--- NOTE | 2025-06-18 07:37 | H&P.OPEN ---
HPI - General General Date of Service: 06/18/25 HPI Narrative JIMMY DEMPSEY, is a 69 M who presents for an EGD and colonoscopy due to Shukla's and screening for colon cancer. Patient denies any changes since last office visit. Office visit 05/16/2025 [facility] HPI: 69-year-old male presents for EGD and colonoscopy. Patient was last EGD was in [address] Mills found short segment of Shukla's which was biopsied as well as medium size hiatal hernia and some chronic gastritis recommend follow-up in 3 years for repeat endoscopy. Patient states he also had a colonoscopy at age 59 [address] Mills negative at that time. Patient states he has bowel movements daily denies any blood. Patient denies any chronic abdominal pain/nausea/vomiting. Patient reflux and Tums are controlled with omeprazole 40 mg p.o. daily. Patient denies any family history of colon cancer. Patient is on aspirin 81 mg due to his bypass in 2019 and cardiac stents. [facility] Medical History History of echocardiogram Wears hearing aid Wears glasses History of gout Arthritis High cholesterol History of hiatal hernia PONV (postoperative nausea and vomiting) Gastric reflux Non-smoker Leg cramps History of stress test Cardiology follow-up encounter History of atrial fibrillation Lyme disease Addiction Health care maintenance Lung nodule Hearing difficulty Impacted cerumen of left ear Screening for thyroid disorder Malaise and fatigue Flu vaccine need Thrombocytopenia Preventative health care History of Shukla's esophagus Postoperative atrial fibrillation (04/12/20) Atherosclerosis of coronary artery of [place] heart without angina pectoris History of acute inferior wall myocardial infarction (05/12/19) Essential (primary) hypertension STEMI (ST elevation myocardial infarction) (05/12/19) Bradycardia Fatty infiltration of liver Elevated liver enzymes Barretts esophagus Hiatal hernia GERD (gastroesophageal reflux disease) Vitamin A deficiency Gastritis Hyperlipidemia Asthma Home Medications ?Medication ?Instructions ?Recorded ?Last Taken ?Type multivitamin with minerals 1 tab PO DAILY supplement 05/11/20 06/15/25 History aspirin 81 mg tablet,delayed 81 mg PO DAILY HEART HEALTH 05/22/20 06/14/25 History release (Adult Aspirin Regimen) albuterol sulfate 90 mcg/actuation 2 puff inhalation Q6H PRN 07/28/20 Unknown Rx aerosol inhaler (ProAir HFA) shortness of breath or wheezing #8.5 grams coenzyme Q10 200 mg capsule (Co 200 mg PO DAILY 01/05/23 06/15/25 History Q-10) cholecalciferol (vitamin D3) 50 50 mcg PO DAILY 09/08/23 06/15/25 History mcg (2,000 unit) capsule omeprazole 40 mg capsule,delayed 40 mg PO DAILY #90 caps 02/26/24 06/15/25 Rx release rosuvastatin 20 mg tablet 20 mg PO DAILY CHOLESTEROL 03/05/24 06/15/25 Rx LOWERING #90 tabs metoprolol tartrate 25 mg tablet 12.5 mg (1/2 x 25 mg) PO BID BLOOD 03/25/24 06/18/25 Rx PRESSURE #90 tabs magnesium 250 mg tablet 250 mg PO DAILY 06/16/25 06/15/25 History Allergy/AdvReac Type Severity Reaction Status Date / Time amoxicillin trihydrate (From Allergy CANT Verified 06/18/25 07:11 Augmentin) BREATHE potassium clavulanate (From Allergy CANT Verified 06/18/25 07:11 Augmentin) BREATHE tetracycline Allergy BRONCHIAL Verified 06/18/25 07:11 SPASM atorvastatin (From Lipitor) AdvReac memory Verified 06/18/25 07:11 loss, aggitated Family History Father Heart disease Myocardial infarction at 54 from it Sister Depression attempted suicide before Grandfather Alcoholism Mother Breast cancer Diabetes Hypertension CVA (cerebral vascular accident) Surgical History History of esophagogastroduodenoscopy (EGD) History of colonoscopy H/O coronary artery bypass surgery (04/10/20) History of left heart catheterization (08/29/19) History of coronary artery stent placement (05/12/19) History of back surgery History of tonsillectomy History of testicular surgery History of appendectomy Social History Smoking Status: Never smoker alcohol intake: never substance use type: does not use what type of physical activity do you participate in: other details: active job frequency: 3-4 times per week Past Medical/Surgical History Planned Operation Planned Operative Procedure(s): EGD, COLONOSCOPY S.O.S: No Previous Hospitalizations/Surgeries HX Hospitalizations: No HX of Surgeries: appendectomy 1968 heart stents x4 2018 triple bypass 2019 lumbar laser surgery cscope x2 Any Problems With Anesthesia: Yes (PONV) You/Your Family Experience Fever (Hyperthermia) With Anes: No Cholinesterase deficiency: No Cardiovascular Hx Chest Pain within Last 2 months: No Hx of Irregular Heartbeat and/or Afib: No (follows with whg last visit 04/2020. curently in cardiac rehab) Hx Heart Attack: Yes (2019 heart stents x4) Hx Congestive Heart Failure: No Hx Rheumatic Fever: No Hx Hypertension: Yes (PER PT, CONTROLLED ON MEDS) Hx Cardiac Catheterization: Yes (2018) Hx Cardiac Surgery/Stents/Etc.: Yes (heart stents 2019 x4 triple bypass 2019) Hx Stress Test: Yes (2019 and echo 2018) Hx Pain in Legs when Walking/Leg Cramps: No Respiratory Chronic Cough: No HX of Shortness of Breath: No Hoarseness: No Hx Chronic Obstructive Pulmonary Disease (COPD): No Hx Asthma: Yes Hx Emphysema: No Hx Sleep Apnea: No Hx Respiratory Tract Infection/Cold (presently): No Do You Snore Loudly (louder than talking or can be heard): Yes Do You Often Feel Tired/ Fatigued/ Sleepy Dring Daytime?: No Has Anyone Observed You Stop Breathing During Sleep?: No Result (for STOP score): Positive Hx Smoking: No Smoking Status: Never smoker Gastrointestinal Controlled With Meds: Yes Hx Gastrointestinal Disorders: No Hx Gastrointestinal Bleed: No Hx Ulcer: No Hx Hiatal Hernia: Yes (steven hardin) Difficulty Chewing/Swallowing: No Special diet followed at home: No (gareth) Hx Unplanned Weight Loss of 20#: No HX Unplanned Weight Gain of 20#: No Neurological Hx Seizures: No HX Syncope/Blackout Spells/Unconsciousness: No Hx Transient Ischemic Attacks (TIA): No Hx Multiple Sclerosis: No Hx Parkinson's Disease: No Hx Head/Neck Injury: No Hx Headaches: No Hx Back Injury/Pain: Yes (laser back surgery /injury with [facility]) Recent Onset of Speech Difficulty: No Restless Legs: No Does patient have nerve stimulator: No Blood Disorder Hx Leukemia: No Bleeding Tendencies: No Hx Deep Vein Thrombosis: No Hx High Cholesterol: Yes (on med) Blood Transmitted Disease: No Hx Hepatitis: No Hx Cirrhosis: No (fatty liver) Hx Anemia: No Hx Blood Disorders: No Reproduction : No Genitourinary Hx Renal Disease: No Hx Dialysis: No Musculoskeletal Hx Arthritis: Yes Hx Rheumatoid Arthritis: No Hx Gout: No Recent Onset of an Orthopedic Problem: No Endocrine Hx Diabetes: No Insulin: No Thyroid Disease: No Hx Steroid Therapy: No Psycho/Social Hx Substance Use: No Hx Alcohol Use: No Hx Anxiety: No Hx Depression: No Mental Illness: No Hx Dementia: No Miscellaneous Hx Cancer: No Recent Exposure to Contagious Disease: No Hx of C-Diff: No Any Loose Teeth: No Allergies amoxicillin trihydrate (From Augmentin) Allergy (Verified 06/18/25 07:11) CANT BREATHE potassium clavulanate (From Augmentin) Allergy (Verified 06/18/25 07:11) CANT BREATHE tetracycline Allergy (Verified 06/18/25 07:11) BRONCHIAL SPASM atorvastatin (From Lipitor) Adverse Reaction (Verified 06/18/25 07:11) memory loss, aggitated Maternal: Family History Father Heart disease Myocardial infarction Sister Depression Grandfather Alcoholism Mother Breast cancer Diabetes Hypertension CVA (cerebral vascular accident) Stroke Paternal: Family History Father Heart disease Myocardial infarction Sister Depression Grandfather Alcoholism Mother Breast cancer Diabetes Hypertension CVA (cerebral vascular accident) Heart Disease (father of a heart attack in his 50s) Discharge Is Pt Admitted From a [place] [facility], or a Retirement: No Who Could Help: After D/C, Where Do you Plan to Go: Return Home From the PAT History Number of Risk Factors: 1 Vital Signs Vital Signs Vital Signs: 06/18/25 07:14 06/18/25 07:14 Temperature 97.4 F L Temperature Source Temporal Pulse Rate 48 L Respiratory Rate 18 Respiratory Pattern Normal Blood Pressure 117/77 Blood Pressure Mean 90 Blood Pressure Source Monitor Blood Pressure Position Semi-Fowlers Blood Pressure Location Left Arm Pulse Ox 97 Oxygen Delivery Method Room Air Weight Weight: 191 lb 12.835 oz Body Mass Index (BMI) 27.5 Physical Exam Const alert, oriented x3 and no apparent distress HEENT normocephalic and head/scalp atraumatic Resp normal respiratory effort Cardio regular rate GI soft to palpation and non-tender; Negative for non-distended Palpation: Negative for guarding Extremity no clubbing, cyanosis or edema Skin no rashes or lesions noted Neuro CN's II-XII intact bilaterally Psych mental status grossly normal Assessment & Plan Assessment/Plan (1) History of Shukla's esophagus: (2) Screening for colon cancer: Surgery Risks - Colonoscopy I discussed with the patient the risks of the procedure: Yes Risks Include but are not Limited To: Plan for an EGD and colonoscopy risks include but are not limited to: Bleeding, perforation requiring further surgery, inability to complete colonoscopy requiring barium enema.
--- NOTE | 2025-06-18 07:41 | PCM.PRE.AN2 ---
ASA Classification* ASA Classification ASA Classification: 2 Assessment & Plan Anesthesia* Anesthesia Assessment Anesthesia Assessment: Discussed sedation and/or anesthesia options, risks, benefits, and alternatives with patient/parents/legal guardian/POA. Questions invited. The patient/parents/legal guardian/POA seems to understand and agrees to proceed with anesthesia plan. Reviewed the physical assessment, medical history, allergy history and patient home medications list prior to surgery/procedure/anesthetic and documented any changes. Performed airway and anesthesia risk assessments. Anesthesia Type Anesthesia Type: MAC History Source History Obtained from:: Patient and Chart Anesthesia Focused Assessment* Temperature: 97.4 F Pulse Rate: 48 Blood Pressure: 117/77 Respiratory Rate: 18 Pulse Ox: 97 Oxygen Delivery Method: Room Air Airway Assessment Mouth opens: >3 cm Mallampati Score: II Teeth Condition: Missing Neck Range of motion (ROM): Limited ROM Labs Anesthesia Preop lab: CBC WBC, (4.4-11.0) 4.9 K/mm3 11/26/24, 09:35 RBC, (4.6-6.2) 4.76 M/mm3 11/26/24, 09:35 Hgb, (13.0-16.5) 16.3 g/dL 11/26/24, 09:35 Hct, (40-54) 47.0 % 11/26/24, 09:35 Plt Count, (150-450) 149 K/mm3 L 11/26/24, 09:35 CHEMISTRY Potassium, (3.3-5.1) 4.7 mmol/L 11/26/24, 09:35 Sodium, (133-145) 137 mmol/L 11/26/24, 09:35 Magnesium, (1.6-2.6) 2.1 mg/dL 05/13/19, 03:55 Phosphorus, (2.5-4.9) 2.7 mg/dL 05/13/19, 03:55 BUN, (4-19) 21 mg/dL H 11/26/24, 09:35 Creatinine, (0.70-1.20) 1.29 mg/dL H 11/26/24, 09:35 Glucose, (70-99) 99 mg/dL 11/26/24, 09:35 TSH, (0.300-4.200) 2.570 uIU/mL 11/26/24, 09:35 COAG PT, (11.7-14.9) 12.7 SECONDS 05/11/20, 12:10 Pre-Assessment Diagnosis/Proposed Procedure Planned Operative Procedure(s): EGD, COLONOSCOPY Anesthesia History 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 When Was Last Pacemaker Check QUESTION #4 FULL TEXT: You/Your Family Experience fever (hyperthermia) with Anesthesia Last Oral Intake Last Oral intake: Last Oral Intake NPO since 06:10 06/18/25 07:14 Meds taken in AM with sips of Yes 06/18/25 07:14 water? Meds patient instructed to metoprolol 06/18/25 07:14 take am of surgery PONV PONV - internet sales representative: PONV - internet sales representative Female No 06/16/25 09:06 HX of Motion Sickness No 06/16/25 09:06 HX of N/V After Surgery Yes 06/16/25 09:06 Non-Smoker Yes 06/16/25 09:06 Duration of Surgery greater No 06/16/25 09:06 than 60 minutes Number of Risk Factors 2 06/16/25 09:06 PONV Score Moderate Risk 06/16/25 09:06 Height & Weight Height & Weight: Anesthesia: Height & Weight Height 5 ft 10 in 06/18/25 07:14 Weight: 87 kg 06/18/25 07:14 Body Mass Index (BMI) 27.5 06/18/25 07:14 Respiratory Assessment Respiratory Assessment - internet sales representative: Respiratory Tract Infection Hx - internet sales representative Hx Respiratory Tract Infection No 06/18/25 07:38 STOP Sleep Apnea STOP Sleep Apnea - internet sales representative: STOP Sleep Apnea - internet sales representative Hx Hypertension Yes: PER PT, CONTROLLED ON 06/18/25 07:38 MEDS Hx Sleep Apnea No 06/18/25 07:38 CPAP BIPAP Do you snore loudly (louder Yes 06/18/25 07:38 than talking or can be heard Do you often feel tired/ No 06/18/25 07:38 fatigued/ sleepy during daytime? Has anyone observed you stop No 06/18/25 07:38 breathing during sleep? STOP Results Positive 06/18/25 07:38 QUESTION #5 FULL TEXT : Do you snore loudly (louder than talking or can be heard through closed doors)? 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 Specify any problems Hx of Preganancy in last 3 N/A 06/16/25 09:06 Months Nurse Filling Out Transfusion MGRIFFITH 06/16/25 09:06 & Questions: Date: 06/16/25 06/16/25 09:06 Time: 09:09 06/16/25 09:06 Patient unable to answer at this time (ie. confused, unrespo /Reproduction History /Reproductive History - internet sales representative: /Reproductive Hx- internet sales representative Hx Now No 06/18/25 07:38 Gestational Age (in weeks): EDC: Hx Hx Para Hx Section SAB No 06/16/25 09:06 Active Medications Active Medications: Current Medications Generic Name Dose Route Start Last Admin Trade Name Freq PRN Reason Stop Dose Admin Lactated Ringer's 1,000 mls @ 15 mls/hr 06/18/25 07:00 06/18/25 07:26 IV 15 mls/hr .Q48H RAMANA Administration PFSH Medical History History of echocardiogram Wears hearing aid Wears glasses History of gout Arthritis High cholesterol History of hiatal hernia PONV (postoperative nausea and vomiting) Gastric reflux Non-smoker Leg cramps History of stress test Cardiology follow-up encounter History of atrial fibrillation Lyme disease Addiction Health care maintenance Lung nodule Hearing difficulty Impacted cerumen of left ear Screening for thyroid disorder Malaise and fatigue Flu vaccine need Thrombocytopenia Preventative health care History of Shukla's esophagus Postoperative atrial fibrillation (04/12/20) Atherosclerosis of coronary artery of [place] heart without angina pectoris History of acute inferior wall myocardial infarction (05/12/19) Essential (primary) hypertension STEMI (ST elevation myocardial infarction) (05/12/19) Bradycardia Fatty infiltration of liver Elevated liver enzymes Barretts esophagus Hiatal hernia GERD (gastroesophageal reflux disease) Vitamin A deficiency Gastritis Hyperlipidemia Asthma Home Medications ?Medication ?Instructions ?Recorded ?Last Taken ?Type multivitamin with minerals 1 tab PO DAILY supplement 05/11/20 06/15/25 History aspirin 81 mg tablet,delayed 81 mg PO DAILY HEART HEALTH 05/22/20 06/14/25 History release (Adult Aspirin Regimen) albuterol sulfate 90 mcg/actuation 2 puff inhalation Q6H PRN 07/28/20 Unknown Rx aerosol inhaler (ProAir HFA) shortness of breath or wheezing #8.5 grams coenzyme Q10 200 mg capsule (Co 200 mg PO DAILY 01/05/23 06/15/25 History Q-10) cholecalciferol (vitamin D3) 50 50 mcg PO DAILY 09/08/23 06/15/25 History mcg (2,000 unit) capsule omeprazole 40 mg capsule,delayed 40 mg PO DAILY #90 caps 02/26/24 06/15/25 Rx release rosuvastatin 20 mg tablet 20 mg PO DAILY CHOLESTEROL 03/05/24 06/15/25 Rx LOWERING #90 tabs metoprolol tartrate 25 mg tablet 12.5 mg (1/2 x 25 mg) PO BID BLOOD 03/25/24 06/18/25 Rx PRESSURE #90 tabs magnesium 250 mg tablet 250 mg PO DAILY 06/16/25 06/15/25 History Allergy/AdvReac Type Severity Reaction Status Date / Time amoxicillin trihydrate (From Allergy CANT Verified 06/18/25 07:11 Augmentin) BREATHE potassium clavulanate (From Allergy CANT Verified 06/18/25 07:11 Augmentin) BREATHE tetracycline Allergy BRONCHIAL Verified 06/18/25 07:11 SPASM atorvastatin (From Lipitor) AdvReac memory Verified 06/18/25 07:11 loss, aggitated Family History Father Heart disease Myocardial infarction at 54 from it Sister Depression attempted suicide before Grandfather Alcoholism Mother Breast cancer Diabetes Hypertension CVA (cerebral vascular accident) Surgical History History of esophagogastroduodenoscopy (EGD) History of colonoscopy H/O coronary artery bypass surgery (04/10/20) History of left heart catheterization (08/29/19) History of coronary artery stent placement (05/12/19) History of back surgery History of tonsillectomy History of testicular surgery History of appendectomy Social History Smoking Status: Never smoker alcohol intake: never substance use type: does not use what type of physical activity do you participate in: other details: active job frequency: 3-4 times per week Review of Systems (Anesthesia) ROS Narrative System reviewed and no additional complaints, except as documented.
--- NOTE | 2025-06-18 08:00 | COLBX_PTH ---
PATIENT: JIMMY DEMPSEY LOC: EN U#:[id number] AGE/SX: 69/M ROOM: RE06/18/[address]: Dr. Odette Franks MD : 1955 BED: DIS: 06/18/2025 SPEC #: [id number] RECD: 06/18/25 11:54 STATUS: GERARD RENikki #: [id number] VERONICA: 06/18/25 08:[address]: Odette Franks DEPT: SURGICAL PATHOLOGY RECD BY: Yoandy Bhatti ENTERED: 06/18/25 14:31 SP TYPE: COLON BX OTHR DR: Julio César Vera MD Tissues: A - Esophagus, NOS B - Ascending colon Procedures: Surgery Specimen Level IV HEADER OPERATION: Colonoscopy with polypectomy, EGD with biopsy PRE-OP DIAGNOSIS: History of Shukla's esophagus, screening for colon cancer TISSUE SUBMITTED: A- GE Junction biopsy, B- Ascending colon polyp and biopsy MICROSCOPIC DIAGNOSIS A. Esophagus, biopsy: * Benign squamous mucosa. * Scant benign columnar mucosa, negative for goblet cell metaplasia. * Negative for dysplasia. B. Ascending colon, polyp, biopsy: * Tubular adenoma, multiple fragments. MICROSCOPIC DESCRIPTION Slides are reviewed. GROSS DESCRIPTION A. Received in fixative is one container labeled with the patient's name and designated GE junction biopsy. The specimen consists of one irregular fragment of boothe tissue that measures 0.4 cm. The specimen is totally submitted in one cassette. B. Received in fixative is one container labeled with the patient's name and designated Ascending colon polyp and biopsy. The specimen consists of five irregular fragments of boothe tissue that measure 0.1 to 0.2 cm. The specimen is totally submitted in one cassette. [place] 06/18/2025 CPT:67078p7
[2025-06-18] MEDS: Lactated Ringers 1,000 ML 1000 ML IV (08:32)
[2025-06-18] MEDS: Lidocaine 1% (5 ml sdv) 5 ML Vial 2.5 ML IV (08:32)
--- NOTE | 2025-06-18 09:11 | OP.PROVAT_ITS ---
06/18/2025 Julio César Vera Md Re : Upper GI endoscopy procedure for Kevin Quintero Dear Chuy This procedure was performed on Wednesday, June 18, 2025. My impressions and recommendations are as follows: Impressions : - Z-line variable, 35 cm from the incisors. Biopsied. - Medium-sized hiatal hernia. - Normal examined duodenum. - No gross lesions in the entire stomach. - No gross lesions in the entire esophagus. Recommendations : - Await pathology results. - Discharge patient to home. - Resume previous diet. - Continue present medications. - Repeat upper endoscopy 2-3 years for surveillance of Shukla's esophagus. My findings are described in the full procedure note, which is enclosed. If I can be of further assistance, please feel free to contact me at Doctor phone number(s): , Work: . Sincerely, MD Odette Butt MD 06/18/2025 9:11:09 AM This report has been signed electronically.
--- NOTE | 2025-06-18 09:11 | OP.EGD_ITS ---
Patient Name: Kevin Quintero Procedure Date: 06/18/2025 8:20 AM Date of : 1955 Age: 69 Procedure: Upper GI endoscopy Indications: Surveillance for malignancy due to personal history of Shukla's esophagus Providers: Odette Franks MD Referring MD: Odette Franks MD Medicines: Monitored Anesthesia Care Patient Profile: This is a 69 year old male. Complications: No immediate complications. Procedure: Pre-Anesthesia Assessment: - Prior to the procedure, a History and Physical was performed, and patient medications and allergies were reviewed. The patient's tolerance of previous anesthesia was also reviewed. The risks and benefits of the procedure and the sedation options and risks were discussed with the patient. All questions were answered, and informed consent was obtained. Prior Anticoagulants: The patient has taken no anticoagulant or antiplatelet agents except for aspirin. ASA Grade Assessment: Per anesthesia. After reviewing the risks and benefits, the patient was deemed in satisfactory condition to undergo the procedure. After obtaining informed consent, the endoscope was passed under direct vision. Throughout the procedure, the patient's blood pressure, pulse, and oxygen saturations were monitored continuously. The Colonoscope was introduced through the mouth, and advanced to the second part of duodenum. The upper GI endoscopy was accomplished without difficulty. The patient tolerated the procedure well. Scope In: 8:32:27 AM Scope Out: 8:37:00 AM Total Procedure Duration Time 0 hours 4 minutes 33 seconds Findings: The Z-line was variable and was found 35 cm from the incisors. Biopsies were taken with a cold forceps for histology. A medium-sized hiatal hernia was present. The examined duodenum was normal. No gross lesions were noted in the entire examined stomach. No gross lesions were noted in the entire esophagus. Impression: - Z-line variable, 35 cm from the incisors. Biopsied. - Medium-sized hiatal hernia. - Normal examined duodenum. - No gross lesions in the entire stomach. - No gross lesions in the entire esophagus. Recommendation: - Await pathology results. - Discharge patient to home. - Resume previous diet. - Continue present medications. - Repeat upper endoscopy 2-3 years for surveillance of Shukla's esophagus. Procedure Code(s): --- Professional --- 80019, PT, Esophagogastroduodenoscopy, flexible, transoral; with biopsy, single or multiple Diagnosis Code(s): --- Professional --- K22.89, Other specified disease of esophagus K44.9, Diaphragmatic hernia without obstruction or gangrene K22.70, Shukla's esophagus without dysplasia CPT copyright 2021 [employer]. All rights reserved. The codes documented in this report are preliminary and upon anthropology lecturer review may be revised to meet current compliance requirements. MD Odette Butt MD 06/18/2025 9:11:09 AM This report has been signed electronically. Number of Addenda: 0 Note Initiated On: 06/18/2025 8:20 AM
--- NOTE | 2025-06-18 09:14 | OP.PROVAT_ITS ---
06/18/2025 Julio César Vera Md Re : Colonoscopy procedure for Kevin Quintero Dear Chuy This procedure was performed on Wednesday, June 18, 2025. My impressions and recommendations are as follows: Impressions : - Diverticulosis in the sigmoid colon. - One less than 5 mm polyp in the ascending colon, removed with a cold biopsy forceps. Resected and retrieved. - The examination was otherwise normal on direct and retroflexion views. Recommendations : - Discharge patient to home. - High fiber diet. - Continue present medications. - Await pathology results. - Repeat colonoscopy in 5 years for surveillance based on pathology results. My findings are described in the full procedure note, which is enclosed. If I can be of further assistance, please feel free to contact me at Doctor phone number(s): , Work: . Sincerely, MD Odette Butt MD 06/18/2025 9:14:06 AM This report has been signed electronically.
--- NOTE | 2025-06-18 09:14 | OP.COLON_ITS ---
Patient Name: Kevin Quintero Procedure Date: 06/18/2025 8:37 AM Date of : 1955 Age: 69 Procedure: Colonoscopy Indications: Screening for colorectal malignant neoplasm Providers: Odette Franks MD Referring MD: Odette Franks MD Medicines: Monitored Anesthesia Care Patient Profile: This is a 69 year old male. Last Colonoscopy: 10 years ago. Complications: No immediate complications. Procedure: Pre-Anesthesia Assessment: - Prior to the procedure, a History and Physical was performed, and patient medications and allergies were reviewed. The patient's tolerance of previous anesthesia was also reviewed. The risks and benefits of the procedure and the sedation options and risks were discussed with the patient. All questions were answered, and informed consent was obtained. Prior Anticoagulants: The patient has taken no anticoagulant or antiplatelet agents except for aspirin. ASA Grade Assessment: Per anesthesia. After reviewing the risks and benefits, the patient was deemed in satisfactory condition to undergo the procedure. After I obtained informed consent, the scope was passed under direct vision. Throughout the procedure, the patient's blood pressure, pulse, and oxygen saturations were monitored continuously. The Colonoscope was introduced through the anus and advanced to the cecum, identified by the appendiceal orifice, ileocecal valve and palpation. The colonoscopy was performed without difficulty. The patient tolerated the procedure well. The quality of the bowel preparation was good. Scope In: 8:38:22 AM Scope Withdrawal Time 0 hours 18 minutes 13 seconds Scope Out: 9:03:42 AM Total Procedure Duration Time 0 hours 25 minutes 20 seconds Findings: The perianal and digital rectal examinations were normal. Scattered small-mouthed diverticula were found in the sigmoid colon. A less than 5 mm polyp was found in the ascending colon. The polyp was semi-pedunculated. Polypectomy was attempted, initially using a cold snare. Polyp resection was incomplete with this device. This intervention then required a different device and polypectomy technique. The polyp was removed with a cold biopsy forceps. Resection and retrieval were complete. The exam was otherwise without abnormality on direct and retroflexion views. Impression: - Diverticulosis in the sigmoid colon. - One less than 5 mm polyp in the ascending colon, removed with a cold biopsy forceps. Resected and retrieved. - The examination was otherwise normal on direct and retroflexion views. Recommendation: - Discharge patient to home. - High fiber diet. - Continue present medications. - Await pathology results. - Repeat colonoscopy in 5 years for surveillance based on pathology results. Procedure Code(s): --- Professional --- 55901, PT, Colonoscopy, flexible; with biopsy, single or multiple Diagnosis Code(s): --- Professional --- Z12.11, Encounter for screening for malignant neoplasm of colon D12.2, Benign neoplasm of ascending colon K57.30, Diverticulosis of large intestine without perforation or abscess without bleeding CPT copyright 2021 [employer]. All rights reserved. The codes documented in this report are preliminary and upon database security expert review may be revised to meet current compliance requirements. MD Odette Butt MD 06/18/2025 9:14:06 AM This report has been signed electronically. Number of Addenda: 0 Note Initiated On: 06/18/2025 8:37 AM
--- NOTE | 2025-06-18 15:41 | PCM.POSTANE2 ---
Anesthesia Postop Eval I Sum Anesthesia Postop Eval I Summary Anesthesia Postop Eval I Summary: Anesthesia Postop Eval I: Assessment Summary Airway patent Spontaneous unlabored respirations Mental status nausea Vomiting Anesthesia Postop Eval I: Fluid Summary Crystalloid volume administer (ml) Colloids volume administered ( ml) Blood Product volume administered (ml) Total IV fluid infused Anesthesia Postop Eval I: Summary Notes Anesthesia Complication Anesthesia Complication Comment: Post-operative progress note Anesthesia: Postop Eval II Evaluation Mental status: Awake and Calm Pain Level: 1 nausea: No Vomiting: No Complications Anesthesia Complication: No
--- NOTE | 2025-06-18 15:47 | PCM.POST.ANE ---
Anesthesia: Postop Eval I Current Vital Signs Temperature: 97.1 F Pulse Rate: 65 Blood Pressure: 96/54 Respiratory Rate: 20 Pulse Ox: 99 Oxygen Delivery Method: Room Air Assessment Airway patent: Yes Spontaneous unlabored respirations: Yes Mental status: Awake and Calm nausea: No Vomiting: No Anesthesia Complication: No Fluid Hydration Crystalloid volume administer (ml): 200 Total IV fluid infused: 200 Progress Note Anesthesia document: Postop Eval 1 completed: Yes
== END 2025-06-18 09:52 | disposition home or self-care (01) ==
LOC: EN 06:52 → AC 06:54
PROVIDERS: PCP Family Medicine; Referring Provider Family Medicine; Visit Provider Surgery
PROC: 0DJD8ZZ Inspection of Lower Intestinal Tract, Via Natural or Artificial Opening Endoscopic (ICD-10-PCS; CPT 45378; principal; 2025-06-18 07:55)
DX: Z12.11 Encounter for screening for malignant neoplasm of colon (principal); K44.9 Diaphragmatic hernia without obstruction or gangrene; K22.70 Barrett's esophagus without dysplasia; K57.30 Diverticulosis of large intestine without perforation or abscess without bleeding; I10 Essential (primary) hypertension; D12.2 Benign neoplasm of ascending colon; I25.10 Atherosclerotic heart disease of native coronary artery without angina pectoris; Z95.5 Presence of coronary angioplasty implant and graft; E78.00 Pure hypercholesterolemia, unspecified; Z79.82 Long term (current) use of aspirin; K21.9 Gastro-esophageal reflux disease without esophagitis; Z79.899 Other long term (current) drug therapy; J45.909 Unspecified asthma, uncomplicated
CPT/HCPCS: 43239; 45380; 88305